=== PATIENT | male | born 1930 | race Caucasian/White ===

== ENCOUNTER 2018-09-03 07:29 | Inpatient (IN) | payer MEDICARE ==
[~2018-09-03] VITALS: Ht 175.3 cm; Wt 88.5 kg
--- NOTE | 2018-09-03 07:35 | NUR ---
ED Nurse Note: patient was rought by RA complaining of SOB, AAO x 4, skin is dry warm to touch and intact, patient was placed in gown and connected to the monitor.Respiration is even, nonlabored. spous at the bed side
[2018-09-03] MEDS ORDERED: FLOMAX0.4 MG ORAL (07:39)
[2018-09-03] MEDS ORDERED: FUROSEMIDE20 M1 ORAL (07:39)
[2018-09-03] MEDS ORDERED: PROSCAR5 MG ORAL (07:39)
[2018-09-03] MEDS ORDERED: COLACE100 MG ORAL (07:39)
[2018-09-03] MEDS ORDERED: LOSARTAN POTASS50 MG ORAL (07:39)
[2018-09-03] MEDS ORDERED: ZOLPIDEM TARTRAT5 MG ORAL (07:39)
[2018-09-03] MEDS ORDERED: EPLERENONE25 MG PO ×2 (07:39→11:48)
[2018-09-03] MEDS ORDERED: WARFARIN SODIUM4 MG ORAL (07:39)
[2018-09-03] MEDS ORDERED: GABAPENTIN300 MG ORAL (07:39)
[2018-09-03] MEDS ORDERED: SYNTHROID150 MCG ORAL (07:39)
[2018-09-03] MEDS ORDERED: SENNA8.6 M2 PO ×2 (07:39→11:47)
[2018-09-03] MEDS ORDERED: PANTOPRAZOLE SO40 MG ORAL (07:39)
[2018-09-03] MEDS ORDERED: CARVEDILOL3.125 MG ORAL (07:39)
[2018-09-03 08:20] LABS: BASOPHILS % (AUTO) 0.2 % (0.0-2.0); EOSINOPHILS % (AUTO) 0.8 % (0.0-3.0); HEMATOCRIT 45.4 % (42.0-52.0); HEMOGLOBIN 14.6 G/DL (14.2-18.0); LYMPHOCYTES % (AUTO) 10.5 % (20.0-45.0); MEAN CORPUSCULAR VOLUME 89 FL (80-99); MONOCYTES % (AUTO) 6.3 % (1.0-10.0); NEUTROPHILS % (AUTO) 82.2 % (45.0-75.0); PLATELET COUNT 246 K/UL (150-450); RED CELL DISTRIBUTION WIDTH 14.9 % (11.6-14.8); WHITE BLOOD COUNT 11.4 K/UL (4.8-10.8)
[2018-09-03 08:26] LABS: INR 2.4 (0.9-1.1)
[2018-09-03 08:27] LABS: ANION GAP 8 mmol/L (5-15); BLOOD UREA NITROGEN 14 mg/dL (7-18); CALCIUM 8.7 MG/DL (8.5-10.1); CARBON DIOXIDE 29 MMOL/L (21-32); CHLORIDE 100 MMOL/L (98-107); CREATININE 0.8 MG/DL (0.55-1.30); POTASSIUM 3.4 MMOL/L (3.5-5.1); SODIUM 137 MMOL/L (136-145)
[2018-09-03 08:43] LABS: ALANINE AMINOTRANSFERASE 10 U/L (12-78); ALBUMIN 3.6 G/DL (3.4-5.0); ALBUMIN/GLOBULIN RATIO 0.9 (1.0-2.7); ALKALINE PHOSPHATASE 72 U/L (46-116); ASPARTATE AMINO TRANSFERASE 16 U/L (15-37); BILIRUBIN,TOTAL 1.3 MG/DL (0.2-1.0); CKMB 2.7 NG/ML (0.0-3.6); CREATINE KINASE 43 U/L (26-308)
[2018-09-03 08:44] LABS: BILIRUBIN,DIRECT 0.3 MG/DL (0.0-0.3)
[2018-09-03 08:47] VITALS: BP 185/75
--- NOTE | 2018-09-03 09:05 | NUR ---
[facility] Nurse Note: patient was transfered to tele unit, VSS, patient AAOx 4, all belongings were given to the patient'
[2018-09-03 10:26] VITALS: BP 176/105
--- NOTE | 2018-09-03 11:30 | NUR ---
NURSE NOTES: received patient report from rosalie thompson. patient came in via gurney. cardiac monior initiated. vss taken and recorded. under the care of dr beatty.patient came in with family members. med recon done in ER. patient and family member were oriented to the room. will continue to monitor.
--- NOTE | 2018-09-03 11:33 | History and Physical ---
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 He also reports cough productive of white sputum during this time along with mild ankle edema. Social History: No alcohol or tobacco Family History: No premature CAD, stroke Allergies: Coded Allergies: PENICILLINS (Verified Allergy, Unknown, 09/03/18) Uncoded Allergies: ARYTHROMYCIN (Allergy, Unknown, 09/03/18) Medication History Scheduled Carvedilol* (Carvedilol*), 3.125 MG ORAL EVERY 12 HOURS, (Reported) Docusate Sodium* (Colace*), 100 MG ORAL DAILY, (Reported) Eplerenone (Eplerenone), 25 MG PO THREE TIMES A DAY, (Reported) Eplerenone (Eplerenone), 25 MG PO TID, (Reported) Finasteride* (Proscar*), 5 MG ORAL DAILY, (Reported) Furosemide* (Lasix*), 10 MG ORAL DAILY, (Reported) Gabapentin* (Gabapentin*), 300 MG ORAL TWICE A DAY, (Reported) Levothyroxine Sodium* (Synthroid*), 150 MCG ORAL DAILY, (Reported) Losartan Potassium* (Losartan Potassium*), 50 MG ORAL DAILY, (Reported) Pantoprazole* (Pantoprazole*), 40 MG ORAL EVERY 12 HOURS, (Reported) Tamsulosin HCl (Flomax), 0.4 MG ORAL DAILY, (Reported) Warfarin Sod* (Warfarin Sod*), 4 MG ORAL DAILY, (Reported) Scheduled PRN Zolpidem Tartrate* (Zolpidem Tartrate*), 5 MG ORAL BEDTIME PRN for Insomnia, ( Reported) Miscellaneous Medications Sennosides (Senna), 8.6 MG PO, (Reported) Sennosides (Senna), 8.6 MG PO, (Reported) Patient History Healthcare decision maker Resuscitation status Advanced Directive on File Review of Systems Constitutional: Denies: chills, sweats, fever Eye: Denies: eye pain, blurred vision ENT: Denies: ear pain Respiratory: Reports: cough, orthopnea, shortness of breath; Denies: wheezing Cardiovascular: Reports: edema; Denies: chest pain Gastrointestinal: Denies: abdominal pain, constipation Genitourinary: Denies: discharge, dysuria Musculoskeletal: Denies: back pain, gout, joint pain Skin: Denies: rash, change in color Neurological: Denies: headache, numbness Endocrine: Denies: excessive sweating Hematologic/Lymphatic: Denies: anemia, blood clots Physical Exam General Appearance: no apparent distress, alert HEENT: normocephalic, atraumatic Neck: non-tender, normal alignment, supple Respiratory/Chest: chest wall non-tender, lungs clear, normal breath sounds, no respiratory distress, no accessory muscle use Cardiovascular/Chest: normal peripheral pulses, normal rate Abdomen: normal bowel sounds, non tender Extremities: trace edema Skin Exam: normal pigmentation, warm/dry 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, no motor/sensory deficits, alert, oriented x 3, responsive Last 24 Hour Vital Signs Date Time Temp Pulse Resp B/P (MAP) Pulse Ox O2 Delivery O2 Flow Rate FiO2 09/03/18 10:26 98.0 68 20 176/105 98 Nasal Cannula 2.0 09/03/18 08:47 64 16 Nasal Cannula 2.0 100 09/03/18 08:47 98.0 62 20 185/75 100 Nasal Cannula 2.0 09/03/18 07:22 97.5 85 23 178/131 95 Nasal Cannula 4.0 Laboratory Tests Test 09/03/18 07:48 White Blood Count 11.4 K/UL (4.8-10.8) H Red Blood Count 5.10 M/UL (4.70-6.10) Hemoglobin 14.6 G/DL (14.2-18.0) Hematocrit 45.4 % (42.0-52.0) Mean Corpuscular Volume 89 FL (80-99) Mean Corpuscular Hemoglobin 28.6 PG (27.0-31.0) Mean Corpuscular Hemoglobin Concent 32.1 G/DL (32.0-36.0) Red Cell Distribution Width 14.9 % (11.6-14.8) H Platelet Count 246 K/UL (150-450) Mean Platelet Volume 6.7 FL (6.5-10.1) Neutrophils (%) (Auto) 82.2 % (45.0-75.0) H Lymphocytes (%) (Auto) 10.5 % (20.0-45.0) L Monocytes (%) (Auto) 6.3 % (1.0-10.0) Eosinophils (%) (Auto) 0.8 % (0.0-3.0) Basophils (%) (Auto) 0.2 % (0.0-2.0) Prothrombin Time 24.5 SEC (9.30-11.50) H Prothromb Time International Ratio 2.4 (0.9-1.1) H Activated Partial Thromboplast Time 43 SEC (23-33) H Sodium Level 137 MMOL/L (136-145) Potassium Level 3.4 MMOL/L (3.5-5.1) L Chloride Level 100 MMOL/L (98-107) Carbon Dioxide Level 29 MMOL/L (21-32) Anion Gap 8 mmol/L (5-15) Blood Urea Nitrogen 14 mg/dL (7-18) Creatinine 0.8 MG/DL (0.55-1.30) Estimat Glomerular Filtration Rate mL/min (>60) Glucose Level 130 MG/DL (74-106) H Calcium Level 8.7 MG/DL (8.5-10.1) Total Bilirubin 1.3 MG/DL (0.2-1.0) H Direct Bilirubin 0.3 MG/DL (0.0-0.3) Aspartate Amino Transf (AST/SGOT) 16 U/L (15-37) Alanine Aminotransferase (ALT/SGPT) 10 U/L (12-78) L Alkaline Phosphatase 72 U/L (46-116) Total Creatine Kinase 43 U/L (26-308) Creatine Kinase MB 2.7 NG/ML (0.0-3.6) Creatine Kinase MB Relative Index 6.2 Troponin I 0.000 ng/mL (0.000-0.056) Pro-B-Type Natriuretic Peptide 1764 pg/mL (0-125) H Total Protein 7.7 G/DL (6.4-8.2) Albumin 3.6 G/DL (3.4-5.0) Globulin 4.1 g/dL Albumin/Globulin Ratio 0.9 (1.0-2.7) L Height (Feet): 5 Height (Inches): 9.00 Weight (Pounds): 180 Medications Current Medications Medications (Trade) Dose Ordered Sig/Mario Route PRN Reason Start Time Stop Time Status Last Admin Dose Admin Bisacodyl (Dulcolax) 10 mg HSPRN PRN RECTAL Constipation 09/03/18 11:00 10/03/18 10:59 Dextrose (Dextrose 50%) 25 ml Q30M PRN IV Hypoglycemia 09/03/18 11:00 10/03/18 10:59 Dextrose (Dextrose 50%) 50 ml Q30M PRN IV Hypoglycemia 09/03/18 11:00 10/03/18 10:59 Ondansetron HCl (Zofran) 4 mg Q6H PRN IVP Nausea & Vomiting 09/03/18 11:00 10/03/18 10:59 Assessment/Plan Assessment/Plan #Acute on chronic diastolic CHF #Coronary artery disease #Permanent atrial fibrillation s/p PPM for SSS #HTN #Hyperlipidemia -admit to telemetry unit -Lasix 40mg IV bid -hold eplerenone -Monitor daily weights and I&O -Continue Coreg, losartan -continue warfarin and monitor INR -cardiology consult Dr. Faustin #Thyroid cancer #CXR with right base destructive lung mass #Acquired hypothyroidism -continue levothyroxine -spoke with patient's Oncologist Dr. Dinesh Miranda who will look into this #Polyneuropathy -continue gabapentin #BPH -continue Proscar and Flomax VTE PPx warfarin full code I spent 70 minutes on this patient's case, and 35 minutes was dedicated to counseling and/or care coordination. Oscar Chin MD Sep 03, 2018 11:33
[2018-09-03] MEDS ORDERED: Zolpidem 5mg tab ORAL PRN (11:45)
[2018-09-03] MEDS ORDERED: Sennosides 8.6mg tab ORAL PRN ×2 (11:45→12:15)
[2018-09-03 12:30] VITALS: BP 157/92
[2018-09-03] MEDS: Losartan 50mg tab ORAL SCH (12:35)
--- NOTE | 2018-09-03 12:47 | Diagnostic Imaging Report ---
Indication: Dyspnea Comparison: None A single view chest radiograph was obtained. Findings: There is a destructive chest wall mass at the right costophrenic angle which has a convex margin along the lung. In addition there is a lytic destruction of part of the seventh rib. Findings a suspicious for malignant neoplasm. Further evaluation with CT is recommended. This should be done with contrast material. There are surgical clips at the thoracic inlet. The heart is enlarged. There is mild interstitial edema present and suspected. There is a pacemaker on the left. IMPRESSION: Destructive chest wall mass at the right lung base suspicious for malignant neoplasm. Further evaluation with contrast CT is recommended. Suspected mild CHF. Findings discussed with Dr. Newman in the emergency department. Patient was admitted to the hospital.
--- NOTE | 2018-09-03 14:07 | Cardiac Electrophysiology PN ---
Subjective Subjective [id number] Objective Last 24 Hour Vital Signs Date Time Temp Pulse Resp B/P (MAP) Pulse Ox O2 Delivery O2 Flow Rate FiO2 09/03/18 12:36 80 172/110 09/03/18 12:35 172/110 09/03/18 12:30 98.1 88 21 157/92 (113) 92 09/03/18 12:05 Room Air 2.0 09/03/18 10:26 98.0 68 20 176/105 98 Nasal Cannula 2.0 09/03/18 09:00 98.0 72 18 135/80 98 Nasal Cannula 2.0 09/03/18 08:47 64 16 Nasal Cannula 2.0 100 09/03/18 08:47 98.0 62 20 185/75 100 Nasal Cannula 2.0 09/03/18 07:22 97.5 85 23 178/131 95 Nasal Cannula 4.0 Laboratory Tests Test 09/03/18 07:48 White Blood Count 11.4 K/UL (4.8-10.8) H Red Blood Count 5.10 M/UL (4.70-6.10) Hemoglobin 14.6 G/DL (14.2-18.0) Hematocrit 45.4 % (42.0-52.0) Mean Corpuscular Volume 89 FL (80-99) Mean Corpuscular Hemoglobin 28.6 PG (27.0-31.0) Mean Corpuscular Hemoglobin Concent 32.1 G/DL (32.0-36.0) Red Cell Distribution Width 14.9 % (11.6-14.8) H Platelet Count 246 K/UL (150-450) Mean Platelet Volume 6.7 FL (6.5-10.1) Neutrophils (%) (Auto) 82.2 % (45.0-75.0) H Lymphocytes (%) (Auto) 10.5 % (20.0-45.0) L Monocytes (%) (Auto) 6.3 % (1.0-10.0) Eosinophils (%) (Auto) 0.8 % (0.0-3.0) Basophils (%) (Auto) 0.2 % (0.0-2.0) Prothrombin Time 24.5 SEC (9.30-11.50) H Prothromb Time International Ratio 2.4 (0.9-1.1) H Activated Partial Thromboplast Time 43 SEC (23-33) H Sodium Level 137 MMOL/L (136-145) Potassium Level 3.4 MMOL/L (3.5-5.1) L Chloride Level 100 MMOL/L (98-107) Carbon Dioxide Level 29 MMOL/L (21-32) Anion Gap 8 mmol/L (5-15) Blood Urea Nitrogen 14 mg/dL (7-18) Creatinine 0.8 MG/DL (0.55-1.30) Estimat Glomerular Filtration Rate mL/min (>60) Glucose Level 130 MG/DL (74-106) H Calcium Level 8.7 MG/DL (8.5-10.1) Total Bilirubin 1.3 MG/DL (0.2-1.0) H Direct Bilirubin 0.3 MG/DL (0.0-0.3) Aspartate Amino Transf (AST/SGOT) 16 U/L (15-37) Alanine Aminotransferase (ALT/SGPT) 10 U/L (12-78) L Alkaline Phosphatase 72 U/L (46-116) Total Creatine Kinase 43 U/L (26-308) Creatine Kinase MB 2.7 NG/ML (0.0-3.6) Creatine Kinase MB Relative Index 6.2 Troponin I 0.000 ng/mL (0.000-0.056) Pro-B-Type Natriuretic Peptide 1764 pg/mL (0-125) H Total Protein 7.7 G/DL (6.4-8.2) Albumin 3.6 G/DL (3.4-5.0) Globulin 4.1 g/dL Albumin/Globulin Ratio 0.9 (1.0-2.7) Jere Pickett MD Sep 03, 2018 14:07
--- NOTE | 2018-09-03 16:13 | Emergency Room Report ---
History of Present Illness General Chief Complaint: Dyspnea/Respdistress Source: Patient Present Illness HPI 88-year-old male presents ED for shortness of breath. Brought in by EMS. States he's been having increased short of breath for the last few weeks. History of CHF. Notes some leg swelling. Denies chest pain. Denies fevers or chills. Denies cough. No other aggravating relieving factors. Denies any other associated symptoms Allergies: Coded Allergies: PENICILLINS (Verified Allergy, Unknown, 09/03/18) Uncoded Allergies: ARYTHROMYCIN (Allergy, Unknown, 09/03/18) Patient History Past Medical History: HTN, CHF Past Surgical History: pacemaker Pertinent Family History: none Social History: Denies: smoking, alcohol use, drug use Immunizations: UTD Reviewed Nursing Documentation: PMH: Agreed; PSxH: Agreed Nursing Documentation-PMH Past Medical History: No History, Except For Hx Cardiac Problems: Yes - CHF Hx Hypertension: Yes Hx Pacemaker: Yes Hx Cancer: Yes - Thyroid Hx Neurological Problems: No Review of Systems All Other Systems: negative except mentioned in HPI Physical Exam Vital Signs Date Time Temp Pulse Resp B/P (MAP) Pulse Ox O2 Delivery O2 Flow Rate FiO2 09/03/18 07:22 97.5 85 23 178/131 95 Nasal Cannula 4.0 09/03/18 08:47 100 Sp02 EP Interpretation: reviewed, normal General Appearance: no apparent distress, alert, GCS 15, non-toxic Head: normocephalic Eyes: bilateral eye normal inspection, bilateral eye PERRL ENT: normal ENT inspection Neck: normal inspection Respiratory: chest non-tender, lungs clear, normal breath sounds, speaking full sentences Cardiovascular #1: regular rate, rhythm, no edema Gastrointestinal: normal bowel sounds, non tender, soft, non-distended, no guarding, no rebound Rectal: deferred Genitourinary: no CVA tenderness Musculoskeletal: swelling - 1+ pitting edema Neurologic: alert, oriented x3, responsive, motor strength/tone normal, sensory intact, speech normal Psychiatric: normal inspection Skin: normal inspection Lymphatic: normal inspection Medical Decision Making Diagnostic Impression: Primary Impression: CHF (congestive heart failure) Qualified Codes: I50.9 - Heart failure, unspecified Additional Impressions: A-fib Qualified Codes: I48.91 - Unspecified atrial fibrillation Lung neoplasm ER Course Hospital Course 88-year-old male presents ED complaining of shortness of breath, leg swelling Differential diagnoses include: WA/unstable angina, contusion, muscle strain, PTX, rib fracture Clinical course Patient placed on stretcher. on air brake adjuster. After initial history and physical I ordered labs, EKG, chest x-ray labs reviewed- no leukocytosis, hemoglobin/hematocrit stable, electroltes ok, troponins negative, BNP elevated EKG - A. fib with PVCs, no acute ischemic changes interpreted by me Chest [id number] megaly, pacemaker, effusion in both lungs, concern for neoplasm and right lower lung Lasix given. Case discussed with Dr. Cason and he agreed to accept the patient to his service for further care and support I. I feel this is a highly complex case requiring extensive working including EKG/Rhythm strip, Xray/CT/US, Blood/urine lab work, repeat exams while in ED, and administration of strong opiates/narcotics for pain control, admission to hospital or close patient follow up. Diagnosis - CHF exacerbation, lung neoplasm, A. fib admitted to telemetry in serious condition Labs Test 09/03/18 07:48 White Blood Count 11.4 K/UL (4.8-10.8) Red Blood Count 5.10 M/UL (4.70-6.10) Hemoglobin 14.6 G/DL (14.2-18.0) Hematocrit 45.4 % (42.0-52.0) Mean Corpuscular Volume 89 FL (80-99) Mean Corpuscular Hemoglobin 28.6 PG (27.0-31.0) Mean Corpuscular Hemoglobin Concent 32.1 G/DL (32.0-36.0) Red Cell Distribution Width 14.9 % (11.6-14.8) Platelet Count 246 K/UL (150-450) Mean Platelet Volume 6.7 FL (6.5-10.1) Neutrophils (%) (Auto) 82.2 % (45.0-75.0) Lymphocytes (%) (Auto) 10.5 % (20.0-45.0) Monocytes (%) (Auto) 6.3 % (1.0-10.0) Eosinophils (%) (Auto) 0.8 % (0.0-3.0) Basophils (%) (Auto) 0.2 % (0.0-2.0) Prothrombin Time 24.5 SEC (9.30-11.50) Prothromb Time International Ratio 2.4 (0.9-1.1) Activated Partial Thromboplast Time 43 SEC (23-33) Sodium Level 137 MMOL/L (136-145) Potassium Level 3.4 MMOL/L (3.5-5.1) Chloride Level 100 MMOL/L (98-107) Carbon Dioxide Level 29 MMOL/L (21-32) Anion Gap 8 mmol/L (5-15) Blood Urea Nitrogen 14 mg/dL (7-18) Creatinine 0.8 MG/DL (0.55-1.30) Estimat Glomerular Filtration Rate mL/min (>60) Glucose Level 130 MG/DL (74-106) Calcium Level 8.7 MG/DL (8.5-10.1) Total Bilirubin 1.3 MG/DL (0.2-1.0) Direct Bilirubin 0.3 MG/DL (0.0-0.3) Aspartate Amino Transf (AST/SGOT) 16 U/L (15-37) Alanine Aminotransferase (ALT/SGPT) 10 U/L (12-78) Alkaline Phosphatase 72 U/L (46-116) Total Creatine Kinase 43 U/L (26-308) Creatine Kinase MB 2.7 NG/ML (0.0-3.6) Creatine Kinase MB Relative Index 6.2 Troponin I 0.000 ng/mL (0.000-0.056) Pro-B-Type Natriuretic Peptide 1764 pg/mL (0-125) Total Protein 7.7 G/DL (6.4-8.2) Albumin 3.6 G/DL (3.4-5.0) Globulin 4.1 g/dL Albumin/Globulin Ratio 0.9 (1.0-2.7) EKG Diagnostic Results Rate: normal Rhythm: other - afib ST Segments: no acute changes ASA given to the pt in ED: No Rhythm Strip Diag. Results EP Interpretation: yes Rhythm: no ectopy Chest X-Ray Diagnostic Results Chest X-Ray Diagnostic Results : Chest X-Ray Ordered: Yes # of Views/Limited/Complete: 1 View Indication: Shortness of Breath EP Interpretation: Yes Interpretation: no pneumothorax, other - pacemaker. effusion bilateal lung bases. destructive mass on right lower lung Impression: Other - chf/neoplasm Electronically Signed by: Electronically signed by Ankit Newman MD Last Vital Signs Date Time Temp Pulse Resp B/P (MAP) Pulse Ox O2 Delivery O2 Flow Rate FiO2 09/03/18 12:36 80 172/110 09/03/18 12:30 98.1 21 92 09/03/18 12:05 Room Air 2.0 09/03/18 08:47 100 Status: improved Disposition: ADMITTED INPATIENT Condition: Serious Referrals: NON PHYSICIAN (PCP) Ankit Newman MD Sep 03, 2018 16:13
--- NOTE | 2018-09-03 17:14 | NUR ---
2-D ECHO RESULT : EJECTION FRACTION ESTIMATED 55% MILD LEFT ATRIAL ENLARGEMENT . AORTIC VALVE CALCIFICATION WITH DECREASED CUSP EXCURSION .
[2018-09-03] MEDS: Warfarin Sodium 4mg ORAL SCH ×2 (17:46→17:49)
[2018-09-03] MEDS ORDERED: Sennosides 8.6mg tab ORAL SCH ×2 (18:00)
[2018-09-03] MEDS: Docusate 100mg cap ORAL SCH (18:04)
--- NOTE | 2018-09-03 19:23 | NUR ---
HAND-OFF: Report given to val thompson.
[2018-09-03 20:00] VITALS: BP 165/105
--- NOTE | 2018-09-03 20:30 | Consultation ---
DATE OF CONSULTATION: 09/03/2018 CARDIOLOGY CONSULTATION CONSULTING PHYSICIAN: Jere Faustin M.D. REFERRING PHYSICIAN: Damien Barrow M.D. REASON FOR CONSULTATION: Congestive heart failure. HISTORY OF PRESENT ILLNESS: The patient is an 88-year-old gentleman with history of hypertension, chronic atrial fibrillation, status post Biotronik pacemaker generator change about 5 years ago, hyperlipidemia, benign prostatic hypertrophy as well as history of thyroid cancer with thyroidectomy and bilateral neck dissection, vocal cord paralysis came to the emergency room for 4 weeks of increasing shortness of breath and orthopnea, as well as bilateral lower extremity edema. The patient was admitted and a Cardiology consultation was obtained for further evaluation and management. It is of note that the patient is usually under Cardiology care of Dr. Frederick Mascorro at [facility]. REVIEW OF SYSTEMS: Review of systems was negative apart from the one that is mentioned in the history of present illness. PAST MEDICAL HISTORY: As mentioned above. MEDICATIONS: Include Coreg, , Lasix, Synthroid, losartan, Flomax, Coumadin, and Protonix. FAMILY HISTORY: Noncontributory. SOCIAL HISTORY: He lives at home. Does not smoke or drink alcohol. PHYSICAL EXAMINATION: VITAL SIGNS: Show blood pressure of 170/110, pulse 80, respirations 18, and temperature 98.2. HEAD AND NECK: Shows positive JVD. LUNGS: Decreased breath sounds. CARDIOVASCULAR: Shows irregular S1 and S2 with no gallop and soft systolic murmur. Pacemaker in the left subclavian. ABDOMEN: Soft. EXTREMITIES: A 1+ pitting edema. LABORATORY DATA: Labs show white count 11.4, hematocrit of 14.4, hematocrit of 45.5, and platelet count of 246,000. Sodium 137, potassium 3.4, BUN of 14, creatinine 0.8, and glucose of 138. BNP 1764. ASSESSMENT/PLAN: 1. Exacerbation of congestive heart failure. We will repeat the echocardiogram. BNP is more than 1700. Continue Lasix 40 mg IV b.i.d. until we get further echocardiographic report. In the meantime, continue the patient on Coreg 3.125 mg b.i.d. as well as losartan 50 mg daily. 2. Atrial fibrillation. The rate is currently controlled. He is on anticoagulation with Coumadin with a therapeutic INR. 3. Status post Biotronik pacemaker. We will try to interrogate the pacemaker for further evaluation. 4. History of thyroid cancer, status post thyroid surgery. 5. Hypertension. Continue current heart failure therapy with Lasix, losartan, and Coreg. Thank you very much for allowing me to participate in the care of this patient. Please do not hesitate to contact me for any questions regarding my evaluation. Jere Faustin M.D. DR: SHANTAL JOB#: [id number] CC:
[2018-09-03] MEDS: Tamsulosin 0.4mg cap ORAL SCH (20:54)
[2018-09-03] MEDS: Zolpidem 5mg tab ORAL PRN (20:54)
[2018-09-04] VITALS: BP 144/85
--- NOTE | 2018-09-04 07:45 | NUR ---
NURSE NOTES: Recvd pt. Pt is awake and alert AOX4. Pt is on NC @ 2l I
--- NOTE | 2018-09-04 07:46 | NUR ---
HAND-OFF: Report given to Lien CROSS.
[2018-09-04 07:50] LABS: HEMATOCRIT 45.3 % (42.0-52.0); HEMOGLOBIN 14.6 G/DL (14.2-18.0); MEAN CORPUSCULAR VOLUME 88 FL (80-99); PLATELET COUNT 233 K/UL (150-450); RED BLOOD COUNT 5.15 M/UL (4.70-6.10); RED CELL DISTRIBUTION WIDTH 14.3 % (11.6-14.8); WHITE BLOOD COUNT 18.4 K/UL (4.8-10.8)
--- NOTE | 2018-09-04 07:50 | NUR ---
NURSE NOTES: received patient report from val thompson. patient is on bed asleep. not in acute distress. comfortable. aox4. able to verbalize needs. skin is intact. on daily weight for chf.bed is low and locked for safety.
[2018-09-04 08:00] VITALS: BP 146/93
[2018-09-04 08:20] LABS: ANION GAP 8 mmol/L (5-15); BLOOD UREA NITROGEN 14 mg/dL (7-18); CALCIUM 8.4 MG/DL (8.5-10.1); CARBON DIOXIDE 30 MMOL/L (21-32); CHLORIDE 96 MMOL/L (98-107); CREATININE 0.8 MG/DL (0.55-1.30); POTASSIUM 3.1 MMOL/L (3.5-5.1); SODIUM 134 MMOL/L (136-145)
[2018-09-04] MEDS: Losartan 50mg tab ORAL SCH (08:43)
[2018-09-04] MEDS: Sennosides 8.6mg tab ORAL SCH ×2 (08:43→17:31)
[2018-09-04] MEDS: Docusate 100mg cap ORAL SCH (08:44)
[2018-09-04] MEDS ORDERED: Losartan 50mg tab ORAL SCH (09:00)
[2018-09-04] MEDS ORDERED: Docusate 100mg cap ORAL SCH ×2 (09:00)
--- NOTE | 2018-09-04 11:38 | Consultation ---
History of Present Illness General Date patient seen: Sep 04, 2018 Time patient seen: 11:24 Chief Complaint: Dyspnea/Respdistress Reason for Consultation: Shortness of breath, possible lung mass Present Illness HPI 88 y/o male w/ hx of chronic diastolic CHF, CAD, chronic afib, vocal cord paralysis, papillary thyroid cancer with progressive increase in shortness of breath over the last month. No fever or chills. Cough with brown sputum. Noted some chest discomfort. Did have orthopnea, most symptoms at night when laying flat. Legs were swollen. Takes a half a furosemide 20 daily. Has not been watching salt intake. Allergies: Coded Allergies: AZITHROMYCIN (Verified Allergy, Unknown, 09/04/18) PENICILLINS (Verified Allergy, Unknown, 09/03/18) Medication History Scheduled Carvedilol* (Carvedilol*), 3.125 MG ORAL EVERY 12 HOURS, (Reported) Docusate Sodium* (Colace*), 100 MG ORAL DAILY, (Reported) Eplerenone (Eplerenone), 25 MG PO THREE TIMES A DAY, (Reported) Eplerenone (Eplerenone), 25 MG PO TID, (Reported) Finasteride* (Proscar*), 5 MG ORAL DAILY, (Reported) Furosemide* (Lasix*), 10 MG ORAL DAILY, (Reported) Gabapentin* (Gabapentin*), 300 MG ORAL TWICE A DAY, (Reported) Levothyroxine Sodium* (Synthroid*), 150 MCG ORAL DAILY, (Reported) Losartan Potassium* (Losartan Potassium*), 50 MG ORAL DAILY, (Reported) Pantoprazole* (Pantoprazole*), 40 MG ORAL EVERY 12 HOURS, (Reported) Tamsulosin HCl (Flomax), 0.4 MG ORAL DAILY, (Reported) Warfarin Sod* (Warfarin Sod*), 4 MG ORAL DAILY, (Reported) Scheduled PRN Zolpidem Tartrate* (Zolpidem Tartrate*), 5 MG ORAL BEDTIME PRN for Insomnia, ( Reported) Miscellaneous Medications Sennosides (Senna), 8.6 MG PO, (Reported) Sennosides (Senna), 8.6 MG PO, (Reported) Patient History History Provided By: Patient, Family Member, Medical Record Healthcare decision maker BEBETO TAYLOR Resuscitation status Advanced Directive on File Yes Past Medical/Surgical History Past Medical/Surgical History: (1) A-fib (2) CHF (congestive heart failure) Review of Systems Constitutional: Reports: no symptoms Eye: Reports: no symptoms ENT: Reports: no symptoms Respiratory: Reports: cough, orthopnea, shortness of breath, wheezing, sputum Cardiovascular: Reports: chest pain Gastrointestinal: Reports: no symptoms Musculoskeletal: Reports: no symptoms Skin: Reports: no symptoms Psychiatric: Reports: no symptoms Neurological: Reports: no symptoms Endocrine: Reports: no symptoms Hematologic/Lymphatic: Reports: no symptoms Physical Exam General Appearance: WD/WN, no apparent distress, alert HEENT: normocephalic, atraumatic, anicteric, mucous membranes moist, PERRL Neck: non-tender Respiratory/Chest: other - Diminished b/l bases Cardiovascular/Chest: normal rate Abdomen: normal bowel sounds, non tender, soft Extremities: no edema Neurologic: oriented x 3, responsive, normal mood/affect Last 24 Hour Vital Signs Date Time Temp Pulse Resp B/P (MAP) Pulse Ox O2 Delivery O2 Flow Rate FiO2 09/04/18 09:00 Nasal Cannula 2.0 09/04/18 08:43 146/93 09/04/18 08:43 89 146/93 09/04/18 08:00 97.9 89 18 146/93 (110) 97 09/04/18 08:00 76 09/04/18 04:00 73 09/04/18 00:00 84 09/04/18 00:00 98.1 88 18 144/85 (104) 96 09/03/18 21:00 Nasal Cannula 2.0 09/03/18 20:54 65 165/105 09/03/18 20:00 65 09/03/18 20:00 97.4 75 18 165/105 (125) 94 09/03/18 15:46 67 09/03/18 12:36 80 172/110 09/03/18 12:35 172/110 09/03/18 12:30 98.1 88 21 157/92 (113) 92 09/03/18 12:05 Room Air 2.0 Intake and Output 09/03/18 09/04/18 19:00 07:00 Intake Total 200 ml Output Total 350 ml Balance -150 ml Intake Oral 200 ml Output Urine Total 350 ml # Voids 4 Laboratory Tests Test 09/04/18 06:30 White Blood Count 18.4 K/UL (4.8-10.8) #H Red Blood Count 5.15 M/UL (4.70-6.10) Hemoglobin 14.6 G/DL (14.2-18.0) Hematocrit 45.3 % (42.0-52.0) Mean Corpuscular Volume 88 FL (80-99) Mean Corpuscular Hemoglobin 28.4 PG (27.0-31.0) Mean Corpuscular Hemoglobin Concent 32.3 G/DL (32.0-36.0) Red Cell Distribution Width 14.3 % (11.6-14.8) Platelet Count 233 K/UL (150-450) Mean Platelet Volume 6.6 FL (6.5-10.1) Neutrophils (%) (Auto) % (45.0-75.0) Lymphocytes (%) (Auto) % (20.0-45.0) Monocytes (%) (Auto) % (1.0-10.0) Eosinophils (%) (Auto) % (0.0-3.0) Basophils (%) (Auto) % (0.0-2.0) Differential Total Cells Counted 100 Neutrophils % (Manual) 88 % (45-75) H Lymphocytes % (Manual) 4 % (20-45) L Monocytes % (Manual) 8 % (1-10) Eosinophils % (Manual) 0 % (0-3) Basophils % (Manual) 0 % (0-2) Band Neutrophils 0 % (0-8) Platelet Estimate Adequate Platelet Morphology Normal Red Blood Cell Morphology Normal Prothrombin Time 29.4 SEC (9.30-11.50) H Prothromb Time International Ratio 3.0 (0.9-1.1) H Sodium Level 134 MMOL/L (136-145) L Potassium Level 3.1 MMOL/L (3.5-5.1) L Chloride Level 96 MMOL/L (98-107) L Carbon Dioxide Level 30 MMOL/L (21-32) Anion Gap 8 mmol/L (5-15) Blood Urea Nitrogen 14 mg/dL (7-18) Creatinine 0.8 MG/DL (0.55-1.30) Estimat Glomerular Filtration Rate mL/min (>60) Glucose Level 141 MG/DL (74-106) H Calcium Level 8.4 MG/DL (8.5-10.1) L Troponin I 0.011 ng/mL (0.000-0.056) Thyroid Stimulating Hormone (TSH) 0.768 uiU/mL (0.358-3.740) Free Thyroxine 1.58 NG/DL (0.76-1.46) H Height (Feet): 5 Height (Inches): 9.00 Weight (Pounds): 180 Medications Current Medications Medications (Trade) Dose Ordered Sig/Mario Route PRN Reason Start Time Stop Time Status Last Admin Dose Admin Bisacodyl (Dulcolax) 10 mg HSPRN PRN RECTAL Constipation 09/03/18 12:15 10/03/18 10:59 Carvedilol (Coreg) 3.125 mg EVERY 12 HOURS ORAL 09/03/18 12:15 10/03/18 12:14 09/04/18 08:43 Dextrose (Dextrose 50%) 25 ml Q30M PRN IV Hypoglycemia 09/03/18 11:00 10/03/18 10:59 Dextrose (Dextrose 50%) 50 ml Q30M PRN IV Hypoglycemia 09/03/18 11:00 10/03/18 10:59 Docusate Sodium (Colace) 100 mg DAILY ORAL 09/03/18 18:00 10/04/18 08:59 09/04/18 08:44 Finasteride (Proscar) 5 mg DAILY ORAL 09/04/18 09:00 10/04/18 08:59 09/04/18 08:43 Furosemide (Lasix) 40 mg BID IV 09/03/18 18:00 10/03/18 17:59 09/04/18 08:44 Gabapentin (Neurontin) 300 mg TWICE A DAY ORAL 09/03/18 18:00 10/03/18 17:59 09/04/18 08:43 Levothyroxine Sodium (Synthroid) 150 mcg Q24H ORAL 09/04/18 06:30 10/04/18 06:29 09/04/18 06:22 Losartan Potassium (Cozaar) 50 mg DAILY ORAL 09/03/18 12:15 10/03/18 12:14 09/04/18 08:43 Ondansetron HCl (Zofran) 4 mg Q6H PRN IVP Nausea & Vomiting 09/03/18 11:00 10/03/18 10:59 Pantoprazole (Protonix) 40 mg EVERY 12 HOURS ORAL 09/03/18 13:05 10/03/18 13:04 09/04/18 08:43 Sennosides (Senokot) 17.2 mg BID ORAL 09/04/18 09:00 10/03/18 17:59 09/04/18 08:43 Tamsulosin HCl (Flomax) 0.4 mg QHS ORAL 09/03/18 21:00 10/03/18 20:59 09/03/18 20:54 Warfarin Sodium (Coumadin per pharmacy) 1 ea DAILY MISC 09/04/18 17:00 10/04/18 16:59 Zolpidem Tartrate (Ambien) 2.5 mg BEDTIME PRN ORAL Insomnia 09/03/18 12:15 09/10/18 11:44 09/03/18 20:54 Assessment/Plan Assessment/Plan Problem List: 1. Respiratory insufficiency 2. Acute on chronic diastolic CHF 3. Leukocytosis 4. Bilateral pleural effusions 5. Possible pneumonia 6. 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 CAD 10. HTN Plan: -monitor volumes, lasix 40 mg IV bid for now, can likely taper to 20 mg bid -Monitor leukocytosis, has multiple abx allergies; will try levaquin -repeat CXR after diuresis, if still concern for lung mass may need CT chest but CXR from 06/[address] [facility] with effusion and no lung mass -swallow eval -seems to be tolerating RA -monitor and replete electrolytes Time: 60 minutes including outside record review Joel Pantoja MD Sep 04, 2018 11:38
[2018-09-04 12:00] VITALS: BP 138/85
--- NOTE | 2018-09-04 13:49 | NUR ---
NURSE NOTES:WOUND CARE NOTES:Pt presents on admission with DTPI L buttocks(L)2.5cmx (W)1.5cm.Site is fluctuant with surrounding non-blanchable erythema;an area totaling (L)7cm x (W)6.5cm. Site tender when minimally palpated. L heel boggy with non-blanchable erythema ,tender when minimally palpated. Non-blanchable erythema without fluctuance or tenderness R heel. Pt educated on wound prevention.Pt encouraged to off-lift buttocks when repositioning and encouraged to reposition frequently to sides. Recommendations:Apply Moisture Barrier Paste(Calazime/Triad) to Buttocks. Cover with Optifoam drsg. Change every 3 days and prn. Apply Cavilon Skin Barrier Bilat heels.Cover with Optifoam drsg.Change every 7 days and prn. APM/LIZ Mattress. Encourage and assist with repositioning at least every 2hours or as tolerated. Off-load heels with pillow.
[2018-09-04] MEDS: Levofloxacin 500mg tab ORAL SCH (13:53)
--- NOTE | 2018-09-04 14:10 | General Progress Note ---
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 -Pulmonology consult appreciated #Polyneuropathy -continue gabapentin #BPH -continue Proscar and Flomax VTE PPx warfarin full code I spent 45 minutes on this patient's case, and 23 minutes was dedicated to counseling and/or care coordination. Subjective Date patient seen: Sep 04, 2018 Time patient seen: 09:15 Constitutional: Denies: chills, fever HEENT: Denies: eye pain Cardiovascular: Denies: chest pain, edema, irregular heart rate Respiratory: Reports: cough, orthopnea, shortness of breath Gastrointestinal/Abdominal: Denies: abdominal pain Genitourinary: Denies: burning Neurologic/Psychiatric: Denies: anxiety Allergies: Coded Allergies: AZITHROMYCIN (Verified Allergy, Unknown, 09/04/18) PENICILLINS (Verified Allergy, Unknown, 09/03/18) Subjective Medicine follow up for acute on chronic dCHF, lung mass. Breathing slightly better today. Noted to have increased leukocytosis. Objective Last 24 Hour Vital Signs Date Time Temp Pulse Resp B/P (MAP) Pulse Ox O2 Delivery O2 Flow Rate FiO2 09/04/18 09:00 Nasal Cannula 2.0 09/04/18 08:43 146/93 09/04/18 08:43 89 146/93 09/04/18 08:00 97.9 89 18 146/93 (110) 97 09/04/18 08:00 76 09/04/18 04:00 73 09/04/18 00:00 84 09/04/18 00:00 98.1 88 18 144/85 (104) 96 09/03/18 21:00 Nasal Cannula 2.0 09/03/18 20:54 65 165/105 09/03/18 20:00 65 09/03/18 20:00 97.4 75 18 165/105 (125) 94 09/03/18 15:46 67 Intake and Output 09/03/18 09/04/18 19:00 07:00 Intake Total 200 ml Output Total 350 ml Balance -150 ml Intake Oral 200 ml Output Urine Total 350 ml # Voids 4 Laboratory Tests 09/04/18 06:30: White Blood Count 18.4#H, Red Blood Count 5.15, Hemoglobin 14.6, Hematocrit 45.3 , Mean Corpuscular Volume 88, Mean Corpuscular Hemoglobin 28.4, Mean Corpuscular Hemoglobin Concent 32.3, Red Cell Distribution Width 14.3, Platelet Count 233, Mean Platelet Volume 6.6, Neutrophils (%) (Auto) , Lymphocytes (%) ( Auto) , Monocytes (%) (Auto) , Eosinophils (%) (Auto) , Basophils (%) (Auto) , Differential Total Cells Counted 100, Neutrophils % (Manual) 88H, Lymphocytes % (Manual) 4L, Monocytes % (Manual) 8, Eosinophils % (Manual) 0, Basophils % ( Manual) 0, Band Neutrophils 0, Platelet Estimate Adequate, Platelet Morphology Normal, Red Blood Cell Morphology Normal, Prothrombin Time 29.4H, Prothromb Time International Ratio 3.0H, Sodium Level 134L, Potassium Level 3.1L, Chloride Level 96L, Carbon Dioxide Level 30, Anion Gap 8, Blood Urea Nitrogen 14 , Creatinine 0.8, Estimat Glomerular Filtration Rate , Glucose Level 141H, Calcium Level 8.4L, Troponin I 0.011, Thyroid Stimulating Hormone (TSH) 0.768, Free Thyroxine 1.58H Height (Feet): 5 Height (Inches): 9.00 Weight (Pounds): 180 General Appearance: no apparent distress, alert EENT: PERRL/EOMI, normal ENT inspection Neck: normal alignment, supple Cardiovascular: normal peripheral pulses, normal rate, regular rhythm Respiratory/Chest: chest wall non-tender, lungs clear, normal breath sounds, no respiratory distress Abdomen: normal bowel sounds, non tender, soft Oscar Chin MD Sep 04, 2018 14:10
--- NOTE | 2018-09-04 15:06 | NUR ---
ST NOTE: BEDSIDE SWALLOW EVAL RECEIVED BEDSIDE SWALLOW EVAL ORDER CHART REVIEWED PRIOR THE EVALUATION PT IS A 88-YEAR-OLD MALE WHO WAS ADMITTED DUE TO SHORTNESS OF BREATH AND CHF. DYSPHAGIA RISK FACTORS: PT HAS H/O PAPILLARY THYROID CA, S/P THYROIDECTOMY WITH BILATERAL NECK DISSECTION(PER PT, IT WAS 3 YRS AGO), PT ALSO REPORTED THAT VOCAL FOLD(S) PARALYSIS. PER PT, SEEN BY ENT AFTER THE SURGERY AND THEY DID SOME PROCEDURES(?BOTOX, PT WAS UNABLE TO RECALL), PT ALSO REPORT THAT HE HAD A MODIFIED BARIUM SWALLOW STUDY A YEAR AGO AT [facility] AND ALSO RECEIVED SPEECH/SWALLOW THERAPY. PER CXR: DESTRUCTIVE CHEST WALL MASS AT THE R LUNG BASE SUSPICIOUS FOR MALIGNANT NEOPLASM. CURRENT STATUS: PT SEEN AT BEDSIDE IN AM. ALERT, COOPERATIVE, FOLLOWS DIRECTIONS. PER PT HAS NOT BEEN EATING WELL, SOMETIMES COUGH DURING MEALS, AND NO APPETITE. PT REPORTED THAT REQUIRED MORE TIME TO MASTICATED SOLID FOOD. MILD HOARSNESS WAS NOTED. GIVEN PO TRIALS: THIN LIQUIDS(CUP-SELF), PUREE(TSP) AND PT DECLINED THE MASTICATED SOILD FOOD AT THIS TIME. INITIAL IMPRESSION: PROBABLE MODERATE TO SEVERE OR WORSENED PHARYNGEAL DYSPHAGIA FUNCTIONAL LABIAL AND LINGUAL MOVEMENT AND STRENGTH MILD INCREASED ORAL TRANSIT TIME AND OROPHARYNGEAL TRANSIT TIME, FAIR LARYNGEAL ELEVATION, NO OVERT S/S OF ASPIRATION. DUE TO PT HAS H/O VOCAL FOLDS PARALYSIS, PT HAS HIGH RISK FOR ASPIRATION. RECOMMENDATIONS: 1. FOR QUALITY OF LIFE, CONTINUE SOFT, EASY CHEW WITH THIN LIQUIDS (PLEASE CONSIDER TO DOWNGRADE TO PUREE DIET IF NEEDED) 2. STRICT ASPIRATION PRECAUTIONS WITH 1TO1 FEEDING. 3. VIDEOSWALLOW STUDY(MD APPROVED) 4. CONSIDER ENT CONSULT IP OR OP TO OBJECTIVELY ASSESS PT'S VFs FUNCTION. D/W PT AND MD. WILL FOLLOW UP
--- NOTE | 2018-09-04 15:30 | Cardiac Electrophysiology PN ---
Assessment/Plan Assessment/Plan 1. Exacerbation of congestive heart failure. Echocardiogram EF 55% BNP is more than 1700. Continue Lasix 40 mg IV bid, Coreg 3.125 mg b.i.d. as well as losartan 50 mg daily. 2. Atrial fibrillation. The rate is currently controlled and is on anticoagulation with Coumadin with a therapeutic INR. 3. Status post Biotronik pacemaker. We will try to interrogate the pacemaker for further evaluation. 4. History of thyroid cancer, status post thyroid surgery. 5. Hypertension. Continue current regimen Lasix, losartan, and Coreg. DEMETRIS RN Subjective Subjective In atrial fib with V pacing. Rate controlled. Feeling better Objective Last 24 Hour Vital Signs Date Time Temp Pulse Resp B/P (MAP) Pulse Ox O2 Delivery O2 Flow Rate FiO2 09/04/18 09:00 Nasal Cannula 2.0 09/04/18 08:43 146/93 09/04/18 08:43 89 146/93 09/04/18 08:00 97.9 89 18 146/93 (110) 97 09/04/18 08:00 76 09/04/18 04:00 73 09/04/18 00:00 84 09/04/18 00:00 98.1 88 18 144/85 (104) 96 09/03/18 21:00 Nasal Cannula 2.0 09/03/18 20:54 65 165/105 09/03/18 20:00 65 09/03/18 20:00 97.4 75 18 165/105 (125) 94 09/03/18 15:46 67 Intake and Output 09/03/18 09/04/18 19:00 07:00 Intake Total 200 ml Output Total 350 ml Balance -150 ml Intake Oral 200 ml Output Urine Total 350 ml # Voids 4 Laboratory Tests Test 09/04/18 06:30 White Blood Count 18.4 K/UL (4.8-10.8) #H Red Blood Count 5.15 M/UL (4.70-6.10) Hemoglobin 14.6 G/DL (14.2-18.0) Hematocrit 45.3 % (42.0-52.0) Mean Corpuscular Volume 88 FL (80-99) Mean Corpuscular Hemoglobin 28.4 PG (27.0-31.0) Mean Corpuscular Hemoglobin Concent 32.3 G/DL (32.0-36.0) Red Cell Distribution Width 14.3 % (11.6-14.8) Platelet Count 233 K/UL (150-450) Mean Platelet Volume 6.6 FL (6.5-10.1) Neutrophils (%) (Auto) % (45.0-75.0) Lymphocytes (%) (Auto) % (20.0-45.0) Monocytes (%) (Auto) % (1.0-10.0) Eosinophils (%) (Auto) % (0.0-3.0) Basophils (%) (Auto) % (0.0-2.0) Differential Total Cells Counted 100 Neutrophils % (Manual) 88 % (45-75) H Lymphocytes % (Manual) 4 % (20-45) L Monocytes % (Manual) 8 % (1-10) Eosinophils % (Manual) 0 % (0-3) Basophils % (Manual) 0 % (0-2) Band Neutrophils 0 % (0-8) Platelet Estimate Adequate Platelet Morphology Normal Red Blood Cell Morphology Normal Prothrombin Time 29.4 SEC (9.30-11.50) H Prothromb Time International Ratio 3.0 (0.9-1.1) H Sodium Level 134 MMOL/L (136-145) L Potassium Level 3.1 MMOL/L (3.5-5.1) L Chloride Level 96 MMOL/L (98-107) L Carbon Dioxide Level 30 MMOL/L (21-32) Anion Gap 8 mmol/L (5-15) Blood Urea Nitrogen 14 mg/dL (7-18) Creatinine 0.8 MG/DL (0.55-1.30) Estimat Glomerular Filtration Rate mL/min (>60) Glucose Level 141 MG/DL (74-106) H Calcium Level 8.4 MG/DL (8.5-10.1) L Troponin I 0.011 ng/mL (0.000-0.056) Thyroid Stimulating Hormone (TSH) 0.768 uiU/mL (0.358-3.740) Free Thyroxine 1.58 NG/DL (0.76-1.46) H Objective HEAD AND NECK: Shows positive JVD. LUNGS: Decreased breath sounds. CARDIOVASCULAR: Irregular S1 and S2 with no gallop and soft systolic murmur. Pacemaker in the left subclavian. ABDOMEN: Soft. EXTREMITIES: 1+ pitting edema. ToluieJere MD Sep 04, 2018 15:30
[2018-09-04 16:00] VITALS: BP 113/61
[2018-09-04] MEDS ORDERED: Warfarin Sodium 4mg ORAL SCH (17:00)
--- NOTE | 2018-09-04 19:48 | NUR ---
HAND-OFF: Report given to maricarmen thompson.
[2018-09-04 20:00] VITALS: BP 112/71
--- NOTE | 2018-09-04 20:09 | NUR ---
NURSE NOTES: Report received from AMERICA Emmanuel. Pt is lying comfortably in semi fowlers with no signs of distress. Pt is A+Ox4 showing no signs of pain/ SOB. IV site is patent, intact, and saline locked. Respirations are even and unlabored on room air. Bed is at lowest position, brakes engaged, siderails x2, bed alarm on, and call light within reach. Pt is in stable condition at this time; will continue to monitor.
--- NOTE | 2018-09-04 20:26 | NUR ---
NURSE NOTES: Called RT and made him aware of 1300 and 1900 breathing tx.
[2018-09-04] MEDS: Ipratropium 0.02% Inh Soln 2.5ml UD HHN SCH ×2 (20:32→21:02)
[2018-09-04] MEDS: Tamsulosin 0.4mg cap ORAL SCH (20:52)
[2018-09-04] MEDS: Zolpidem 5mg tab ORAL PRN (20:53)
--- NOTE | 2018-09-04 22:07 | Consultation ---
History of Present Illness General Chief Complaint: Dyspnea/Respdistress Reason for Consultation: Shortness of breath, possible lung mass Present Illness Allergies: Coded Allergies: AZITHROMYCIN (Verified Allergy, Unknown, 09/04/18) PENICILLINS (Verified Allergy, Unknown, 09/03/18) Medication History Scheduled Carvedilol* (Carvedilol*), 3.125 MG ORAL EVERY 12 HOURS, (Reported) Docusate Sodium* (Colace*), 100 MG ORAL DAILY, (Reported) Eplerenone (Eplerenone), 25 MG PO THREE TIMES A DAY, (Reported) Eplerenone (Eplerenone), 25 MG PO TID, (Reported) Finasteride* (Proscar*), 5 MG ORAL DAILY, (Reported) Furosemide* (Lasix*), 10 MG ORAL DAILY, (Reported) Gabapentin* (Gabapentin*), 300 MG ORAL TWICE A DAY, (Reported) Levothyroxine Sodium* (Synthroid*), 150 MCG ORAL DAILY, (Reported) Losartan Potassium* (Losartan Potassium*), 50 MG ORAL DAILY, (Reported) Pantoprazole* (Pantoprazole*), 40 MG ORAL EVERY 12 HOURS, (Reported) Tamsulosin HCl (Flomax), 0.4 MG ORAL DAILY, (Reported) Warfarin Sod* (Warfarin Sod*), 4 MG ORAL DAILY, (Reported) Scheduled PRN Zolpidem Tartrate* (Zolpidem Tartrate*), 5 MG ORAL BEDTIME PRN for Insomnia, ( Reported) Miscellaneous Medications Sennosides (Senna), 8.6 MG PO, (Reported) Sennosides (Senna), 8.6 MG PO, (Reported) Patient History Healthcare decision maker BEBETO TAYLOR Resuscitation status Advanced Directive on File Yes Physical Exam Last 24 Hour Vital Signs Date Time Temp Pulse Resp B/P (MAP) Pulse Ox O2 Delivery O2 Flow Rate FiO2 09/04/18 20:54 85 112/71 09/04/18 20:43 82 16 100 Room Air 21 09/04/18 20:33 85 16 96 Room Air 21 09/04/18 20:00 96.9 73 16 112/71 (85) 94 09/04/18 16:00 83 09/04/18 16:00 97.2 85 20 113/61 (78) 96 09/04/18 12:00 66 09/04/18 12:00 97.0 73 20 138/85 (102) 95 09/04/18 09:00 Nasal Cannula 2.0 09/04/18 08:43 146/93 09/04/18 08:43 89 146/93 09/04/18 08:00 97.9 89 18 146/93 (110) 97 09/04/18 08:00 76 09/04/18 04:00 73 09/04/18 00:00 84 09/04/18 00:00 98.1 88 18 144/85 (104) 96 Intake and Output 09/03/18 09/04/18 18:59 06:59 Intake Total 200 ml Output Total 350 ml Balance -150 ml Intake Oral 200 ml Output Urine Total 350 ml # Voids 4 Laboratory Tests Test 09/04/18 06:30 White Blood Count 18.4 K/UL (4.8-10.8) #H Red Blood Count 5.15 M/UL (4.70-6.10) Hemoglobin 14.6 G/DL (14.2-18.0) Hematocrit 45.3 % (42.0-52.0) Mean Corpuscular Volume 88 FL (80-99) Mean Corpuscular Hemoglobin 28.4 PG (27.0-31.0) Mean Corpuscular Hemoglobin Concent 32.3 G/DL (32.0-36.0) Red Cell Distribution Width 14.3 % (11.6-14.8) Platelet Count 233 K/UL (150-450) Mean Platelet Volume 6.6 FL (6.5-10.1) Neutrophils (%) (Auto) % (45.0-75.0) Lymphocytes (%) (Auto) % (20.0-45.0) Monocytes (%) (Auto) % (1.0-10.0) Eosinophils (%) (Auto) % (0.0-3.0) Basophils (%) (Auto) % (0.0-2.0) Differential Total Cells Counted 100 Neutrophils % (Manual) 88 % (45-75) H Lymphocytes % (Manual) 4 % (20-45) L Monocytes % (Manual) 8 % (1-10) Eosinophils % (Manual) 0 % (0-3) Basophils % (Manual) 0 % (0-2) Band Neutrophils 0 % (0-8) Platelet Estimate Adequate Platelet Morphology Normal Red Blood Cell Morphology Normal Prothrombin Time 29.4 SEC (9.30-11.50) H Prothromb Time International Ratio 3.0 (0.9-1.1) H Sodium Level 134 MMOL/L (136-145) L Potassium Level 3.1 MMOL/L (3.5-5.1) L Chloride Level 96 MMOL/L (98-107) L Carbon Dioxide Level 30 MMOL/L (21-32) Anion Gap 8 mmol/L (5-15) Blood Urea Nitrogen 14 mg/dL (7-18) Creatinine 0.8 MG/DL (0.55-1.30) Estimat Glomerular Filtration Rate mL/min (>60) Glucose Level 141 MG/DL (74-106) H Calcium Level 8.4 MG/DL (8.5-10.1) L Troponin I 0.011 ng/mL (0.000-0.056) Thyroid Stimulating Hormone (TSH) 0.768 uiU/mL (0.358-3.740) Free Thyroxine 1.58 NG/DL (0.76-1.46) H Height (Feet): 5 Height (Inches): 9.00 Weight (Pounds): 180 Medications Current Medications Medications (Trade) Dose Ordered Sig/Mario Route PRN Reason Start Time Stop Time Status Last Admin Dose Admin Bisacodyl (Dulcolax) 10 mg HSPRN PRN RECTAL Constipation 09/03/18 12:15 10/03/18 10:59 Carvedilol (Coreg) 3.125 mg EVERY 12 HOURS ORAL 09/03/18 12:15 10/03/18 12:14 09/04/18 20:54 Dextrose (Dextrose 50%) 25 ml Q30M PRN IV Hypoglycemia 09/03/18 11:00 10/03/18 10:59 Dextrose (Dextrose 50%) 50 ml Q30M PRN IV Hypoglycemia 09/03/18 11:00 10/03/18 10:59 Docusate Sodium (Colace) 100 mg DAILY ORAL 09/03/18 18:00 10/04/18 08:59 09/04/18 08:44 Finasteride (Proscar) 5 mg DAILY ORAL 09/04/18 09:00 10/04/18 08:59 09/04/18 08:43 Furosemide (Lasix) 40 mg BID IV 09/03/18 18:00 10/03/18 17:59 09/04/18 17:31 Gabapentin (Neurontin) 300 mg TWICE A DAY ORAL 09/03/18 18:00 10/03/18 17:59 09/04/18 17:30 Ipratropium [place] (Atrovent) 500 mcg TIDRT HHN 09/04/18 13:00 09/09/18 12:59 09/04/18 20:32 Levofloxacin (Levaquin) 500 mg DAILY ORAL 09/04/18 13:00 09/11/18 12:59 09/04/18 13:53 Levothyroxine Sodium (Synthroid) 150 mcg Q24H ORAL 09/04/18 06:30 10/04/18 06:29 09/04/18 06:22 Losartan Potassium (Cozaar) 50 mg DAILY ORAL 09/03/18 12:15 10/03/18 12:14 09/04/18 08:43 Ondansetron HCl (Zofran) 4 mg Q6H PRN IVP Nausea & Vomiting 09/03/18 11:00 10/03/18 10:59 Pantoprazole (Protonix) 40 mg EVERY 12 HOURS ORAL 09/03/18 13:05 10/03/18 13:04 09/04/18 20:54 Sennosides (Senokot) 17.2 mg BID ORAL 09/04/18 09:00 10/03/18 17:59 09/04/18 17:31 Tamsulosin HCl (Flomax) 0.4 mg QHS ORAL 09/03/18 21:00 10/03/18 20:59 09/04/18 20:52 Warfarin Sodium (Coumadin per pharmacy) 1 ea DAILY MISC 09/04/18 17:00 10/04/18 16:59 Zolpidem Tartrate (Ambien) 2.5 mg BEDTIME PRN ORAL Insomnia 09/03/18 12:15 09/10/18 11:44 09/04/18 20:53 Assessment/Plan Assessment/Plan Hematology/Oncology Consultation Requesting MD: Damien Barrow Date of Service: 09/04/18 Reason for consultation: Leukocytosis HPI: This is a 88 year old man with history of chronic dCHF, CAD, permanent atrial fibrillation, SSS s/p PPM, HTN, hyperlipidemia BPH, 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 He also reports cough productive of white sputum during this time along with mild ankle edema. Hematology/Oncology was consulted for Leukocytosis, Wbc 18. Social History: No alcohol or tobacco Family History: No premature CAD, stroke Allergies: Coded Allergies: PENICILLINS (Verified Allergy, Unknown, 09/03/18) Uncoded Allergies: ARYTHROMYCIN (Allergy, Unknown, 09/03/18) Medication History Scheduled Carvedilol* (Carvedilol*), 3.125 MG ORAL EVERY 12 HOURS, (Reported) Docusate Sodium* (Colace*), 100 MG ORAL DAILY, (Reported) Eplerenone (Eplerenone), 25 MG PO THREE TIMES A DAY, (Reported) Eplerenone (Eplerenone), 25 MG PO TID, (Reported) Finasteride* (Proscar*), 5 MG ORAL DAILY, (Reported) Furosemide* (Lasix*), 10 MG ORAL DAILY, (Reported) Gabapentin* (Gabapentin*), 300 MG ORAL TWICE A DAY, (Reported) Levothyroxine Sodium* (Synthroid*), 150 MCG ORAL DAILY, (Reported) Losartan Potassium* (Losartan Potassium*), 50 MG ORAL DAILY, (Reported) Pantoprazole* (Pantoprazole*), 40 MG ORAL EVERY 12 HOURS, (Reported) Tamsulosin HCl (Flomax), 0.4 MG ORAL DAILY, (Reported) Warfarin Sod* (Warfarin Sod*), 4 MG ORAL DAILY, (Reported) Scheduled PRN Zolpidem Tartrate* (Zolpidem Tartrate*), 5 MG ORAL BEDTIME PRN for Insomnia, ( Reported) Miscellaneous Medications Sennosides (Senna), 8.6 MG PO, (Reported) Sennosides (Senna), 8.6 MG PO, Review of Systems Constitutional: Denies: chills, sweats, fever Eye: Denies: eye pain, blurred vision ENT: Denies: ear pain Respiratory: Reports: cough, orthopnea, shortness of breath; Denies: wheezing Cardiovascular: Reports: edema; Denies: chest pain Gastrointestinal: Denies: abdominal pain, constipation Genitourinary: Denies: discharge, dysuria Musculoskeletal: Denies: back pain, gout, joint pain Skin: Denies: rash, change in color Neurological: Denies: headache, numbness Endocrine: Denies: excessive sweating Hematologic/Lymphatic: Denies: anemia, blood clots Physical Exam General Appearance: no apparent distress, alert HEENT: normocephalic, atraumatic Neck: non-tender, normal alignment, supple Respiratory/Chest: chest wall non-tender, lungs clear, normal breath sounds, no respiratory distress, no accessory muscle use Cardiovascular/Chest: normal peripheral pulses, normal rate Abdomen: normal bowel sounds, non tender Extremities: trace edema Skin Exam: normal pigmentation, warm/dry Neurologic: crime victim specialist II-XII grossly normal, no motor/sensory deficits, alert, oriented x 3, responsive Last 24 Hour Vital Signs Date Time Temp Pulse Resp B/P (MAP) Pulse Ox O2 Delivery O2 Flow Rate FiO2 09/03/18 10:26 98.0 68 20 176/105 98 Nasal Cannula 2.0 09/03/18 08:47 64 16 Nasal Cannula 2.0 100 09/03/18 08:47 98.0 62 20 185/75 100 Nasal Cannula 2.0 09/03/18 07:22 97.5 85 23 178/131 95 Nasal Cannula 4.0 Laboratory Tests Test 09/03/18 07:48 White Blood Count 11.4 K/UL (4.8-10.8) H Red Blood Count 5.10 M/UL (4.70-6.10) Hemoglobin 14.6 G/DL (14.2-18.0) Hematocrit 45.4 % (42.0-52.0) Mean Corpuscular Volume 89 FL (80-99) Mean Corpuscular Hemoglobin 28.6 PG (27.0-31.0) Mean Corpuscular Hemoglobin Concent 32.1 G/DL (32.0-36.0) Red Cell Distribution Width 14.9 % (11.6-14.8) H Platelet Count 246 K/UL (150-450) Mean Platelet Volume 6.7 FL (6.5-10.1) Neutrophils (%) (Auto) 82.2 % (45.0-75.0) H Lymphocytes (%) (Auto) 10.5 % (20.0-45.0) L Monocytes (%) (Auto) 6.3 % (1.0-10.0) Eosinophils (%) (Auto) 0.8 % (0.0-3.0) Basophils (%) (Auto) 0.2 % (0.0-2.0) Prothrombin Time 24.5 SEC (9.30-11.50) H Prothromb Time International Ratio 2.4 (0.9-1.1) H Activated Partial Thromboplast Time 43 SEC (23-33) H Sodium Level 137 MMOL/L (136-145) Potassium Level 3.4 MMOL/L (3.5-5.1) L Chloride Level 100 MMOL/L (98-107) Carbon Dioxide Level 29 MMOL/L (21-32) Anion Gap 8 mmol/L (5-15) Blood Urea Nitrogen 14 mg/dL (7-18) Creatinine 0.8 MG/DL (0.55-1.30) Estimat Glomerular Filtration Rate mL/min (>60) Glucose Level 130 MG/DL (74-106) H Calcium Level 8.7 MG/DL (8.5-10.1) Total Bilirubin 1.3 MG/DL (0.2-1.0) H Direct Bilirubin 0.3 MG/DL (0.0-0.3) Aspartate Amino Transf (AST/SGOT) 16 U/L (15-37) Alanine Aminotransferase (ALT/SGPT) 10 U/L (12-78) L Alkaline Phosphatase 72 U/L (46-116) Total Creatine Kinase 43 U/L (26-308) Creatine Kinase MB 2.7 NG/ML (0.0-3.6) Creatine Kinase MB Relative Index 6.2 Troponin I 0.000 ng/mL (0.000-0.056) Pro-B-Type Natriuretic Peptide 1764 pg/mL (0-125) H Total Protein 7.7 G/DL (6.4-8.2) Albumin 3.6 G/DL (3.4-5.0) Globulin 4.1 g/dL Albumin/Globulin Ratio 0.9 (1.0-2.7) L Current Medications Medications (Trade) Dose Ordered Sig/Mario Route PRN Reason Start Time Stop Time Status Last Admin Dose Admin Bisacodyl (Dulcolax) 10 mg HSPRN PRN RECTAL Constipation 09/03/18 11:00 10/03/18 10:59 Dextrose (Dextrose 50%) 25 ml Q30M PRN IV Hypoglycemia 09/03/18 11:00 10/03/18 10:59 Dextrose (Dextrose 50%) 50 ml Q30M PRN IV Hypoglycemia 09/03/18 11:00 10/03/18 10:59 Ondansetron HCl (Zofran) 4 mg Q6H PRN IVP Nausea & Vomiting 09/03/18 11:00 10/03/18 10:59 Assessment/Plan # Leukocytosis. Likely related to underlying infection versus reactive process. -->Peripheral has been ordered, results are pending --> Medications have been reviewed --> Imaging has been reviewed --> Blood cultures and urine cultures prn -->has been started on abx, empiric treatment # History of thyroid cancer, status post thyroid surgery. 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 as well as losartan 50 mg daily. -->appreciate cardiology recs # Atrial fibrillation, the rate is currently controlled and is on anticoagulation with Coumadin with a therapeutic INR. # Status post Biotronik pacemaker. # Hypertension, Continue current regimen Lasix, losartan, and Coreg. # Hypokalemia # Polyneuropathy, continue gabapentin # BPH, continue Proscar and Flomax The timing of this note does not necessarily reflect the time of the patient was seen. Greatly appreciate consultation! Raheem Holloway MD Sep 04, 2018 22:07
[2018-09-05] VITALS (7 sets, daily range): BP systolic 90–104; BP diastolic 49–60
--- NOTE | 2018-09-05 07:02 | NUR ---
HAND-OFF: Report given to AMERICA Grimes. Pt is in stable condition; plan of care endorsed.
[2018-09-05] MEDS: Ipratropium 0.02% Inh Soln 2.5ml UD HHN SCH ×3 (07:20→19:44)
--- NOTE | 2018-09-05 08:55 | NUR ---
CASE MANAGEMENT:REVIEW 09/03/18 88 YR OLD MALE BIBA FROM HOME CC: SOB THAT BECAME WORST OVER LAST 2 DAYS PMH: CHF. PACEMAKER. CA SI: CHF. AFIB. LUNG NEOPLASM 97.5 85 23 185/75 95% ON 4L/NC WBC+11.4 BNP+1764 IS: IV LASIX K-DUR PO CHEST XRAY : TO TELEMETRY IS:COREG PO COZAAR PO IV LASIX BID INTERQUAL CRITERIA MET
[2018-09-05] MEDS: Losartan 50mg tab ORAL SCH (09:00)
[2018-09-05] MEDS: Levofloxacin 500mg tab ORAL SCH (09:08)
--- NOTE | 2018-09-05 09:08 | NUR ---
CASE MANAGEMENT:REVIEW 09/05/18 SI: AC/CHR CHF. PERMANENT AFIB THYROID CA...RT LUNG MASS 98.0 68 20 176/105 98% ON 2L/NC IS: COUMADIN PO QD LEVAQUIN PO QD ATROVENT HHN TID SYNTHROID PO Q24 IV LASIX BID COREG PO Q12 : TELEMETRY STATUS DCP: FROM HOME
[2018-09-05] MEDS: Sennosides 8.6mg tab ORAL SCH ×2 (09:09→17:47)
[2018-09-05] MEDS: Docusate 100mg cap ORAL SCH (09:10)
[2018-09-05 09:13] LABS: HEMATOCRIT 39.8 % (42.0-52.0); HEMOGLOBIN 13.3 G/DL (14.2-18.0); MEAN CORPUSCULAR VOLUME 87 FL (80-99); PLATELET COUNT 210 K/UL (150-450); RED BLOOD COUNT 4.55 M/UL (4.70-6.10); RED CELL DISTRIBUTION WIDTH 14.3 % (11.6-14.8); WHITE BLOOD COUNT 21.9 K/UL (4.8-10.8)
[2018-09-05 09:15] LABS: INR 2.6 (0.9-1.1)
[2018-09-05 10:04] LABS: ANION GAP 10 mmol/L (5-15); BLOOD UREA NITROGEN 27 mg/dL (7-18); CARBON DIOXIDE 28 MMOL/L (21-32); CHLORIDE 96 MMOL/L (98-107); POTASSIUM 3.3 MMOL/L (3.5-5.1); SODIUM 134 MMOL/L (136-145)
[2018-09-05 10:07] LABS: CREATININE 1.5 MG/DL (0.55-1.30)
--- NOTE | 2018-09-05 11:55 | NUR ---
RD ASSESSMENT & RECOMMENDATIONS SEE CARE ACTIVITY FOR COMPLETE ASSESSMENT DAILY ESTIMATED NEEDS: Needs based on Wound/ 74.5kg 25-30 kcals/kg 4882-6453 total kcals 1.25-1.5 g protein/kg 75-112 g total protein 25-30 mL/kg 0405-1671 total fluid mLs NUTRITION DIAGNOSIS: Increased kcal/prot intake needs R/T wound healing as evidenced by admitted w/ DTPI @ lt buttock and stage 1 @ buttocks, BL heels, w/ poor PO intake at this time. CURRENT DIET:CARDIAC, Soft Easy Chew PO DIET RECOMMENDATIONS: LOW NA/ texture per VISUAL DISPLAY ASSOCIATE + Ensure Enlive TID w/ meals ADDITIONAL RECOMMENDATIONS: * Re-calibrated bedscale wt for accurate CBW (w/ added P200 mattress) * Monitor lytes, replete as needed (low K and mag) * Monitor PO intake of meals closely- R-25% intake at this tmie * Ensure Envlie TID w/ meals (pt requesting wilmar flavor) * Wound healing: MVI x 1, Vit C 500mg QD, [place] 1pkt BID
--- NOTE | 2018-09-05 12:48 | Diagnostic Imaging Report ---
Indication: Cough Technique: One view of the chest Comparison: 09/03/2018 Findings: Moderate to large left pleural effusion is stable. Again demonstrated is opacification of the right costophrenic sulcus with a destructive mass seen destroying the seventh rib. Contrast is seen in the stomach from recent video swallow study. The heart is borderline enlarged. Left chest pacemaker remains. The upper lung brown appear slightly less congested than on the prior exam Impression: Increased right pleural effusion, Destructive bilateral pleural mass again demonstrated. Suspect improved minimal interstitial congestion Other stable findings as described
--- NOTE | 2018-09-05 13:01 | NUR ---
SWALLOW/SPEECH THERAPY NOTE: MOD BARIUM SWALLOW STUDY COMPLETED IN LATERAL VIEW AND OBLIQUE VIEWS ONLY (IN BED 90 DEGREES). 2 LITERS O2 NC. PATIENT REPORTED POOR INTAKE OF LIQUIDS AND SOLIDS (COUGHS THROUGHOUT MEAL) AND HE IS AVOIDING EATING AND DRINKING NOW. HE REPORTED THAT ENSURE SEEMED TO GO DOWN THE BEST. SEE FULL REPORT AND ALL DEFICITS IN THE OROPHARYNGEAL PHASE. IN [facility] ACTIVITY SECTION OR CALL [phone]. THIN LIQ TSP,TSP, CUP, CUP SEQUENTIAL, CUP CHIN TUCK HEAD LEFT (? WHICH VF PARALYZED), CUP CHIN TUCK HEAD RIGHT NECTAR THICK LIQUIDS: TSP, CUP, (NOT GIVEN STRAW TO SAVE TIME FOR OTHER CONSISTENCIES), LATER HAD CUP WASH POST PUDDING TSP BOLUS HONEY THICK LIQUIDS: TSP PUDDING: TSP NO TIME FOR MASTICATED SOLIDS (GOOD DENTITION) INITIAL IMPRESSIONS ONLY (VIEWED ONCE POST STUDY): MILD ORAL AND MODERATE TO SEVERE PHARYNGEAL DYSPHAGIA WITH INCREASED OROPHARYNEGEAL TRANSIT TIMES (LONGER WITH THICKER CONSISTENCIES). THIN LIQUIDS TSP- FIRST MATERIAL DID NOT ENTER AIRWAY. 2ND TSP AND SIP VIA CUP- NO ASPIRATION BUT HAD SILENT TRACE LARYNGEAL PENETRATION AFTER THE SWALLOW TO LEVEL OF VOCAL FOLDS W/O EJECTION (CUED TO COUGH SOME SUCCESS) AFTER THE SWALLOW DUE TO PHARYNGEAL RESIDUE SPILLOVER (NEED TO RECHECK IF RELATED TO REDUCED TONGUE BASE RETRACTION OR HYOLARYNGEAL EXCURSION). SIP VIA CUP CHIN TUCK HEAD L AND R TRACE ASPIRATION WITH SIP VIA CUP CHIN TUCK AND HEAD LEFT AND WORSE WITH CHIN TUCK HEAD RIGHT (DIFFICULT TO SEE DUE TO SHOULDER OBSTRUCTION BUT AGGRESSIVE COUGH AND SOME BOLUS CAME OUT OF HIS MOUTH). SILENT AND TRACE ASPIRATION WITH CUP SEQUENTIAL SIPS AND ASPIRATED W/O COUGH BEFORE AND AFTER THE SWALLOW DUE TO DELAYED SWALLOW, LATE CLOSURE OF LARYNGEAL VESTIBULE, AND REDUCED HYOLARYNGEAL EXCURSION. CUED TO COUGH AND HAD POOR SUCCESS (HOARSE UNPRODUCTIVE COUGH MANY TIMES). ADDITIONAL ASP RISK AFTER THE SWALLOW DUE TO POOR PHARYNGEAL MOTILITY AND NEED TO SWALLAOW 3-4 TIMES WITH CUES (POOR PHARYNGEAL SENSATION FOR RESIDUE). NECTAR THICK LIQUIDS TSP NO ASP/LP CUP - NO ASP BUT HAD TRACE LP TO LEVEL OF VOCAL FOLD NOT EJECTED DUE TO POOR TONGUE BASE RETRACTION. CUP WASH (POST PUDDING TSP) - NO ASP WITH TSP BUT HAD TRACE LARYNGEAL PENETRATION ABOVE VOCAL FOLDS NOT EJECTED AFTER THE SWALLOW DUE TO REDUCED TONGUE BASE RETRACTION (SPILLOVER FROM VALLECULAE). CUED TO COUGH SOME SUCCESS WITH BOTH (HELD OFF ON CUP SEQUENTIAL) ADDITIONAL ASP RISK AFTER THE SWALLOW DUE TO POOR PHARYNGEAL MOTILITY AND NEED TO SWALLAOW 3-4 TIMES WITH CUES (POOR PHARYNGEAL SENSATION FOR RESIDUE). HONEY THICK LIQUIDS TSP NO ASPIRATION BUT HAD TRACE LARYNGEAL PENETRATION TO LEVEL OF VOCAL FOLDS NO EJECTION AFTER THE SWALLOW DUE TO REDUCED TONGUE BASE RETRACTION. ADDITIONAL ASP RISK AFTER THE SWALLOW DUE TO POOR PHARYNGEAL MOTILITY AND NEED TO SWALLAOW 2-3 TIMES WITH CUES (POOR PHARYNGEAL SENSATION FOR RESIDUE). PUDDING TSP NO ASPIRATION NOR LP BUT HAD SIGNIFICANT MOSTLY VALLECULAR RESIDUE AFTER THE SWALLOW REQUIRING LIQUID WASH AND MULTIPLE SWALLOWS (4 OR MORE). NO TIME FOR MASTICATED SOLIDS. TRIAL TX: VARIABLE BENEFIT FROM CHIN TUCK: HELPS REDUCED VALLECULAR RESIDUE WITH NECTAR LIQUIDS ALONE BUT NOW WITH CUP WASH. HEAD TURN RIGHT WORSE THAN LEFT AND NEUTRAL BEST. EFFORTFUL SWALLOW AND EFFORTFUL BREATH HOLD VARIABLY HELPFUL. CUED COUGH VARIABLY EFFECTIVE ESOPHAGEAL PHASE LIMITED VIEW BUT GROSSLY FUNCTIONAL IN LATERAL VIEW. RECOMMENDATIONS: KEEP NPO AND INITIATE ORAL CARE (IF NECESSARY TO HAVE MEDS SINCE PT WON'T CONSENT TO NGT, CONSIDER CRUSHING MEDS AND ADDING LIQUID TO MAKE IT NECTAR THICK TSP AT A TIME HARD MULTIPLE SWALLOWS WITH CHIN TUCK AND EFFORTFUL BREATHHOLD AND SWALLOW). CONSERVATIVELY, CONSIDER NONORAL FEEDINGS AT THIS TIME. PATIENT NOT RECEPTIVE TO NGT BUT IS RECEPTIVE TO PEG IF INDICATED. INTAKE MINIMAL AND WILL GET WEAKER AND CONTINUE TO LOSE WEIGHT. RECOMMEND PO TRIALS WITH ST ONLY WITH AGGRESSIVE SWALLOW MANAGEMENT AND TX ALSO NEEDS ENT CONSULT AND F/UP WITH ST FOR SWALLOWING THERAPY AND VOICE THERAPY. GET CLARITY ON VOCAL FOLD STATUS AND INJECTIONS/SURGERY (ONE OR BOTH INVOLVED). D/W PATIENT, MD, RN, AND FAMILY MEMBERS.
--- NOTE | 2018-09-05 14:12 | General Progress Note ---
Assessment/Plan Assessment/Plan #Acute on chronic diastolic CHF #Coronary artery disease #Permanent atrial fibrillation s/p PPM for SSS #HTN #Hyperlipidemia -resolving -hold Lasix given slight bump in creatinine -hold eplerenone -Monitor daily weights and I&O -Continue Coreg -continue warfarin and monitor INR daily -cardiology following #Leukocytosis #Dysphagia #High risk for asppiration -seen by COUNTER CUTTER and Pulm -continue Levaquin -obtain CT chest -GI eval for possible PEG placement -aspiration precautions -NPO -ID consulted #Mild RY -hold losartan and Lasix -repeat BMP in AM #Hypokalemia -improved -repeat BMP in AM #Thyroid cancer #CXR with right base destructive lung mass #Acquired hypothyroidism -continue levothyroxine -Discussed with his oncologist at [facility] #Polyneuropathy -continue gabapentin #BPH -continue Proscar and Flomax VTE PPx warfarin full code I spent 45 minutes on this patient's case, and 25 minutes was dedicated to counseling and/or care coordination. Subjective Date patient seen: Sep 05, 2018 Time patient seen: 14:00 ROS Limited/Unobtainable: No Constitutional: Denies: chills, diaphoresis, fever HEENT: Denies: blurred vision Cardiovascular: Denies: chest pain, edema, irregular heart rate Respiratory: Reports: cough, shortness of breath; Denies: orthopnea, SOB with excertion Gastrointestinal/Abdominal: Denies: abdomen distended, abdominal pain Neurologic/Psychiatric: Denies: anxiety, depressed Allergies: Coded Allergies: AZITHROMYCIN (Verified Allergy, Unknown, 09/04/18) PENICILLINS (Verified Allergy, Unknown, 09/03/18) Subjective Medicine follow up for acute on chronic dCHF, lung mass, leukocytosis. Seen by COUNTER CUTTER today, recommends alternative nutrition delivery due to high risk for aspiration Objective Last 24 Hour Vital Signs Date Time Temp Pulse Resp B/P (MAP) Pulse Ox O2 Delivery O2 Flow Rate FiO2 09/05/18 13:53 84 16 98 Room Air 21 09/05/18 13:45 86 16 93 Room Air 21 09/05/18 12:00 97.5 71 20 94/52 (66) 94 09/05/18 09:00 Nasal Cannula 2.0 09/05/18 08:00 97.8 71 20 104/57 (73) 95 09/05/18 07:28 86 16 98 Nasal Cannula 2.0 28 09/05/18 07:20 65 16 91 Room Air 21 09/05/18 05:08 100/60 (73) 09/05/18 04:00 72 09/05/18 04:00 96.9 70 16 90/58 (69) 91 09/05/18 00:00 98.2 63 17 99/49 (66) 92 09/05/18 00:00 68 09/04/18 21:00 Nasal Cannula 2.0 09/04/18 20:54 85 112/71 09/04/18 20:43 82 16 100 Room Air 21 09/04/18 20:33 85 16 96 Room Air 21 09/04/18 20:00 77 09/04/18 20:00 96.9 73 16 112/71 (85) 94 09/04/18 16:00 83 09/04/18 16:00 97.2 85 20 113/61 (78) 96 Intake and Output 09/04/18 09/05/18 19:00 07:00 Intake Total 320 ml Output Total 1500 ml 600 ml Balance -1180 ml -600 ml Intake Oral 320 ml Output Urine Total 1500 ml 600 ml # Voids 6 3 Laboratory Tests 09/05/18 07:18: White Blood Count 21.9H, Red Blood Count 4.55L, Hemoglobin 13.3L, Hematocrit 39.8L, Mean Corpuscular Volume 87, Mean Corpuscular Hemoglobin 29.2, Mean Corpuscular Hemoglobin Concent 33.4, Red Cell Distribution Width 14.3, Platelet Count 210, Mean Platelet Volume 7.6, Neutrophils (%) (Auto) , Lymphocytes (%) ( Auto) , Monocytes (%) (Auto) , Eosinophils (%) (Auto) , Basophils (%) (Auto) , Differential Total Cells Counted 100, Neutrophils % (Manual) 87H, Lymphocytes % (Manual) 5L, Monocytes % (Manual) 8, Eosinophils % (Manual) 0, Basophils % ( Manual) 0, Band Neutrophils 0, Platelet Estimate Adequate, Platelet Morphology Normal, Red Blood Cell Morphology Normal, Prothrombin Time 26.3H, Prothromb Time International Ratio 2.6H, Sodium Level 134L, Potassium Level 3.3L, Chloride Level 96L, Carbon Dioxide Level 28, Anion Gap 10, Blood Urea Nitrogen 27H, Creatinine 1.5#H, Estimat Glomerular Filtration Rate , Glucose Level 107H, Calcium Level 8.0L, Magnesium Level 1.4L Height (Feet): 5 Height (Inches): 9.00 Weight (Pounds): 189 General Appearance: no apparent distress, alert EENT: PERRL/EOMI, normal ENT inspection Neck: non-tender, normal alignment Cardiovascular: normal peripheral pulses, normal rate, regular rhythm Respiratory/Chest: chest wall non-tender, lungs clear, normal breath sounds, no respiratory distress Abdomen: normal bowel sounds, non tender Neurologic: retail marketing executive II-XII grossly normal, no motor/sensory deficits, alert, oriented x 3 Skin: normal pigmentation, warm/dry Oscar Chin MD Sep 05, 2018 14:12
--- NOTE | 2018-09-05 14:45 | Pulmonology Progress Note ---
Assessment/Plan Assessment/Plan Problem List: 1. Respiratory insufficiency 2. Acute on chronic diastolic CHF 3. Leukocytosis 4. Bilateral pleural effusions 5. Possible pneumonia 6. 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 CAD 10. HTN 11. Oropharyngeal dsyphagia 12. RY Plan: -monitor volumes, hold lasix given RY -Monitor leukocytosis, has multiple abx allergies; will try levaquin; consider adding flagyl. ID to see -repeat CXR after diuresis still abnormal and now query if there is chronic aspiration -CT chest w/o contrast -swallow eval noted, may need PEG -monitor and replete electrolytes Case d/w treatment team Subjective ROS Limited/Unobtainable: No Interval Events: Failed swallow eval. Increasing leukocytosis. Weak. Cr elevated. Constitutional: Reports: fatigue HEENT: Repors: no symptoms Respiratory: Reports: productive cough, shortness of breath Cardiovascular: Reports: no symptoms Gastrointestinal/Abdominal: Reports: no symptoms Allergies: Coded Allergies: AZITHROMYCIN (Verified Allergy, Unknown, 09/04/18) PENICILLINS (Verified Allergy, Unknown, 09/03/18) Objective Last 24 Hour Vital Signs Date Time Temp Pulse Resp B/P (MAP) Pulse Ox O2 Delivery O2 Flow Rate FiO2 09/05/18 13:53 84 16 98 Room Air 21 09/05/18 13:45 86 16 93 Room Air 21 09/05/18 12:00 97.5 71 20 94/52 (66) 94 09/05/18 09:00 Nasal Cannula 2.0 09/05/18 08:00 97.8 71 20 104/57 (73) 95 09/05/18 07:28 86 16 98 Nasal Cannula 2.0 28 09/05/18 07:20 65 16 91 Room Air 21 09/05/18 05:08 100/60 (73) 09/05/18 04:00 72 09/05/18 04:00 96.9 70 16 90/58 (69) 91 09/05/18 00:00 98.2 63 17 99/49 (66) 92 09/05/18 00:00 68 09/04/18 21:00 Nasal Cannula 2.0 09/04/18 20:54 85 112/71 09/04/18 20:43 82 16 100 Room Air 21 09/04/18 20:33 85 16 96 Room Air 21 09/04/18 20:00 77 09/04/18 20:00 96.9 73 16 112/71 (85) 94 09/04/18 16:00 83 09/04/18 16:00 97.2 85 20 113/61 (78) 96 Intake and Output 09/04/18 09/05/18 19:00 07:00 Intake Total 320 ml Output Total 1500 ml 600 ml Balance -1180 ml -600 ml Intake Oral 320 ml Output Urine Total 1500 ml 600 ml # Voids 6 3 General Appearance: other - Alert HEENT: mucous membranes moist, PERRL Respiratory/Chest: crackles/rales Cardiovascular: normal rate, regular rhythm Abdomen: soft, non tender, non distended Extremities: no edema Neurologic/Psychiatric: oriented x 3 Laboratory Tests 09/05/18 07:18: White Blood Count 21.9H, Red Blood Count 4.55L, Hemoglobin 13.3L, Hematocrit 39.8L, Mean Corpuscular Volume 87, Mean Corpuscular Hemoglobin 29.2, Mean Corpuscular Hemoglobin Concent 33.4, Red Cell Distribution Width 14.3, Platelet Count 210, Mean Platelet Volume 7.6, Neutrophils (%) (Auto) , Lymphocytes (%) ( Auto) , Monocytes (%) (Auto) , Eosinophils (%) (Auto) , Basophils (%) (Auto) , Differential Total Cells Counted 100, Neutrophils % (Manual) 87H, Lymphocytes % (Manual) 5L, Monocytes % (Manual) 8, Eosinophils % (Manual) 0, Basophils % ( Manual) 0, Band Neutrophils 0, Platelet Estimate Adequate, Platelet Morphology Normal, Red Blood Cell Morphology Normal, Prothrombin Time 26.3H, Prothromb Time International Ratio 2.6H, Sodium Level 134L, Potassium Level 3.3L, Chloride Level 96L, Carbon Dioxide Level 28, Anion Gap 10, Blood Urea Nitrogen 27H, Creatinine 1.5#H, Estimat Glomerular Filtration Rate , Glucose Level 107H, Calcium Level 8.0L, Magnesium Level 1.4L Current Medications Medications (Trade) Dose Ordered Sig/Mario Route PRN Reason Start Time Stop Time Status Last Admin Dose Admin Bisacodyl (Dulcolax) 10 mg HSPRN PRN RECTAL Constipation 09/03/18 12:15 10/03/18 10:59 Carvedilol (Coreg) 3.125 mg EVERY 12 HOURS ORAL 09/03/18 12:15 10/03/18 12:14 09/04/18 20:54 Dextrose (Dextrose 50%) 25 ml Q30M PRN IV Hypoglycemia 09/03/18 11:00 10/03/18 10:59 Dextrose (Dextrose 50%) 50 ml Q30M PRN IV Hypoglycemia 09/03/18 11:00 10/03/18 10:59 Docusate Sodium (Colace) 100 mg DAILY ORAL 09/03/18 18:00 10/04/18 08:59 09/05/18 09:10 Finasteride (Proscar) 5 mg DAILY ORAL 09/04/18 09:00 10/04/18 08:59 09/05/18 09:09 Gabapentin (Neurontin) 300 mg TWICE A DAY ORAL 09/03/18 18:00 10/03/18 17:59 09/05/18 09:10 Ipratropium Irma (Atrovent) 500 mcg TIDRT HHN 09/04/18 13:00 09/09/18 12:59 09/05/18 13:45 Levofloxacin (Levaquin) 250 mg DAILY ORAL 09/06/18 09:00 09/13/18 08:59 Levothyroxine Sodium (Synthroid) 150 mcg Q24H ORAL 09/04/18 06:30 10/04/18 06:29 09/05/18 06:20 Ondansetron HCl (Zofran) 4 mg Q6H PRN IVP Nausea & Vomiting 09/03/18 11:00 10/03/18 10:59 Pantoprazole (Protonix) 40 mg EVERY 12 HOURS ORAL 09/03/18 13:05 10/03/18 13:04 09/05/18 09:08 Sennosides (Senokot) 17.2 mg BID ORAL 09/04/18 09:00 10/03/18 17:59 09/05/18 09:09 Tamsulosin HCl (Flomax) 0.4 mg QHS ORAL 09/03/18 21:00 10/03/18 20:59 09/04/18 20:52 Warfarin Sodium (Coumadin per pharmacy) 1 ea DAILY MISC 09/04/18 17:00 10/04/18 16:59 Warfarin Sodium (Coumadin) 4 mg ONCE PO 09/05/18 17:00 09/05/18 19:00 Zolpidem Tartrate (Ambien) 2.5 mg BEDTIME PRN ORAL Insomnia 09/03/18 12:15 09/10/18 11:44 09/04/18 20:53 Joel Pantoja MD Sep 05, 2018 14:45
--- NOTE | 2018-09-05 15:06 | Cardiac Electrophysiology PN ---
Assessment/Plan Assessment/Plan 1. Exacerbation of congestive heart failure. Echocardiogram EF 55% BNP is more than 1700. On Coreg 3.125 mg b.i.d. and losartan 50 mg daily.Hold Lasix 2. Atrial fibrillation. The rate is currently controlled and is on anticoagulation with Coumadin with a therapeutic INR. 3. Status post Biotronik pacemaker. We will try to interrogate the pacemaker for further evaluation. 4. History of thyroid cancer, status post thyroid surgery. 5. Hypertension. Continue losartan, and Coreg. 6. Increased right pleural effusion, Destructive bilateral pleural mass again demonstrated. FU Dr Pantoja. Chest CT pending DW RN and Dr Drummond Subjective Subjective In atrial fib with V pacing. Rate controlled. Still NPO. Failed swallow eval. Objective Last 24 Hour Vital Signs Date Time Temp Pulse Resp B/P (MAP) Pulse Ox O2 Delivery O2 Flow Rate FiO2 09/05/18 13:53 84 16 98 Room Air 21 09/05/18 13:45 86 16 93 Room Air 21 09/05/18 12:00 97.5 71 20 94/52 (66) 94 09/05/18 09:00 Nasal Cannula 2.0 09/05/18 08:00 97.8 71 20 104/57 (73) 95 09/05/18 07:28 86 16 98 Nasal Cannula 2.0 28 09/05/18 07:20 65 16 91 Room Air 21 09/05/18 05:08 100/60 (73) 09/05/18 04:00 72 09/05/18 04:00 96.9 70 16 90/58 (69) 91 09/05/18 00:00 98.2 63 17 99/49 (66) 92 09/05/18 00:00 68 09/04/18 21:00 Nasal Cannula 2.0 09/04/18 20:54 85 112/71 09/04/18 20:43 82 16 100 Room Air 21 09/04/18 20:33 85 16 96 Room Air 21 09/04/18 20:00 77 09/04/18 20:00 96.9 73 16 112/71 (85) 94 09/04/18 16:00 83 09/04/18 16:00 97.2 85 20 113/61 (78) 96 Intake and Output 09/04/18 09/05/18 19:00 07:00 Intake Total 320 ml Output Total 1500 ml 600 ml Balance -1180 ml -600 ml Intake Oral 320 ml Output Urine Total 1500 ml 600 ml # Voids 6 3 Laboratory Tests Test 09/05/18 07:18 White Blood Count 21.9 K/UL (4.8-10.8) H Red Blood Count 4.55 M/UL (4.70-6.10) L Hemoglobin 13.3 G/DL (14.2-18.0) L Hematocrit 39.8 % (42.0-52.0) L Mean Corpuscular Volume 87 FL (80-99) Mean Corpuscular Hemoglobin 29.2 PG (27.0-31.0) Mean Corpuscular Hemoglobin Concent 33.4 G/DL (32.0-36.0) Red Cell Distribution Width 14.3 % (11.6-14.8) Platelet Count 210 K/UL (150-450) Mean Platelet Volume 7.6 FL (6.5-10.1) Neutrophils (%) (Auto) % (45.0-75.0) Lymphocytes (%) (Auto) % (20.0-45.0) Monocytes (%) (Auto) % (1.0-10.0) Eosinophils (%) (Auto) % (0.0-3.0) Basophils (%) (Auto) % (0.0-2.0) Differential Total Cells Counted 100 Neutrophils % (Manual) 87 % (45-75) H Lymphocytes % (Manual) 5 % (20-45) L Monocytes % (Manual) 8 % (1-10) Eosinophils % (Manual) 0 % (0-3) Basophils % (Manual) 0 % (0-2) Band Neutrophils 0 % (0-8) Platelet Estimate Adequate Platelet Morphology Normal Red Blood Cell Morphology Normal Prothrombin Time 26.3 SEC (9.30-11.50) H Prothromb Time International Ratio 2.6 (0.9-1.1) H Sodium Level 134 MMOL/L (136-145) L Potassium Level 3.3 MMOL/L (3.5-5.1) L Chloride Level 96 MMOL/L (98-107) L Carbon Dioxide Level 28 MMOL/L (21-32) Anion Gap 10 mmol/L (5-15) Blood Urea Nitrogen 27 mg/dL (7-18) H Creatinine 1.5 MG/DL (0.55-1.30) #H Estimat Glomerular Filtration Rate mL/min (>60) Glucose Level 107 MG/DL (74-106) H Calcium Level 8.0 MG/DL (8.5-10.1) L Magnesium Level 1.4 MG/DL (1.8-2.4) L Objective HEAD AND NECK: Positive JVD. LUNGS: Decreased breath sounds. CARDIOVASCULAR: Irregular S1 and S2 with no gallop and soft systolic murmur. Pacemaker in the left subclavian. ABDOMEN: Soft. EXTREMITIES: 1+ pitting edema. Jere Faustin MD Sep 05, 2018 15:06
[2018-09-05] MEDS ORDERED: Potassium Chloride 40 MEQ in Sodium Chloride 550 ML IV SCH (16:00)
[2018-09-05] MEDS ORDERED: Warfarin Sodium 4mg PO SCH (17:00)
--- NOTE | 2018-09-05 17:06 | Diagnostic Imaging Report ---
Clinical Indication: Breath Technique: Spiral acquisitions obtained through the chest. No IV contrast utilized, . Multiplanar reconstructions generated. Total dose length product 624.12 mGycm. CTDIvol(s) 17.67 mGy. Dose reduction achieved using automated exposure control Comparison: Reference made to chest radiographs dated 09/05/2018 and 09/03/2018 Findings: There is a pleural or extrapleural lesion centered on and destroying the lateral right seventh rib. This measures 6.8 cm AP by 4.4 cm transverse by 8.3 cm craniocaudad. There is a 3 cm lesion expanding and destroying the left lateral fifth rib. There is a lytic lesion of the medial left ninth rib. There is a moderate to large right pleural effusion demonstrated. There is compressive atelectasis of significant portion of the right lower lobe. There is also a moderate to large left pleural effusion, likewise resulting in compressive atelectasis of most of the left lower lobe. Numerous nodules are seen scattered throughout both lungs, some intraparenchymal and some pleural-based. The largest of these is at the pleural surface of the anterior right upper lobe, measures 18 mm in diameter. The remainder largely measure under 1 cm. There is some reticular consolidation seen in the aerated portions of the bilateral lower lobes. There is mediastinal adenopathy, with nodes measuring up to 4 cm long axis dimension in the subcarinal region. The heart is enlarged. No pericardial effusion. There is a pacemaker present. The esophagus is unremarkable. The right thyroid lobe appears to be absent and surgical clips are present in the region. Surgical clips are also present in the left supraclavicular region. Tissue is seen in the left thyroid lobe region.. Included upper abdominal anatomy demonstrates a markedly distended thick-walled edematous gallbladder. Gallstones are seen in the gallbladder neck. 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 Bilateral moderate to large pleural effusions. Resultant compressive atelectasis of most of both of the lower lobes Mediastinal lymphadenopathy, likely on the basis of metastatic disease Distended gallbladder with fairly extensive gallbladder wall edema, gallstone in the gallbladder neck incidentally noted, incompletely visualized. This raises possibility of acute cholecystitis. Correlate with clinical findings, consider sonography and/or nuclear medicine biliary scintigraphy for better characterization if clinically indicated Evidence of prior thyroid surgery. Reportedly, patient has had thyroidectomy. There does appear to be tissue in the left thyroid bed. This may indicate prior hemithyroidectomy or could indicate recurrent tumor on the left. Cardiac megaly Pacemaker Findings discussed by phone with attending physician Dr. Drummond The CT scanner at [facility] is accredited by the [employer] and the scans are performed using protocols designed to limit radiation exposure to as low as reasonably achievable to attain images of sufficient resolution adequate for diagnostic evaluation.
--- NOTE | 2018-09-05 19:37 | NUR ---
NURSE NOTES: Report received from AMERICA Grimes. Pt is lying comfortably in semi fowlers with no signs of distress. Pt is A+Ox4, denies pain/ SOB. IV site is patent, intact, and running fluids at prescribed rate. Respirations are even and unlabored on 2 L NC. Bed is at lowest position, brakes engaged, siderails x2, bed alarm on, and call light within reach. Pt is in stable condition at this time; will continue to monitor.
--- NOTE | 2018-09-05 20:15 | NUR ---
HAND-OFF: Report given to Patience Headley. Plan of care endorsed
[2018-09-05] MEDS: Tamsulosin 0.4mg cap ORAL SCH (21:00)
--- NOTE | 2018-09-05 21:21 | General Progress Note ---
Assessment/Plan Assessment/Plan Assessment/Plan # Leukocytosis. Likely related to underlying infection versus reactive process. -->Peripheral has been ordered, results are pending --> Medications have been reviewed --> Imaging has been reviewed --> Blood cultures and urine cultures prn -->has been started on abx, empiric treatment # History of thyroid cancer, status post thyroid surgery. 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 as well as losartan 50 mg daily. -->appreciate cardiology recs # Atrial fibrillation, the rate is currently controlled and is on anticoagulation with Coumadin with a therapeutic INR. # Status post Biotronik pacemaker. # Hypertension, Continue current regimen Lasix, losartan, and Coreg. # Hypokalemia # Polyneuropathy, continue gabapentin # BPH, continue Proscar and Flomax The timing of this note does not necessarily reflect the time of the patient was seen. Greatly appreciate consultation! Subjective Allergies: Coded Allergies: AZITHROMYCIN (Verified Allergy, Unknown, 09/04/18) PENICILLINS (Verified Allergy, Unknown, 09/03/18) Subjective 09/05: In atrial fib with V pacing. Rate controlled. Still NPO. Failed swallow eval. Objective Last 24 Hour Vital Signs Date Time Temp Pulse Resp B/P (MAP) Pulse Ox O2 Delivery O2 Flow Rate FiO2 09/05/18 20:00 98.4 66 19 98/50 (66) 98 09/05/18 16:00 97.8 73 18 90/50 (63) 95 09/05/18 16:00 78 09/05/18 13:53 84 16 98 Room Air 21 09/05/18 13:45 86 16 93 Room Air 21 09/05/18 12:00 74 09/05/18 12:00 97.5 71 20 94/52 (66) 94 09/05/18 09:00 Nasal Cannula 2.0 09/05/18 08:00 72 09/05/18 08:00 97.8 71 20 104/57 (73) 95 09/05/18 07:28 86 16 98 Nasal Cannula 2.0 28 09/05/18 07:20 65 16 91 Room Air 21 09/05/18 05:08 100/60 (73) 09/05/18 04:00 72 09/05/18 04:00 96.9 70 16 90/58 (69) 91 09/05/18 00:00 98.2 63 17 99/49 (66) 92 09/05/18 00:00 68 Intake and Output 09/04/18 09/05/18 19:00 07:00 Intake Total 320 ml Output Total 1500 ml 600 ml Balance -1180 ml -600 ml Intake Oral 320 ml Output Urine Total 1500 ml 600 ml # Voids 6 3 Laboratory Tests 09/05/18 07:18: White Blood Count 21.9H, Red Blood Count 4.55L, Hemoglobin 13.3L, Hematocrit 39.8L, Mean Corpuscular Volume 87, Mean Corpuscular Hemoglobin 29.2, Mean Corpuscular Hemoglobin Concent 33.4, Red Cell Distribution Width 14.3, Platelet Count 210, Mean Platelet Volume 7.6, Neutrophils (%) (Auto) , Lymphocytes (%) ( Auto) , Monocytes (%) (Auto) , Eosinophils (%) (Auto) , Basophils (%) (Auto) , Differential Total Cells Counted 100, Neutrophils % (Manual) 87H, Lymphocytes % (Manual) 5L, Monocytes % (Manual) 8, Eosinophils % (Manual) 0, Basophils % ( Manual) 0, Band Neutrophils 0, Platelet Estimate Adequate, Platelet Morphology Normal, Red Blood Cell Morphology Normal, Prothrombin Time 26.3H, Prothromb Time International Ratio 2.6H, Sodium Level 134L, Potassium Level 3.3L, Chloride Level 96L, Carbon Dioxide Level 28, Anion Gap 10, Blood Urea Nitrogen 27H, Creatinine 1.5#H, Estimat Glomerular Filtration Rate , Glucose Level 107H, Calcium Level 8.0L, Magnesium Level 1.4L Height (Feet): 5 Height (Inches): 9.00 Weight (Pounds): 189 Objective Physical Exam General Appearance: no apparent distress, alert HEENT: normocephalic, atraumatic Neck: non-tender, normal alignment, supple Respiratory/Chest: chest wall non-tender, lungs clear, normal breath sounds, no respiratory distress, no accessory muscle use Cardiovascular/Chest: normal peripheral pulses, normal rate Abdomen: normal bowel sounds, non tender Extremities: trace edema Skin Exam: normal pigmentation, warm/dry 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
[2018-09-06] VITALS: BP 107/59
[2018-09-06 04:00] VITALS: BP 110/61
--- NOTE | 2018-09-06 06:55 | NUR ---
HAND-OFF: Report given to AMERICA Grimes. Pt is in stable condition; plan of care endorsed.
[2018-09-06 07:04] LABS: HEMOGLOBIN 12.5 G/DL (14.2-18.0); MEAN CORPUSCULAR VOLUME 87 FL (80-99); PLATELET COUNT 197 K/UL (150-450); RED BLOOD COUNT 4.27 M/UL (4.70-6.10); WHITE BLOOD COUNT 19.3 K/UL (4.8-10.8)
[2018-09-06] MEDS: Ipratropium 0.02% Inh Soln 2.5ml UD HHN SCH ×3 (07:14→19:43)
--- NOTE | 2018-09-06 07:29 | NUR ---
NURSE NOTES: Received report from AMERICA Headley. Pt is sitting up in bed sleeping. Bed is in lowest position, side rails up X2, and call light is within reach. Will continue to monitor.
[2018-09-06 07:35] LABS: INR 2.7 (0.9-1.1)
[2018-09-06 07:54] LABS: ANION GAP 11 mmol/L (5-15); BLOOD UREA NITROGEN 46 mg/dL (7-18); CALCIUM 8.1 MG/DL (8.5-10.1); CARBON DIOXIDE 26 MMOL/L (21-32); CHLORIDE 96 MMOL/L (98-107); CREATININE 2.5 MG/DL (0.55-1.30); POTASSIUM 3.8 MMOL/L (3.5-5.1); SODIUM 133 MMOL/L (136-145)
[2018-09-06 08:00] VITALS: BP 96/58
[2018-09-06 08:33] LABS: PHOSPHORUS 4.2 MG/DL (2.5-4.9)
[2018-09-06] MEDS: Sennosides 8.6mg tab ORAL SCH ×2 (09:00→18:00)
[2018-09-06] MEDS: Docusate 100mg cap ORAL SCH (09:00)
--- NOTE | 2018-09-06 10:23 | NUR ---
NURSE NOTES: Notified Dr. Story of pts potassium. Per MD, he is "ok" with potassium level. Pt was transferred to surgery while being monitored. Unsigned consent is in patients chart. Md and OR staff aware of consent and potassium level. Addendum: 09/06/18 at 1045 by Sydney Moore RN Note above is for another pt. Please disregard
--- NOTE | 2018-09-06 10:41 | General Progress Note ---
Assessment/Plan Assessment/Plan #Acute on chronic diastolic CHF #Coronary artery disease #Permanent atrial fibrillation s/p PPM for SSS #HTN #Hyperlipidemia -resolving -hold Lasix given slight bump in creatinine -hold eplerenone -Monitor daily weights and I&O -Continue Coreg -continue warfarin and monitor INR daily -cardiology following #Leukocytosis, suspected aspiration pneumonia #Severe Dysphagia -seen by MEDICAL INSURANCE CLERK and Pulm -continue Levaquin -monitor CBC and cultures -GI eval for possible PEG placement -aspiration precautions -NPO -ID consulted #RY -continue to hold losartan and Lasix -Nephrology consulted #Hypokalemia -improved -repeat BMP in AM #Thyroid cancer #Metastatic disease and mod-large right pleural effusion seen on chest CT #Acquired hypothyroidism -continue levothyroxine -Discussed with his oncologist at [facility] -May need thoracentesis #Polyneuropathy -continue gabapentin #BPH -continue Proscar and Flomax VTE PPx warfarin full code I spent 45 minutes on this patient's case, and 25 minutes was dedicated to counseling and/or care coordination. Subjective Date patient seen: Sep 06, 2018 Time patient seen: 10:30 ROS Limited/Unobtainable: No Constitutional: Denies: chills, fever Cardiovascular: Denies: chest pain Respiratory: Denies: cough, orthopnea Gastrointestinal/Abdominal: Denies: abdomen distended, abdominal pain Genitourinary: Denies: burning, frequency Neurologic/Psychiatric: Denies: anxiety, depressed Allergies: Coded Allergies: AZITHROMYCIN (Verified Allergy, Unknown, 09/04/18) PENICILLINS (Verified Allergy, Unknown, 09/03/18) Subjective Medicine follow up for acute on chronic dCHF, lung mass, leukocytosis. Feels weak today Creatinine up to 2.5 today Objective Last 24 Hour Vital Signs Date Time Temp Pulse Resp B/P (MAP) Pulse Ox O2 Delivery O2 Flow Rate FiO2 09/06/18 07:22 81 20 99 Nasal Cannula 2.0 28 09/06/18 07:16 Nasal Cannula 2.0 28 09/06/18 07:16 62 20 Nasal Cannula 2.0 28 09/06/18 07:16 94 Nasal Cannula 2.0 28 09/06/18 07:14 62 20 94 Nasal Cannula 2.0 28 09/06/18 04:00 72 09/06/18 04:00 97.7 61 18 110/61 (77) 98 09/06/18 00:00 85 09/06/18 00:00 97.7 66 18 107/59 (75) 97 09/05/18 21:00 Nasal Cannula 2.0 09/05/18 21:00 66 98/50 09/05/18 20:00 78 09/05/18 20:00 98.4 66 19 98/50 (66) 98 09/05/18 19:54 87 20 98 Nasal Cannula 2.0 28 09/05/18 19:44 71 20 92 Nasal Cannula 2.0 28 09/05/18 19:44 92 Nasal Cannula 2.0 28 09/05/18 19:44 Nasal Cannula 2.0 28 09/05/18 16:00 97.8 73 18 90/50 (63) 95 09/05/18 16:00 78 09/05/18 13:53 84 16 98 Room Air 21 09/05/18 13:45 86 16 93 Room Air 21 09/05/18 12:00 74 09/05/18 12:00 97.5 71 20 94/52 (66) 94 Intake and Output 09/05/18 09/06/18 19:00 07:00 Output Total 200 ml Balance -200 ml Output Urine Total 200 ml # Voids 2 Laboratory Tests 09/06/18 05:30: White Blood Count 19.3H, Red Blood Count 4.27L, Hemoglobin 12.5L, Hematocrit 37.0L, Mean Corpuscular Volume 87, Mean Corpuscular Hemoglobin 29.2, Mean Corpuscular Hemoglobin Concent 33.7, Red Cell Distribution Width 14.0, Platelet Count 197, Mean Platelet Volume 7.5, Neutrophils (%) (Auto) , Lymphocytes (%) ( Auto) , Monocytes (%) (Auto) , Eosinophils (%) (Auto) , Basophils (%) (Auto) , Differential Total Cells Counted 100, Neutrophils % (Manual) 88H, Lymphocytes % (Manual) 5L, Monocytes % (Manual) 7, Eosinophils % (Manual) 0, Basophils % ( Manual) 0, Band Neutrophils 0, Platelet Estimate Adequate, Platelet Morphology Normal, Red Blood Cell Morphology Normal, Prothrombin Time 27.0H, Prothromb Time International Ratio 2.7H, Sodium Level 133L, Potassium Level 3.8, Chloride Level 96L, Carbon Dioxide Level 26, Anion Gap 11, Blood Urea Nitrogen 46H, Creatinine 2.5#H, Estimat Glomerular Filtration Rate , Glucose Level 116H, Calcium Level 8.1L, Phosphorus Level 4.2, Magnesium Level 2.1 Height (Feet): 5 Height (Inches): 9.00 Weight (Pounds): 191 General Appearance: no apparent distress, alert EENT: PERRL/EOMI, normal ENT inspection Neck: non-tender, normal alignment Cardiovascular: normal peripheral pulses, normal rate, regular rhythm Respiratory/Chest: chest wall non-tender, lungs clear, normal breath sounds Abdomen: normal bowel sounds, non tender Oscar Chin MD Sep 06, 2018 10:41
--- NOTE | 2018-09-06 10:43 | GI Initial Consult Note ---
History of Present Illness General Date patient seen: Sep 06, 2018 Time patient seen: 10:38 Reason for Hospitalization: Dyspnea/Respdistress Referring physician: APRIL OLIVARES Reason for Consultation: PEG evaluation Present Illness HPI 88-year-old male presents ED for shortness of breath. Brought in by EMS. States he's been having increased short of breath for the last few weeks. History of CHF. Notes some leg swelling. Denies chest pain. Denies fevers or chills. Denies cough. No other aggravating relieving factors. Denies any other associated symptoms GI consulted for PEG evaluation. Patient was seen, awake alert and oriented x4 with noted generalized weakness. Speech therapy evaluation noted with poor pharyngeal motility without any signs of aspiration, had significantly mostly vallecular residue after swallow. I Explained risks and benefits to the patient of having G-tube placed and he agreed. Home Meds Reported Medications Eplerenone (EPLERENONE) 25 Mg Tablet, 25 MG PO TID, TAB 09/03/18 Sennosides (SENNA) 8.6 Mg Tablet, 8.6 MG PO, TAB 09/03/18 Docusate Sodium* (COLACE*) 100 Mg Capsule, 100 MG ORAL DAILY, CAP 09/03/18 Sennosides (SENNA) 8.6 Mg Tablet, 8.6 MG PO, TAB 09/03/18 Finasteride* (PROSCAR*) 5 Mg Tablet, 5 MG ORAL DAILY, #30 TAB 0 Refills 09/03/18 Eplerenone (EPLERENONE) 25 Mg Tablet, 25 MG PO THREE TIMES A DAY, TAB 09/03/18 Tamsulosin HCl (Flomax) 0.4 Mg Cap.er.24h, 0.4 MG ORAL DAILY, CAP 09/03/18 Pantoprazole* (PANTOPRAZOLE*) 40 Mg Tablet.dr, 40 MG ORAL EVERY 12 HOURS, TAB 09/03/18 Zolpidem Tartrate* (ZOLPIDEM TARTRATE*) 5 Mg Tablet, 5 MG ORAL BEDTIME PRN for Insomnia, TAB 0 Refills 09/03/18 Carvedilol* (CARVEDILOL*) 3.125 Mg Tablet, 3.125 MG ORAL EVERY 12 HOURS, TAB 09/03/18 Furosemide* (LASIX*) 20 Mg Tablet, 10 MG ORAL DAILY, TAB 09/03/18 Levothyroxine Sodium* (SYNTHROID*) 150 Mcg Tablet, 150 MCG ORAL DAILY, TAB Take in the morning on an empty stomach, at least 30 minutes before food. 09/03/18 Warfarin Sod* (WARFARIN SOD*) 4 Mg Tablet, 4 MG ORAL DAILY, TAB 0 Refills 09/03/18 Gabapentin* (GABAPENTIN*) 300 Mg Capsule, 300 MG ORAL TWICE A DAY, CAP 0 Refills 09/03/18 Losartan Potassium* (LOSARTAN POTASSIUM*) 50 Mg Tablet, 50 MG ORAL DAILY, TAB 09/03/18 Med list reviewed/reconciled: Yes Allergies: Coded Allergies: AZITHROMYCIN (Verified Allergy, Unknown, 09/04/18) PENICILLINS (Verified Allergy, Unknown, 09/03/18) Patient History History Provided By: Patient, Medical Record PMH Narrative Past Medical History: HTN, CHF Past Surgical History: pacemaker Pertinent Family History: none Social History: Denies: smoking, alcohol use, drug use Immunizations: UTD Reviewed Nursing Documentation: PMH: Agreed; PSxH: Agreed Nursing Documentation-PMH Past Medical History: No History, Except For Hx Cardiac Problems: Yes - CHF Hx Hypertension: Yes Hx Pacemaker: Yes Hx Cancer: Yes - Thyroid Hx Neurological Problems: No Social History: Denies: smoking, alcohol use, drug use, other Review of Systems All Other Systems: limited Physical Exam Vital Signs Date Time Temp Pulse Resp B/P (MAP) Pulse Ox O2 Delivery O2 Flow Rate FiO2 09/03/18 07:22 97.5 85 23 178/131 95 Nasal Cannula 4.0 09/03/18 08:47 100 Sp02 EP Interpretation: reviewed, normal Labs Laboratory Tests Test 09/06/18 05:30 White Blood Count 19.3 K/UL (4.8-10.8) H Red Blood Count 4.27 M/UL (4.70-6.10) L Hemoglobin 12.5 G/DL (14.2-18.0) L Hematocrit 37.0 % (42.0-52.0) L Mean Corpuscular Volume 87 FL (80-99) Mean Corpuscular Hemoglobin 29.2 PG (27.0-31.0) Mean Corpuscular Hemoglobin Concent 33.7 G/DL (32.0-36.0) Red Cell Distribution Width 14.0 % (11.6-14.8) Platelet Count 197 K/UL (150-450) Mean Platelet Volume 7.5 FL (6.5-10.1) Neutrophils (%) (Auto) % (45.0-75.0) Lymphocytes (%) (Auto) % (20.0-45.0) Monocytes (%) (Auto) % (1.0-10.0) Eosinophils (%) (Auto) % (0.0-3.0) Basophils (%) (Auto) % (0.0-2.0) Differential Total Cells Counted 100 Neutrophils % (Manual) 88 % (45-75) H Lymphocytes % (Manual) 5 % (20-45) L Monocytes % (Manual) 7 % (1-10) Eosinophils % (Manual) 0 % (0-3) Basophils % (Manual) 0 % (0-2) Band Neutrophils 0 % (0-8) Platelet Estimate Adequate Platelet Morphology Normal Red Blood Cell Morphology Normal Prothrombin Time 27.0 SEC (9.30-11.50) H Prothromb Time International Ratio 2.7 (0.9-1.1) H Sodium Level 133 MMOL/L (136-145) L Potassium Level 3.8 MMOL/L (3.5-5.1) Chloride Level 96 MMOL/L (98-107) L Carbon Dioxide Level 26 MMOL/L (21-32) Anion Gap 11 mmol/L (5-15) Blood Urea Nitrogen 46 mg/dL (7-18) H Creatinine 2.5 MG/DL (0.55-1.30) #H Estimat Glomerular Filtration Rate mL/min (>60) Glucose Level 116 MG/DL (74-106) H Calcium Level 8.1 MG/DL (8.5-10.1) L Phosphorus Level 4.2 MG/DL (2.5-4.9) Magnesium Level 2.1 MG/DL (1.8-2.4) General Appearance: well appearing, no apparent distress, alert Head: normocephalic EENT: PERRL/EOMI, normal ENT inspection Neck: supple Respiratory: normal breath sounds, no respiratory distress Cardiovascular: normal rate Gastrointestinal: normal inspection, non tender, soft, normal bowel sounds, non -distended Rectal: deferred Genitourinary: deferred Musculoskeletal: normal inspection, back normal Neurologic: normal inspection, alert, oriented x3, responsive Psychiatric: normal inspection, judgement/insight normal, memory normal Skin: normal inspection, normal color, no rash, warm/dry, palpation normal, well hydrated Lymphatic: normal inspection, no adenopathy Current Medications Current Medications Medications (Trade) Dose Ordered Sig/Mario Route PRN Reason Start Time Stop Time Status Last Admin Dose Admin Bisacodyl (Dulcolax) 10 mg HSPRN PRN RECTAL Constipation 09/03/18 12:15 10/03/18 10:59 Carvedilol (Coreg) 3.125 mg EVERY 12 HOURS ORAL 09/03/18 12:15 10/03/18 12:14 09/04/18 20:54 Dextrose (Dextrose 50%) 25 ml Q30M PRN IV Hypoglycemia 09/03/18 11:00 10/03/18 10:59 Dextrose (Dextrose 50%) 50 ml Q30M PRN IV Hypoglycemia 09/03/18 11:00 10/03/18 10:59 Docusate Sodium (Colace) 100 mg DAILY ORAL 09/03/18 18:00 10/04/18 08:59 09/05/18 09:10 Finasteride (Proscar) 5 mg DAILY ORAL 09/04/18 09:00 10/04/18 08:59 09/05/18 09:09 Gabapentin (Neurontin) 300 mg TWICE A DAY ORAL 09/03/18 18:00 10/03/18 17:59 09/05/18 17:47 Ipratropium [place] (Atrovent) 500 mcg TIDRT HHN 09/04/18 13:00 09/09/18 12:59 09/06/18 07:14 Levofloxacin (Levaquin) 250 mg DAILY ORAL 09/06/18 09:00 09/13/18 08:59 Levothyroxine Sodium (Synthroid) 150 mcg Q24H ORAL 09/04/18 06:30 10/04/18 06:29 09/05/18 06:20 Ondansetron HCl (Zofran) 4 mg Q6H PRN IVP Nausea & Vomiting 09/03/18 11:00 10/03/18 10:59 Pantoprazole (Protonix) 40 mg EVERY 12 HOURS ORAL 09/03/18 13:05 10/03/18 13:04 09/05/18 09:08 Sennosides (Senokot) 17.2 mg BID ORAL 09/04/18 09:00 10/03/18 17:59 09/05/18 17:47 Tamsulosin HCl (Flomax) 0.4 mg QHS ORAL 09/03/18 21:00 10/03/18 20:59 09/04/18 20:52 Warfarin Sodium (Coumadin per pharmacy) 1 ea DAILY MISC 09/04/18 17:00 10/04/18 16:59 Warfarin Sodium (Coumadin) 4 mg ONCE PO 09/06/18 17:00 09/06/18 19:00 Zolpidem Tartrate (Ambien) 2.5 mg BEDTIME PRN ORAL Insomnia 09/03/18 12:15 09/10/18 11:44 09/04/18 20:53 GI: Plan Problems: (1) Dysphasia (2) Severe malnutrition (3) Dehydration (4) Encounter for PEG (percutaneous endoscopic gastrostomy) Plan The patient is currently on coumadin. will give Vit K 1g and FFP at [place] for coumadin reversal. PEG to be scheduled tomorrow. dc NGT insertion PRN transfusions PPI IV p.o. hydration plus electrolyte correction Follow labs We will follow with additional recommendations post procedure Discussed with Dr. Jiménez. Thank you for this patient referral, we will follow. The patient was seen and examined at bedside and all new and available data was reviewed in the patients chart. I agree with the above findings, impression and plan. (Patient seen earlier today. Signature stamp does not reflect patient encounter time.). - MD Renuka Zambrano,[facility] STERILIZER OPERATOR Sep 06, 2018 10:43
[2018-09-06 12:00] VITALS: BP 92/54
--- NOTE | 2018-09-06 12:19 | Pulmonology Progress Note ---
Assessment/Plan Assessment/Plan Problem List: 1. Respiratory insufficiency 2. Acute on chronic diastolic CHF 3. Leukocytosis 4. Bilateral pleural effusions 5. Possible pneumonia 6. 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 CAD 10. HTN 11. Oropharyngeal dsyphagia 12. RY 13. CT chest with evidence of destructive rib lesions bilaterally concerning for metastatic disease Plan: -monitor volumes, hold lasix given RY -?give back IVF -likely needs thoracentesis but somnolent and unable to discuss -check ABG -Improved leukocytosis; cont abx -swallow eval noted, may need PEG -monitor and replete electrolytes Subjective ROS Limited/Unobtainable: Yes Interval Events: CT chest with b/l effusions. Noted destructive lesion in ribs right and le Allergies: Coded Allergies: AZITHROMYCIN (Verified Allergy, Unknown, 09/04/18) PENICILLINS (Verified Allergy, Unknown, 09/03/18) Subjective Sleeping, somewhat arousable Objective Last 24 Hour Vital Signs Date Time Temp Pulse Resp B/P (MAP) Pulse Ox O2 Delivery O2 Flow Rate FiO2 09/06/18 12:00 98.0 69 20 92/54 (67) 94 09/06/18 08:00 97.3 74 20 96/58 (71) 94 09/06/18 07:22 81 20 99 Nasal Cannula 2.0 28 09/06/18 07:16 Nasal Cannula 2.0 28 09/06/18 07:16 62 20 Nasal Cannula 2.0 28 09/06/18 07:16 94 Nasal Cannula 2.0 28 09/06/18 07:14 62 20 94 Nasal Cannula 2.0 28 09/06/18 04:00 72 09/06/18 04:00 97.7 61 18 110/61 (77) 98 09/06/18 00:00 85 09/06/18 00:00 97.7 66 18 107/59 (75) 97 09/05/18 21:00 Nasal Cannula 2.0 09/05/18 21:00 66 98/50 09/05/18 20:00 78 09/05/18 20:00 98.4 66 19 98/50 (66) 98 09/05/18 19:54 87 20 98 Nasal Cannula 2.0 28 09/05/18 19:44 71 20 92 Nasal Cannula 2.0 28 09/05/18 19:44 92 Nasal Cannula 2.0 28 09/05/18 19:44 Nasal Cannula 2.0 28 09/05/18 16:00 97.8 73 18 90/50 (63) 95 09/05/18 16:00 78 09/05/18 13:53 84 16 98 Room Air 21 09/05/18 13:45 86 16 93 Room Air 21 Intake and Output 09/05/18 09/06/18 19:00 07:00 Output Total 200 ml Balance -200 ml Output Urine Total 200 ml # Voids 2 General Appearance: WD/WN, no acute distress HEENT: mucous membranes moist Respiratory/Chest: decreased breath sounds Cardiovascular: normal rate, regular rhythm Abdomen: soft, non tender Extremities: no edema Laboratory Tests 09/06/18 05:30: White Blood Count 19.3H, Red Blood Count 4.27L, Hemoglobin 12.5L, Hematocrit 37.0L, Mean Corpuscular Volume 87, Mean Corpuscular Hemoglobin 29.2, Mean Corpuscular Hemoglobin Concent 33.7, Red Cell Distribution Width 14.0, Platelet Count 197, Mean Platelet Volume 7.5, Neutrophils (%) (Auto) , Lymphocytes (%) ( Auto) , Monocytes (%) (Auto) , Eosinophils (%) (Auto) , Basophils (%) (Auto) , Differential Total Cells Counted 100, Neutrophils % (Manual) 88H, Lymphocytes % (Manual) 5L, Monocytes % (Manual) 7, Eosinophils % (Manual) 0, Basophils % ( Manual) 0, Band Neutrophils 0, Platelet Estimate Adequate, Platelet Morphology Normal, Red Blood Cell Morphology Normal, Prothrombin Time 27.0H, Prothromb Time International Ratio 2.7H, Sodium Level 133L, Potassium Level 3.8, Chloride Level 96L, Carbon Dioxide Level 26, Anion Gap 11, Blood Urea Nitrogen 46H, Creatinine 2.5#H, Estimat Glomerular Filtration Rate , Glucose Level 116H, Calcium Level 8.1L, Phosphorus Level 4.2, Magnesium Level 2.1 Current Medications Medications (Trade) Dose Ordered Sig/Mario Route PRN Reason Start Time Stop Time Status Last Admin Dose Admin Bisacodyl (Dulcolax) 10 mg HSPRN PRN RECTAL Constipation 09/03/18 12:15 10/03/18 10:59 Carvedilol (Coreg) 3.125 mg EVERY 12 HOURS ORAL 09/03/18 12:15 10/03/18 12:14 09/04/18 20:54 Dextrose (Dextrose 50%) 25 ml Q30M PRN IV Hypoglycemia 09/03/18 11:00 10/03/18 10:59 Dextrose (Dextrose 50%) 50 ml Q30M PRN IV Hypoglycemia 09/03/18 11:00 10/03/18 10:59 Docusate Sodium (Colace) 100 mg DAILY ORAL 09/03/18 18:00 10/04/18 08:59 09/05/18 09:10 Finasteride (Proscar) 5 mg DAILY ORAL 09/04/18 09:00 10/04/18 08:59 09/05/18 09:09 Gabapentin (Neurontin) 300 mg TWICE A DAY ORAL 09/03/18 18:00 10/03/18 17:59 09/05/18 17:47 Ipratropium [place] (Atrovent) 500 mcg TIDRT HHN 09/04/18 13:00 09/09/18 12:59 09/06/18 07:14 Levofloxacin (Levaquin) 250 mg DAILY ORAL 09/06/18 09:00 09/13/18 08:59 Levothyroxine Sodium (Synthroid) 150 mcg Q24H ORAL 09/04/18 06:30 10/04/18 06:29 09/05/18 06:20 Ondansetron HCl (Zofran) 4 mg Q6H PRN IVP Nausea & Vomiting 09/03/18 11:00 10/03/18 10:59 Pantoprazole (Protonix) 40 mg EVERY 12 HOURS ORAL 09/03/18 13:05 10/03/18 13:04 09/05/18 09:08 Sennosides (Senokot) 17.2 mg BID ORAL 09/04/18 09:00 10/03/18 17:59 09/05/18 17:47 Tamsulosin HCl (Flomax) 0.4 mg QHS ORAL 09/03/18 21:00 10/03/18 20:59 09/04/18 20:52 Zolpidem Tartrate (Ambien) 2.5 mg BEDTIME PRN ORAL Insomnia 09/03/18 12:15 09/10/18 11:44 09/04/18 20:53 Joel Pantoja MD Sep 06, 2018 12:19
--- NOTE | 2018-09-06 12:24 | NUR ---
REHAB MED PT NOTE CONSULT RECEIVED, THELMA COMPLTD, PATIENT WILL BENEFIT FROM SKILLED PT DURING STAY FOR RETURN TO PLOF. MAX A 2 FOR ALL MOBIILTY, OOB TO CHAIR THIS MORNING WITH TOTAL ASSIST, UNABLE TO STAND AND BEAR WEIGHT. RECOMMEND HOME WITH 24HR CAREGIVER AND HOSPITAL BED VS SNF FOR REHAB STRENGTHENING. PLAN OF CARE INITIATED. HOA RUBIO PT DPT
[2018-09-06] MEDS: metroNIDAZOLE 500mg tab ORAL SCH ×2 (14:00→22:00)
[2018-09-06] MEDS ORDERED: Morphine Sulfate 2mg/ml Inj(IV/IM USE ONLY) IVP SCH (15:43)
[2018-09-06] MEDS ORDERED: Phytonadione 1 MG in D5W 55 ML IVPB SCH (16:00)
--- NOTE | 2018-09-06 16:48 | Diagnostic Imaging Report ---
Indications: Dysphagia Technique: Patient ingested multiple substances under the supervision of speech pathology. Video fluoroscopic recording performed. Total fluoroscopy time 307.9 seconds. Total dose area product 0.96127 mGycm2 Total number of images-12 Comparison: none Findings: Multiple episodes of penetration of thin liquid barium demonstrated, with aspiration with sequential ingestion via cup of thin liquid barium. Ingestion of nectar an honey thick barium puree, no aspiration or penetration. However, there is considerable residual flow pooling after swallowing. Thick liquid barium demonstrates episodes of penetration, without mallorie aspiration. Impression: Positive for aspiration of thin liquid barium, penetration of honey and nectar thick liquid barium. Other findings as noted Please refer to speech pathology report for more detailed analysis
[2018-09-06] MEDS ORDERED: Warfarin Sodium 4mg PO SCH (17:00)
--- NOTE | 2018-09-06 17:22 | Cardiac Electrophysiology PN ---
Assessment/Plan Assessment/Plan 1. Exacerbation of congestive heart failure due to diastolic dysfunction Echocardiogram EF 55% BNP is more than 1700. On Coreg 3.125 mg b.i.d. and losartan 50 mg daily. 2. Atrial fibrillation. Coumadin held for possible PEG by Dr Jiménez 3. Status post Biotronik pacemaker with Nl Fx 4. History of thyroid cancer, status post thyroid surgery. 5. Hypertension. Continue losartan, and Coreg. 6. Increased right pleural effusion, Destructive bilateral pleural mass again demonstrated. FU Dr Pantoja. S/ p Chest CT DW RN and Dr Drummond Subjective Subjective In atrial fib with V pacing. Rate controlled. Failed swallow eval.Getting HIDA scan Objective Last 24 Hour Vital Signs Date Time Temp Pulse Resp B/P (MAP) Pulse Ox O2 Delivery O2 Flow Rate FiO2 09/06/18 14:00 81 20 98 Nasal Cannula 2.0 28 09/06/18 13:50 65 20 95 Nasal Cannula 2.0 28 09/06/18 12:00 98.0 69 20 92/54 (67) 94 09/06/18 09:00 Nasal Cannula 2.0 09/06/18 08:00 97.3 74 20 96/58 (71) 94 09/06/18 07:22 81 20 99 Nasal Cannula 2.0 28 09/06/18 07:16 Nasal Cannula 2.0 28 09/06/18 07:16 62 20 Nasal Cannula 2.0 28 09/06/18 07:16 94 Nasal Cannula 2.0 28 09/06/18 07:14 62 20 94 Nasal Cannula 2.0 28 09/06/18 04:00 72 09/06/18 04:00 97.7 61 18 110/61 (77) 98 09/06/18 00:00 85 09/06/18 00:00 97.7 66 18 107/59 (75) 97 09/05/18 21:00 Nasal Cannula 2.0 09/05/18 21:00 66 98/50 09/05/18 20:00 78 09/05/18 20:00 98.4 66 19 98/50 (66) 98 09/05/18 19:54 87 20 98 Nasal Cannula 2.0 28 09/05/18 19:44 71 20 92 Nasal Cannula 2.0 28 09/05/18 19:44 92 Nasal Cannula 2.0 28 09/05/18 19:44 Nasal Cannula 2.0 28 Intake and Output 09/05/18 09/06/18 19:00 07:00 Output Total 200 ml Balance -200 ml Output Urine Total 200 ml # Voids 2 Laboratory Tests Test 09/06/18 05:30 White Blood Count 19.3 K/UL (4.8-10.8) H Red Blood Count 4.27 M/UL (4.70-6.10) L Hemoglobin 12.5 G/DL (14.2-18.0) L Hematocrit 37.0 % (42.0-52.0) L Mean Corpuscular Volume 87 FL (80-99) Mean Corpuscular Hemoglobin 29.2 PG (27.0-31.0) Mean Corpuscular Hemoglobin Concent 33.7 G/DL (32.0-36.0) Red Cell Distribution Width 14.0 % (11.6-14.8) Platelet Count 197 K/UL (150-450) Mean Platelet Volume 7.5 FL (6.5-10.1) Neutrophils (%) (Auto) % (45.0-75.0) Lymphocytes (%) (Auto) % (20.0-45.0) Monocytes (%) (Auto) % (1.0-10.0) Eosinophils (%) (Auto) % (0.0-3.0) Basophils (%) (Auto) % (0.0-2.0) Differential Total Cells Counted 100 Neutrophils % (Manual) 88 % (45-75) H Lymphocytes % (Manual) 5 % (20-45) L Monocytes % (Manual) 7 % (1-10) Eosinophils % (Manual) 0 % (0-3) Basophils % (Manual) 0 % (0-2) Band Neutrophils 0 % (0-8) Platelet Estimate Adequate Platelet Morphology Normal Red Blood Cell Morphology Normal Prothrombin Time 27.0 SEC (9.30-11.50) H Prothromb Time International Ratio 2.7 (0.9-1.1) H Sodium Level 133 MMOL/L (136-145) L Potassium Level 3.8 MMOL/L (3.5-5.1) Chloride Level 96 MMOL/L (98-107) L Carbon Dioxide Level 26 MMOL/L (21-32) Anion Gap 11 mmol/L (5-15) Blood Urea Nitrogen 46 mg/dL (7-18) H Creatinine 2.5 MG/DL (0.55-1.30) #H Estimat Glomerular Filtration Rate mL/min (>60) Glucose Level 116 MG/DL (74-106) H Calcium Level 8.1 MG/DL (8.5-10.1) L Phosphorus Level 4.2 MG/DL (2.5-4.9) Magnesium Level 2.1 MG/DL (1.8-2.4) Objective HEAD AND NECK: Positive JVD. LUNGS: Decreased breath sounds. CARDIOVASCULAR: Irregular S1 and S2 with no gallop and soft systolic murmur. Pacemaker in the left subclavian. ABDOMEN: Soft. EXTREMITIES: 1+ pitting edema. Jere Faustin MD Sep 06, 2018 17:22
--- NOTE | 2018-09-06 17:50 | NUR ---
HIDA Scan complete.
--- NOTE | 2018-09-06 18:45 | NUR ---
NURSE NOTES: Signed consent for procedures is in pt chart.
--- NOTE | 2018-09-06 19:29 | Cardiology Report ---
APPROVED REPORT EXAM: Two-dimensional and M-mode echocardiogram with Doppler and color Doppler. INDICATION Congestive Heart Failure M-Mode DIMENSIONS IVSd1.2 (0.7-1.1cm)Left Atrium (MM)3.8 (1.6-4.0cm) LVDd3.1 (3.5-5.6cm)Aortic Root4.0 (2.0-3.7cm) PWd1.3 (0.7-1.1cm)Aortic Cusp Exc.1.3 (1.5-2.0cm) IVSs1.3 cm LVDs2.3 (2.5-4.0cm) PWs1.6 cm Normal left ventricular chamber size, systolic function and wall motion to extent visualized. Left ventricular ejection fraction estimated to be 55%. Mild left ventricular hypertrophy by 2-D. Anterior Echo-free space, may be due to pericardial fat or effusion. Mild left atrial enlargement . Right cardiac chamber sizes are within normal limits. Aortic valve calcification with decreased cusp excursion c/w aortic stenosis. Thickened mitral valve leaflets with normal excursion. Mild mitral annulus and aortic root calcification. Pulmonic valve not well visualized. IVC at normal size without physiologic collapse . Pacemaker wire present in the right side chambers. A color flow and spectral Doppler study was performed and revealed: Mild aortic insufficiency . Peak aortic valve gradient of 20 mmHg and a mean of 9 mmHg. Aortic valve area is 1.0cm2 , calculated by continuity equation. Left ventricular diastolic function can not determined due to A-FIB . Mild mitral regurgitation. Mild tricuspid regurgitation. Tricuspid systolic velocities suggests peak right ventricular systolic pressure of 40 mmHg,consistent with mild pulmonary hypertension .
[2018-09-06 20:00] VITALS: BP 101/61
--- NOTE | 2018-09-06 20:13 | Consultation ---
Consult Note Consult Note asked to evaluate for rising serum Cr patient examined data reviewed has not urinated since yesterday currently NPO . Assessment/Plan Acute renal Failure- Underlying CKD CHF ( Diastolic Dysfunction) with EjFx 55% Pacemaker status Atrial Fib HTN Bilateral Pleural effusion Hyperlipidemia BPH Suspected Aspiration ? Metastatic pulm and bone disease. h/o Thyroid carcinoma prior Thyroidectomy Albumin bolus Hawkins catheter monitor renal parameters avoid Nephrotoxics per orders Dmitri Medina MD Sep 06, 2018 20:13
--- NOTE | 2018-09-06 20:40 | NUR ---
NURSE NOTES: Bladder scan done per Dr Medina order, 139ml residual noted. Inserted naidu catheter per order. Orders carried out. Kept NPO, pt verbalized understanding. Call light within reach.
[2018-09-06] MEDS ORDERED: Tamsulosin 0.4mg cap ORAL SCH (21:00)
--- NOTE | 2018-09-06 21:45 | Consultation ---
DATE OF CONSULTATION: 09/06/2018 INFECTIOUS DISEASES CONSULTATION PRIMARY ATTENDING: Damien Barrow M.D. REASON FOR CONSULTATION: Pneumonia. HISTORY OF PRESENT ILLNESS: This is an 88-year-old white male, admitted on 09/03/2018 because of shortness of breath, leg edema, orthopnea. The patient had a history of thyroid cancer, status post thyroidectomy. He was found to have lung masses as well as vocal cord paralysis and dysphagia. He had leukocytosis that is increasing since the time of admission. PAST MEDICAL HISTORY: Papillary thyroid cancer, vocal cord paralysis, chronic diastolic CHF, status post pacemaker, atrial fibrillation, and hypertension. MEDICATIONS: Levaquin from today, ipratropium, finasteride, levothyroxine, Flomax, gabapentin, Protonix, bisacodyl, Ambien, Coreg, and Zofran. ALLERGIES: The patient is allergic to azithromycin and penicillin. SOCIAL HISTORY: Denies alcohol, drug abuse, or smoking. He is . REVIEW OF SYSTEMS: Very limited. The patient's voice hardly can be heard. He complains of weakness and shortness of breath. He has no significant pain. He has poor appetite and dysphagia. The patient has failed swallowing study. PHYSICAL EXAMINATION: VITAL SIGNS: Temperature 98, pulse 69, and blood pressure 92/54. GENERAL APPEARANCE: The patient is in no acute distress, seems to be weak. HEAD AND NECK: [place] conjunctiva. HEART: Normal rate. Has pacemaker. LUNGS: Decreased sounds bilaterally. ABDOMEN: Soft and nontender. EXTREMITIES: No significant edema. NEUROLOGIC: Awake, alert, and responsive. LABORATORY AND DIAGNOSTIC DATA: WBC at the time of admission was 11.4, hemoglobin 12.5, hematocrit 37, and platelets 197,000. Sodium 133, potassium 3.8, chloride 96, bicarbonate 26, BUN 46, and creatinine 2.5. Creatinine at the time of admission was 0.8. CT scan of the chest showed pleural and extrapleural lesions with right lateral and right seventh rib destruction, bilateral [id number] pleural effusions, mediastinal lymphadenopathy, evidence of thyroid surgery, cardiomegaly, distended gallbladder and fairly extensive gall bladder wall edema, gallstone in gallbladder neck incidentally noted, pulmonary metastatic disease, . IMPRESSION: Leukocytosis. The patient may deliver aspiration pneumonia. This patient has cholelithiasis, we will try to rule out cholecystitis. 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 He has penicillin and Zithromax allergy. RECOMMENDATION: Continue with Levaquin. Add Flagyl. Obtain HIDA scan to rule out cholecystitis. We will follow up the culture. At the end of my exam, I thank Dr. Barrow for involving me in the care of this patient. José Miguel Barber M.D. DR: JAY JAY JOB#: [id number] CC: TOÑA
[2018-09-07] VITALS (13 sets, daily range): BP systolic 109–142; BP diastolic 54–81
[2018-09-07 00:01] LABS: APPEARANCE,URINE SLIGHTLY CLOUDY; BILIRUBIN, URINE NEGATIVE (NEGATIVE); GLUCOSE, URINE (UA) NEGATIVE (NEGATIVE); KETONES,URINE NEGATIVE (NEGATIVE); LEUKOCYTE ESTERASE ,URINE 1+ (NEGATIVE); NITRITE,URINE NEGATIVE (NEGATIVE); PH,URINE 5 (4.5-8.0); PROTEIN,URINE 1+ (NEGATIVE); UROBILINOGEN,URINE NORMAL MG/DL (0.0-1.0)
[2018-09-07 00:14] LABS: COLOR,URINE YELLOW
--- NOTE | 2018-09-07 02:40 | NUR ---
NURSE NOTES: 1 unit FFP given as per ordered. No adverse sign noted. Pt in bed asleep, VS taken and stable.
--- NOTE | 2018-09-07 03:30 | NUR ---
NURSE NOTES: Received call from [facility], no bed available. Charge nurse made aware.
[2018-09-07 05:33] LABS: HEMATOCRIT 35.5 % (42.0-52.0); HEMOGLOBIN 11.8 G/DL (14.2-18.0); MEAN CORPUSCULAR VOLUME 87 FL (80-99); PLATELET COUNT 190 K/UL (150-450); RED BLOOD COUNT 4.07 M/UL (4.70-6.10); RED CELL DISTRIBUTION WIDTH 13.8 % (11.6-14.8); WHITE BLOOD COUNT 14.8 K/UL (4.8-10.8)
[2018-09-07 05:52] LABS: INR 1.6 (0.9-1.1)
[2018-09-07] MEDS: metroNIDAZOLE 500mg tab ORAL SCH ×3 (05:57→22:32)
[2018-09-07 06:20] LABS: ALANINE AMINOTRANSFERASE 10 U/L (12-78); ALBUMIN 2.6 G/DL (3.4-5.0); ALBUMIN/GLOBULIN RATIO 0.7 (1.0-2.7); ALKALINE PHOSPHATASE 51 U/L (46-116); ANION GAP 8 mmol/L (5-15); ASPARTATE AMINO TRANSFERASE 11 U/L (15-37); BILIRUBIN,TOTAL 1.8 MG/DL (0.2-1.0); BLOOD UREA NITROGEN 61 mg/dL (7-18); CALCIUM 8.5 MG/DL (8.5-10.1); CARBON DIOXIDE 27 MMOL/L (21-32); CHLORIDE 99 MMOL/L (98-107); CHOLESTEROL 85 MG/DL (< 200); CREATINE KINASE 13 U/L (26-308); CREATININE 2.6 MG/DL (0.55-1.30); FERRITIN 570 NG/ML (8-388); GAMMA GLUTAMYL TRANSPEPTIDASE 13 U/L (5-85); HDL CHOLESTEROL 20 MG/DL (40-60); PHOSPHORUS 4.2 MG/DL (2.5-4.9); POTASSIUM 3.4 MMOL/L (3.5-5.1); SODIUM 134 MMOL/L (136-145); TRIGLYCERIDES 77 MG/DL (30-150)
[2018-09-07 06:31] LABS: BILIRUBIN,DIRECT 0.5 MG/DL (0.0-0.3)
--- NOTE | 2018-09-07 07:15 | NUR ---
HAND-OFF: Report given to Jung CROSS.
--- NOTE | 2018-09-07 07:52 | NUR ---
NURSE NOTES: Pt in bed in low position, HOB in semi fowlers, pt laying bed with eyes closed and breathing appears to be sleeping, IV site RT FA 22 intact and asymptomatic, no orientation due to pt sleeping, but according to night nurse OX4 and cooperative, Pacemaker pacing at V pace, pt no ambulatory bed bound, call light at bedside, bed alarm on, bed locked, no s/s of distress or sob noted.
[2018-09-07] MEDS: Ipratropium 0.02% Inh Soln 2.5ml UD HHN SCH ×3 (08:50→20:23)
[2018-09-07] MEDS: Docusate 100mg cap ORAL SCH (09:00)
[2018-09-07] MEDS: Tamsulosin 0.4mg cap ORAL SCH ×2 (09:00→22:32)
[2018-09-07] MEDS: Sennosides 8.6mg tab ORAL SCH ×2 (09:00→18:05)
--- NOTE | 2018-09-07 09:33 | Pulmonology Progress Note ---
Assessment/Plan Assessment/Plan Problem List: 1. Respiratory insufficiency 2. Acute on chronic diastolic CHF 3. Leukocytosis 4. Bilateral pleural effusions 5. Possible pneumonia 6. 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 CAD 10. HTN 11. Oropharyngeal dsyphagia 12. RY 13. CT chest with evidence of destructive rib lesions bilaterally concerning for metastatic disease Plan: -monitor volumes, hold lasix given RY -?give back IVF -stat thoracentesis eval -Abx: levaquin/flagyl -Improved leukocytosis; cont abx -swallow eval noted, planned PEG -monitor and replete electrolytes Subjective ROS Limited/Unobtainable: No Interval Events: short of breath, can't cough. PEG planned today Constitutional: Reports: fatigue HEENT: Repors: no symptoms Respiratory: Reports: dry cough, dyspnea on exertion Cardiovascular: Reports: no symptoms Gastrointestinal/Abdominal: Reports: no symptoms Allergies: Coded Allergies: AZITHROMYCIN (Verified Allergy, Unknown, 09/04/18) PENICILLINS (Verified Allergy, Unknown, 09/03/18) Subjective Sleeping, somewhat arousable Objective Last 24 Hour Vital Signs Date Time Temp Pulse Resp B/P (MAP) Pulse Ox O2 Delivery O2 Flow Rate FiO2 09/07/18 09:07 91 20 94 Nasal Cannula 2.0 28 09/07/18 08:50 94 Nasal Cannula 2.0 28 09/07/18 08:50 Nasal Cannula 2.0 28 09/07/18 08:50 84 20 92 Nasal Cannula 2.0 28 09/07/18 04:00 79 09/07/18 04:00 97.9 88 19 133/73 (93) 98 09/07/18 00:00 97.7 75 18 118/71 (87) 98 09/07/18 00:00 81 09/06/18 21:00 Nasal Cannula 2.0 09/06/18 20:00 80 09/06/18 20:00 97.1 83 19 101/61 (74) 95 09/06/18 19:53 86 18 99 Nasal Cannula 2.0 28 09/06/18 19:43 88 18 96 Nasal Cannula 2.0 28 09/06/18 19:42 96 Nasal Cannula 2.0 28 09/06/18 19:42 Nasal Cannula 2.0 28 09/06/18 14:00 81 20 98 Nasal Cannula 2.0 28 09/06/18 13:50 65 20 95 Nasal Cannula 2.0 28 09/06/18 12:00 98.0 69 20 92/54 (67) 94 09/06/18 12:00 64 Intake and Output 09/06/18 09/07/18 18:59 06:59 Output Total 450 ml Balance -450 ml Output Urine Total 450 ml # Voids 1 General Appearance: no acute distress HEENT: mucous membranes moist, PERRL Respiratory/Chest: decreased breath sounds Cardiovascular: normal rate, regular rhythm Abdomen: soft, non tender Extremities: no edema Neurologic/Psychiatric: responsive Laboratory Tests 09/06/18 12:19: Arterial Blood pH 7.461H, Arterial Blood Partial Pressure CO2 32.9L, Arterial Blood Partial Pressure O2 76.8, Arterial Blood HCO3 22.9, Arterial Blood Oxygen Saturation 95.0, Arterial Blood Base Excess -0.3, Manuel Test Positive 09/06/18 22:00: Urine Color Yellow, Urine Appearance Slightly cloudy, Urine pH 5, Urine Specific [place] 1.020, Urine Protein 1+H, Urine Glucose (UA) Negative, Urine Ketones Negative, Urine Blood 3+H, Urine Nitrite Negative, Urine Bilirubin Negative, Urine Urobilinogen Normal, Urine Leukocyte Esterase 1+H, Urine RBC 10- 15H, Urine WBC 2-4, Urine Squamous Epithelial Cells Few, Urine Amorphous Sediment ModerateH, Urine Bacteria Few, Urine Hyaline Casts 0-2H, Urine Coarse Granular Casts 2-4H, Urine Random Sodium < 20L 09/07/18 04:47: White Blood Count 14.8H, Red Blood Count 4.07L, Hemoglobin 11.8L, Hematocrit 35.5L, Mean Corpuscular Volume 87, Mean Corpuscular Hemoglobin 29.0, Mean Corpuscular Hemoglobin Concent 33.3, Red Cell Distribution Width 13.8, Platelet Count 190, Mean Platelet Volume 7.9, Neutrophils (%) (Auto) , Lymphocytes (%) ( Auto) , Monocytes (%) (Auto) , Eosinophils (%) (Auto) , Basophils (%) (Auto) , Differential Total Cells Counted 100, Neutrophils % (Manual) 90H, Lymphocytes % (Manual) 5L, Monocytes % (Manual) 5, Eosinophils % (Manual) 0, Basophils % ( Manual) 0, Band Neutrophils 0, Platelet Estimate Adequate, Platelet Morphology Normal, Hypochromasia 1+, Prothrombin Time 16.4H, Prothromb Time International Ratio 1.6H, Activated Partial Thromboplast Time 47H, Sodium Level 134L, Potassium Level 3.4L, Chloride Level 99, Carbon Dioxide Level 27, Anion Gap 8, Blood Urea Nitrogen 61H, Creatinine 2.6H, Estimat Glomerular Filtration Rate , Glucose Level 101, Hemoglobin A1c 5.7, Uric Acid 9.5H, Calcium Level 8.5, Phosphorus Level 4.2, Magnesium Level 2.3, Ferritin 570H, Total Bilirubin 1.8H, Direct Bilirubin 0.5H, Gamma Glutamyl Transpeptidase 13, Aspartate Amino Transf (AST/SGOT) 11L, Alanine Aminotransferase (ALT/SGPT) 10L, Alkaline Phosphatase 51 , Total Creatine Kinase 13L, Troponin I 0.013, Pro-B-Type Natriuretic Peptide 2951H, Total Protein 6.4, Albumin 2.6L, Globulin 3.8, Albumin/Globulin Ratio 0.7L, Triglycerides Level 77, Cholesterol Level 85, LDL Cholesterol 46, HDL Cholesterol 20L, Cholesterol/HDL Ratio 4.3, Vitamin B12 Level 1842H, Folate 38.4 , Thyroid Stimulating Hormone (TSH) 1.201, Cortisol AM Sample [Pending] Current Medications Medications (Trade) Dose Ordered Sig/Mario Route PRN Reason Start Time Stop Time Status Last Admin Dose Admin Acetylcysteine (Mucomyst) 200 mg ONCE N 09/07/18 10:00 09/07/18 11:00 Acetylcysteine (Mucomyst) 200 mg Q6HRT N 09/07/18 19:00 10/07/18 18:59 Bisacodyl (Dulcolax) 10 mg HSPRN PRN RECTAL Constipation 09/03/18 12:15 10/03/18 10:59 Carvedilol (Coreg) 3.125 mg EVERY 12 HOURS ORAL 09/03/18 12:15 10/03/18 12:14 09/04/18 20:54 Dextrose (Dextrose 50%) 25 ml Q30M PRN IV Hypoglycemia 09/03/18 11:00 10/03/18 10:59 Dextrose (Dextrose 50%) 50 ml Q30M PRN IV Hypoglycemia 09/03/18 11:00 10/03/18 10:59 Docusate Sodium (Colace) 100 mg DAILY ORAL 2/18/19 18:00 10/04/18 08:59 09/05/18 09:10 Finasteride (Proscar) 5 mg DAILY ORAL 09/04/18 09:00 10/04/18 08:59 09/05/18 09:09 Gabapentin (Neurontin) 300 mg TWICE A DAY ORAL 09/03/18 18:00 10/03/18 17:59 09/05/18 17:47 Ipratropium [place] (Atrovent) 500 mcg TIDRT HHN 09/04/18 13:00 09/09/18 12:59 09/07/18 08:50 Levofloxacin (Levaquin) 250 mg DAILY ORAL 09/06/18 09:00 09/13/18 08:59 Levothyroxine Sodium (Synthroid) 150 mcg Q24H ORAL 09/04/18 06:30 10/04/18 06:29 09/05/18 06:20 Metronidazole (Flagyl) 500 mg Q8HR ORAL 09/06/18 14:00 09/13/18 13:59 Ondansetron HCl (Zofran) 4 mg Q6H PRN IVP Nausea & Vomiting 09/03/18 11:00 10/03/18 10:59 Pantoprazole (Protonix) 40 mg EVERY 12 HOURS ORAL 09/03/18 13:05 10/03/18 13:04 09/05/18 09:08 Potassium Chloride (K-Dur) 40 meq ONCE ORAL 09/07/18 08:45 09/07/18 11:00 Sennosides (Senokot) 17.2 mg BID ORAL 09/04/18 09:00 10/03/18 17:59 09/05/18 17:47 Tamsulosin HCl (Flomax) 0.4 mg Q12HR ORAL 09/07/18 09:00 10/07/18 08:59 Zolpidem Tartrate (Ambien) 2.5 mg BEDTIME PRN ORAL Insomnia 09/03/18 12:15 09/10/18 11:44 09/04/18 20:53 Joel Pantoja MD Sep 07, 2018 09:33
[2018-09-07] MEDS ORDERED: Propofol 200mg/20ml IV ONE (09:40)
--- NOTE | 2018-09-07 09:49 | Infectious Diseases Prog Note ---
Assessment/Plan Assessment/Plan antibiotics : levoquin, flagyl A 1. ? pneumonia 2. r/o cholecystitis 3. leucocytosis improving 4. pleural effusion 5. renal failure 6. thyroid cancer P 1. continue flagyl 2. d/c levoquin 3. start cefepime 4. sputum culture 5. will follow up cultures 6. HIDA scan Subjective Constitutional: Denies: fever, chills Respiratory: Reports: shortness of breath, dry cough Gastrointestinal/Abdominal: Denies: nausea, vomiting, diarrhea Musculoskeletal: Denies: pain Allergies: Coded Allergies: AZITHROMYCIN (Verified Allergy, Unknown, 09/04/18) PENICILLINS (Verified Allergy, Unknown, 09/03/18) Objective Vital Signs Last 24 Hour Vital Signs Date Time Temp Pulse Resp B/P (MAP) Pulse Ox O2 Delivery O2 Flow Rate FiO2 09/07/18 09:07 91 20 94 Nasal Cannula 2.0 28 09/07/18 08:50 94 Nasal Cannula 2.0 28 09/07/18 08:50 Nasal Cannula 2.0 28 09/07/18 08:50 84 20 92 Nasal Cannula 2.0 28 09/07/18 04:00 79 09/07/18 04:00 97.9 88 19 133/73 (93) 98 09/07/18 00:00 97.7 75 18 118/71 (87) 98 09/07/18 00:00 81 09/06/18 21:00 Nasal Cannula 2.0 09/06/18 20:00 80 09/06/18 20:00 97.1 83 19 101/61 (74) 95 09/06/18 19:53 86 18 99 Nasal Cannula 2.0 28 09/06/18 19:43 88 18 96 Nasal Cannula 2.0 28 09/06/18 19:42 96 Nasal Cannula 2.0 28 09/06/18 19:42 Nasal Cannula 2.0 28 09/06/18 14:00 81 20 98 Nasal Cannula 2.0 28 09/06/18 13:50 65 20 95 Nasal Cannula 2.0 28 09/06/18 12:00 98.0 69 20 92/54 (67) 94 09/06/18 12:00 64 Height (Feet): 5 Height (Inches): 9.00 Weight (Pounds): 184 Respiratory/Chest: lungs clear Cardiovascular: normal rate, regular rhythm, no gallop/murmur Abdomen: soft, non tender Extremities: no edema Laboratory Tests Test 09/06/18 12:19 09/06/18 22:00 09/07/18 04:47 Arterial Blood pH 7.461 (7.350-7.450) Arterial Blood Partial Pressure CO2 32.9 mmHg (35.0-45.0) L Arterial Blood Partial Pressure O2 76.8 mmHg (75.0-100.0) Arterial Blood HCO3 22.9 mmol/L (22.0-26.0) Arterial Blood Oxygen Saturation 95.0 % (95-100) Arterial Blood Base Excess -0.3 (-2-2) Manuel Test Positive Urine Color Yellow Urine Appearance Slightly cloudy Urine pH 5 (4.5-8.0) Urine Specific [place] 1.020 (1.005-1.035) Urine Protein 1+ (NEGATIVE) H Urine Glucose (UA) Negative (NEGATIVE) Urine Ketones Negative (NEGATIVE) Urine Blood 3+ (NEGATIVE) H Urine Nitrite Negative (NEGATIVE) Urine Bilirubin Negative (NEGATIVE) Urine Urobilinogen Normal MG/DL (0.0-1.0) Urine Leukocyte Esterase 1+ (NEGATIVE) H Urine RBC 10-15 /HPF (0 - 0) H Urine WBC 2-4 /HPF (0 - 0) Urine Squamous Epithelial Cells Few /LPF (NONE/OCC) Urine Amorphous Sediment Moderate /LPF (NONE) H Urine Bacteria Few /HPF (NONE) Urine Hyaline Casts 0-2 /LPF (NONE) H Urine Coarse Granular Casts 2-4 /LPF (NONE) H Urine Random Sodium < 20 mmol/L (20-110) L White Blood Count 14.8 K/UL (4.8-10.8) H Red Blood Count 4.07 M/UL (4.70-6.10) L Hemoglobin 11.8 G/DL (14.2-18.0) L Hematocrit 35.5 % (42.0-52.0) L Mean Corpuscular Volume 87 FL (80-99) Mean Corpuscular Hemoglobin 29.0 PG (27.0-31.0) Mean Corpuscular Hemoglobin Concent 33.3 G/DL (32.0-36.0) Red Cell Distribution Width 13.8 % (11.6-14.8) Platelet Count 190 K/UL (150-450) Mean Platelet Volume 7.9 FL (6.5-10.1) Neutrophils (%) (Auto) % (45.0-75.0) Lymphocytes (%) (Auto) % (20.0-45.0) Monocytes (%) (Auto) % (1.0-10.0) Eosinophils (%) (Auto) % (0.0-3.0) Basophils (%) (Auto) % (0.0-2.0) Differential Total Cells Counted 100 Neutrophils % (Manual) 90 % (45-75) H Lymphocytes % (Manual) 5 % (20-45) L Monocytes % (Manual) 5 % (1-10) Eosinophils % (Manual) 0 % (0-3) Basophils % (Manual) 0 % (0-2) Band Neutrophils 0 % (0-8) Platelet Estimate Adequate Platelet Morphology Normal Hypochromasia 1+ Prothrombin Time 16.4 SEC (9.30-11.50) H Prothromb Time International Ratio 1.6 (0.9-1.1) H Activated Partial Thromboplast Time 47 SEC (23-33) H Sodium Level 134 MMOL/L (136-145) L Potassium Level 3.4 MMOL/L (3.5-5.1) L Chloride Level 99 MMOL/L (98-107) Carbon Dioxide Level 27 MMOL/L (21-32) Anion Gap 8 mmol/L (5-15) Blood Urea Nitrogen 61 mg/dL (7-18) H Creatinine 2.6 MG/DL (0.55-1.30) H Estimat Glomerular Filtration Rate mL/min (>60) Glucose Level 101 MG/DL (74-106) Hemoglobin A1c 5.7 % (4.3-6.0) Uric Acid 9.5 MG/DL (2.6-7.2) H Calcium Level 8.5 MG/DL (8.5-10.1) Phosphorus Level 4.2 MG/DL (2.5-4.9) Magnesium Level 2.3 MG/DL (1.8-2.4) Ferritin 570 NG/ML (8-388) H Total Bilirubin 1.8 MG/DL (0.2-1.0) H Direct Bilirubin 0.5 MG/DL (0.0-0.3) H Gamma Glutamyl Transpeptidase 13 U/L (5-85) Aspartate Amino Transf (AST/SGOT) 11 U/L (15-37) L Alanine Aminotransferase (ALT/SGPT) 10 U/L (12-78) L Alkaline Phosphatase 51 U/L (46-116) Total Creatine Kinase 13 U/L (26-308) L Troponin I 0.013 ng/mL (0.000-0.056) Pro-B-Type Natriuretic Peptide 2951 pg/mL (0-125) H Total Protein 6.4 G/DL (6.4-8.2) Albumin 2.6 G/DL (3.4-5.0) L Globulin 3.8 g/dL Albumin/Globulin Ratio 0.7 (1.0-2.7) L Triglycerides Level 77 MG/DL (30-150) Cholesterol Level 85 MG/DL (< 200) LDL Cholesterol 46 mg/dL (<100) HDL Cholesterol 20 MG/DL (40-60) L Cholesterol/HDL Ratio 4.3 (3.3-4.4) Vitamin B12 Level 1842 PG/ML (193-986) H Folate 38.4 NG/ML (8.6-58.9) Thyroid Stimulating Hormone (TSH) 1.201 uiU/mL (0.358-3.740) Cortisol AM Sample Pending Current Medications Medications (Trade) Dose Ordered Sig/Mario Route PRN Reason Start Time Stop Time Status Last Admin Dose Admin Acetylcysteine (Mucomyst) 200 mg ONCE N 09/07/18 10:00 09/07/18 11:00 Acetylcysteine (Mucomyst) 200 mg Q6HRT N 09/07/18 19:00 10/07/18 18:59 Bisacodyl (Dulcolax) 10 mg HSPRN PRN RECTAL Constipation 09/03/18 12:15 10/03/18 10:59 Carvedilol (Coreg) 3.125 mg EVERY 12 HOURS ORAL 09/03/18 12:15 10/03/18 12:14 09/04/18 20:54 Dextrose (Dextrose 50%) 25 ml Q30M PRN IV Hypoglycemia 09/03/18 11:00 10/03/18 10:59 Dextrose (Dextrose 50%) 50 ml Q30M PRN IV Hypoglycemia 09/03/18 11:00 10/03/18 10:59 Docusate Sodium (Colace) 100 mg DAILY ORAL 09/03/18 18:00 10/04/18 08:59 09/05/18 09:10 Finasteride (Proscar) 5 mg DAILY ORAL 09/04/18 09:00 10/04/18 08:59 09/05/18 09:09 Gabapentin (Neurontin) 300 mg TWICE A DAY ORAL 09/03/18 18:00 10/03/18 17:59 09/05/18 17:47 Ipratropium [place] (Atrovent) 500 mcg TIDRT HHN 09/04/18 13:00 09/09/18 12:59 09/07/18 08:50 Levofloxacin (Levaquin) 250 mg DAILY ORAL 09/06/18 09:00 09/13/18 08:59 Levothyroxine Sodium (Synthroid) 150 mcg Q24H ORAL 09/04/18 06:30 10/04/18 06:29 09/05/18 06:20 Metronidazole (Flagyl) 500 mg Q8HR ORAL 09/06/18 14:00 09/13/18 13:59 Ondansetron HCl (Zofran) 4 mg Q6H PRN IVP Nausea & Vomiting 09/03/18 11:00 10/03/18 10:59 Pantoprazole (Protonix) 40 mg EVERY 12 HOURS ORAL 09/03/18 13:05 10/03/18 13:04 09/05/18 09:08 Potassium Chloride (K-Dur) 40 meq ONCE ORAL 09/07/18 08:45 09/07/18 11:00 Sennosides (Senokot) 17.2 mg BID ORAL 09/04/18 09:00 10/03/18 17:59 09/05/18 17:47 Tamsulosin HCl (Flomax) 0.4 mg Q12HR ORAL 09/07/18 09:00 10/07/18 08:59 Zolpidem Tartrate (Ambien) 2.5 mg BEDTIME PRN ORAL Insomnia 09/03/18 12:15 09/10/18 11:44 09/04/18 20:53 Joselin Juarez MD Sep 07, 2018 09:49
[2018-09-07] MEDS ORDERED: NS 500ML IVPB ONE (09:50)
--- NOTE | 2018-09-07 09:50 | General Progress Note ---
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 SNOMED: 665208250 (3) CHF (congestive heart failure) ICD Codes: I50.9 - Heart failure, unspecified SNOMED: 58370963 Qualifiers: Qualified Codes: I50.9 - Heart failure, unspecified (4) Dysphasia ICD Codes: R47.02 - Dysphasia SNOMED: 64811126 (5) Severe malnutrition ICD Codes: E43 - Unspecified severe protein-calorie malnutrition SNOMED: 18608258 (6) Encounter for PEG (percutaneous endoscopic gastrostomy) ICD Codes: Z43.1 - Encounter for attention to gastrostomy SNOMED: 393879983, 623672819 Assessment/Plan plan for PEG today Subjective ROS Limited/Unobtainable: Yes Allergies: Coded Allergies: AZITHROMYCIN (Verified Allergy, Unknown, 09/04/18) PENICILLINS (Verified Allergy, Unknown, 09/03/18) Objective Last 24 Hour Vital Signs Date Time Temp Pulse Resp B/P (MAP) Pulse Ox O2 Delivery O2 Flow Rate FiO2 09/07/18 09:07 91 20 94 Nasal Cannula 2.0 28 09/07/18 08:50 94 Nasal Cannula 2.0 28 09/07/18 08:50 Nasal Cannula 2.0 28 09/07/18 08:50 84 20 92 Nasal Cannula 2.0 28 09/07/18 04:00 79 09/07/18 04:00 97.9 88 19 133/73 (93) 98 09/07/18 00:00 97.7 75 18 118/71 (87) 98 09/07/18 00:00 81 09/06/18 21:00 Nasal Cannula 2.0 09/06/18 20:00 80 09/06/18 20:00 97.1 83 19 101/61 (74) 95 09/06/18 19:53 86 18 99 Nasal Cannula 2.0 28 09/06/18 19:43 88 18 96 Nasal Cannula 2.0 28 09/06/18 19:42 96 Nasal Cannula 2.0 28 09/06/18 19:42 Nasal Cannula 2.0 28 09/06/18 14:00 81 20 98 Nasal Cannula 2.0 28 09/06/18 13:50 65 20 95 Nasal Cannula 2.0 28 09/06/18 12:00 98.0 69 20 92/54 (67) 94 09/06/18 12:00 64 Intake and Output 09/06/18 09/07/18 19:00 07:00 Output Total 450 ml Balance -450 ml Output Urine Total 450 ml # Voids 1 Laboratory Tests 09/06/18 12:19: Arterial Blood pH 7.461H, Arterial Blood Partial Pressure CO2 32.9L, Arterial Blood Partial Pressure O2 76.8, Arterial Blood HCO3 22.9, Arterial Blood Oxygen Saturation 95.0, Arterial Blood Base Excess -0.3, Manuel Test Positive 09/06/18 22:00: Urine Color Yellow, Urine Appearance Slightly cloudy, Urine pH 5, Urine Specific [place] 1.020, Urine Protein 1+H, Urine Glucose (UA) Negative, Urine Ketones Negative, Urine Blood 3+H, Urine Nitrite Negative, Urine Bilirubin Negative, Urine Urobilinogen Normal, Urine Leukocyte Esterase 1+H, Urine RBC 10- 15H, Urine WBC 2-4, Urine Squamous Epithelial Cells Few, Urine Amorphous Sediment ModerateH, Urine Bacteria Few, Urine Hyaline Casts 0-2H, Urine Coarse Granular Casts 2-4H, Urine Random Sodium < 20L 09/07/18 04:47: White Blood Count 14.8H, Red Blood Count 4.07L, Hemoglobin 11.8L, Hematocrit 35.5L, Mean Corpuscular Volume 87, Mean Corpuscular Hemoglobin 29.0, Mean Corpuscular Hemoglobin Concent 33.3, Red Cell Distribution Width 13.8, Platelet Count 190, Mean Platelet Volume 7.9, Neutrophils (%) (Auto) , Lymphocytes (%) ( Auto) , Monocytes (%) (Auto) , Eosinophils (%) (Auto) , Basophils (%) (Auto) , Differential Total Cells Counted 100, Neutrophils % (Manual) 90H, Lymphocytes % (Manual) 5L, Monocytes % (Manual) 5, Eosinophils % (Manual) 0, Basophils % ( Manual) 0, Band Neutrophils 0, Platelet Estimate Adequate, Platelet Morphology Normal, Hypochromasia 1+, Prothrombin Time 16.4H, Prothromb Time International Ratio 1.6H, Activated Partial Thromboplast Time 47H, Sodium Level 134L, Potassium Level 3.4L, Chloride Level 99, Carbon Dioxide Level 27, Anion Gap 8, Blood Urea Nitrogen 61H, Creatinine 2.6H, Estimat Glomerular Filtration Rate , Glucose Level 101, Hemoglobin A1c 5.7, Uric Acid 9.5H, Calcium Level 8.5, Phosphorus Level 4.2, Magnesium Level 2.3, Ferritin 570H, Total Bilirubin 1.8H, Direct Bilirubin 0.5H, Gamma Glutamyl Transpeptidase 13, Aspartate Amino Transf (AST/SGOT) 11L, Alanine Aminotransferase (ALT/SGPT) 10L, Alkaline Phosphatase 51 , Total Creatine Kinase 13L, Troponin I 0.013, Pro-B-Type Natriuretic Peptide 2951H, Total Protein 6.4, Albumin 2.6L, Globulin 3.8, Albumin/Globulin Ratio 0.7L, Triglycerides Level 77, Cholesterol Level 85, LDL Cholesterol 46, HDL Cholesterol 20L, Cholesterol/HDL Ratio 4.3, Vitamin B12 Level 1842H, Folate 38.4 , Thyroid Stimulating Hormone (TSH) 1.201, Cortisol AM Sample [Pending] Height (Feet): 5 Height (Inches): 9.00 Weight (Pounds): 184 General Appearance: lethargic EENT: normal ENT inspection Neck: supple Cardiovascular: normal rate Respiratory/Chest: decreased breath sounds Abdomen: normal bowel sounds, non tender, soft Extremities: non-tender Nii Jiménez MD Sep 07, 2018 09:50
--- NOTE | 2018-09-07 09:51 | Pre-Procedure Note/Attestation ---
Pre-Procedure Note/Attestation Complete Prior to Procedure Planned Procedure: not applicable Procedure Narrative: egd/peg Indications for Procedure Pre-Operative Diagnosis: dysphagia/FTT Attestation I attest that I discussed the nature of the procedure; its benefits; risks and complications; and alternatives (and the risks and benefits of such alternatives ), prior to the procedure, with the patient (or the patient's legal patient services representative). I attest that, if there was a reasonable possibility of needing a blood transfusion, the patient (or the patient's legal patient services representative) was given the [facility] standardized written summary, pursuant to the [place] Blood Safety Act ([place] Health and Safety Code # 1645, as amended). I attest that I re-evaluated the patient just prior to the surgery and that there has been no change in the patient's H&P, except as documented below: Nii Jiménez MD Sep 07, 2018 09:51
[2018-09-07] MEDS ORDERED: Acetylcysteine 20% Soln 4ml HHN SCH ×2 (10:00→19:00)
--- NOTE | 2018-09-07 10:07 | Anethesia Preoperative Eval ---
Anesthesia Pre-op PMH/ROS General Date of Evaluation: Sep 07, 2018 Time of Evaluation: 09:41 Anesthesiologist: Marbella Cid CRNA ASA Score: ASA 3 Mallampati Score Class I : Soft palate, uvula, fauces, pillars visible Class II: Soft palate, uvula, fauces visible Class III: Soft palate, base of uvula visible Class IV: Only hard plate visible Mallampati Classification: Class II Surgeon: Jessy Diagnosis: Dyspnea, FTT Surgical Procedure: PEG insertion Anesthesia History: none Social History: smoking Allergies: Coded Allergies: AZITHROMYCIN (Verified Allergy, Unknown, 09/04/18) PENICILLINS (Verified Allergy, Unknown, 09/03/18) Medications: see eMAR Patient NPO?: Yes NPO Date: Sep 07, 2018 NPO Time: 0000 Past Medical History Cardiovascular: Reports: HTN, arrhythmia - A fib (+) pacemaker, other - CHF EF 55%; Denies: CAD, [place], valve dz Pulmonary: Reports: COPD, other - Pneumonia; Denies: asthma, ROSMERY Gastrointestinal/Genitourinary: Reports: GERD, other - ARF; Denies: CRI, ESRD Neurologic/Psychiatric: Denies: dementia, CVA, depression/anxiety, TIA, other Endocrine: Denies: DM, hypothyroidism, steroids, other HEENT: Denies: cataract (L), cataract (R), glaucoma, SELDOVIA (L), SELDOVIA (R), other Hematology/Immune: Reports: anemia; Denies: DVT, bleeding disorder, other Musculoskeletal/Integumentary: Denies: OA, RA, DJD, DDD, edema, other PMH Narrative: as above PSxH Narrative: see H & P Anesthesia Pre-op Phys. Exam Physician Exam Last Vital Signs Date Time Temp Pulse Resp B/P (MAP) Pulse Ox O2 Delivery O2 Flow Rate FiO2 09/07/18 09:07 91 20 94 Nasal Cannula 2.0 28 09/07/18 04:00 97.9 133/73 (93) Constitutional: NAD Neurologic: CN 2-12 intact Cardiovascular: RRR Respiratory: other - (B) rales & rhonchi Gastrointestinal: S/NT/ND Airway Exam Mallampati Score: Class II MO: full Neck: FROM TMD: > # FB ROM: full Teeth: intact Dentures: no upper, no lower Anesthesia Pre-op A/P Labs Hematology Test 09/07/18 04:47 White Blood Count 14.8 K/UL (4.8-10.8) H Red Blood Count 4.07 M/UL (4.70-6.10) L Hemoglobin 11.8 G/DL (14.2-18.0) L Hematocrit 35.5 % (42.0-52.0) L Mean Corpuscular Volume 87 FL (80-99) Mean Corpuscular Hemoglobin 29.0 PG (27.0-31.0) Mean Corpuscular Hemoglobin Concent 33.3 G/DL (32.0-36.0) Red Cell Distribution Width 13.8 % (11.6-14.8) Platelet Count 190 K/UL (150-450) Mean Platelet Volume 7.9 FL (6.5-10.1) Neutrophils (%) (Auto) % (45.0-75.0) Lymphocytes (%) (Auto) % (20.0-45.0) Monocytes (%) (Auto) % (1.0-10.0) Eosinophils (%) (Auto) % (0.0-3.0) Basophils (%) (Auto) % (0.0-2.0) Differential Total Cells Counted 100 Neutrophils % (Manual) 90 % (45-75) H Lymphocytes % (Manual) 5 % (20-45) L Monocytes % (Manual) 5 % (1-10) Eosinophils % (Manual) 0 % (0-3) Basophils % (Manual) 0 % (0-2) Band Neutrophils 0 % (0-8) Platelet Estimate Adequate Platelet Morphology Normal Hypochromasia 1+ Coagulation Test 09/07/18 04:47 Prothrombin Time 16.4 SEC (9.30-11.50) H Prothromb Time International Ratio 1.6 (0.9-1.1) H Activated Partial Thromboplast Time 47 SEC (23-33) H Chemistry Test 09/07/18 04:47 Sodium Level 134 MMOL/L (136-145) L Potassium Level 3.4 MMOL/L (3.5-5.1) L Chloride Level 99 MMOL/L (98-107) Carbon Dioxide Level 27 MMOL/L (21-32) Anion Gap 8 mmol/L (5-15) Blood Urea Nitrogen 61 mg/dL (7-18) H Creatinine 2.6 MG/DL (0.55-1.30) H Estimat Glomerular Filtration Rate mL/min (>60) Glucose Level 101 MG/DL (74-106) Hemoglobin A1c 5.7 % (4.3-6.0) Uric Acid 9.5 MG/DL (2.6-7.2) H Calcium Level 8.5 MG/DL (8.5-10.1) Phosphorus Level 4.2 MG/DL (2.5-4.9) Magnesium Level 2.3 MG/DL (1.8-2.4) Ferritin 570 NG/ML (8-388) H Total Bilirubin 1.8 MG/DL (0.2-1.0) H Direct Bilirubin 0.5 MG/DL (0.0-0.3) H Gamma Glutamyl Transpeptidase 13 U/L (5-85) Aspartate Amino Transf (AST/SGOT) 11 U/L (15-37) L Alanine Aminotransferase (ALT/SGPT) 10 U/L (12-78) L Alkaline Phosphatase 51 U/L (46-116) Total Creatine Kinase 13 U/L (26-308) L Troponin I 0.013 ng/mL (0.000-0.056) Pro-B-Type Natriuretic Peptide 2951 pg/mL (0-125) H Total Protein 6.4 G/DL (6.4-8.2) Albumin 2.6 G/DL (3.4-5.0) L Globulin 3.8 g/dL Albumin/Globulin Ratio 0.7 (1.0-2.7) L Triglycerides Level 77 MG/DL (30-150) Cholesterol Level 85 MG/DL (< 200) LDL Cholesterol 46 mg/dL (<100) HDL Cholesterol 20 MG/DL (40-60) L Cholesterol/HDL Ratio 4.3 (3.3-4.4) Vitamin B12 Level 1842 PG/ML (193-986) H Folate 38.4 NG/ML (8.6-58.9) Thyroid Stimulating Hormone (TSH) 1.201 uiU/mL (0.358-3.740) Cortisol AM Sample Pending Studies Pre-op Studies: EKG - A-fibe , echo - EF 55 % Risk Assessment & Plan Status Change Before Surgery: No Pre-Antibiotics Given Within 1 Hr of Incision: No Lili Cidy [employer] Sep 07, 2018 10:07
--- NOTE | 2018-09-07 10:08 | Endoscopy Procedure Note ---
Endoscopy Procedure Note General Indication for Procedure: FTT, dysphagia Procedures Performed: EGD, PEG Operative Findings/Diagnosis: same Specimen: none Pt Tolerated Procedure Well: Yes Estimated Blood Loss: none Anesthesia Anesthesiologist: fernanda Anesthesia: MAC Inserted Devices Implant(s) used?: No GI Core Measures 50 yrs or older w/o bx or poly: Not Applicable 10yrs. F/U not recommended: Not Applicable Nii Jiménez MD Sep 07, 2018 10:07
--- NOTE | 2018-09-07 10:19 | Immediate Post-Op Evaluation ---
Immediate Post-Op Evalulation Immediate Post-Op Evalulation Procedure: PEG placement Date of Evaluation: Sep 07, 2018 Time of Evaluation: 10:12 IV Fluids: 0.9 NS 250 ml Blood Pressure Systolic: 127 Blood Pressure Diastolic: 89 Pulse Rate: 87 Respiratory Rate: 26 O2 Sat by Pulse Oximetry: 97 Temperature (Fahrenheit): 97.3 Pain Score (1-10): 0 Nausea: No Vomiting: No Complications none Patient Status: reacts, patent Hydration Status: adequate Given Within 1 Hr of Incision: Marbella Malone CRNA Sep 07, 2018 10:19
--- NOTE | 2018-09-07 10:39 | General Progress Note ---
Assessment/Plan Assessment/Plan #Acute on chronic diastolic CHF #Coronary artery disease #Permanent atrial fibrillation s/p PPM for SSS #HTN #Hyperlipidemia -hold Lasix given RY -hold eplerenone -Continue Coreg -warfarin held for procedures, will look to resume in next 1-2 days -cardiology following #Leukocytosis, suspected aspiration pneumonia #Severe Dysphagia -seen by CRT and Pulm -seen by ID -continue Levaquin -Flagyl added -monitor CBC and cultures -PEG placement today -aspiration precautions -NPO #RY -continue to hold losartan and Lasix -Nephrology consulted #Hypokalemia -improved -repeat BMP in AM #Thyroid cancer #Metastatic disease and mod-large right pleural effusion seen on chest CT #Acquired hypothyroidism -continue levothyroxine -Discussed with his oncologist at [facility] -Seen by Pulmonology -Thoracentesis ordered #Polyneuropathy -continue gabapentin #BPH -continue Proscar and Flomax VTE PPx SCD full code I spent 45 minutes on this patient's case, and 25 minutes was dedicated to counseling and/or care coordination. Subjective Date patient seen: Sep 07, 2018 Time patient seen: 10:00 ROS Limited/Unobtainable: No Constitutional: Denies: chills, fever Cardiovascular: Denies: chest pain Respiratory: Reports: cough; Denies: shortness of breath Gastrointestinal/Abdominal: Denies: abdomen distended, abdominal pain Allergies: Coded Allergies: AZITHROMYCIN (Verified Allergy, Unknown, 09/04/18) PENICILLINS (Verified Allergy, Unknown, 09/03/18) Subjective Medicine follow up for acute on chronic dCHF, lung mass, leukocytosis, suspected aspiration pneumonia Feels weak today and having difficulty expectorating Plan for PEG and right thoracentesis today Objective Last 24 Hour Vital Signs Date Time Temp Pulse Resp B/P (MAP) Pulse Ox O2 Delivery O2 Flow Rate FiO2 09/07/18 10:34 75 20 128/58 99 Nasal Cannula 2 09/07/18 10:25 76 20 112/54 99 Simple Mask 6 09/07/18 10:20 77 20 113/57 100 Simple Mask 6 09/07/18 10:19 87 26 97 09/07/18 10:15 75 19 109/56 100 Simple Mask 6 09/07/18 10:12 98.3 75 24 127/59 100 Simple Mask 6 09/07/18 09:07 91 20 94 Nasal Cannula 2.0 28 09/07/18 08:50 94 Nasal Cannula 2.0 28 09/07/18 08:50 Nasal Cannula 2.0 28 09/07/18 08:50 84 20 92 Nasal Cannula 2.0 28 09/07/18 04:00 79 09/07/18 04:00 97.9 88 19 133/73 (93) 98 09/07/18 00:00 97.7 75 18 118/71 (87) 98 09/07/18 00:00 81 09/06/18 21:00 Nasal Cannula 2.0 09/06/18 20:00 80 09/06/18 20:00 97.1 83 19 101/61 (74) 95 09/06/18 19:53 86 18 99 Nasal Cannula 2.0 28 09/06/18 19:43 88 18 96 Nasal Cannula 2.0 28 09/06/18 19:42 96 Nasal Cannula 2.0 28 09/06/18 19:42 Nasal Cannula 2.0 28 09/06/18 14:00 81 20 98 Nasal Cannula 2.0 28 09/06/18 13:50 65 20 95 Nasal Cannula 2.0 28 09/06/18 12:00 98.0 69 20 92/54 (67) 94 09/06/18 12:00 64 Intake and Output 09/06/18 09/07/18 19:00 07:00 Output Total 450 ml Balance -450 ml Output Urine Total 450 ml # Voids 1 Laboratory Tests 09/06/18 12:19: Arterial Blood pH 7.461H, Arterial Blood Partial Pressure CO2 32.9L, Arterial Blood Partial Pressure O2 76.8, Arterial Blood HCO3 22.9, Arterial Blood Oxygen Saturation 95.0, Arterial Blood Base Excess -0.3, Manuel Test Positive 09/06/18 22:00: Urine Color Yellow, Urine Appearance Slightly cloudy, Urine pH 5, Urine Specific [place] 1.020, Urine Protein 1+H, Urine Glucose (UA) Negative, Urine Ketones Negative, Urine Blood 3+H, Urine Nitrite Negative, Urine Bilirubin Negative, Urine Urobilinogen Normal, Urine Leukocyte Esterase 1+H, Urine RBC 10- 15H, Urine WBC 2-4, Urine Squamous Epithelial Cells Few, Urine Amorphous Sediment ModerateH, Urine Bacteria Few, Urine Hyaline Casts 0-2H, Urine Coarse Granular Casts 2-4H, Urine Random Sodium < 20L 09/07/18 04:47: White Blood Count 14.8H, Red Blood Count 4.07L, Hemoglobin 11.8L, Hematocrit 35.5L, Mean Corpuscular Volume 87, Mean Corpuscular Hemoglobin 29.0, Mean Corpuscular Hemoglobin Concent 33.3, Red Cell Distribution Width 13.8, Platelet Count 190, Mean Platelet Volume 7.9, Neutrophils (%) (Auto) , Lymphocytes (%) ( Auto) , Monocytes (%) (Auto) , Eosinophils (%) (Auto) , Basophils (%) (Auto) , Differential Total Cells Counted 100, Neutrophils % (Manual) 90H, Lymphocytes % (Manual) 5L, Monocytes % (Manual) 5, Eosinophils % (Manual) 0, Basophils % ( Manual) 0, Band Neutrophils 0, Platelet Estimate Adequate, Platelet Morphology Normal, Hypochromasia 1+, Prothrombin Time 16.4H, Prothromb Time International Ratio 1.6H, Activated Partial Thromboplast Time 47H, Sodium Level 134L, Potassium Level 3.4L, Chloride Level 99, Carbon Dioxide Level 27, Anion Gap 8, Blood Urea Nitrogen 61H, Creatinine 2.6H, Estimat Glomerular Filtration Rate , Glucose Level 101, Hemoglobin A1c 5.7, Uric Acid 9.5H, Calcium Level 8.5, Phosphorus Level 4.2, Magnesium Level 2.3, Ferritin 570H, Total Bilirubin 1.8H, Direct Bilirubin 0.5H, Gamma Glutamyl Transpeptidase 13, Aspartate Amino Transf (AST/SGOT) 11L, Alanine Aminotransferase (ALT/SGPT) 10L, Alkaline Phosphatase 51 , Total Creatine Kinase 13L, Troponin I 0.013, Pro-B-Type Natriuretic Peptide 2951H, Total Protein 6.4, Albumin 2.6L, Globulin 3.8, Albumin/Globulin Ratio 0.7L, Triglycerides Level 77, Cholesterol Level 85, LDL Cholesterol 46, HDL Cholesterol 20L, Cholesterol/HDL Ratio 4.3, Vitamin B12 Level 1842H, Folate 38.4 , Thyroid Stimulating Hormone (TSH) 1.201, Cortisol AM Sample [Pending] Height (Feet): 5 Height (Inches): 9.00 Weight (Pounds): 184 General Appearance: no apparent distress, alert Neck: non-tender, normal alignment Cardiovascular: normal peripheral pulses, normal rate Respiratory/Chest: lungs clear, normal breath sounds, no respiratory distress Abdomen: normal bowel sounds, non tender Neurologic: alert, oriented x 3 Oscar Chin MD Sep 07, 2018 10:39
[2018-09-07] MEDS ORDERED: Cefepime HCl 2 GM in D5W 55 ML IVPB ONE (11:00)
--- NOTE | 2018-09-07 13:18 | Diagnostic Imaging Report ---
Indications: Pleural effusion Technique: Ultrasound used to localize optimal puncture site. Sterile prepping and draping of the right lower chest performed. Local anesthesia with 1% lidocaine. Dermatotomy made. Puncture of the pleural space using thoracentesis needle. Stylet removed. Catheter placed to vacuum bottle suction. Fluid was aspirated. Patient tolerated procedure well, without immediate complication. Findings: Followup sonography demonstrates complete resolution of pleural fluid. Fluid was sent for cytology and other studies per ordering physician. Followup chest x-ray is pending. Impression: Successful ultrasound-guided right thoracentesis, yielding 0.8 liters of fluid
--- NOTE | 2018-09-07 14:07 | 48 Hour Post Anesthesia Eval ---
Post Anesthesia Evaluation Procedure: PEG placement Date of Evaluation: Sep 07, 2018 Time of Evaluation: 14:06 Blood Pressure Systolic: 135 0: 62 Pulse Rate: 83 Respiratory Rate: 20 Temperature (Fahrenheit): 96.4 O2 Sat by Pulse Oximetry: 98 Nausea: No Vomiting: No Pain Intensity: 0 Hydration Status: adequate Cardiopulmonary Status: stable Mental Status/LOC: patient returned to baseline Follow-up Care/Observations: per hospitalist Post-Anesthesia Complications: none Follow-up care needed: N/A Marbella Cid CRNA Sep 07, 2018 14:07
--- NOTE | 2018-09-07 14:35 | NUR ---
RESPIRATORY NOTE: MUCOMYST NOT GIVEN, MEDICATION NOT AVAILABLE IN [facility]. PHARMACY INFORMED AND REQUESTED THEM TO RESET MEDICATION FOR 1899 SO THAT IT MAY BE GIVEN WITH A BRONCHODILATOR. Addendum: 09/07/18 at 1531 by JENNIFER WERNER RT AMENDMENT REASON: NOTE INCOMPLETE. RESPIRATORY NOTE: MUCOMYST NOT GIVEN, MEDICATION NOT AVAILABLE IN [facility]. PHARMACY INFORMED AND REQUESTED THEM TO RESET MEDICATION FOR 1899 SO THAT IT MAY BE GIVEN WITH A BRONCHODILATOR. RN. AARON YEH.
--- NOTE | 2018-09-07 15:08 | Diagnostic Imaging Report ---
Indication: Abdominal Pain Technique: 5.5 mCi of technetium 99 m-Choletec was injected intravenously. Planar imaging of the abdomen was then performed every 5 minutes up to 30 minutes and every 10 minutes up to one hour. Oblique views were also obtained. Findings: There is prompt uptake within the liver with good washout of radiotracer from the liver on subsequent imaging. There is excretion into the biliary ducts. There is tracer within small bowel indicating CBD patency. No definite gallbladder activity is demonstrated. There is a structure that fills after morphine administration but this could be within the gastrointestinal tract. Correlating with the very recent CT scan of the chest, a very distended gallbladder is noted. There is no structure on this examination that resembles the dilated gallbladder seen on recent CT. Therefore, the current study is more likely to be positive for cystic duct obstruction. Recommend obtaining ultrasound for further evaluation or CT. Other than the hepatobiliary scan, no imaging studies of the gallbladder have been performed. IMPRESSION: Findings on this exam with regard to cystic duct patency are equivocal. There is a structure that fills on delayed static images post morphine, only questionably representing the gallbladder. Recommend obtaining ultrasound and/or CT with contrast for further evaluation.
--- NOTE | 2018-09-07 15:56 | Diagnostic Imaging Report ---
Indication: Status post thoracentesis Comparison: None A single view chest radiograph was obtained. Findings: There is no pneumothorax identified following thoracentesis. The right costophrenic angle is less blunted. There is evidence of interstitial edema present likely worse compared to the previous examination. The heart is enlarged. Pacemaker noted on the left. IMPRESSION: No pneumothorax identified on the right. Interstitial edema/CHF
--- NOTE | 2018-09-07 16:15 | Procedure Note ---
DATE OF PROCEDURE: 09/07/2018 SURGEON: Nii Jiménez M.D. ANESTHESIOLOGIST: Amy MCKEON. REFERRING PHYSICIAN: Damien Barrow M.D. PROCEDURE: Upper endoscopy with PEG placement. ANESTHESIA: Per Amy MCKEON. INSTRUMENT: Olympus adult flexible upper endoscope. INDICATION: Dysphagia, failure to thrive. The procedure, risks, benefits, and possible consequences, including hemorrhage, aspiration, perforation and infection, and alternative treatments, were explained to the patient/legal guardian by Dr. Nii Jiménez and the patient/legal guardian understood and accepted these risks. DESCRIPTION OF PROCEDURE: After informed consent was obtained and the patient was adequately sedated, Olympus upper endoscope was advanced from the mouth into the second portion of duodenum and retroflexion was performed in the stomach. The patient had normal upper endoscopic examination. Then under endoscopic guidance under sterile condition, a 20-Bengali pull type of G-tube was successfully placed in the epigastric area. The distance from the tip of the tube to skin was about 2.5 cm in size. The patient tolerated the procedure very well without any complication. SUMMARY OF FINDINGS: Status post successful PEG placement. RECOMMENDATIONS: Abdominal binder. Elevate the head of the bed at all times. G-tube flush. G-tube care. Start tube feeding later today. The patient is currently on Levaquin and Flagyl. We will continue. I want to thank Dr. Barrow for this kind referral. Nii Jiménez M.D. DR: Ayan JOB#: [id number] CC: Damien Barrow M.D.; Fax#: [phone]
--- NOTE | 2018-09-07 16:48 | Nephrology Progress Note ---
Assessment/Plan Problem List: (1) RY (acute kidney injury) (2) Lung neoplasm (3) Dehydration (4) Pacemaker Assessment Acute renal Failure- Underlying CKD CHF ( Diastolic Dysfunction) with EjFx 55% Pacemaker status Atrial Fib HTN Bilateral Pleural effusion Hyperlipidemia BPH Suspected Aspiration ? Metastatic pulm and bone disease. h/o Thyroid carcinoma prior Thyroidectomy Plan Albumin bolus Hawkins catheter monitor renal parameters avoid Nephrotoxics per orders Subjective ROS Limited/Unobtainable: No Constitutional: Reports: malaise Objective Objective Last 24 Hour Vital Signs Date Time Temp Pulse Resp B/P (MAP) Pulse Ox O2 Delivery O2 Flow Rate FiO2 09/07/18 14:35 78 20 97 Nasal Cannula 2.0 28 09/07/18 14:35 78 20 96 Nasal Cannula 2.0 28 09/07/18 14:07 83 20 98 09/07/18 12:00 96.4 83 20 135/62 (86) 94 09/07/18 10:55 97.4 80 17 115/56 98 Nasal Cannula 2 09/07/18 10:45 79 18 129/81 99 Nasal Cannula 2 09/07/18 10:34 75 20 128/58 99 Nasal Cannula 2 09/07/18 10:25 76 20 112/54 99 Simple Mask 6 09/07/18 10:20 77 20 113/57 100 Simple Mask 6 09/07/18 10:19 87 26 97 09/07/18 10:15 75 19 109/56 100 Simple Mask 6 09/07/18 10:12 98.3 75 24 127/59 100 Simple Mask 6 09/07/18 09:07 91 20 94 Nasal Cannula 2.0 28 09/07/18 09:00 80 115/56 09/07/18 08:50 94 Nasal Cannula 2.0 28 09/07/18 08:50 Nasal Cannula 2.0 28 09/07/18 08:50 84 20 92 Nasal Cannula 2.0 28 09/07/18 08:00 98.1 78 20 136/64 (88) 99 09/07/18 08:00 Nasal Cannula 2.0 09/07/18 04:00 79 09/07/18 04:00 97.9 88 19 133/73 (93) 98 09/07/18 00:00 97.7 75 18 118/71 (87) 98 09/07/18 00:00 81 09/06/18 21:00 Nasal Cannula 2.0 09/06/18 20:00 80 09/06/18 20:00 97.1 83 19 101/61 (74) 95 09/06/18 19:53 86 18 99 Nasal Cannula 2.0 28 09/06/18 19:43 88 18 96 Nasal Cannula 2.0 28 09/06/18 19:42 96 Nasal Cannula 2.0 28 09/06/18 19:42 Nasal Cannula 2.0 28 Intake and Output 09/06/18 09/07/18 19:00 07:00 Output Total 450 ml Balance -450 ml Output Urine Total 450 ml # Voids 1 Laboratory Tests 09/06/18 22:00: Urine Color Yellow, Urine Appearance Slightly cloudy, Urine pH 5, Urine Specific [place] 1.020, Urine Protein 1+H, Urine Glucose (UA) Negative, Urine Ketones Negative, Urine Blood 3+H, Urine Nitrite Negative, Urine Bilirubin Negative, Urine Urobilinogen Normal, Urine Leukocyte Esterase 1+H, Urine RBC 10- 15H, Urine WBC 2-4, Urine Squamous Epithelial Cells Few, Urine Amorphous Sediment ModerateH, Urine Bacteria Few, Urine Hyaline Casts 0-2H, Urine Coarse Granular Casts 2-4H, Urine Random Sodium < 20L 09/07/18 04:47: White Blood Count 14.8H, Red Blood Count 4.07L, Hemoglobin 11.8L, Hematocrit 35.5L, Mean Corpuscular Volume 87, Mean Corpuscular Hemoglobin 29.0, Mean Corpuscular Hemoglobin Concent 33.3, Red Cell Distribution Width 13.8, Platelet Count 190, Mean Platelet Volume 7.9, Neutrophils (%) (Auto) , Lymphocytes (%) ( Auto) , Monocytes (%) (Auto) , Eosinophils (%) (Auto) , Basophils (%) (Auto) , Differential Total Cells Counted 100, Neutrophils % (Manual) 90H, Lymphocytes % (Manual) 5L, Monocytes % (Manual) 5, Eosinophils % (Manual) 0, Basophils % ( Manual) 0, Band Neutrophils 0, Platelet Estimate Adequate, Platelet Morphology Normal, Hypochromasia 1+, Prothrombin Time 16.4H, Prothromb Time International Ratio 1.6H, Activated Partial Thromboplast Time 47H, Sodium Level 134L, Potassium Level 3.4L, Chloride Level 99, Carbon Dioxide Level 27, Anion Gap 8, Blood Urea Nitrogen 61H, Creatinine 2.6H, Estimat Glomerular Filtration Rate , Glucose Level 101, Hemoglobin A1c 5.7, Uric Acid 9.5H, Calcium Level 8.5, Phosphorus Level 4.2, Magnesium Level 2.3, Ferritin 570H, Total Bilirubin 1.8H, Direct Bilirubin 0.5H, Gamma Glutamyl Transpeptidase 13, Aspartate Amino Transf (AST/SGOT) 11L, Alanine Aminotransferase (ALT/SGPT) 10L, Alkaline Phosphatase 51 , Total Creatine Kinase 13L, Troponin I 0.013, Pro-B-Type Natriuretic Peptide 2951H, Total Protein 6.4, Albumin 2.6L, Globulin 3.8, Albumin/Globulin Ratio 0.7L, Triglycerides Level 77, Cholesterol Level 85, LDL Cholesterol 46, HDL Cholesterol 20L, Cholesterol/HDL Ratio 4.3, Vitamin B12 Level 1842H, Folate 38.4 , Thyroid Stimulating Hormone (TSH) 1.201, Cortisol AM Sample 15.5 09/07/18 12:20: Body Fluid Glucose [Pending], Body Fluid Total Protein [Pending], Body Fluid Lactate Dehydrogenase [Pending] Height (Feet): 5 Height (Inches): 9.00 Weight (Pounds): 184 General Appearance: no apparent distress Respiratory/Chest: decreased breath sounds Abdomen: soft Dmitri Medina MD Sep 07, 2018 16:48
--- NOTE | 2018-09-07 18:10 | General Progress Note ---
Assessment/Plan Assessment/Plan Assessment/Plan # Thyroid carcinoma and on CT scan; multiple osseous destructive lesions as detailed in ct scan ,likely osseous metastases given known history of thyroid carcinoma. Multiple pulmonary and pleural nodules, likewise presumably on the basis of metastatic disease. History of thyroid cancer, status post thyroid surgery. --> review outside imaging and treatments patient has received --> outside labs and pathology to be reviewed --> defer to outpatient oncologist for further care, patient requires followup --> radioactive iodine scan as outpatient, consider tumor testing for specific molecular targets # Leukocytosis. Likely related to underlying infection versus reactive process. --> Peripheral has been ordered, results are pending --> Medications have been reviewed --> Imaging has been reviewed --> Blood cultures and urine cultures prn --> has been started on abx, empiric treatment # Right base destructive lung mass, Pulmonology consult appreciated --> pulmr ecs appreciated --> thora on prn basis # Acquired hypothyroidism, continue levothyroxine # Exacerbation of congestive heart failure, Continue Lasix 40 mg IV bid, Coreg 3.125 mg b.i.d. as well as losartan 50 mg daily. -->appreciate cardiology recs # Atrial fibrillation, the rate is currently controlled and is on anticoagulation with Coumadin with a therapeutic INR. # Status post Biotronik pacemaker. # Hypertension, Continue current regimen Lasix, losartan, and Coreg. # Hypokalemia # Polyneuropathy, continue gabapentin # BPH, continue Proscar and Flomax The timing of this note does not necessarily reflect the time of the patient was seen. Greatly appreciate consultation! Subjective Date patient seen: Sep 06, 2018 Constitutional: Denies: no symptoms, chills, diaphoresis, fever, malaise, weakness, other HEENT: Denies: no symptoms, eye pain, blurred vision, tearing, double vision, ear pain, ear discharge, nose pain, nose congestion, throat pain, throat swelling, mouth pain, mouth swelling, other Cardiovascular: Denies: no symptoms, chest pain, edema, irregular heart rate, lightheadedness, palpitations, syncope, other Gastrointestinal/Abdominal: Denies: no symptoms, abdomen distended, abdominal pain, black stools, tarry stools, blood in stool, constipated, diarrhea, difficulty swallowing, nausea, poor appetite, poor fluid intake, rectal bleeding , vomiting, other Neurologic/Psychiatric: Denies: no symptoms, anxiety, depressed, emotional problems, headache, numbness, paresthesia, pre-existing deficit, seizure, tingling, tremors, weakness, other Endocrine: Denies: no symptoms, excessive sweating, flushing, intolerance to cold, intolerance to heat, increased hunger, increased thirst, increased urine, unexplained weight gain, unexplained weight loss, other Hematologic/Lymphatic: Denies: no symptoms, anemia, easy bleeding, easy bruising, other Allergies: Coded Allergies: AZITHROMYCIN (Verified Allergy, Unknown, 09/04/18) PENICILLINS (Verified Allergy, Unknown, 09/03/18) Subjective 09/05: In atrial fib with V pacing. Rate controlled. Still NPO. Failed swallow eval. 09/06: thora completed successfuly on the right side, 0.8L removed Objective Last 24 Hour Vital Signs Date Time Temp Pulse Resp B/P (MAP) Pulse Ox O2 Delivery O2 Flow Rate FiO2 09/07/18 16:03 89 09/07/18 16:03 96.1 101 20 137/54 (81) 99 09/07/18 14:35 78 20 97 Nasal Cannula 2.0 28 09/07/18 14:35 78 20 96 Nasal Cannula 2.0 28 09/07/18 14:07 83 20 98 09/07/18 12:00 96.4 83 20 135/62 (86) 94 09/07/18 11:37 85 09/07/18 10:55 97.4 80 17 115/56 98 Nasal Cannula 2 09/07/18 10:45 79 18 129/81 99 Nasal Cannula 2 09/07/18 10:34 75 20 128/58 99 Nasal Cannula 2 09/07/18 10:25 76 20 112/54 99 Simple Mask 6 09/07/18 10:20 77 20 113/57 100 Simple Mask 6 09/07/18 10:19 87 26 97 09/07/18 10:15 75 19 109/56 100 Simple Mask 6 09/07/18 10:12 98.3 75 24 127/59 100 Simple Mask 6 09/07/18 09:07 91 20 94 Nasal Cannula 2.0 28 09/07/18 09:00 80 115/56 09/07/18 08:50 94 Nasal Cannula 2.0 28 09/07/18 08:50 Nasal Cannula 2.0 28 09/07/18 08:50 84 20 92 Nasal Cannula 2.0 28 09/07/18 08:00 98.1 78 20 136/64 (88) 99 09/07/18 08:00 Nasal Cannula 2.0 09/07/18 07:49 73 09/07/18 04:00 79 09/07/18 04:00 97.9 88 19 133/73 (93) 98 09/07/18 00:00 97.7 75 18 118/71 (87) 98 09/07/18 00:00 81 09/06/18 21:00 Nasal Cannula 2.0 09/06/18 20:00 80 09/06/18 20:00 97.1 83 19 101/61 (74) 95 09/06/18 19:53 86 18 99 Nasal Cannula 2.0 28 09/06/18 19:43 88 18 96 Nasal Cannula 2.0 28 09/06/18 19:42 96 Nasal Cannula 2.0 28 09/06/18 19:42 Nasal Cannula 2.0 28 Intake and Output 09/06/18 09/07/18 19:00 07:00 Output Total 450 ml Balance -450 ml Output Urine Total 450 ml # Voids 1 Laboratory Tests 09/06/18 22:00: Urine Color Yellow, Urine Appearance Slightly cloudy, Urine pH 5, Urine Specific [place] 1.020, Urine Protein 1+H, Urine Glucose (UA) Negative, Urine Ketones Negative, Urine Blood 3+H, Urine Nitrite Negative, Urine Bilirubin Negative, Urine Urobilinogen Normal, Urine Leukocyte Esterase 1+H, Urine RBC 10- 15H, Urine WBC 2-4, Urine Squamous Epithelial Cells Few, Urine Amorphous Sediment ModerateH, Urine Bacteria Few, Urine Hyaline Casts 0-2H, Urine Coarse Granular Casts 2-4H, Urine Random Sodium < 20L 09/07/18 04:47: White Blood Count 14.8H, Red Blood Count 4.07L, Hemoglobin 11.8L, Hematocrit 35.5L, Mean Corpuscular Volume 87, Mean Corpuscular Hemoglobin 29.0, Mean Corpuscular Hemoglobin Concent 33.3, Red Cell Distribution Width 13.8, Platelet Count 190, Mean Platelet Volume 7.9, Neutrophils (%) (Auto) , Lymphocytes (%) ( Auto) , Monocytes (%) (Auto) , Eosinophils (%) (Auto) , Basophils (%) (Auto) , Differential Total Cells Counted 100, Neutrophils % (Manual) 90H, Lymphocytes % (Manual) 5L, Monocytes % (Manual) 5, Eosinophils % (Manual) 0, Basophils % ( Manual) 0, Band Neutrophils 0, Platelet Estimate Adequate, Platelet Morphology Normal, Hypochromasia 1+, Prothrombin Time 16.4H, Prothromb Time International Ratio 1.6H, Activated Partial Thromboplast Time 47H, Sodium Level 134L, Potassium Level 3.4L, Chloride Level 99, Carbon Dioxide Level 27, Anion Gap 8, Blood Urea Nitrogen 61H, Creatinine 2.6H, Estimat Glomerular Filtration Rate , Glucose Level 101, Hemoglobin A1c 5.7, Uric Acid 9.5H, Calcium Level 8.5, Phosphorus Level 4.2, Magnesium Level 2.3, Ferritin 570H, Total Bilirubin 1.8H, Direct Bilirubin 0.5H, Gamma Glutamyl Transpeptidase 13, Aspartate Amino Transf (AST/SGOT) 11L, Alanine Aminotransferase (ALT/SGPT) 10L, Alkaline Phosphatase 51 , Total Creatine Kinase 13L, Troponin I 0.013, Pro-B-Type Natriuretic Peptide 2951H, Total Protein 6.4, Albumin 2.6L, Globulin 3.8, Albumin/Globulin Ratio 0.7L, Triglycerides Level 77, Cholesterol Level 85, LDL Cholesterol 46, HDL Cholesterol 20L, Cholesterol/HDL Ratio 4.3, Vitamin B12 Level 1842H, Folate 38.4 , Thyroid Stimulating Hormone (TSH) 1.201, Cortisol AM Sample 15.5 09/07/18 12:20: Body Fluid Glucose [Pending], Body Fluid Total Protein [Pending], Body Fluid Lactate Dehydrogenase [Pending] Height (Feet): 5 Height (Inches): 9.00 Weight (Pounds): 184 Objective Physical Exam General Appearance: no apparent distress, alert HEENT: normocephalic, atraumatic Neck: non-tender, normal alignment, supple Respiratory/Chest: ++ crackles Cardiovascular/Chest: normal peripheral pulses, normal rate Abdomen: normal bowel sounds, non tender Extremities: trace edema Skin Exam: normal pigmentation, warm/dry 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
--- NOTE | 2018-09-07 19:00 | Cardiac Electrophysiology PN ---
Assessment/Plan Assessment/Plan 1. Exacerbation of congestive heart failure due to diastolic dysfunction Echocardiogram EF 55% BNP is more than 1700. On Coreg 3.125 mg b.i.d. and losartan 50 mg daily. 2. Atrial fibrillation. Coumadin held for PEG by Dr Jiménez 3. Status post Biotronik pacemaker with Nl Fx 4. History of thyroid cancer, status post thyroid surgery. 5. Hypertension. Continue losartan, and Coreg. 6. Increased right pleural effusion, Destructive bilateral pleural mass again demonstrated. FU Dr Pantoja. S/ p Chest CT and Right thoracentesis. 7. Dysphagia, S/P PEG today DW RN Subjective Subjective In atrial fib with V pacing. Rate controlled. S/P PEG placement and Right thoracentesis today. Objective Last 24 Hour Vital Signs Date Time Temp Pulse Resp B/P (MAP) Pulse Ox O2 Delivery O2 Flow Rate FiO2 09/07/18 16:03 89 09/07/18 16:03 96.1 101 20 137/54 (81) 99 09/07/18 14:35 78 20 97 Nasal Cannula 2.0 28 09/07/18 14:35 78 20 96 Nasal Cannula 2.0 28 09/07/18 14:07 83 20 98 09/07/18 12:00 96.4 83 20 135/62 (86) 94 09/07/18 11:37 85 09/07/18 10:55 97.4 80 17 115/56 98 Nasal Cannula 2 09/07/18 10:45 79 18 129/81 99 Nasal Cannula 2 09/07/18 10:34 75 20 128/58 99 Nasal Cannula 2 09/07/18 10:25 76 20 112/54 99 Simple Mask 6 09/07/18 10:20 77 20 113/57 100 Simple Mask 6 09/07/18 10:19 87 26 97 09/07/18 10:15 75 19 109/56 100 Simple Mask 6 09/07/18 10:12 98.3 75 24 127/59 100 Simple Mask 6 09/07/18 09:07 91 20 94 Nasal Cannula 2.0 28 09/07/18 09:00 80 115/56 09/07/18 08:50 94 Nasal Cannula 2.0 28 09/07/18 08:50 Nasal Cannula 2.0 28 09/07/18 08:50 84 20 92 Nasal Cannula 2.0 28 09/07/18 08:00 98.1 78 20 136/64 (88) 99 09/07/18 08:00 Nasal Cannula 2.0 09/07/18 07:49 73 09/07/18 04:00 79 09/07/18 04:00 97.9 88 19 133/73 (93) 98 09/07/18 00:00 97.7 75 18 118/71 (87) 98 09/07/18 00:00 81 09/06/18 21:00 Nasal Cannula 2.0 09/06/18 20:00 80 09/06/18 20:00 97.1 83 19 101/61 (74) 95 09/06/18 19:53 86 18 99 Nasal Cannula 2.0 28 09/06/18 19:43 88 18 96 Nasal Cannula 2.0 28 09/06/18 19:42 96 Nasal Cannula 2.0 28 09/06/18 19:42 Nasal Cannula 2.0 28 Intake and Output 09/06/18 09/07/18 19:00 07:00 Output Total 450 ml Balance -450 ml Output Urine Total 450 ml # Voids 1 Laboratory Tests Test 09/06/18 22:00 09/07/18 04:47 09/07/18 12:20 Urine Color Yellow Urine Appearance Slightly cloudy Urine pH 5 (4.5-8.0) Urine Specific [place] 1.020 (1.005-1.035) Urine Protein 1+ (NEGATIVE) H Urine Glucose (UA) Negative (NEGATIVE) Urine Ketones Negative (NEGATIVE) Urine Blood 3+ (NEGATIVE) H Urine Nitrite Negative (NEGATIVE) Urine Bilirubin Negative (NEGATIVE) Urine Urobilinogen Normal MG/DL (0.0-1.0) Urine Leukocyte Esterase 1+ (NEGATIVE) H Urine RBC 10-15 /HPF (0 - 0) H Urine WBC 2-4 /HPF (0 - 0) Urine Squamous Epithelial Cells Few /LPF (NONE/OCC) Urine Amorphous Sediment Moderate /LPF (NONE) H Urine Bacteria Few /HPF (NONE) Urine Hyaline Casts 0-2 /LPF (NONE) H Urine Coarse Granular Casts 2-4 /LPF (NONE) H Urine Random Sodium < 20 mmol/L (20-110) L White Blood Count 14.8 K/UL (4.8-10.8) H Red Blood Count 4.07 M/UL (4.70-6.10) L Hemoglobin 11.8 G/DL (14.2-18.0) L Hematocrit 35.5 % (42.0-52.0) L Mean Corpuscular Volume 87 FL (80-99) Mean Corpuscular Hemoglobin 29.0 PG (27.0-31.0) Mean Corpuscular Hemoglobin Concent 33.3 G/DL (32.0-36.0) Red Cell Distribution Width 13.8 % (11.6-14.8) Platelet Count 190 K/UL (150-450) Mean Platelet Volume 7.9 FL (6.5-10.1) Neutrophils (%) (Auto) % (45.0-75.0) Lymphocytes (%) (Auto) % (20.0-45.0) Monocytes (%) (Auto) % (1.0-10.0) Eosinophils (%) (Auto) % (0.0-3.0) Basophils (%) (Auto) % (0.0-2.0) Differential Total Cells Counted 100 Neutrophils % (Manual) 90 % (45-75) H Lymphocytes % (Manual) 5 % (20-45) L Monocytes % (Manual) 5 % (1-10) Eosinophils % (Manual) 0 % (0-3) Basophils % (Manual) 0 % (0-2) Band Neutrophils 0 % (0-8) Platelet Estimate Adequate Platelet Morphology Normal Hypochromasia 1+ Prothrombin Time 16.4 SEC (9.30-11.50) H Prothromb Time International Ratio 1.6 (0.9-1.1) H Activated Partial Thromboplast Time 47 SEC (23-33) H Sodium Level 134 MMOL/L (136-145) L Potassium Level 3.4 MMOL/L (3.5-5.1) L Chloride Level 99 MMOL/L (98-107) Carbon Dioxide Level 27 MMOL/L (21-32) Anion Gap 8 mmol/L (5-15) Blood Urea Nitrogen 61 mg/dL (7-18) H Creatinine 2.6 MG/DL (0.55-1.30) H Estimat Glomerular Filtration Rate mL/min (>60) Glucose Level 101 MG/DL (74-106) Hemoglobin A1c 5.7 % (4.3-6.0) Uric Acid 9.5 MG/DL (2.6-7.2) H Calcium Level 8.5 MG/DL (8.5-10.1) Phosphorus Level 4.2 MG/DL (2.5-4.9) Magnesium Level 2.3 MG/DL (1.8-2.4) Ferritin 570 NG/ML (8-388) H Total Bilirubin 1.8 MG/DL (0.2-1.0) H Direct Bilirubin 0.5 MG/DL (0.0-0.3) H Gamma Glutamyl Transpeptidase 13 U/L (5-85) Aspartate Amino Transf (AST/SGOT) 11 U/L (15-37) L Alanine Aminotransferase (ALT/SGPT) 10 U/L (12-78) L Alkaline Phosphatase 51 U/L (46-116) Total Creatine Kinase 13 U/L (26-308) L Troponin I 0.013 ng/mL (0.000-0.056) Pro-B-Type Natriuretic Peptide 2951 pg/mL (0-125) H Total Protein 6.4 G/DL (6.4-8.2) Albumin 2.6 G/DL (3.4-5.0) L Globulin 3.8 g/dL Albumin/Globulin Ratio 0.7 (1.0-2.7) L Triglycerides Level 77 MG/DL (30-150) Cholesterol Level 85 MG/DL (< 200) LDL Cholesterol 46 mg/dL (<100) HDL Cholesterol 20 MG/DL (40-60) L Cholesterol/HDL Ratio 4.3 (3.3-4.4) Vitamin B12 Level 1842 PG/ML (193-986) H Folate 38.4 NG/ML (8.6-58.9) Thyroid Stimulating Hormone (TSH) 1.201 uiU/mL (0.358-3.740) Cortisol AM Sample 15.5 UG/DL Body Fluid Glucose Pending Body Fluid Total Protein Pending Body Fluid Lactate Dehydrogenase Pending Objective HEAD AND NECK: Positive JVD. LUNGS: Decreased breath sounds. CARDIOVASCULAR: Irregular S1 and S2 with no gallop and soft systolic murmur. Pacemaker in the left subclavian. ABDOMEN: Soft. EXTREMITIES: 1+ pitting edema. Jere Faustin MD Sep 07, 2018 19:00
--- NOTE | 2018-09-07 19:50 | NUR ---
NURSE NOTES: Received pt. and report from AMERICA Feng. Observe pt. resting in bed with both eyes open. Family members are at bedside. conveyor monitor is in placed, IV site intact, asymptomatic, and patent. Bed is in the lowest position and locked, call light within reach. Pt. had PEG placement inserted today. NPO status noted. No acute distress noted at this time. Will continue plan of care. Addendum: 09/08/18 at 1406 by Sepideh Silveira Mai, RN Ross is currently in placed. No Hawkins d/c orders present.
--- NOTE | 2018-09-07 20:07 | NUR ---
HAND-OFF: Report given to Raiza Rn.
[2018-09-07] MEDS ORDERED: Acetaminophen 650mg/20.3ml GT PRN (20:15)
--- NOTE | 2018-09-07 20:55 | NUR ---
NURSE NOTES: Contacted on-call doctor for pain medication. Received orders from Dr. Drummond. Will note and carry out.
[2018-09-07] MEDS: Morphine Sulfate 2mg/ml Inj(IV/IM USE ONLY) IVP PRN (21:31)
[2018-09-08] VITALS: BP 135/71
[2018-09-08] MEDS: Zolpidem 5mg tab ORAL PRN (00:47)
--- NOTE | 2018-09-08 00:52 | General Progress Note ---
Assessment/Plan Assessment/Plan Assessment/Plan # Thyroid carcinoma and on CT scan; multiple osseous destructive lesions as detailed in ct scan ,likely osseous metastases given known history of thyroid carcinoma. Multiple pulmonary and pleural nodules, likewise presumably on the basis of metastatic disease. History of thyroid cancer, status post thyroid surgery. --> review outside imaging and treatments patient has received --> outside labs and pathology to be reviewed --> defer to outpatient oncologist for further care, patient requires followup --> radioactive iodine scan as outpatient, consider tumor testing for specific molecular targets # Leukocytosis. Likely related to underlying infection versus reactive process. --> Peripheral has been ordered, results are pending --> Medications have been reviewed --> Imaging has been reviewed --> Blood cultures and urine cultures prn --> has been started on abx, empiric treatment # Right base destructive lung mass, Pulmonology consult appreciated --> pulmr ecs appreciated --> thora on prn basis # Acquired hypothyroidism, continue levothyroxine # Exacerbation of congestive heart failure, Continue Lasix 40 mg IV bid, Coreg 3.125 mg b.i.d. as well as losartan 50 mg daily. -->appreciate cardiology recs # Atrial fibrillation, the rate is currently controlled and is on anticoagulation with Coumadin with a therapeutic INR. # Status post Biotronik pacemaker. # Hypertension, Continue current regimen Lasix, losartan, and Coreg. # Hypokalemia # Polyneuropathy, continue gabapentin # BPH, continue Proscar and Flomax The timing of this note does not necessarily reflect the time of the patient was seen. Greatly appreciate consultation! Subjective Date patient seen: Sep 07, 2018 Allergies: Coded Allergies: AZITHROMYCIN (Verified Allergy, Unknown, 09/04/18) PENICILLINS (Verified Allergy, Unknown, 09/03/18) Subjective 09/05: In atrial fib with V pacing. Rate controlled. Still NPO. Failed swallow eval. 09/06: thora completed successfuly on the right side, 0.8L removed 09/07: wbc trending down, S/P PEG placement and Right thoracentesis today, no events Objective Last 24 Hour Vital Signs Date Time Temp Pulse Resp B/P (MAP) Pulse Ox O2 Delivery O2 Flow Rate FiO2 09/07/18 22:33 85 142/66 09/07/18 20:36 72 20 100 Nasal Cannula 2.0 28 09/07/18 20:29 Nasal Cannula 2.0 28 09/07/18 20:28 99 Nasal Cannula 2.0 28 09/07/18 20:27 71 18 99 Nasal Cannula 2.0 28 09/07/18 20:00 65 09/07/18 20:00 97.7 85 20 142/66 (91) 97 09/07/18 16:03 89 09/07/18 16:03 96.1 101 20 137/54 (81) 99 09/07/18 14:35 78 20 97 Nasal Cannula 2.0 28 09/07/18 14:35 78 20 96 Nasal Cannula 2.0 28 09/07/18 14:07 83 20 98 09/07/18 12:00 96.4 83 20 135/62 (86) 94 09/07/18 11:37 85 09/07/18 10:55 97.4 80 17 115/56 98 Nasal Cannula 2 09/07/18 10:45 79 18 129/81 99 Nasal Cannula 2 09/07/18 10:34 75 20 128/58 99 Nasal Cannula 2 09/07/18 10:25 76 20 112/54 99 Simple Mask 6 09/07/18 10:20 77 20 113/57 100 Simple Mask 6 09/07/18 10:19 87 26 97 09/07/18 10:15 75 19 109/56 100 Simple Mask 6 09/07/18 10:12 98.3 75 24 127/59 100 Simple Mask 6 09/07/18 09:07 91 20 94 Nasal Cannula 2.0 28 09/07/18 09:00 80 115/56 09/07/18 08:50 94 Nasal Cannula 2.0 28 09/07/18 08:50 Nasal Cannula 2.0 28 09/07/18 08:50 84 20 92 Nasal Cannula 2.0 28 09/07/18 08:00 98.1 78 20 136/64 (88) 99 09/07/18 08:00 Nasal Cannula 2.0 09/07/18 07:49 73 09/07/18 04:00 79 09/07/18 04:00 97.9 88 19 133/73 (93) 98 Intake and Output 09/07/18 09/08/18 19:00 07:00 Intake Total 300 ml Output Total 400 ml Balance -100 ml IV Total 300 ml Output Urine Total 400 ml Estimated Blood Loss 0 ml Laboratory Tests 2/22/19 04:47: White Blood Count 14.8H, Red Blood Count 4.07L, Hemoglobin 11.8L, Hematocrit 35.5L, Mean Corpuscular Volume 87, Mean Corpuscular Hemoglobin 29.0, Mean Corpuscular Hemoglobin Concent 33.3, Red Cell Distribution Width 13.8, Platelet Count 190, Mean Platelet Volume 7.9, Neutrophils (%) (Auto) , Lymphocytes (%) ( Auto) , Monocytes (%) (Auto) , Eosinophils (%) (Auto) , Basophils (%) (Auto) , Differential Total Cells Counted 100, Neutrophils % (Manual) 90H, Lymphocytes % (Manual) 5L, Monocytes % (Manual) 5, Eosinophils % (Manual) 0, Basophils % ( Manual) 0, Band Neutrophils 0, Platelet Estimate Adequate, Platelet Morphology Normal, Hypochromasia 1+, Prothrombin Time 16.4H, Prothromb Time International Ratio 1.6H, Activated Partial Thromboplast Time 47H, Sodium Level 134L, Potassium Level 3.4L, Chloride Level 99, Carbon Dioxide Level 27, Anion Gap 8, Blood Urea Nitrogen 61H, Creatinine 2.6H, Estimat Glomerular Filtration Rate , Glucose Level 101, Hemoglobin A1c 5.7, Uric Acid 9.5H, Calcium Level 8.5, Phosphorus Level 4.2, Magnesium Level 2.3, Ferritin 570H, Total Bilirubin 1.8H, Direct Bilirubin 0.5H, Gamma Glutamyl Transpeptidase 13, Aspartate Amino Transf (AST/SGOT) 11L, Alanine Aminotransferase (ALT/SGPT) 10L, Alkaline Phosphatase 51 , Total Creatine Kinase 13L, Troponin I 0.013, Pro-B-Type Natriuretic Peptide 2951H, Total Protein 6.4, Albumin 2.6L, Globulin 3.8, Albumin/Globulin Ratio 0.7L, Triglycerides Level 77, Cholesterol Level 85, LDL Cholesterol 46, HDL Cholesterol 20L, Cholesterol/HDL Ratio 4.3, Vitamin B12 Level 1842H, Folate 38.4 , Thyroid Stimulating Hormone (TSH) 1.201, Cortisol AM Sample 15.5 09/07/18 12:20: Body Fluid Glucose [Pending], Body Fluid Total Protein [Pending], Body Fluid Lactate Dehydrogenase [Pending] Height (Feet): 5 Height (Inches): 9.00 Weight (Pounds): 184 Objective Physical Exam General Appearance: no apparent distress, alert HEENT: normocephalic, atraumatic Neck: non-tender, normal alignment, supple Respiratory/Chest: ++ crackles Cardiovascular/Chest: normal peripheral pulses, normal rate Abdomen: normal bowel sounds, non tender Extremities: trace edema Skin Exam: normal pigmentation, warm/dry Neurologic: 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
--- NOTE | 2018-09-08 01:00 | NUR ---
NURSE NOTES: Received phone call from [facility] transfer and pumphouse operator. There are currently no beds available for transfer.
[2018-09-08 04:00] VITALS: BP 128/78
[2018-09-08] MEDS: metroNIDAZOLE 500mg tab ORAL SCH ×3 (06:19→22:08)
[2018-09-08 07:19] LABS: HEMATOCRIT 36.2 % (42.0-52.0); HEMOGLOBIN 11.9 G/DL (14.2-18.0); MEAN CORPUSCULAR VOLUME 88 FL (80-99); PLATELET COUNT 170 K/UL (150-450); RED BLOOD COUNT 4.09 M/UL (4.70-6.10); RED CELL DISTRIBUTION WIDTH 14.2 % (11.6-14.8); WHITE BLOOD COUNT 10.6 K/UL (4.8-10.8)
--- NOTE | 2018-09-08 07:30 | NUR ---
NURSE NOTES: Report received from Tammi RN. Pt is resting in bed in stable condition. Pt is awake, alert, and oriented x4. Pt is on room air and breathing is even and unlabored. No acute distress noted. G-tube site and dressing noted to be patent and intact. IV site noted to be patent and asymptomatic. Hawkins noted to be patent and draining to gravity. Bed placed in lowest position with brake engaged, side rails up x2, and bed alarm on. Call light and side table placed within reach. Will continue to monitor.
[2018-09-08] MEDS: Ipratropium 0.02% Inh Soln 2.5ml UD HHN SCH ×3 (07:31→19:54)
[2018-09-08 07:36] LABS: ALANINE AMINOTRANSFERASE 9 U/L (12-78); ALBUMIN 2.6 G/DL (3.4-5.0); ALKALINE PHOSPHATASE 46 U/L (46-116); ASPARTATE AMINO TRANSFERASE 10 U/L (15-37); BILIRUBIN,DIRECT 0.6 MG/DL (0.0-0.3); BILIRUBIN,TOTAL 2.1 MG/DL (0.2-1.0); PHOSPHORUS 3.4 MG/DL (2.5-4.9)
[2018-09-08 07:38] LABS: ANION GAP 7 mmol/L (5-15); BLOOD UREA NITROGEN 60 mg/dL (7-18); CARBON DIOXIDE 29 MMOL/L (21-32); CHLORIDE 101 MMOL/L (98-107); CREATININE 1.9 MG/DL (0.55-1.30); POTASSIUM 3.2 MMOL/L (3.5-5.1); SODIUM 137 MMOL/L (136-145)
--- NOTE | 2018-09-08 07:43 | NUR ---
NURSE NOTES: Pt medications left at bedside logged and taken to pharmacy with patient consent.
[2018-09-08 08:00] VITALS: BP 133/67
--- NOTE | 2018-09-08 08:00 | NUR ---
HAND-OFF: Report given to AMERICA Lea.
--- NOTE | 2018-09-08 08:18 | NUR ---
NURSE NOTES: patient is verbally responsive and oriented x3. keep hob elevated for aspiration precautions. will initiate tube feeding per MD order, intact and patent. abdominal binder is inplaced to prevent from pulling out. On O2 2l via NC. siderails are up x3, bed in lowest position for safety. instructed to use call light for assistance. IV patent and intact. no acute resp distress noted. No c/o pain/discomfort noted. will cont to monitor.
--- NOTE | 2018-09-08 08:53 | NUR ---
NURSE NOTES: made Dr zapata aware of the K+3.2 today's result. New order obtained.
[2018-09-08] MEDS: Sennosides 8.6mg tab ORAL SCH ×2 (09:00→17:54)
--- NOTE | 2018-09-08 09:35 | NUR ---
RD ASSESSMENT & RECOMMENDATIONS SEE CARE ACTIVITY FOR COMPLETE ASSESSMENT DAILY ESTIMATED NEEDS: Needs based on Cardiac, Wound/ 74.5kg 25-30 kcals/kg 1162-2500 total kcals 1.25-1.5 g protein/kg 75-112 g total protein 25-30 mL/kg 2257-2273 total fluid mLs NUTRITION DIAGNOSIS: *Increased kcal/prot intake needs R/T wound healing as evidenced by admitted w/ DTPI @ lt buttock and stage 1 @ buttocks, BL heels. *Swallowing difficulty R/T dysphagia as evidenced by s/p VSS w/ rec for NPO, s/p PEG placement. CURRENT TF:Vital AF 1.2 @ 60ml/hr x 22 hrs ENTERAL NUTRITION RECOMMENDATIONS: Osmolite 1.5 @ 57ml/hr x 22 hrs to provide 1254ml, 1881kcal, 79g prot, 952ml free water * Rec TF change to Osmolite 1.5 -> elemental formula of Vital AF is not indicated * Initiate Osmolite 1.5 @ 27ml/hr x 6 hrs, advance 10ml q 4-6 hrs as tolerated to goal rate * Hold 1 hr before and after Synthroid med * HOB over 30 degrees/ water flush per MD ADDITIONAL RECOMMENDATIONS: * Re-calibrated bedscale wt for accurate CBW (w/ added P200 mattress) * Monitor lytes, replete as needed (low K), monitor BGs on TF * Wound healing: add [place] 1pkt BID via PEG * TF rec as above .
[2018-09-08] MEDS: Docusate 100mg cap ORAL SCH (10:19)
[2018-09-08] MEDS: Tamsulosin 0.4mg cap ORAL SCH ×2 (10:20→22:08)
--- NOTE | 2018-09-08 10:47 | General Progress Note ---
Assessment/Plan Assessment/Plan #Acute on chronic diastolic CHF #Coronary artery disease #Permanent atrial fibrillation s/p PPM for SSS #HTN #Hyperlipidemia -Lasix on hold -hold eplerenone -Continue Coreg -warfarin reversed, will look to resume soon -cardiology following #Leukocytosis #Suspected aspiration pneumonia #Severe Dysphagia -seen by HOUSING CASE MANAGER and Pulm -seen by ID -Levaquin stopped -meropenem started -continue Flagyl -leukocytosis improved -HIDA scan equivocal, will discuss with GI -PEG placement today -aspiration precautions -NPO #RY -renal function improved today -continue to hold losartan and Lasix -Nephrology following #Hypokalemia -replace with KCl through G-tube -repeat BMP in AM #Thyroid cancer #Metastatic disease and mod-large right pleural effusion seen on chest CT #Acquired hypothyroidism -continue levothyroxine -Discussed with his oncologist at [facility] -Seen by Pulmonology -Thoracentesis done with 800 ml blood fluid removed -Await cytology from pleural fluid #Polyneuropathy -continue gabapentin #BPH -continue Proscar and Flomax VTE PPx SCD full code I spent 45 minutes on this patient's case, and 25 minutes was dedicated to counseling and/or care coordination. Subjective Date patient seen: Sep 08, 2018 Time patient seen: 09:45 ROS Limited/Unobtainable: No Constitutional: Denies: chills, fever Cardiovascular: Denies: chest pain, edema Respiratory: Denies: cough, orthopnea, shortness of breath Gastrointestinal/Abdominal: Denies: abdomen distended, abdominal pain Allergies: Coded Allergies: AZITHROMYCIN (Verified Allergy, Unknown, 09/04/18) PENICILLINS (Verified Allergy, Unknown, 09/03/18) Subjective Medicine follow up for acute on chronic dCHF, lung mass, leukocytosis, suspected aspiration pneumonia S/p PEG placement yesterday, started on tube feeds S/p right thoracentesis with 800 ml blood fluid removed. Stable respiratory status. Objective Last 24 Hour Vital Signs Date Time Temp Pulse Resp B/P (MAP) Pulse Ox O2 Delivery O2 Flow Rate FiO2 09/08/18 10:19 68 133/67 09/08/18 09:00 Nasal Cannula 2.0 09/08/18 08:00 68 09/08/18 08:00 97.5 65 20 133/67 (89) 98 09/08/18 07:32 78 24 100 Nasal Cannula 2.0 28 09/08/18 07:20 87 24 97 Nasal Cannula 2.0 28 09/08/18 07:11 Nasal Cannula 2.0 28 09/08/18 07:11 98 Nasal Cannula 2.0 28 09/08/18 04:00 97.0 72 20 128/78 (95) 94 09/08/18 04:00 75 09/08/18 00:00 97.2 83 20 135/71 (92) 95 09/08/18 00:00 66 09/07/18 22:33 85 142/66 09/07/18 21:00 Nasal Cannula 2.0 09/07/18 20:36 72 20 100 Nasal Cannula 2.0 28 09/07/18 20:29 Nasal Cannula 2.0 28 09/07/18 20:28 99 Nasal Cannula 2.0 28 09/07/18 20:27 71 18 99 Nasal Cannula 2.0 28 09/07/18 20:00 65 09/07/18 20:00 97.7 85 20 142/66 (91) 97 09/07/18 16:03 89 09/07/18 16:03 96.1 101 20 137/54 (81) 99 09/07/18 14:35 78 20 97 Nasal Cannula 2.0 28 09/07/18 14:35 78 20 96 Nasal Cannula 2.0 28 09/07/18 14:07 83 20 98 09/07/18 12:00 96.4 83 20 135/62 (86) 94 09/07/18 11:37 85 09/07/18 10:55 97.4 80 17 115/56 98 Nasal Cannula 2 09/07/18 10:45 79 18 129/81 99 Nasal Cannula 2 Intake and Output 09/07/18 09/08/18 18:59 06:59 Intake Total 300 ml Output Total 400 ml 600 ml Balance -100 ml -600 ml IV Total 300 ml Output Urine Total 400 ml 600 ml Estimated Blood Loss 0 ml Laboratory Tests 09/07/18 12:20: Body Fluid Glucose [Pending], Body Fluid Total Protein [Pending], Body Fluid Lactate Dehydrogenase [Pending] 09/08/18 06:08: White Blood Count 10.6, Red Blood Count 4.09L, Hemoglobin 11.9L, Hematocrit 36.2L, Mean Corpuscular Volume 88, Mean Corpuscular Hemoglobin 29.2, Mean Corpuscular Hemoglobin Concent 33.0, Red Cell Distribution Width 14.2, Platelet Count 170, Mean Platelet Volume 7.5, Neutrophils (%) (Auto) , Lymphocytes (%) ( Auto) , Monocytes (%) (Auto) , Eosinophils (%) (Auto) , Basophils (%) (Auto) , Neutrophils % (Manual) [Pending], Lymphocytes % (Manual) [Pending], Platelet Estimate [Pending], Platelet Morphology [Pending], Sodium Level 137, Potassium Level 3.2L, Chloride Level 101, Carbon Dioxide Level 29, Anion Gap 7, Blood Urea Nitrogen 60H, Creatinine 1.9H, Estimat Glomerular Filtration Rate , Glucose Level 96, Calcium Level 9.0, Phosphorus Level 3.4, Magnesium Level 2.4, Total Bilirubin 2.1H, Direct Bilirubin 0.6H, Aspartate Amino Transf (AST/SGOT) 10L, Alanine Aminotransferase (ALT/SGPT) 9L, Alkaline Phosphatase 46, Lactate Dehydrogenase 124, Total Protein 6.3L, Albumin 2.6L Height (Feet): 5 Height (Inches): 9.00 Weight (Pounds): 186 General Appearance: alert, other - Weak appearing Neck: non-tender, normal alignment Cardiovascular: normal peripheral pulses, normal rate, regular rhythm Respiratory/Chest: chest wall non-tender, lungs clear, normal breath sounds, no respiratory distress Abdomen: non tender, soft, other - Abdominal binder in place Neurologic: alert, oriented x 3 Oscar Chin MD Sep 08, 2018 10:47
--- NOTE | 2018-09-08 10:49 | Infectious Diseases Prog Note ---
Assessment/Plan Assessment/Plan antibiotics : cefepime, flagyl A 1. ? pneumonia 2. ? cholecystitis 3. leucocytosis resolved 4. pleural effusion 5. renal failure 6. thyroid cancer P 1. continue cefepime, flagyl 2. will follow up cultures Subjective Constitutional: Denies: fever, chills Respiratory: Reports: shortness of breath; Denies: dry cough Gastrointestinal/Abdominal: Denies: nausea, vomiting, diarrhea Musculoskeletal: Denies: pain Allergies: Coded Allergies: AZITHROMYCIN (Verified Allergy, Unknown, 09/04/18) PENICILLINS (Verified Allergy, Unknown, 09/03/18) Objective Vital Signs Last 24 Hour Vital Signs Date Time Temp Pulse Resp B/P (MAP) Pulse Ox O2 Delivery O2 Flow Rate FiO2 09/08/18 10:19 68 133/67 09/08/18 09:00 Nasal Cannula 2.0 09/08/18 08:00 68 09/08/18 08:00 97.5 65 20 133/67 (89) 98 09/08/18 07:32 78 24 100 Nasal Cannula 2.0 28 09/08/18 07:20 87 24 97 Nasal Cannula 2.0 28 09/08/18 07:11 Nasal Cannula 2.0 28 09/08/18 07:11 98 Nasal Cannula 2.0 28 09/08/18 04:00 97.0 72 20 128/78 (95) 94 09/08/18 04:00 75 09/08/18 00:00 97.2 83 20 135/71 (92) 95 09/08/18 00:00 66 09/07/18 22:33 85 142/66 09/07/18 21:00 Nasal Cannula 2.0 09/07/18 20:36 72 20 100 Nasal Cannula 2.0 28 09/07/18 20:29 Nasal Cannula 2.0 28 09/07/18 20:28 99 Nasal Cannula 2.0 28 09/07/18 20:27 71 18 99 Nasal Cannula 2.0 28 09/07/18 20:00 65 09/07/18 20:00 97.7 85 20 142/66 (91) 97 09/07/18 16:03 89 09/07/18 16:03 96.1 101 20 137/54 (81) 99 09/07/18 14:35 78 20 97 Nasal Cannula 2.0 28 09/07/18 14:35 78 20 96 Nasal Cannula 2.0 28 09/07/18 14:07 83 20 98 09/07/18 12:00 96.4 83 20 135/62 (86) 94 09/07/18 11:37 85 09/07/18 10:55 97.4 80 17 115/56 98 Nasal Cannula 2 Height (Feet): 5 Height (Inches): 9.00 Weight (Pounds): 186 Respiratory/Chest: lungs clear Cardiovascular: normal rate, regular rhythm, no gallop/murmur Abdomen: soft, non tender, other - GT Laboratory Tests Test 09/07/18 12:20 09/08/18 06:08 Body Fluid Glucose Pending Body Fluid Total Protein Pending Body Fluid Lactate Dehydrogenase Pending White Blood Count 10.6 K/UL (4.8-10.8) Red Blood Count 4.09 M/UL (4.70-6.10) L Hemoglobin 11.9 G/DL (14.2-18.0) L Hematocrit 36.2 % (42.0-52.0) L Mean Corpuscular Volume 88 FL (80-99) Mean Corpuscular Hemoglobin 29.2 PG (27.0-31.0) Mean Corpuscular Hemoglobin Concent 33.0 G/DL (32.0-36.0) Red Cell Distribution Width 14.2 % (11.6-14.8) Platelet Count 170 K/UL (150-450) Mean Platelet Volume 7.5 FL (6.5-10.1) Neutrophils (%) (Auto) % (45.0-75.0) Lymphocytes (%) (Auto) % (20.0-45.0) Monocytes (%) (Auto) % (1.0-10.0) Eosinophils (%) (Auto) % (0.0-3.0) Basophils (%) (Auto) % (0.0-2.0) Differential Total Cells Counted 100 Neutrophils % (Manual) 93 % (45-75) H Lymphocytes % (Manual) 4 % (20-45) L Monocytes % (Manual) 3 % (1-10) Eosinophils % (Manual) 0 % (0-3) Basophils % (Manual) 0 % (0-2) Band Neutrophils 0 % (0-8) Platelet Estimate Adequate Platelet Morphology Normal Red Blood Cell Morphology Normal Sodium Level 137 MMOL/L (136-145) Potassium Level 3.2 MMOL/L (3.5-5.1) L Chloride Level 101 MMOL/L (98-107) Carbon Dioxide Level 29 MMOL/L (21-32) Anion Gap 7 mmol/L (5-15) Blood Urea Nitrogen 60 mg/dL (7-18) H Creatinine 1.9 MG/DL (0.55-1.30) H Estimat Glomerular Filtration Rate mL/min (>60) Glucose Level 96 MG/DL (74-106) Calcium Level 9.0 MG/DL (8.5-10.1) Phosphorus Level 3.4 MG/DL (2.5-4.9) Magnesium Level 2.4 MG/DL (1.8-2.4) Total Bilirubin 2.1 MG/DL (0.2-1.0) H Direct Bilirubin 0.6 MG/DL (0.0-0.3) H Aspartate Amino Transf (AST/SGOT) 10 U/L (15-37) L Alanine Aminotransferase (ALT/SGPT) 9 U/L (12-78) L Alkaline Phosphatase 46 U/L (46-116) Lactate Dehydrogenase 124 U/L (81-234) Total Protein 6.3 G/DL (6.4-8.2) L Albumin 2.6 G/DL (3.4-5.0) L Current Medications Medications (Trade) Dose Ordered Sig/Mario Route PRN Reason Start Time Stop Time Status Last Admin Dose Admin Acetaminophen (Tylenol) 650 mg Q4H PRN GT Mild Pain/Temp > 100.5 09/07/18 20:15 10/07/18 20:14 Acetylcysteine (Mucomyst) 200 mg TIDRT HHN 09/09/18 01:00 10/07/18 18:59 Bisacodyl (Dulcolax) 10 mg HSPRN PRN RECTAL Constipation 09/03/18 12:15 10/03/18 10:59 Carvedilol (Coreg) 3.125 mg EVERY 12 HOURS ORAL 09/03/18 12:15 10/03/18 12:14 09/08/18 10:19 Cefepime HCl 1 gm/ Dextrose 55 ml @ 110 mls/hr Q24H IVPB 09/08/18 11:00 09/15/18 10:59 Dextrose (Dextrose 50%) 25 ml Q30M PRN IV Hypoglycemia 09/03/18 11:00 10/03/18 10:59 Dextrose (Dextrose 50%) 50 ml Q30M PRN IV Hypoglycemia 09/03/18 11:00 10/03/18 10:59 Docusate Sodium (Colace) 100 mg DAILY ORAL 09/03/18 18:00 10/04/18 08:59 09/08/18 10:19 Finasteride (Proscar) 5 mg DAILY ORAL 09/04/18 09:00 10/04/18 08:59 09/08/18 10:20 Gabapentin (Neurontin) 300 mg DAILY ORAL 09/08/18 09:00 10/03/18 17:59 09/08/18 10:20 Ipratropium [place] (Atrovent) 500 mcg TIDRT HHN 09/04/18 13:00 09/09/18 12:59 09/08/18 07:31 Levothyroxine Sodium (Synthroid) 150 mcg Q24H ORAL 09/04/18 06:30 10/04/18 06:29 09/08/18 06:19 Metronidazole (Flagyl) 500 mg Q8HR ORAL 09/06/18 14:00 09/13/18 13:59 09/08/18 06:19 Morphine Sulfate (Morphine Sulfate) 1 mg Q4H PRN IVP Severe Pain (Pain Scale 7-10) 09/07/18 21:00 09/14/18 20:59 09/07/18 21:31 Ondansetron HCl (Zofran) 4 mg Q6H PRN IVP Nausea & Vomiting 09/03/18 11:00 10/03/18 10:59 Pantoprazole (Protonix) 40 mg EVERY 12 HOURS ORAL 09/03/18 13:05 10/03/18 13:04 09/08/18 10:20 Potassium Chloride (K-Dur) 20 meq ONCE GT 09/08/18 09:00 09/08/18 11:00 09/08/18 10:20 Sennosides (Senokot) 17.2 mg BID ORAL 09/04/18 09:00 10/03/18 17:59 09/07/18 18:05 Tamsulosin HCl (Flomax) 0.4 mg Q12HR ORAL 09/07/18 09:00 10/07/18 08:59 09/08/18 10:20 Zolpidem Tartrate (Ambien) 2.5 mg BEDTIME PRN ORAL Insomnia 09/03/18 12:15 09/10/18 11:44 09/08/18 00:47 Joselin Juarez MD Sep 08, 2018 10:49
--- NOTE | 2018-09-08 11:00 | NUR ---
HAND-OFF: Report given to Erin KENYON. Pt resting in bed in stable condition. No acute distress noted. Endorsed plan of care.
--- NOTE | 2018-09-08 11:53 | NUR ---
NURSE NOTES: placed on SCD on BLE for DVT prophylaxis. elevated with pillows each leg. wound car treatment rendered on sacral, cleanse with NS, skin barrier film and cover with optifoam. repositioned. HOB elevated for aspiration precautions. will cont to monitor.
[2018-09-08 12:00] VITALS: BP 145/63
[2018-09-08] MEDS: Cefepime 1gm/D5W 55ml IVPB SCH ×2 (12:21)
--- NOTE | 2018-09-08 13:07 | General Progress Note ---
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 - Neoplasm of unspecified behavior of respiratory system SNOMED: 793108103 (3) CHF (congestive heart failure) ICD Codes: I50.9 - Heart failure, unspecified SNOMED: 86557250 Qualifiers: Qualified Codes: I50.9 - Heart failure, unspecified (4) Dysphasia ICD Codes: R47.02 - Dysphasia SNOMED: 27426826 (5) Severe malnutrition ICD Codes: E43 - Unspecified severe protein-calorie malnutrition SNOMED: 08957127 (6) Encounter for PEG (percutaneous endoscopic gastrostomy) ICD Codes: Z43.1 - Encounter for attention to gastrostomy SNOMED: 527109486, 714414316 Assessment/Plan GT feeds Elevate HOB Monitor weight and nutritional parameters Subjective Allergies: Coded Allergies: AZITHROMYCIN (Verified Allergy, Unknown, 09/04/18) PENICILLINS (Verified Allergy, Unknown, 09/03/18) Subjective above noted s/p PEG Objective Last 24 Hour Vital Signs Date Time Temp Pulse Resp B/P (MAP) Pulse Ox O2 Delivery O2 Flow Rate FiO2 09/08/18 10:19 68 133/67 09/08/18 09:00 Nasal Cannula 2.0 09/08/18 08:00 68 09/08/18 08:00 97.5 65 20 133/67 (89) 98 09/08/18 07:32 78 24 100 Nasal Cannula 2.0 28 09/08/18 07:20 87 24 97 Nasal Cannula 2.0 28 09/08/18 07:11 Nasal Cannula 2.0 28 09/08/18 07:11 98 Nasal Cannula 2.0 28 09/08/18 04:00 97.0 72 20 128/78 (95) 94 09/08/18 04:00 75 09/08/18 00:00 97.2 83 20 135/71 (92) 95 09/08/18 00:00 66 09/07/18 22:33 85 142/66 09/07/18 21:00 Nasal Cannula 2.0 09/07/18 20:36 72 20 100 Nasal Cannula 2.0 28 09/07/18 20:29 Nasal Cannula 2.0 28 09/07/18 20:28 99 Nasal Cannula 2.0 28 09/07/18 20:27 71 18 99 Nasal Cannula 2.0 28 09/07/18 20:00 65 09/07/18 20:00 97.7 85 20 142/66 (91) 97 09/07/18 16:03 89 09/07/18 16:03 96.1 101 20 137/54 (81) 99 09/07/18 14:35 78 20 97 Nasal Cannula 2.0 28 09/07/18 14:35 78 20 96 Nasal Cannula 2.0 28 09/07/18 14:07 83 20 98 Intake and Output 09/07/18 09/08/18 19:00 07:00 Intake Total 300 ml Output Total 400 ml 600 ml Balance -100 ml -600 ml IV Total 300 ml Output Urine Total 400 ml 600 ml Estimated Blood Loss 0 ml Laboratory Tests 09/08/18 06:08: White Blood Count 10.6, Red Blood Count 4.09L, Hemoglobin 11.9L, Hematocrit 36.2L, Mean Corpuscular Volume 88, Mean Corpuscular Hemoglobin 29.2, Mean Corpuscular Hemoglobin Concent 33.0, Red Cell Distribution Width 14.2, Platelet Count 170, Mean Platelet Volume 7.5, Neutrophils (%) (Auto) , Lymphocytes (%) ( Auto) , Monocytes (%) (Auto) , Eosinophils (%) (Auto) , Basophils (%) (Auto) , Differential Total Cells Counted 100, Neutrophils % (Manual) 93H, Lymphocytes % (Manual) 4L, Monocytes % (Manual) 3, Eosinophils % (Manual) 0, Basophils % ( Manual) 0, Band Neutrophils 0, Platelet Estimate Adequate, Platelet Morphology Normal, Red Blood Cell Morphology Normal, Sodium Level 137, Potassium Level 3.2L , Chloride Level 101, Carbon Dioxide Level 29, Anion Gap 7, Blood Urea Nitrogen 60H, Creatinine 1.9H, Estimat Glomerular Filtration Rate , Glucose Level 96, Calcium Level 9.0, Phosphorus Level 3.4, Magnesium Level 2.4, Total Bilirubin 2.1H, Direct Bilirubin 0.6H, Aspartate Amino Transf (AST/SGOT) 10L, Alanine Aminotransferase (ALT/SGPT) 9L, Alkaline Phosphatase 46, Lactate Dehydrogenase 124, Total Protein 6.3L, Albumin 2.6L Height (Feet): 5 Height (Inches): 9.00 Weight (Pounds): 186 Objective Elderly WM NCAT supple CTA RRR Abd soft ND NT, (+) GT non edema OBS Mayur Temple MD Sep 08, 2018 13:07
--- NOTE | 2018-09-08 13:15 | Cardiac Electrophysiology PN ---
Assessment/Plan Assessment/Plan 1. Exacerbation of congestive heart failure due to diastolic dysfunction Echocardiogram EF 55% BNP is more than 1700. On Coreg 3.125 mg b.i.d. Lasix and losartan DCed for renal failure 2. Atrial fibrillation. Rate controlled. Hold Coumadin held for PEG by Dr Jiménez 3. Status post Biotronik pacemaker with Nl Fx 4. History of thyroid cancer, status post thyroid surgery. 5. Hypertension. Continue Coreg. 6. Hemorrhagic Right pleural effusion, Destructive bilateral pleural mass again demonstrated. FU Dr Pantoja. S/P Chest CT and Right thoracentesis. Cytology is pending 7. Dysphagia, S/P PEG 09/07/[address] Mitchell Subjective Subjective In atrial fib with controlled rate and intermiyyent V pacing. S/P PEG placement and Right thoracentesis yesterday. at bedside. Objective Last 24 Hour Vital Signs Date Time Temp Pulse Resp B/P (MAP) Pulse Ox O2 Delivery O2 Flow Rate FiO2 09/08/18 10:19 68 133/67 09/08/18 09:00 Nasal Cannula 2.0 09/08/18 08:00 68 09/08/18 08:00 97.5 65 20 133/67 (89) 98 09/08/18 07:32 78 24 100 Nasal Cannula 2.0 28 09/08/18 07:20 87 24 97 Nasal Cannula 2.0 28 09/08/18 07:11 Nasal Cannula 2.0 28 09/08/18 07:11 98 Nasal Cannula 2.0 28 09/08/18 04:00 97.0 72 20 128/78 (95) 94 09/08/18 04:00 75 09/08/18 00:00 97.2 83 20 135/71 (92) 95 09/08/18 00:00 66 09/07/18 22:33 85 142/66 09/07/18 21:00 Nasal Cannula 2.0 09/07/18 20:36 72 20 100 Nasal Cannula 2.0 28 09/07/18 20:29 Nasal Cannula 2.0 28 09/07/18 20:28 99 Nasal Cannula 2.0 28 09/07/18 20:27 71 18 99 Nasal Cannula 2.0 28 09/07/18 20:00 65 09/07/18 20:00 97.7 85 20 142/66 (91) 97 09/07/18 16:03 89 09/07/18 16:03 96.1 101 20 137/54 (81) 99 09/07/18 14:35 78 20 97 Nasal Cannula 2.0 28 09/07/18 14:35 78 20 96 Nasal Cannula 2.0 28 09/07/18 14:07 83 20 98 Intake and Output 09/07/18 09/08/18 19:00 07:00 Intake Total 300 ml Output Total 400 ml 600 ml Balance -100 ml -600 ml IV Total 300 ml Output Urine Total 400 ml 600 ml Estimated Blood Loss 0 ml Laboratory Tests Test 09/08/18 06:08 White Blood Count 10.6 K/UL (4.8-10.8) Red Blood Count 4.09 M/UL (4.70-6.10) L Hemoglobin 11.9 G/DL (14.2-18.0) L Hematocrit 36.2 % (42.0-52.0) L Mean Corpuscular Volume 88 FL (80-99) Mean Corpuscular Hemoglobin 29.2 PG (27.0-31.0) Mean Corpuscular Hemoglobin Concent 33.0 G/DL (32.0-36.0) Red Cell Distribution Width 14.2 % (11.6-14.8) Platelet Count 170 K/UL (150-450) Mean Platelet Volume 7.5 FL (6.5-10.1) Neutrophils (%) (Auto) % (45.0-75.0) Lymphocytes (%) (Auto) % (20.0-45.0) Monocytes (%) (Auto) % (1.0-10.0) Eosinophils (%) (Auto) % (0.0-3.0) Basophils (%) (Auto) % (0.0-2.0) Differential Total Cells Counted 100 Neutrophils % (Manual) 93 % (45-75) H Lymphocytes % (Manual) 4 % (20-45) L Monocytes % (Manual) 3 % (1-10) Eosinophils % (Manual) 0 % (0-3) Basophils % (Manual) 0 % (0-2) Band Neutrophils 0 % (0-8) Platelet Estimate Adequate Platelet Morphology Normal Red Blood Cell Morphology Normal Sodium Level 137 MMOL/L (136-145) Potassium Level 3.2 MMOL/L (3.5-5.1) L Chloride Level 101 MMOL/L (98-107) Carbon Dioxide Level 29 MMOL/L (21-32) Anion Gap 7 mmol/L (5-15) Blood Urea Nitrogen 60 mg/dL (7-18) H Creatinine 1.9 MG/DL (0.55-1.30) H Estimat Glomerular Filtration Rate mL/min (>60) Glucose Level 96 MG/DL (74-106) Calcium Level 9.0 MG/DL (8.5-10.1) Phosphorus Level 3.4 MG/DL (2.5-4.9) Magnesium Level 2.4 MG/DL (1.8-2.4) Total Bilirubin 2.1 MG/DL (0.2-1.0) H Direct Bilirubin 0.6 MG/DL (0.0-0.3) H Aspartate Amino Transf (AST/SGOT) 10 U/L (15-37) L Alanine Aminotransferase (ALT/SGPT) 9 U/L (12-78) L Alkaline Phosphatase 46 U/L (46-116) Lactate Dehydrogenase 124 U/L (81-234) Total Protein 6.3 G/DL (6.4-8.2) L Albumin 2.6 G/DL (3.4-5.0) L Objective HEAD AND NECK: Positive JVD. LUNGS: Decreased breath sounds. CARDIOVASCULAR: Irregular S1 and S2 with no gallop and soft systolic murmur. Pacemaker in the left subclavian. ABDOMEN: Soft.PEG in place EXTREMITIES: 1+ pitting edema. Jere Faustin MD Sep 08, 2018 13:15
--- NOTE | 2018-09-08 14:56 | Pulmonology Progress Note ---
Assessment/Plan Assessment/Plan Problem List: 1. Respiratory insufficiency 2. Acute on chronic diastolic CHF 3. Leukocytosis 4. Bilateral pleural effusions 5. Possible pneumonia 6. 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 CAD 10. HTN 11. Oropharyngeal dsyphagia 12. RY 13. CT chest with evidence of destructive rib lesions bilaterally concerning for metastatic disease Plan: -monitor volumes, hold lasix given RY -Fu pleural fluid studies -Abx: levaquin/flagyl -Improved leukocytosis; cont abx -AP peg adn toelratign tf -monitor and replete electrolytes needs PT DW Subjective Constitutional: Reports: no symptoms HEENT: Repors: no symptoms Respiratory: Reports: productive cough Cardiovascular: Reports: no symptoms Gastrointestinal/Abdominal: Reports: no symptoms Skin: Reports: no symptoms Endocrine: Reports: no symptoms Musculoskeletal: Reports: no symptoms Allergies: Coded Allergies: AZITHROMYCIN (Verified Allergy, Unknown, 09/04/18) PENICILLINS (Verified Allergy, Unknown, 09/03/18) Subjective awake npo tolerating tf compains of dry mouth not getting oob on ra no distress 800 cc removed thoracenteis 09/07 Objective Last 24 Hour Vital Signs Date Time Temp Pulse Resp B/P (MAP) Pulse Ox O2 Delivery O2 Flow Rate FiO2 09/08/18 13:34 76 18 98 Nasal Cannula 2.0 28 09/08/18 13:24 83 22 95 Nasal Cannula 2.0 28 09/08/18 12:00 97.7 73 20 145/63 (90) 98 09/08/18 10:19 68 133/67 09/08/18 09:00 Nasal Cannula 2.0 09/08/18 08:00 68 09/08/18 08:00 97.5 65 20 133/67 (89) 98 09/08/18 07:32 78 24 100 Nasal Cannula 2.0 28 09/08/18 07:20 87 24 97 Nasal Cannula 2.0 28 09/08/18 07:11 Nasal Cannula 2.0 28 09/08/18 07:11 98 Nasal Cannula 2.0 28 09/08/18 04:00 97.0 72 20 128/78 (95) 94 09/08/18 04:00 75 09/08/18 00:00 97.2 83 20 135/71 (92) 95 09/08/18 00:00 66 09/07/18 22:33 85 142/66 09/07/18 21:00 Nasal Cannula 2.0 09/07/18 20:36 72 20 100 Nasal Cannula 2.0 28 09/07/18 20:29 Nasal Cannula 2.0 28 09/07/18 20:28 99 Nasal Cannula 2.0 28 09/07/18 20:27 71 18 99 Nasal Cannula 2.0 28 09/07/18 20:00 65 09/07/18 20:00 97.7 85 20 142/66 (91) 97 09/07/18 16:03 89 09/07/18 16:03 96.1 101 20 137/54 (81) 99 Intake and Output 09/07/18 09/08/18 19:00 07:00 Intake Total 300 ml Output Total 400 ml 600 ml Balance -100 ml -600 ml IV Total 300 ml Output Urine Total 400 ml 600 ml Estimated Blood Loss 0 ml General Appearance: cachetic Respiratory/Chest: lungs clear, normal breath sounds Cardiovascular: normal rate, regular rhythm Abdomen: soft, non tender, no organomegaly Extremities: no cyanosis Neurologic/Psychiatric: oriented x 3 Lymphatic: no neck adenopathy Laboratory Tests 09/08/18 06:08: White Blood Count 10.6, Red Blood Count 4.09L, Hemoglobin 11.9L, Hematocrit 36.2L, Mean Corpuscular Volume 88, Mean Corpuscular Hemoglobin 29.2, Mean Corpuscular Hemoglobin Concent 33.0, Red Cell Distribution Width 14.2, Platelet Count 170, Mean Platelet Volume 7.5, Neutrophils (%) (Auto) , Lymphocytes (%) ( Auto) , Monocytes (%) (Auto) , Eosinophils (%) (Auto) , Basophils (%) (Auto) , Differential Total Cells Counted 100, Neutrophils % (Manual) 93H, Lymphocytes % (Manual) 4L, Monocytes % (Manual) 3, Eosinophils % (Manual) 0, Basophils % ( Manual) 0, Band Neutrophils 0, Platelet Estimate Adequate, Platelet Morphology Normal, Red Blood Cell Morphology Normal, Sodium Level 137, Potassium Level 3.2L , Chloride Level 101, Carbon Dioxide Level 29, Anion Gap 7, Blood Urea Nitrogen 60H, Creatinine 1.9H, Estimat Glomerular Filtration Rate , Glucose Level 96, Calcium Level 9.0, Phosphorus Level 3.4, Magnesium Level 2.4, Total Bilirubin 2.1H, Direct Bilirubin 0.6H, Aspartate Amino Transf (AST/SGOT) 10L, Alanine Aminotransferase (ALT/SGPT) 9L, Alkaline Phosphatase 46, Lactate Dehydrogenase 124, Total Protein 6.3L, Albumin 2.6L Current Medications Medications (Trade) Dose Ordered Sig/Mario Route PRN Reason Start Time Stop Time Status Last Admin Dose Admin Acetaminophen (Tylenol) 650 mg Q4H PRN GT Mild Pain/Temp > 100.5 09/07/18 20:15 10/07/18 20:14 Acetylcysteine (Mucomyst) 200 mg TIDRT HHN 09/09/18 01:00 10/07/18 18:59 Bisacodyl (Dulcolax) 10 mg HSPRN PRN RECTAL Constipation 09/03/18 12:15 10/03/18 10:59 Carvedilol (Coreg) 3.125 mg EVERY 12 HOURS ORAL 09/03/18 12:15 10/03/18 12:14 09/08/18 10:19 Cefepime HCl 1 gm/ Dextrose 55 ml @ 110 mls/hr Q24H IVPB 09/08/18 11:00 09/15/18 10:59 09/08/18 12:21 Dextrose (Dextrose 50%) 25 ml Q30M PRN IV Hypoglycemia 09/03/18 11:00 10/03/18 10:59 Dextrose (Dextrose 50%) 50 ml Q30M PRN IV Hypoglycemia 09/03/18 11:00 10/03/18 10:59 Docusate Sodium (Colace) 100 mg DAILY ORAL 09/03/18 18:00 10/04/18 08:59 09/08/18 10:19 Finasteride (Proscar) 5 mg DAILY ORAL 09/04/18 09:00 10/04/18 08:59 09/08/18 10:20 Gabapentin (Neurontin) 300 mg DAILY ORAL 09/08/18 09:00 10/03/18 17:59 09/08/18 10:20 Ipratropium [place] (Atrovent) 500 mcg TIDRT HHN 09/04/18 13:00 09/09/18 12:59 09/08/18 13:34 Levothyroxine Sodium (Synthroid) 150 mcg Q24H ORAL 09/04/18 06:30 10/04/18 06:29 09/08/18 06:19 Metronidazole (Flagyl) 500 mg Q8HR ORAL 09/06/18 14:00 09/13/18 13:59 09/08/18 13:14 Morphine Sulfate (Morphine Sulfate) 1 mg Q4H PRN IVP Severe Pain (Pain Scale 7-10) 09/07/18 21:00 09/14/18 20:59 09/07/18 21:31 Ondansetron HCl (Zofran) 4 mg Q6H PRN IVP Nausea & Vomiting 09/03/18 11:00 10/03/18 10:59 Pantoprazole (Protonix) 40 mg EVERY 12 HOURS ORAL 09/03/18 13:05 10/03/18 13:04 09/08/18 10:20 Sennosides (Senokot) 17.2 mg BID ORAL 09/04/18 09:00 10/03/18 17:59 09/07/18 18:05 Tamsulosin HCl (Flomax) 0.4 mg Q12HR ORAL 09/07/18 09:00 10/07/18 08:59 09/08/18 10:20 Zolpidem Tartrate (Ambien) 2.5 mg BEDTIME PRN ORAL Insomnia 09/03/18 12:15 09/10/18 11:44 09/08/18 00:47 Pamela Wood DO Sep 08, 2018 14:56
[2018-09-08 16:00] VITALS: BP 134/66
--- NOTE | 2018-09-08 17:10 | Nephrology Progress Note ---
Assessment/Plan Problem List: (1) RY (acute kidney injury) (2) Lung neoplasm (3) Dehydration (4) Pacemaker Assessment Acute renal Failure- Cr lowering Underlying CKD CHF ( Diastolic Dysfunction) with EjFx 55% Pacemaker status Atrial Fib HTN Bilateral Pleural effusion Hyperlipidemia BPH Suspected Aspiration ? Metastatic pulm and bone disease. h/o Thyroid carcinoma prior Thyroidectomy Plan discussed with K supplement monitor renal parameters avoid Nephrotoxics per orders Subjective ROS Limited/Unobtainable: No Constitutional: Reports: malaise, weakness Objective Objective Last 24 Hour Vital Signs Date Time Temp Pulse Resp B/P (MAP) Pulse Ox O2 Delivery O2 Flow Rate FiO2 09/08/18 16:00 97.8 76 20 134/66 (88) 94 09/08/18 13:34 76 18 98 Nasal Cannula 2.0 28 09/08/18 13:24 83 22 95 Nasal Cannula 2.0 28 09/08/18 12:00 97.7 73 20 145/63 (90) 98 09/08/18 10:19 68 133/67 09/08/18 09:00 Nasal Cannula 2.0 09/08/18 08:00 68 09/08/18 08:00 97.5 65 20 133/67 (89) 98 09/08/18 07:32 78 24 100 Nasal Cannula 2.0 28 09/08/18 07:20 87 24 97 Nasal Cannula 2.0 28 09/08/18 07:11 Nasal Cannula 2.0 28 09/08/18 07:11 98 Nasal Cannula 2.0 28 09/08/18 04:00 97.0 72 20 128/78 (95) 94 09/08/18 04:00 75 09/08/18 00:00 97.2 83 20 135/71 (92) 95 09/08/18 00:00 66 09/07/18 22:33 85 142/66 09/07/18 21:00 Nasal Cannula 2.0 09/07/18 20:36 72 20 100 Nasal Cannula 2.0 28 09/07/18 20:29 Nasal Cannula 2.0 28 09/07/18 20:28 99 Nasal Cannula 2.0 28 09/07/18 20:27 71 18 99 Nasal Cannula 2.0 28 09/07/18 20:00 65 09/07/18 20:00 97.7 85 20 142/66 (91) 97 Intake and Output 09/07/18 09/08/18 19:00 07:00 Intake Total 300 ml Output Total 400 ml 600 ml Balance -100 ml -600 ml IV Total 300 ml Output Urine Total 400 ml 600 ml Estimated Blood Loss 0 ml Laboratory Tests 09/08/18 06:08: White Blood Count 10.6, Red Blood Count 4.09L, Hemoglobin 11.9L, Hematocrit 36.2L, Mean Corpuscular Volume 88, Mean Corpuscular Hemoglobin 29.2, Mean Corpuscular Hemoglobin Concent 33.0, Red Cell Distribution Width 14.2, Platelet Count 170, Mean Platelet Volume 7.5, Neutrophils (%) (Auto) , Lymphocytes (%) ( Auto) , Monocytes (%) (Auto) , Eosinophils (%) (Auto) , Basophils (%) (Auto) , Differential Total Cells Counted 100, Neutrophils % (Manual) 93H, Lymphocytes % (Manual) 4L, Monocytes % (Manual) 3, Eosinophils % (Manual) 0, Basophils % ( Manual) 0, Band Neutrophils 0, Platelet Estimate Adequate, Platelet Morphology Normal, Red Blood Cell Morphology Normal, Sodium Level 137, Potassium Level 3.2L , Chloride Level 101, Carbon Dioxide Level 29, Anion Gap 7, Blood Urea Nitrogen 60H, Creatinine 1.9H, Estimat Glomerular Filtration Rate , Glucose Level 96, Calcium Level 9.0, Phosphorus Level 3.4, Magnesium Level 2.4, Total Bilirubin 2.1H, Direct Bilirubin 0.6H, Aspartate Amino Transf (AST/SGOT) 10L, Alanine Aminotransferase (ALT/SGPT) 9L, Alkaline Phosphatase 46, Lactate Dehydrogenase 124, Total Protein 6.3L, Albumin 2.6L Height (Feet): 5 Height (Inches): 9.00 Weight (Pounds): 186 General Appearance: no apparent distress Objective no change Dmitri Medina MD Sep 08, 2018 17:10
--- NOTE | 2018-09-08 18:50 | NUR ---
NURSE NOTES: changed gtube drsg. no leakage noted. tolerating tube feeding well. reached goal @ 60cc/hr. kept hob elevated and siderails are upx3. call light is within reach. resting comfortably. will cont to monitor.
--- NOTE | 2018-09-08 18:56 | NUR ---
HAND-OFF: Report given to simin.
--- NOTE | 2018-09-08 19:30 | NUR ---
NURSE NOTES: Report received from Erin KENYON. Pt is resting in bed in stable condition. Pt is awake, alert, and oriented x4. Pt is receiving 2L O2 via nasal cannula and breathing is even and unlabored. IV site is noted to be asymptomatic, patent, and intact. G-tube site and dressing are noted to be dry and intact. TF is running Vital AF at rx goal rate of 60 cc/hr. 5cc residual noted from GT. HOB kept above 30 degrees. Pt tolerating feeding well. Will continue at goal rate and continue to monitor. Hawkins patent and draining to gravity. Bed placed in lowest position with brake engaged, side rails up x3, and bed alarm on. Call light and side table placed within reach. Will continue to monitor.
[2018-09-08 20:00] VITALS: BP 134/74
--- NOTE | 2018-09-08 20:30 | NUR ---
NURSE NOTES: 5cc residual noted from g-tube. Pt tolerating feeding well. Will continue running at goal rate of 60cc/hr.
--- NOTE | 2018-09-08 20:50 | NUR ---
NURSE NOTES: Message left for on-call doctor for MD Barrow to request change of route for protonix 40mg PO Q12HR because pt had g-tube placement and is NPO. Per message center, bond underwriter MD is MD Lopez. Message left for MD Lopez. Awaiting call back for further instructions.
--- NOTE | 2018-09-08 20:56 | NUR ---
NURSE NOTES: MD Maryu return call and provided order change for Protonix 40mg IVP Q12HR. Order noted and carried out.
--- NOTE | 2018-09-08 22:00 | NUR ---
NURSE NOTES: 5cc residual noted from g-tube. Pt tolerating feeding well. Will continue running at goal rate of 60cc/hr.
[2018-09-08] MEDS: Pantoprazole Inj IVP SCH (22:08)
[2018-09-09] VITALS (7 sets, daily range): BP systolic 110–150; BP diastolic 69–99
--- NOTE | 2018-09-09 | NUR ---
NURSE NOTES: 5cc residual noted from g-tube. Pt tolerating feeding well. Will continue running at goal rate of 60cc/hr.
[2018-09-09] MEDS: Zolpidem 5mg tab ORAL PRN (00:09)
[2018-09-09] MEDS: Acetylcysteine 20% Soln 4ml HHN SCH ×4 (01:58→21:33)
--- NOTE | 2018-09-09 02:03 | NUR ---
NURSE NOTES: Received call from [facility] transportation driver. There is no bed currently available for transfer for patient.
[2018-09-09] MEDS: metroNIDAZOLE 500mg tab ORAL SCH (06:19)
[2018-09-09] MEDS: Ipratropium 0.02% Inh Soln 2.5ml UD HHN SCH (07:08)
--- NOTE | 2018-09-09 07:30 | NUR ---
NURSE NOTES: Report received from AMERICA Lea. Pt is resting in bed in stable condition. Pt is awake, alert, and oriented x4. Pt is receiving 2L O2 via nasal cannula and breathing is even and unlabored. IV site is noted to be asymptomatic, patent, and intact. G-tube site and dressing are noted to be dry and intact. TF is running Vital AF at rx goal rate of 60 cc/hr. HOB kept above 30 degrees. Pt tolerating feeding well. Will continue at goal rate and continue to monitor. Hawkins patent and draining to gravity. Bed placed in lowest position with brake engaged, side rails up x3, and bed alarm on. Call light and side table placed within reach. Will continue to monitor.
--- NOTE | 2018-09-09 07:44 | NUR ---
HAND-OFF: Report given to AMERICA Christiansen. Pt is resting in bed in stable condition. No acute distress noted. Endorsed plan of care.
[2018-09-09 08:24] LABS: EOSINOPHILS % (AUTO) 0.8 % (0.0-3.0); HEMATOCRIT 37.1 % (42.0-52.0); HEMOGLOBIN 12.2 G/DL (14.2-18.0); MEAN CORPUSCULAR VOLUME 87 FL (80-99); MONOCYTES % (AUTO) 8.6 % (1.0-10.0); NEUTROPHILS % (AUTO) 82.6 % (45.0-75.0); PLATELET COUNT 176 K/UL (150-450); RED BLOOD COUNT 4.26 M/UL (4.70-6.10); RED CELL DISTRIBUTION WIDTH 13.8 % (11.6-14.8); WHITE BLOOD COUNT 9.3 K/UL (4.8-10.8)
--- NOTE | 2018-09-09 08:45 | NUR ---
NURSE NOTES: Spoke to Dr. Chin about morning medications needed route change to G-tube. Received order. Dr. Chin is aware that colace, proscar and flomax are on hold.
[2018-09-09] MEDS: Docusate 100mg cap ORAL SCH (09:00)
[2018-09-09] MEDS: Tamsulosin 0.4mg cap ORAL SCH ×2 (09:00→20:37)
[2018-09-09 09:07] LABS: ANION GAP 6 mmol/L (5-15); BLOOD UREA NITROGEN 56 mg/dL (7-18); CALCIUM 8.7 MG/DL (8.5-10.1); CARBON DIOXIDE 28 MMOL/L (21-32); CHLORIDE 106 MMOL/L (98-107); CREATININE 1.3 MG/DL (0.55-1.30); POTASSIUM 3.4 MMOL/L (3.5-5.1); SODIUM 140 MMOL/L (136-145)
[2018-09-09] MEDS: Pantoprazole Inj IVP SCH ×2 (09:48→20:36)
[2018-09-09] MEDS: Sennosides 8.6mg tab GT SCH ×2 (09:48→17:00)
[2018-09-09] MEDS ORDERED: Zolpidem 5mg tab GT PRN (10:00)
[2018-09-09] MEDS: Gabapentin 300 MG/6 ML Soln GT SCH (10:00)
--- NOTE | 2018-09-09 10:00 | NUR ---
NURSE NOTES: Started new feeding of Althea AF 1.2 @ 60 ml/hr. No residual noted. GT dressing is intact with no exudate/redness noted on gt site.
--- NOTE | 2018-09-09 10:26 | General Progress Note ---
Assessment/Plan Assessment/Plan #Acute on chronic diastolic CHF #Coronary artery disease #Permanent atrial fibrillation s/p PPM for SSS #HTN #Hyperlipidemia -Lasix on hold -hold eplerenone -Continue Coreg -warfarin reversed, continue to hold for now -cardiology following #Leukocytosis #Suspected aspiration pneumonia #Severe Dysphagia -seen by [facility] and Pulm -seen by ID -continue meropenem and Flagyl -leukocytosis resolved -HIDA scan equivocal -s/p PEG -aspiration precautions -NPO #RY -resolved -continue to hold losartan and Lasix -Nephrology following #Hypokalemia -improved -monitor BMO #Thyroid cancer #Metastatic disease and mod-large right pleural effusion seen on chest CT #Acquired hypothyroidism -continue levothyroxine -Discussed with his oncologist at [facility] -Seen by Pulmonology -Thoracentesis done with 800 ml blood fluid removed -Await cytology from pleural fluid #Polyneuropathy -continue gabapentin #BPH -continue Proscar and Flomax VTE PPx SCD full code I spent 45 minutes on this patient's case, and 25 minutes was dedicated to counseling and/or care coordination. Subjective Date patient seen: Sep 09, 2018 Time patient seen: 08:22 ROS Limited/Unobtainable: No Constitutional: Denies: chills, fever Cardiovascular: Denies: chest pain Respiratory: Denies: cough, orthopnea, shortness of breath Neurologic/Psychiatric: Denies: anxiety Allergies: Coded Allergies: AZITHROMYCIN (Verified Allergy, Unknown, 09/04/18) PENICILLINS (Verified Allergy, Unknown, 09/03/18) Subjective Medicine follow up for acute on chronic dCHF, lung mass, leukocytosis, suspected aspiration pneumonia, RY S/p PEG placement, started on tube feeds S/p right thoracentesis with 800 ml blood fluid removed. Stable respiratory status. Objective Last 24 Hour Vital Signs Date Time Temp Pulse Resp B/P (MAP) Pulse Ox O2 Delivery O2 Flow Rate FiO2 09/09/18 09:48 63 148/77 09/09/18 08:00 97.4 63 20 148/77 (100) 96 09/09/18 07:42 69 09/09/18 06:55 60 20 99 Nasal Cannula 2.0 28 09/09/18 06:50 Nasal Cannula 2.0 28 09/09/18 06:50 98 Nasal Cannula 2.0 28 09/09/18 06:50 59 20 98 Nasal Cannula 2.0 28 09/09/18 04:00 98.0 69 18 150/82 (104) 95 09/09/18 04:00 72 09/09/18 01:58 Nasal Cannula 2.0 28 09/09/18 01:58 Nasal Cannula 2.0 28 09/09/18 00:00 72 09/09/18 00:00 97.9 76 19 123/69 (87) 96 09/08/18 22:08 79 134/74 09/08/18 21:00 Nasal Cannula 2.0 09/08/18 20:03 79 20 99 Nasal Cannula 2.0 28 09/08/18 20:00 69 09/08/18 20:00 97.2 72 19 134/74 (94) 97 09/08/18 19:53 71 20 97 Nasal Cannula 2.0 28 09/08/18 19:53 97 Nasal Cannula 2.0 28 09/08/18 19:53 Nasal Cannula 2.0 28 09/08/18 16:00 97.8 76 20 134/66 (88) 94 09/08/18 13:34 76 18 98 Nasal Cannula 2.0 28 09/08/18 13:24 83 22 95 Nasal Cannula 2.0 28 09/08/18 12:00 97.7 73 20 145/63 (90) 98 Intake and Output 09/08/18 09/09/18 18:59 06:59 Intake Total 655 ml 780 ml Output Total 500 ml 550 ml Balance 155 ml 230 ml Free Water 150 ml 120 ml IV Total 110 ml Tube Feeding 395 ml 660 ml Output Urine Total 500 ml 550 ml Laboratory Tests 09/09/18 08:11: White Blood Count 9.3, Red Blood Count 4.26L, Hemoglobin 12.2L, Hematocrit 37.1L , Mean Corpuscular Volume 87, Mean Corpuscular Hemoglobin 28.5, Mean Corpuscular Hemoglobin Concent 32.8, Red Cell Distribution Width 13.8, Platelet Count 176, Mean Platelet Volume 6.6, Neutrophils (%) (Auto) 82.6H, Lymphocytes ( %) (Auto) 7.0L, Monocytes (%) (Auto) 8.6, Eosinophils (%) (Auto) 0.8, Basophils (%) (Auto) 1.0, Sodium Level 140, Potassium Level 3.4L, Chloride Level 106, Carbon Dioxide Level 28, Anion Gap 6, Blood Urea Nitrogen 56H, Creatinine 1.3, Estimat Glomerular Filtration Rate , Glucose Level 149H, Calcium Level 8.7 Height (Feet): 5 Height (Inches): 9.00 Weight (Pounds): 190 General Appearance: no apparent distress, alert Neck: normal alignment, supple Cardiovascular: normal rate, regular rhythm Respiratory/Chest: lungs clear, normal breath sounds Abdomen: non tender, soft Oscar Chin MD Sep 09, 2018 10:26
--- NOTE | 2018-09-09 11:04 | Diagnostic Imaging Report ---
EXAM: XR Chest, 1 View CLINICAL HISTORY: COUGH TECHNIQUE: Frontal view of the chest. COMPARISON: Chest x-ray dated 09/07/18 FINDINGS: Lungs: Persistent pulmonary vascular congestion and pulmonary interstitial edema, not significantly changed. Pleural space: Small bilateral pleural effusions, unchanged. Heart: Cardiomegaly. Mediastinum: Unremarkable. Bones/joints: Degenerative changes throughout the visualized spine and shoulder joints. Vasculature: Atherosclerotic calcifications within the aortic arch. Tubes, lines and devices: Cardiac pacer in the left chest wall with the lead tips in the right atrium and right ventricle regions. Telemetry leads overlie the thorax. IMPRESSION: No significant interval change compared to the prior chest x-ray, with findings suggesting CHF with interstitial edema and small pleural effusions..
--- NOTE | 2018-09-09 11:30 | Infectious Diseases Prog Note ---
Assessment/Plan Assessment/Plan A 1. ? pneumonia 2. ? cholecystitis 3. leucocytosis resolved 4. pleural effusion 5. renal failure 6. thyroid cancer P 1. continue cefepime, flagyl 2. will follow up cultures Subjective ROS Limited/Unobtainable: No Constitutional: Reports: no symptoms Respiratory: Reports: productive cough Cardiovascular: Reports: no symptoms Gastrointestinal/Abdominal: Reports: no symptoms Genitourinary: Reports: no symptoms Allergies: Coded Allergies: AZITHROMYCIN (Verified Allergy, Unknown, 09/04/18) PENICILLINS (Verified Allergy, Unknown, 09/03/18) Objective Vital Signs Last 24 Hour Vital Signs Date Time Temp Pulse Resp B/P (MAP) Pulse Ox O2 Delivery O2 Flow Rate FiO2 09/09/18 09:48 63 148/77 09/09/18 08:00 97.4 63 20 148/77 (100) 96 09/09/18 07:42 69 09/09/18 06:55 60 20 99 Nasal Cannula 2.0 28 09/09/18 06:50 Nasal Cannula 2.0 28 09/09/18 06:50 98 Nasal Cannula 2.0 28 09/09/18 06:50 59 20 98 Nasal Cannula 2.0 28 09/09/18 04:00 98.0 69 18 150/82 (104) 95 09/09/18 04:00 72 09/09/18 01:58 Nasal Cannula 2.0 28 09/09/18 01:58 Nasal Cannula 2.0 28 09/09/18 00:00 72 09/09/18 00:00 97.9 76 19 123/69 (87) 96 09/08/18 22:08 79 134/74 09/08/18 21:00 Nasal Cannula 2.0 09/08/18 20:03 79 20 99 Nasal Cannula 2.0 28 09/08/18 20:00 69 09/08/18 20:00 97.2 72 19 134/74 (94) 97 09/08/18 19:53 71 20 97 Nasal Cannula 2.0 28 09/08/18 19:53 97 Nasal Cannula 2.0 28 09/08/18 19:53 Nasal Cannula 2.0 28 09/08/18 16:00 97.8 76 20 134/66 (88) 94 09/08/18 13:34 76 18 98 Nasal Cannula 2.0 28 09/08/18 13:24 83 22 95 Nasal Cannula 2.0 28 09/08/18 12:00 97.7 73 20 145/63 (90) 98 Height (Feet): 5 Height (Inches): 9.00 Weight (Pounds): 190 General Appearance: no acute distress HEENT: mucous membranes moist Respiratory/Chest: lungs clear Cardiovascular: normal rate Abdomen: soft, non tender, other - GT feeding Extremities: no edema Neurologic/Psychiatric: alert, responsive Laboratory Tests Test 09/09/18 08:11 White Blood Count 9.3 K/UL (4.8-10.8) Red Blood Count 4.26 M/UL (4.70-6.10) L Hemoglobin 12.2 G/DL (14.2-18.0) L Hematocrit 37.1 % (42.0-52.0) L Mean Corpuscular Volume 87 FL (80-99) Mean Corpuscular Hemoglobin 28.5 PG (27.0-31.0) Mean Corpuscular Hemoglobin Concent 32.8 G/DL (32.0-36.0) Red Cell Distribution Width 13.8 % (11.6-14.8) Platelet Count 176 K/UL (150-450) Mean Platelet Volume 6.6 FL (6.5-10.1) Neutrophils (%) (Auto) 82.6 % (45.0-75.0) H Lymphocytes (%) (Auto) 7.0 % (20.0-45.0) L Monocytes (%) (Auto) 8.6 % (1.0-10.0) Eosinophils (%) (Auto) 0.8 % (0.0-3.0) Basophils (%) (Auto) 1.0 % (0.0-2.0) Sodium Level 140 MMOL/L (136-145) Potassium Level 3.4 MMOL/L (3.5-5.1) L Chloride Level 106 MMOL/L (98-107) Carbon Dioxide Level 28 MMOL/L (21-32) Anion Gap 6 mmol/L (5-15) Blood Urea Nitrogen 56 mg/dL (7-18) H Creatinine 1.3 MG/DL (0.55-1.30) Estimat Glomerular Filtration Rate mL/min (>60) Glucose Level 149 MG/DL (74-106) H Calcium Level 8.7 MG/DL (8.5-10.1) Current Medications Medications (Trade) Dose Ordered Sig/Mario Route PRN Reason Start Time Stop Time Status Last Admin Dose Admin Acetaminophen (Tylenol) 650 mg Q4H PRN GT Mild Pain/Temp > 100.5 09/07/18 20:15 10/07/18 20:14 Acetylcysteine (Mucomyst) 200 mg TIDRT HHN 09/09/18 01:00 10/07/18 18:59 09/09/18 07:09 Bisacodyl (Dulcolax) 10 mg HSPRN PRN RECTAL Constipation 09/03/18 12:15 10/03/18 10:59 Carvedilol (Coreg) 3.125 mg EVERY 12 HOURS GT 09/09/18 09:00 10/03/18 12:14 09/09/18 09:48 Cefepime HCl 1 gm/ Dextrose 55 ml @ 110 mls/hr Q24H IVPB 09/08/18 11:00 09/15/18 10:59 09/08/18 12:21 Dextrose (Dextrose 50%) 25 ml Q30M PRN IV Hypoglycemia 09/03/18 11:00 10/03/18 10:59 Dextrose (Dextrose 50%) 50 ml Q30M PRN IV Hypoglycemia 09/03/18 11:00 10/03/18 10:59 Docusate Sodium (Colace) 100 mg DAILY ORAL 09/03/18 18:00 10/04/18 08:59 09/08/18 10:19 Finasteride (Proscar) 5 mg DAILY ORAL 09/04/18 09:00 10/04/18 08:59 09/08/18 10:20 Gabapentin (Neurontin) 300 mg DAILY GT 09/09/18 10:00 10/09/18 09:59 Ipratropium [place] (Atrovent) 500 mcg TIDRT HHN 09/04/18 13:00 09/09/18 12:59 09/09/18 07:08 Levothyroxine Sodium (Synthroid) 150 mcg Q24H GT 09/10/18 06:30 10/04/18 06:29 Metronidazole (Flagyl) 500 mg Q8HR GT 09/09/18 14:00 09/13/18 13:59 Morphine Sulfate (Morphine Sulfate) 1 mg Q4H PRN IVP Severe Pain (Pain Scale 7-10) 09/07/18 21:00 09/14/18 20:59 09/07/18 21:31 Ondansetron HCl (Zofran) 4 mg Q6H PRN IVP Nausea & Vomiting 09/03/18 11:00 10/03/18 10:59 Pantoprazole (Protonix) 40 mg EVERY 12 HOURS IVP 09/08/18 21:00 10/08/18 20:59 09/09/18 09:48 Sennosides (Senokot) 17.2 mg BID GT 09/09/18 09:00 10/03/18 17:59 09/09/18 09:48 Tamsulosin HCl (Flomax) 0.4 mg Q12HR ORAL 09/07/18 09:00 10/07/18 08:59 09/08/18 22:08 Zolpidem Tartrate (Ambien) 2.5 mg BEDTIME PRN GT Insomnia 09/09/18 10:00 09/10/18 11:44 José Miguel Barber MD Sep 09, 2018 11:29
--- NOTE | 2018-09-09 12:20 | NUR ---
HAND-OFF: Report given to AMERICA Grimes. Addendum: 09/09/18 at 1234 by Kuldip Franks RN Endorsed about potassium 3.4 needs to be f/u with the primary MD. Addendum: 09/09/18 at 1308 by Kuldip Franks RN In addition, gabapentin due at 10am was not given. Was not ready per pharmacy.
--- NOTE | 2018-09-09 12:53 | NUR ---
CASE MANAGEMENT: REVIEW SI: CHF T 97.4 HR 59 RR 20 BP 148/77 SAT 96% NC/2L H/H 12.2/37.1 K 3.4 BUN 56 IS: FLAGYL GT QD COREG GT Q12GR PROTONIX IV Q12HR CEFEPIME IV Q24HR TELEMETRY UNIT STATUS DCP: PATIENT IS FROM HOME
[2018-09-09] MEDS: Cefepime 1gm/D5W 55ml IVPB SCH ×2 (13:32)
[2018-09-09] MEDS: metroNIDAZOLE 500mg tab GT SCH ×2 (13:32→20:37)
--- NOTE | 2018-09-09 14:53 | General Progress Note ---
Assessment/Plan Assessment/Plan Assessment (1) A-fib ICD Codes: I48.91 - Unspecified atrial fibrillation SNOMED: 60041609 Qualifiers: Qualified Codes: I48.91 - Unspecified atrial fibrillation (2) Lung neoplasm ICD Codes: D49.1 - Neoplasm of unspecified behavior of respiratory system SNOMED: 729709109 (3) CHF (congestive heart failure) ICD Codes: I50.9 - Heart failure, unspecified SNOMED: 63096409 Qualifiers: Qualified Codes: I50.9 - Heart failure, unspecified (4) Dysphasia ICD Codes: R47.02 - Dysphasia SNOMED: 81347712 (5) Severe malnutrition ICD Codes: E43 - Unspecified severe protein-calorie malnutrition SNOMED: 47513273 (6) Encounter for PEG (percutaneous endoscopic gastrostomy) ICD Codes: Z43.1 - Encounter for attention to gastrostomy SNOMED: 698939182, 308908273 Assessment/Plan GT feeds Elevate HOB Monitor weight and nutritional parameters Subjective Allergies: Coded Allergies: AZITHROMYCIN (Verified Allergy, Unknown, 09/04/18) PENICILLINS (Verified Allergy, Unknown, 09/03/18) Subjective above noted s/p PEG No complaints Objective Last 24 Hour Vital Signs Date Time Temp Pulse Resp B/P (MAP) Pulse Ox O2 Delivery O2 Flow Rate FiO2 09/09/18 13:04 97.1 73 18 135/99 (111) 96 09/09/18 12:00 97.1 73 18 135/99 (111) 96 09/09/18 09:48 63 148/77 09/09/18 09:00 Nasal Cannula 2.0 09/09/18 08:00 97.4 63 20 148/77 (100) 96 09/09/18 07:42 69 09/09/18 06:55 60 20 99 Nasal Cannula 2.0 28 09/09/18 06:50 Nasal Cannula 2.0 28 09/09/18 06:50 98 Nasal Cannula 2.0 28 09/09/18 06:50 59 20 98 Nasal Cannula 2.0 28 09/09/18 04:00 98.0 69 18 150/82 (104) 95 09/09/18 04:00 72 09/09/18 01:58 Nasal Cannula 2.0 28 09/09/18 01:58 Nasal Cannula 2.0 28 2/24/19 00:00 72 09/09/18 00:00 97.9 76 19 123/69 (87) 96 09/08/18 22:08 79 134/74 09/08/18 21:00 Nasal Cannula 2.0 09/08/18 20:03 79 20 99 Nasal Cannula 2.0 28 09/08/18 20:00 69 09/08/18 20:00 97.2 72 19 134/74 (94) 97 09/08/18 19:53 71 20 97 Nasal Cannula 2.0 28 09/08/18 19:53 97 Nasal Cannula 2.0 28 09/08/18 19:53 Nasal Cannula 2.0 28 09/08/18 16:00 97.8 76 20 134/66 (88) 94 Intake and Output 09/08/18 09/09/18 18:59 06:59 Intake Total 655 ml 780 ml Output Total 500 ml 550 ml Balance 155 ml 230 ml Free Water 150 ml 120 ml IV Total 110 ml Tube Feeding 395 ml 660 ml Output Urine Total 500 ml 550 ml Laboratory Tests 09/09/18 08:11: White Blood Count 9.3, Red Blood Count 4.26L, Hemoglobin 12.2L, Hematocrit 37.1L , Mean Corpuscular Volume 87, Mean Corpuscular Hemoglobin 28.5, Mean Corpuscular Hemoglobin Concent 32.8, Red Cell Distribution Width 13.8, Platelet Count 176, Mean Platelet Volume 6.6, Neutrophils (%) (Auto) 82.6H, Lymphocytes ( %) (Auto) 7.0L, Monocytes (%) (Auto) 8.6, Eosinophils (%) (Auto) 0.8, Basophils (%) (Auto) 1.0, Sodium Level 140, Potassium Level 3.4L, Chloride Level 106, Carbon Dioxide Level 28, Anion Gap 6, Blood Urea Nitrogen 56H, Creatinine 1.3, Estimat Glomerular Filtration Rate , Glucose Level 149H, Calcium Level 8.7 Height (Feet): 5 Height (Inches): 9.00 Weight (Pounds): 190 Objective Elderly WM NCAT supple CTA RRR Abd soft ND NT, (+) GT non edema OBS Mayur Temple MD Sep 09, 2018 14:53
--- NOTE | 2018-09-09 15:29 | Cardiac Electrophysiology PN ---
Assessment/Plan Assessment/Plan 1. Exacerbation of CHF due to diastolic dysfunction Echocardiogram EF 55% BNP is more than 1700. On Coreg 3.125 mg b.i.d. Off Lasix and losartan renal failure 2. Atrial fibrillation. Rate controlled. Off Coumadin for hemorrhagic pleural effusion 3. Status post Biotronik pacemaker with Nl Fx 4. History of thyroid cancer, status post thyroid surgery. 5. Hypertension. Continue Coreg. 6. Hemorrhagic Right pleural effusion, Destructive bilateral pleural mass again demonstrated. CACHORRO Pantoja. S/P Chest CT and Right thoracentesis. Cytology is pending 7. Dysphagia, S/P PEG 09/07/18 DW RN Subjective Subjective In atrial fib with controlled rate and intermittent V pacing. Objective Last 24 Hour Vital Signs Date Time Temp Pulse Resp B/P (MAP) Pulse Ox O2 Delivery O2 Flow Rate FiO2 09/09/18 15:01 Nasal Cannula 2.0 28 09/09/18 14:30 Nasal Cannula 2.0 28 09/09/18 13:04 97.1 73 18 135/99 (111) 96 09/09/18 12:00 97.1 73 18 135/99 (111) 96 09/09/18 12:00 74 09/09/18 09:48 63 148/77 09/09/18 09:00 Nasal Cannula 2.0 09/09/18 08:00 97.4 63 20 148/77 (100) 96 09/09/18 07:42 69 09/09/18 06:55 60 20 99 Nasal Cannula 2.0 28 09/09/18 06:50 Nasal Cannula 2.0 28 09/09/18 06:50 98 Nasal Cannula 2.0 28 09/09/18 06:50 59 20 98 Nasal Cannula 2.0 28 09/09/18 04:00 98.0 69 18 150/82 (104) 95 09/09/18 04:00 72 09/09/18 01:58 Nasal Cannula 2.0 28 09/09/18 01:58 Nasal Cannula 2.0 28 09/09/18 00:00 72 09/09/18 00:00 97.9 76 19 123/69 (87) 96 09/08/18 22:08 79 134/74 09/08/18 21:00 Nasal Cannula 2.0 09/08/18 20:03 79 20 99 Nasal Cannula 2.0 28 09/08/18 20:00 69 2/23/19 20:00 97.2 72 19 134/74 (94) 97 09/08/18 19:53 71 20 97 Nasal Cannula 2.0 28 09/08/18 19:53 97 Nasal Cannula 2.0 28 09/08/18 19:53 Nasal Cannula 2.0 28 09/08/18 16:00 97.8 76 20 134/66 (88) 94 Intake and Output 09/08/18 09/09/18 18:59 06:59 Intake Total 655 ml 780 ml Output Total 500 ml 550 ml Balance 155 ml 230 ml Free Water 150 ml 120 ml IV Total 110 ml Tube Feeding 395 ml 660 ml Output Urine Total 500 ml 550 ml Laboratory Tests Test 09/09/18 08:11 White Blood Count 9.3 K/UL (4.8-10.8) Red Blood Count 4.26 M/UL (4.70-6.10) L Hemoglobin 12.2 G/DL (14.2-18.0) L Hematocrit 37.1 % (42.0-52.0) L Mean Corpuscular Volume 87 FL (80-99) Mean Corpuscular Hemoglobin 28.5 PG (27.0-31.0) Mean Corpuscular Hemoglobin Concent 32.8 G/DL (32.0-36.0) Red Cell Distribution Width 13.8 % (11.6-14.8) Platelet Count 176 K/UL (150-450) Mean Platelet Volume 6.6 FL (6.5-10.1) Neutrophils (%) (Auto) 82.6 % (45.0-75.0) H Lymphocytes (%) (Auto) 7.0 % (20.0-45.0) L Monocytes (%) (Auto) 8.6 % (1.0-10.0) Eosinophils (%) (Auto) 0.8 % (0.0-3.0) Basophils (%) (Auto) 1.0 % (0.0-2.0) Sodium Level 140 MMOL/L (136-145) Potassium Level 3.4 MMOL/L (3.5-5.1) L Chloride Level 106 MMOL/L (98-107) Carbon Dioxide Level 28 MMOL/L (21-32) Anion Gap 6 mmol/L (5-15) Blood Urea Nitrogen 56 mg/dL (7-18) H Creatinine 1.3 MG/DL (0.55-1.30) Estimat Glomerular Filtration Rate mL/min (>60) Glucose Level 149 MG/DL (74-106) H Calcium Level 8.7 MG/DL (8.5-10.1) Objective HEAD AND NECK: Positive JVD. LUNGS: Decreased breath sounds. CARDIOVASCULAR: Irregular S1 and S2 with no gallop and soft systolic murmur. Pacemaker in the left subclavian. ABDOMEN: Soft.PEG in place EXTREMITIES: 1+ pitting edema. Jere Faustin MD Sep 09, 2018 15:29
--- NOTE | 2018-09-09 18:11 | Nephrology Progress Note ---
Assessment/Plan Problem List: (1) RY (acute kidney injury) (2) Lung neoplasm (3) Dehydration (4) Pacemaker Assessment Acute renal Failure- Cr lowering to 1.3 today Underlying CKD CHF ( Diastolic Dysfunction) with EjFx 55% Pacemaker status Atrial Fib HTN Bilateral Pleural effusion Hyperlipidemia BPH Suspected Aspiration ? Metastatic pulm and bone disease. h/o Thyroid carcinoma prior Thyroidectomy Plan discussed with on 09/08 K supplement monitor renal parameters avoid Nephrotoxics per orders Subjective ROS Limited/Unobtainable: No Constitutional: Reports: malaise Objective Objective Last 24 Hour Vital Signs Date Time Temp Pulse Resp B/P (MAP) Pulse Ox O2 Delivery O2 Flow Rate FiO2 09/09/18 16:00 68 09/09/18 16:00 97.8 75 19 110/81 (91) 96 09/09/18 15:01 Nasal Cannula 2.0 28 09/09/18 14:30 Nasal Cannula 2.0 28 09/09/18 13:04 97.1 73 18 135/99 (111) 96 09/09/18 12:00 97.1 73 18 135/99 (111) 96 09/09/18 12:00 74 09/09/18 09:48 63 148/77 09/09/18 09:00 Nasal Cannula 2.0 09/09/18 08:00 97.4 63 20 148/77 (100) 96 09/09/18 07:42 69 09/09/18 06:55 60 20 99 Nasal Cannula 2.0 28 09/09/18 06:50 Nasal Cannula 2.0 28 09/09/18 06:50 98 Nasal Cannula 2.0 28 09/09/18 06:50 59 20 98 Nasal Cannula 2.0 28 09/09/18 04:00 98.0 69 18 150/82 (104) 95 09/09/18 04:00 72 09/09/18 01:58 Nasal Cannula 2.0 28 09/09/18 01:58 Nasal Cannula 2.0 28 09/09/18 00:00 72 09/09/18 00:00 97.9 76 19 123/69 (87) 96 09/08/18 22:08 79 134/74 09/08/18 21:00 Nasal Cannula 2.0 09/08/18 20:03 79 20 99 Nasal Cannula 2.0 28 09/08/18 20:00 69 09/08/18 20:00 97.2 72 19 134/74 (94) 97 09/08/18 19:53 71 20 97 Nasal Cannula 2.0 28 09/08/18 19:53 97 Nasal Cannula 2.0 28 09/08/18 19:53 Nasal Cannula 2.0 28 Intake and Output 09/08/18 09/09/18 19:00 07:00 Intake Total 655 ml 780 ml Output Total 500 ml 550 ml Balance 155 ml 230 ml Free Water 150 ml 120 ml IV Total 110 ml Tube Feeding 395 ml 660 ml Output Urine Total 500 ml 550 ml Laboratory Tests 09/09/18 08:11: White Blood Count 9.3, Red Blood Count 4.26L, Hemoglobin 12.2L, Hematocrit 37.1L , Mean Corpuscular Volume 87, Mean Corpuscular Hemoglobin 28.5, Mean Corpuscular Hemoglobin Concent 32.8, Red Cell Distribution Width 13.8, Platelet Count 176, Mean Platelet Volume 6.6, Neutrophils (%) (Auto) 82.6H, Lymphocytes ( %) (Auto) 7.0L, Monocytes (%) (Auto) 8.6, Eosinophils (%) (Auto) 0.8, Basophils (%) (Auto) 1.0, Sodium Level 140, Potassium Level 3.4L, Chloride Level 106, Carbon Dioxide Level 28, Anion Gap 6, Blood Urea Nitrogen 56H, Creatinine 1.3, Estimat Glomerular Filtration Rate , Glucose Level 149H, Calcium Level 8.7 Height (Feet): 5 Height (Inches): 9.00 Weight (Pounds): 190 General Appearance: no apparent distress Objective no change Dmitri Medina MD Sep 09, 2018 18:11
--- NOTE | 2018-09-09 18:40 | Pulmonology Progress Note ---
Assessment/Plan Assessment/Plan Problem List: 1. Respiratory insufficiency 2. Acute on chronic diastolic CHF 3. Leukocytosis 4. Bilateral pleural effusions 5. Possible pneumonia 6. 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 CAD 10. HTN 11. Oropharyngeal dsyphagia 12. RY 13. CT chest with evidence of destructive rib lesions bilaterally concerning for metastatic disease Plan: -monitor volumes, -Fu pleural fluid studies -Abx -SP peg -monitor and replete electrolytes needs PT may need repeat thoro at soem point, small effusion on current film today Subjective Constitutional: Reports: no symptoms Respiratory: Reports: shortness of breath Gastrointestinal/Abdominal: Reports: no symptoms Genitourinary: Reports: no symptoms Allergies: Coded Allergies: AZITHROMYCIN (Verified Allergy, Unknown, 09/04/18) PENICILLINS (Verified Allergy, Unknown, 09/03/18) Subjective awake noted more shortness of breathat thsi time npo tolerating tf complains of dry mouth not getting oob on ra no distress 800 cc removed thoracenteis 09/07 Objective Last 24 Hour Vital Signs Date Time Temp Pulse Resp B/P (MAP) Pulse Ox O2 Delivery O2 Flow Rate FiO2 09/09/18 16:00 68 09/09/18 16:00 97.8 75 19 110/81 (91) 96 09/09/18 15:01 Nasal Cannula 2.0 28 09/09/18 14:30 Nasal Cannula 2.0 28 09/09/18 13:04 97.1 73 18 135/99 (111) 96 09/09/18 12:00 97.1 73 18 135/99 (111) 96 09/09/18 12:00 74 09/09/18 09:48 63 148/77 09/09/18 09:00 Nasal Cannula 2.0 09/09/18 08:00 97.4 63 20 148/77 (100) 96 09/09/18 07:42 69 09/09/18 06:55 60 20 99 Nasal Cannula 2.0 28 09/09/18 06:50 Nasal Cannula 2.0 28 09/09/18 06:50 98 Nasal Cannula 2.0 28 09/09/18 06:50 59 20 98 Nasal Cannula 2.0 28 09/09/18 04:00 98.0 69 18 150/82 (104) 95 09/09/18 04:00 72 09/09/18 01:58 Nasal Cannula 2.0 28 09/09/18 01:58 Nasal Cannula 2.0 28 09/09/18 00:00 72 09/09/18 00:00 97.9 76 19 123/69 (87) 96 09/08/18 22:08 79 134/74 09/08/18 21:00 Nasal Cannula 2.0 09/08/18 20:03 79 20 99 Nasal Cannula 2.0 28 09/08/18 20:00 69 09/08/18 20:00 97.2 72 19 134/74 (94) 97 09/08/18 19:53 71 20 97 Nasal Cannula 2.0 28 09/08/18 19:53 97 Nasal Cannula 2.0 28 09/08/18 19:53 Nasal Cannula 2.0 28 Intake and Output 09/08/18 09/09/18 19:00 07:00 Intake Total 655 ml 780 ml Output Total 500 ml 550 ml Balance 155 ml 230 ml Free Water 150 ml 120 ml IV Total 110 ml Tube Feeding 395 ml 660 ml Output Urine Total 500 ml 550 ml General Appearance: cachetic Respiratory/Chest: crackles/rales, rhonchi Cardiovascular: normal rate, regular rhythm, edema Abdomen: soft, non tender, non distended Skin: no lesions Laboratory Tests 09/09/18 08:11: White Blood Count 9.3, Red Blood Count 4.26L, Hemoglobin 12.2L, Hematocrit 37.1L , Mean Corpuscular Volume 87, Mean Corpuscular Hemoglobin 28.5, Mean Corpuscular Hemoglobin Concent 32.8, Red Cell Distribution Width 13.8, Platelet Count 176, Mean Platelet Volume 6.6, Neutrophils (%) (Auto) 82.6H, Lymphocytes ( %) (Auto) 7.0L, Monocytes (%) (Auto) 8.6, Eosinophils (%) (Auto) 0.8, Basophils (%) (Auto) 1.0, Sodium Level 140, Potassium Level 3.4L, Chloride Level 106, Carbon Dioxide Level 28, Anion Gap 6, Blood Urea Nitrogen 56H, Creatinine 1.3, Estimat Glomerular Filtration Rate , Glucose Level 149H, Calcium Level 8.7 Current Medications Medications (Trade) Dose Ordered Sig/Mario Route PRN Reason Start Time Stop Time Status Last Admin Dose Admin Acetaminophen (Tylenol) 650 mg Q4H PRN GT Mild Pain/Temp > 100.5 09/07/18 20:15 10/07/18 20:14 Acetylcysteine (Mucomyst) 200 mg TIDRT HHN 09/09/18 01:00 10/07/18 18:59 09/09/18 07:09 Bisacodyl (Dulcolax) 10 mg HSPRN PRN RECTAL Constipation 09/03/18 12:15 10/03/18 10:59 Carvedilol (Coreg) 3.125 mg EVERY 12 HOURS GT 09/09/18 09:00 10/03/18 12:14 09/09/18 09:48 Cefepime HCl 1 gm/ Dextrose 55 ml @ 110 mls/hr Q24H IVPB 09/08/18 11:00 09/15/18 10:59 09/09/18 13:32 Dextrose (Dextrose 50%) 25 ml Q30M PRN IV Hypoglycemia 09/03/18 11:00 10/03/18 10:59 Dextrose (Dextrose 50%) 50 ml Q30M PRN IV Hypoglycemia 09/03/18 11:00 10/03/18 10:59 Docusate Sodium (Colace) 100 mg DAILY ORAL 09/03/18 18:00 10/04/18 08:59 09/08/18 10:19 Finasteride (Proscar) 5 mg DAILY ORAL 09/04/18 09:00 10/04/18 08:59 09/08/18 10:20 Gabapentin (Neurontin) 300 mg DAILY GT 09/09/18 10:00 10/09/18 09:59 Levothyroxine Sodium (Synthroid) 150 mcg Q24H GT 09/10/18 06:30 10/04/18 06:29 Metronidazole (Flagyl) 500 mg Q8HR GT 09/09/18 14:00 09/13/18 13:59 09/09/18 13:32 Morphine Sulfate (Morphine Sulfate) 1 mg Q4H PRN IVP Severe Pain (Pain Scale 7-10) 09/07/18 21:00 09/14/18 20:59 09/07/18 21:31 Ondansetron HCl (Zofran) 4 mg Q6H PRN IVP Nausea & Vomiting 09/03/18 11:00 10/03/18 10:59 Pantoprazole (Protonix) 40 mg EVERY 12 HOURS IVP 09/08/18 21:00 10/08/18 20:59 09/09/18 09:48 Sennosides (Senokot) 17.2 mg BID GT 09/09/18 09:00 10/03/18 17:59 09/09/18 17:00 Tamsulosin HCl (Flomax) 0.4 mg Q12HR ORAL 09/07/18 09:00 10/07/18 08:59 09/08/18 22:08 Zolpidem Tartrate (Ambien) 2.5 mg BEDTIME PRN GT Insomnia 09/09/18 10:00 09/10/18 11:44 Pamela Wood DO Sep 09, 2018 18:40
--- NOTE | 2018-09-09 19:32 | NUR ---
HAND-OFF: Report given to AMERICA López. Plan of care endorsed.
--- NOTE | 2018-09-09 19:59 | NUR ---
NURSE NOTES: Received report from AMERICA Grimes. Patient seen in bed in semi ravi position. Alert, verbally responsive, able to make needs known. On oxygen 2L/min via NC, sp02 is 98%, no Acute distress is noted. Denies any pain at this time. IV site is to left FA 22g and is intact. Noted with naidu cath and is intact. urine is draining. BEd is in lowest position. Call light is within easy reach while in bed. WIll continue to monitor.
[2018-09-09] MEDS: Ipratropium 0.02% Inh Soln 2.5ml UD HHN PRN (21:33)
--- NOTE | 2018-09-09 22:22 | General Progress Note ---
Assessment/Plan Assessment/Plan Assessment/Plan # Thyroid carcinoma and on CT scan; multiple osseous destructive lesions as detailed in ct scan ,likely osseous metastases given known history of thyroid carcinoma. Multiple pulmonary and pleural nodules, likewise presumably on the basis of metastatic disease. History of thyroid cancer, status post thyroid surgery. --> review outside imaging and treatments patient has received --> outside labs and pathology to be reviewed --> defer to outpatient oncologist for further care, patient requires followup --> radioactive iodine scan as outpatient, consider tumor testing for specific molecular targets # Leukocytosis. Likely related to underlying infection versus reactive process. --> Peripheral has been ordered, results are pending --> Medications have been reviewed --> Imaging has been reviewed --> Blood cultures and urine cultures prn --> has been started on abx, empiric treatment # Right base destructive lung mass, Pulmonology consult appreciated --> pulmr ecs appreciated --> thora on prn basis # Acquired hypothyroidism, continue levothyroxine # Exacerbation of congestive heart failure, Continue Lasix 40 mg IV bid, Coreg 3.125 mg b.i.d. as well as losartan 50 mg daily. -->appreciate cardiology recs # Atrial fibrillation, the rate is currently controlled and is on anticoagulation with Coumadin with a therapeutic INR. # Status post Biotronik pacemaker. # Hypertension, Continue current regimen Lasix, losartan, and Coreg. # Hypokalemia # Polyneuropathy, continue gabapentin # BPH, continue Proscar and Flomax The timing of this note does not necessarily reflect the time of the patient was seen. Greatly appreciate consultation! Subjective Constitutional: Denies: no symptoms, chills, diaphoresis, fever, malaise, weakness, other HEENT: Denies: no symptoms, eye pain, blurred vision, tearing, double vision, ear pain, ear discharge, nose pain, nose congestion, throat pain, throat swelling, mouth pain, mouth swelling, other Cardiovascular: Denies: no symptoms, chest pain, edema, irregular heart rate, lightheadedness, palpitations, syncope, other Respiratory: Denies: no symptoms, cough, orthopnea, shortness of breath, SOB with excertion, SOB at rest, sputum, stridor, wheezing, other Genitourinary: Denies: no symptoms, burning, discharge, frequency, flank pain, hematuria, incontinence, pain, urgency, other Neurologic/Psychiatric: Denies: no symptoms, anxiety, depressed, emotional problems, headache, numbness, paresthesia, pre-existing deficit, seizure, tingling, tremors, weakness, other Endocrine: Denies: no symptoms, excessive sweating, flushing, intolerance to cold, intolerance to heat, increased hunger, increased thirst, increased urine, unexplained weight gain, unexplained weight loss, other Allergies: Coded Allergies: AZITHROMYCIN (Verified Allergy, Unknown, 09/04/18) PENICILLINS (Verified Allergy, Unknown, 09/03/18) Subjective 09/05: In atrial fib with V pacing. Rate controlled. Still NPO. Failed swallow eval. 09/06: thora completed successfuly on the right side, 0.8L removed 09/07: wbc trending down, S/P PEG placement and Right thoracentesis today, no events 09/09: seen by bedside, no acute distress. Objective Last 24 Hour Vital Signs Date Time Temp Pulse Resp B/P (MAP) Pulse Ox O2 Delivery O2 Flow Rate FiO2 09/09/18 21:43 81 20 100 Nasal Cannula 2.0 28 09/09/18 21:33 100 Nasal Cannula 2.0 28 09/09/18 21:33 Nasal Cannula 2.0 28 09/09/18 21:33 60 20 100 Nasal Cannula 2.0 28 09/09/18 20:37 65 143/80 09/09/18 16:00 68 09/09/18 16:00 97.8 75 19 110/81 (91) 96 09/09/18 15:01 Nasal Cannula 2.0 28 09/09/18 14:30 Nasal Cannula 2.0 28 09/09/18 13:04 97.1 73 18 135/99 (111) 96 09/09/18 12:00 97.1 73 18 135/99 (111) 96 09/09/18 12:00 74 09/09/18 09:48 63 148/77 09/09/18 09:00 Nasal Cannula 2.0 09/09/18 08:00 97.4 63 20 148/77 (100) 96 09/09/18 07:42 69 09/09/18 06:55 60 20 99 Nasal Cannula 2.0 28 09/09/18 06:50 Nasal Cannula 2.0 28 09/09/18 06:50 98 Nasal Cannula 2.0 28 09/09/18 06:50 59 20 98 Nasal Cannula 2.0 28 09/09/18 04:00 98.0 69 18 150/82 (104) 95 09/09/18 04:00 72 09/09/18 01:58 Nasal Cannula 2.0 28 09/09/18 01:58 Nasal Cannula 2.0 28 09/09/18 00:00 72 09/09/18 00:00 97.9 76 19 123/69 (87) 96 Intake and Output 09/08/18 09/09/18 19:00 07:00 Intake Total 655 ml 780 ml Output Total 500 ml 550 ml Balance 155 ml 230 ml Free Water 150 ml 120 ml IV Total 110 ml Tube Feeding 395 ml 660 ml Output Urine Total 500 ml 550 ml Laboratory Tests 09/09/18 08:11: White Blood Count 9.3, Red Blood Count 4.26L, Hemoglobin 12.2L, Hematocrit 37.1L , Mean Corpuscular Volume 87, Mean Corpuscular Hemoglobin 28.5, Mean Corpuscular Hemoglobin Concent 32.8, Red Cell Distribution Width 13.8, Platelet Count 176, Mean Platelet Volume 6.6, Neutrophils (%) (Auto) 82.6H, Lymphocytes ( %) (Auto) 7.0L, Monocytes (%) (Auto) 8.6, Eosinophils (%) (Auto) 0.8, Basophils (%) (Auto) 1.0, Sodium Level 140, Potassium Level 3.4L, Chloride Level 106, Carbon Dioxide Level 28, Anion Gap 6, Blood Urea Nitrogen 56H, Creatinine 1.3, Estimat Glomerular Filtration Rate , Glucose Level 149H, Calcium Level 8.7 Height (Feet): 5 Height (Inches): 9.00 Weight (Pounds): 190 Objective Physical Exam General Appearance: no apparent distress, alert HEENT: normocephalic, atraumatic Neck: non-tender, normal alignment, supple Respiratory/Chest: ++ crackles Cardiovascular/Chest: normal peripheral pulses, normal rate Abdomen: normal bowel sounds, non tender Extremities: trace edema Skin Exam: normal pigmentation, warm/dry 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
[2018-09-10] VITALS: BP 148/86
[2018-09-10 04:00] VITALS: BP 144/78
[2018-09-10] MEDS: metroNIDAZOLE 500mg tab GT SCH ×3 (05:07→21:20)
[2018-09-10] MEDS: Morphine Sulfate 2mg/ml Inj(IV/IM USE ONLY) IVP PRN (06:04)
--- NOTE | 2018-09-10 07:43 | NUR ---
HAND-OFF: Report given to AMERICA Emmanuel.
--- NOTE | 2018-09-10 07:47 | NUR ---
NURSE NOTES: received patient report from davida thompson. patient is on bed awake. not in acute distress.on O2 NC. Vpacing. no other arrythmias reported. will continue plan of care.
[2018-09-10] MEDS: Acetylcysteine 20% Soln 4ml HHN SCH ×3 (07:53→21:21)
[2018-09-10] MEDS: Ipratropium 0.02% Inh Soln 2.5ml UD HHN PRN ×3 (07:53→21:21)
[2018-09-10 08:00] VITALS: BP 158/86
--- NOTE | 2018-09-10 08:32 | NUR ---
CASE MANAGEMENT:REVIEW 09/10/18 SI: CHF. DYSPHAGIA..S/P PEG SUSPECTED ASPIRATION PNA. S/P THORACENTESIS 98.1 76 20 158/86 96% ON 2L/NC IS: IV CEFEPIME Q24 ATROVENT HHN Q6HRS PRN FLAGYL GT Q8HRS NEURONTIN GT QD COREG GT Q12 MUCOMYST HHN TID IV MORPHINE Q4HRS PRN : TELEMETRY DCP: PATIENT IS FROM HOME BUT WILL NEED SNF
[2018-09-10] MEDS: Pantoprazole Inj IVP SCH ×2 (09:50→21:20)
[2018-09-10] MEDS: Gabapentin 300 MG/6 ML Soln GT SCH (09:50)
[2018-09-10] MEDS: Sennosides 8.6mg tab GT SCH ×2 (09:50→17:21)
[2018-09-10] MEDS: Tamsulosin 0.4mg cap ORAL SCH ×2 (09:51→21:20)
[2018-09-10] MEDS: Docusate 100mg cap ORAL SCH (09:51)
[2018-09-10 10:24] LABS: INR 1.6 (0.9-1.1)
[2018-09-10] MEDS: Cefepime 1gm/D5W 55ml IVPB SCH ×2 (11:17)
--- NOTE | 2018-09-10 11:18 | GI Progress Note ---
Assessment/Plan Problems: (1) Encounter for PEG (percutaneous endoscopic gastrostomy) ICD Codes: Z43.1 - Encounter for attention to gastrostomy SNOMED: 539710908, 225780340 (2) Severe malnutrition ICD Codes: E43 - Unspecified severe protein-calorie malnutrition SNOMED: 54798481 (3) Dysphasia ICD Codes: R47.02 - Dysphasia SNOMED: 22795243 (4) Dehydration ICD Codes: E86.0 - Dehydration SNOMED: 57642852 (5) A-fib ICD Codes: I48.91 - Unspecified atrial fibrillation SNOMED: 15767685 Qualifiers: Qualified Codes: I48.91 - Unspecified atrial fibrillation Status: stable Status Narrative Discussed with Dr. Jiménez Assessment/Plan Status post PEG G-tube feedings per RD PRN transfusions PPI Follow labs The patient was seen and examined at bedside and all new and available data was reviewed in the patients chart. I agree with the above findings, impression and plan. (Patient seen earlier today. Signature stamp does not reflect patient encounter time.). - Nii Jiménez MD Subjective Gastrointestinal/Abdominal: Reports: no symptoms Objective Last 24 Hour Vital Signs Date Time Temp Pulse Resp B/P (MAP) Pulse Ox O2 Delivery O2 Flow Rate FiO2 09/10/18 09:49 75 158/86 09/10/18 09:00 Nasal Cannula 2.0 09/10/18 08:03 75 20 99 Nasal Cannula 2.0 28 09/10/18 08:00 73 09/10/18 08:00 98.1 76 20 158/86 (110) 96 09/10/18 07:50 98 Nasal Cannula 2.0 28 09/10/18 07:50 Nasal Cannula 2.0 28 09/10/18 07:50 65 20 98 Nasal Cannula 2.0 28 09/10/18 04:00 97.9 72 18 144/78 (100) 94 09/10/18 03:21 64 09/10/18 00:00 98.0 82 18 148/86 (106) 97 09/09/18 23:20 62 09/09/18 21:43 81 20 100 Nasal Cannula 2.0 28 09/09/18 21:33 100 Nasal Cannula 2.0 28 09/09/18 21:33 Nasal Cannula 2.0 28 09/09/18 21:33 60 20 100 Nasal Cannula 2.0 28 09/09/18 21:00 Nasal Cannula 2.0 09/09/18 20:37 65 143/80 09/09/18 20:00 98.0 65 18 143/80 (101) 96 09/09/18 19:36 59 09/09/18 16:00 68 09/09/18 16:00 97.8 75 19 110/81 (91) 96 09/09/18 15:01 Nasal Cannula 2.0 28 09/09/18 14:30 Nasal Cannula 2.0 28 09/09/18 13:04 97.1 73 18 135/99 (111) 96 09/09/18 12:00 97.1 73 18 135/99 (111) 96 09/09/18 12:00 74 Intake and Output 09/09/18 09/10/18 19:00 07:00 Intake Total 750 ml Output Total 550 ml 600 ml Balance -550 ml 150 ml Free Water 150 ml Tube Feeding 600 ml Output Urine Total 550 ml 600 ml Laboratory Tests Test 09/10/18 09:50 Prothrombin Time 16.8 SEC (9.30-11.50) H Prothromb Time International Ratio 1.6 (0.9-1.1) H Height (Feet): 5 Height (Inches): 9.00 Weight (Pounds): 195 General Appearance: WD/WN, no apparent distress, alert Cardiovascular: normal rate Respiratory/Chest: normal breath sounds, no respiratory distress Abdominal Exam: normal bowel sounds, non tender, soft, GT site - Clean dry and intact Extremities: non-tender Angus Grayson CHICK GRADER Sep 10, 2018 11:18
[2018-09-10 12:00] VITALS: BP 124/65
--- NOTE | 2018-09-10 12:21 | Nephrology Progress Note ---
Assessment/Plan Problem List: (1) RY (acute kidney injury) (2) Lung neoplasm (3) Dehydration (4) Pacemaker Assessment Acute renal Failure- Cr lowering to 1.3 Underlying CKD CHF ( Diastolic Dysfunction) with EjFx 55% Pacemaker status Atrial Fib HTN Bilateral Pleural effusion Hyperlipidemia BPH Suspected Aspiration ? Metastatic pulm and bone disease. 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 Subjective ROS Limited/Unobtainable: No Constitutional: Reports: malaise, weakness Objective Objective Last 24 Hour Vital Signs Date Time Temp Pulse Resp B/P (MAP) Pulse Ox O2 Delivery O2 Flow Rate FiO2 09/10/18 09:49 75 158/86 09/10/18 09:00 Nasal Cannula 2.0 09/10/18 08:03 75 20 99 Nasal Cannula 2.0 28 09/10/18 08:00 73 09/10/18 08:00 98.1 76 20 158/86 (110) 96 09/10/18 07:50 98 Nasal Cannula 2.0 28 09/10/18 07:50 Nasal Cannula 2.0 28 09/10/18 07:50 65 20 98 Nasal Cannula 2.0 28 09/10/18 04:00 97.9 72 18 144/78 (100) 94 09/10/18 03:21 64 09/10/18 00:00 98.0 82 18 148/86 (106) 97 09/09/18 23:20 62 09/09/18 21:43 81 20 100 Nasal Cannula 2.0 28 09/09/18 21:33 100 Nasal Cannula 2.0 28 09/09/18 21:33 Nasal Cannula 2.0 28 09/09/18 21:33 60 20 100 Nasal Cannula 2.0 28 09/09/18 21:00 Nasal Cannula 2.0 09/09/18 20:37 65 143/80 09/09/18 20:00 98.0 65 18 143/80 (101) 96 09/09/18 19:36 59 09/09/18 16:00 68 09/09/18 16:00 97.8 75 19 110/81 (91) 96 09/09/18 15:01 Nasal Cannula 2.0 28 09/09/18 14:30 Nasal Cannula 2.0 28 09/09/18 13:04 97.1 73 18 135/99 (111) 96 Intake and Output 09/09/18 09/10/18 19:00 07:00 Intake Total 750 ml Output Total 550 ml 600 ml Balance -550 ml 150 ml Free Water 150 ml Tube Feeding 600 ml Output Urine Total 550 ml 600 ml Laboratory Tests 09/10/18 09:50: Prothrombin Time 16.8H, Prothromb Time International Ratio 1.6H Height (Feet): 5 Height (Inches): 9.00 Weight (Pounds): 195 General Appearance: no apparent distress Respiratory/Chest: decreased breath sounds Abdomen: soft Objective no change Dmitri Medina MD Sep 10, 2018 12:21
--- NOTE | 2018-09-10 13:07 | Infectious Diseases Prog Note ---
Assessment/Plan Assessment/Plan A 1. ? pneumonia 2. ? cholecystitis 3. leucocytosis resolved 4. pleural effusion 5. renal failure 6. thyroid cancer P 1. continue cefepime, flagyl 2. will follow up cultures Subjective ROS Limited/Unobtainable: Yes Respiratory: Reports: productive cough Gastrointestinal/Abdominal: Reports: no symptoms Genitourinary: Reports: no symptoms Allergies: Coded Allergies: AZITHROMYCIN (Verified Allergy, Unknown, 09/04/18) PENICILLINS (Verified Allergy, Unknown, 09/03/18) Objective Vital Signs Last 24 Hour Vital Signs Date Time Temp Pulse Resp B/P (MAP) Pulse Ox O2 Delivery O2 Flow Rate FiO2 09/10/18 12:40 63 20 99 Nasal Cannula 2.0 28 09/10/18 12:22 70 20 97 Nasal Cannula 2.0 28 09/10/18 09:49 75 158/86 09/10/18 09:00 Nasal Cannula 2.0 09/10/18 08:03 75 20 99 Nasal Cannula 2.0 28 09/10/18 08:00 73 09/10/18 08:00 98.1 76 20 158/86 (110) 96 09/10/18 07:50 98 Nasal Cannula 2.0 28 09/10/18 07:50 Nasal Cannula 2.0 28 09/10/18 07:50 65 20 98 Nasal Cannula 2.0 28 09/10/18 04:00 97.9 72 18 144/78 (100) 94 09/10/18 03:21 64 09/10/18 00:00 98.0 82 18 148/86 (106) 97 09/09/18 23:20 62 09/09/18 21:43 81 20 100 Nasal Cannula 2.0 28 09/09/18 21:33 100 Nasal Cannula 2.0 28 09/09/18 21:33 Nasal Cannula 2.0 28 09/09/18 21:33 60 20 100 Nasal Cannula 2.0 28 09/09/18 21:00 Nasal Cannula 2.0 09/09/18 20:37 65 143/80 09/09/18 20:00 98.0 65 18 143/80 (101) 96 09/09/18 19:36 59 09/09/18 16:00 68 09/09/18 16:00 97.8 75 19 110/81 (91) 96 09/09/18 15:01 Nasal Cannula 2.0 28 09/09/18 14:30 Nasal Cannula 2.0 28 Height (Feet): 5 Height (Inches): 9.00 Weight (Pounds): 195 General Appearance: no acute distress HEENT: mucous membranes moist Respiratory/Chest: lungs clear Cardiovascular: normal rate Abdomen: soft, non tender, other - GT feeding Extremities: no edema Neurologic/Psychiatric: alert, responsive Laboratory Tests Test 09/10/18 09:50 Prothrombin Time 16.8 SEC (9.30-11.50) H Prothromb Time International Ratio 1.6 (0.9-1.1) H Current Medications Medications (Trade) Dose Ordered Sig/Mario Route PRN Reason Start Time Stop Time Status Last Admin Dose Admin Acetaminophen (Tylenol) 650 mg Q4H PRN GT Mild Pain/Temp > 100.5 09/07/18 20:15 10/07/18 20:14 Acetylcysteine (Mucomyst) 200 mg TIDRT HHN 09/09/18 01:00 10/07/18 18:59 09/10/18 12:28 Bisacodyl (Dulcolax) 10 mg HSPRN PRN RECTAL Constipation 09/03/18 12:15 10/03/18 10:59 Carvedilol (Coreg) 3.125 mg EVERY 12 HOURS GT 09/09/18 09:00 10/03/18 12:14 09/10/18 09:49 Cefepime HCl 1 gm/ Dextrose 55 ml @ 110 mls/hr Q24H IVPB 09/08/18 11:00 09/15/18 10:59 09/10/18 11:17 Dextrose (Dextrose 50%) 25 ml Q30M PRN IV Hypoglycemia 09/03/18 11:00 10/03/18 10:59 Dextrose (Dextrose 50%) 50 ml Q30M PRN IV Hypoglycemia 09/03/18 11:00 10/03/18 10:59 Docusate Sodium (Colace) 100 mg DAILY ORAL 09/03/18 18:00 10/04/18 08:59 09/10/18 09:51 Finasteride (Proscar) 5 mg DAILY ORAL 09/04/18 09:00 10/04/18 08:59 09/10/18 09:51 Gabapentin (Neurontin) 300 mg DAILY GT 09/09/18 10:00 10/09/18 09:59 09/10/18 09:50 Ipratropium [place] (Atrovent) 500 mcg Q6H PRN HHN Shortness of Breath 09/09/18 20:00 09/14/18 19:59 09/10/18 12:29 Levothyroxine Sodium (Synthroid) 150 mcg Q24H GT 09/10/18 06:30 10/04/18 06:29 09/10/18 05:42 Metronidazole (Flagyl) 500 mg Q8HR GT 09/09/18 14:00 09/13/18 13:59 09/10/18 05:07 Morphine Sulfate (Morphine Sulfate) 1 mg Q4H PRN IVP Severe Pain (Pain Scale 7-10) 09/07/18 21:00 09/14/18 20:59 09/10/18 06:04 Ondansetron HCl (Zofran) 4 mg Q6H PRN IVP Nausea & Vomiting 09/03/18 11:00 10/03/18 10:59 Pantoprazole (Protonix) 40 mg EVERY 12 HOURS IVP 09/08/18 21:00 10/08/18 20:59 09/10/18 09:50 Sennosides (Senokot) 17.2 mg BID GT 09/09/18 09:00 10/03/18 17:59 09/10/18 09:50 Tamsulosin HCl (Flomax) 0.4 mg Q12HR ORAL 09/07/18 09:00 10/07/18 08:59 09/10/18 09:51 Warfarin Sodium (Coumadin per pharmacy) 1 ea DAILY PRN MISC . 09/10/18 09:30 10/10/18 09:29 Warfarin Sodium (Coumadin) 4 mg COUMADIN GT 09/10/18 17:00 09/15/18 16:59 José Miguel Barber MD Sep 10, 2018 13:07
--- NOTE | 2018-09-10 13:35 | Cardiac Electrophysiology PN ---
Assessment/Plan Assessment/Plan 1. Exacerbation of CHF due to diastolic dysfunction Echocardiogram EF 55% BNP is more than 1700. On Coreg 3.125 mg b.i.d. Off Lasix and losartan renal failure 2. Atrial fibrillation. Rate controlled. Off Coumadin for hemorrhagic pleural effusion 3. Status post Biotronik pacemaker with Nl Fx 4. History of thyroid cancer, status post thyroid surgery. 5. Hypertension. Continue Coreg. 6. Hemorrhagic Right pleural effusion, Destructive bilateral pleural mass again demonstrated. FU Dr Pantoja. S/P Chest CT and Right thoracentesis. Cytology is pending 7. Dysphagia, S/P PEG 09/07/18 DW RN and daughter Subjective Subjective In atrial fib with controlled rate and intermittent V pacing.Alert and at bedside Objective Last 24 Hour Vital Signs Date Time Temp Pulse Resp B/P (MAP) Pulse Ox O2 Delivery O2 Flow Rate FiO2 09/10/18 12:40 63 20 99 Nasal Cannula 2.0 28 09/10/18 12:22 70 20 97 Nasal Cannula 2.0 28 09/10/18 12:00 96.1 79 20 124/65 (84) 95 09/10/18 09:49 75 158/86 09/10/18 09:00 Nasal Cannula 2.0 09/10/18 08:03 75 20 99 Nasal Cannula 2.0 28 09/10/18 08:00 73 09/10/18 08:00 98.1 76 20 158/86 (110) 96 09/10/18 07:50 98 Nasal Cannula 2.0 28 09/10/18 07:50 Nasal Cannula 2.0 28 09/10/18 07:50 65 20 98 Nasal Cannula 2.0 28 09/10/18 04:00 97.9 72 18 144/78 (100) 94 09/10/18 03:21 64 09/10/18 00:00 98.0 82 18 148/86 (106) 97 09/09/18 23:20 62 09/09/18 21:43 81 20 100 Nasal Cannula 2.0 28 09/09/18 21:33 100 Nasal Cannula 2.0 28 09/09/18 21:33 Nasal Cannula 2.0 28 09/09/18 21:33 60 20 100 Nasal Cannula 2.0 28 09/09/18 21:00 Nasal Cannula 2.0 09/09/18 20:37 65 143/80 09/09/18 20:00 98.0 65 18 143/80 (101) 96 09/09/18 19:36 59 09/09/18 16:00 68 09/09/18 16:00 97.8 75 19 110/81 (91) 96 09/09/18 15:01 Nasal Cannula 2.0 28 09/09/18 14:30 Nasal Cannula 2.0 28 Intake and Output 09/09/18 09/10/18 18:59 06:59 Intake Total 750 ml Output Total 550 ml 600 ml Balance -550 ml 150 ml Free Water 150 ml Tube Feeding 600 ml Output Urine Total 550 ml 600 ml Laboratory Tests Test 09/10/18 09:50 Prothrombin Time 16.8 SEC (9.30-11.50) H Prothromb Time International Ratio 1.6 (0.9-1.1) H Objective HEAD AND NECK: No JVD. LUNGS: Decreased breath sounds. CARDIOVASCULAR: Irregular S1 and S2 with soft systolic murmur. Pacemaker in the left subclavian. ABDOMEN: Soft.PEG in place EXTREMITIES: 1+ pitting edema. Jere Faustin MD Sep 10, 2018 13:34
--- NOTE | 2018-09-10 13:47 | NUR ---
NURSE NOTES: talked to RT to let us know next time they are here to collect sputum from pt.
--- NOTE | 2018-09-10 14:49 | General Progress Note ---
Assessment/Plan Assessment/Plan #Acute on chronic diastolic CHF #Coronary artery disease #Permanent atrial fibrillation s/p PPM for SSS #HTN #Hyperlipidemia -Lasix on hold -hold eplerenone -Continue Coreg -warfarin reversed, continue to hold for now -cardiology following #Leukocytosis #Suspected aspiration pneumonia #Severe Dysphagia -seen by DRAIN TECHNICIAN and Pulm -seen by ID -continue meropenem and Flagyl -leukocytosis resolved -HIDA scan equivocal -s/p PEG -aspiration precautions -NPO #RY -resolved -continue to hold losartan and Lasix -check labs in AM -Nephrology following #Hypokalemia -improved -monitor BMO #Thyroid cancer #Metastatic disease and mod-large right pleural effusion seen on chest CT #Acquired hypothyroidism -continue levothyroxine -Spoke with his oncologist Dr. Miranda at [facility] today -Seen by Pulmonology -Thoracentesis done with 800 ml blood fluid removed -Await cytology from pleural fluid #Polyneuropathy -continue gabapentin #BPH -continue Proscar and Flomax VTE PPx SCD full code Subjective Date patient seen: Sep 10, 2018 Time patient seen: 08:00 ROS Limited/Unobtainable: No Cardiovascular: Denies: chest pain Respiratory: Denies: cough Gastrointestinal/Abdominal: Denies: abdomen distended Allergies: Coded Allergies: AZITHROMYCIN (Verified Allergy, Unknown, 09/04/18) PENICILLINS (Verified Allergy, Unknown, 09/03/18) Subjective Medicine follow up for acute on chronic dCHF, lung mass, leukocytosis, suspected aspiration pneumonia, RY S/p PEG placement, started tube feeds S/p right thoracentesis with 800 ml bloody fluid removed. Stable respiratory status. Objective Last 24 Hour Vital Signs Date Time Temp Pulse Resp B/P (MAP) Pulse Ox O2 Delivery O2 Flow Rate FiO2 09/10/18 12:40 63 20 99 Nasal Cannula 2.0 28 09/10/18 12:22 70 20 97 Nasal Cannula 2.0 28 09/10/18 12:00 96.1 79 20 124/65 (84) 95 09/10/18 09:49 75 158/86 09/10/18 09:00 Nasal Cannula 2.0 09/10/18 08:03 75 20 99 Nasal Cannula 2.0 28 09/10/18 08:00 73 09/10/18 08:00 98.1 76 20 158/86 (110) 96 09/10/18 07:50 98 Nasal Cannula 2.0 28 09/10/18 07:50 Nasal Cannula 2.0 28 09/10/18 07:50 65 20 98 Nasal Cannula 2.0 28 09/10/18 04:00 97.9 72 18 144/78 (100) 94 09/10/18 03:21 64 09/10/18 00:00 98.0 82 18 148/86 (106) 97 09/09/18 23:20 62 09/09/18 21:43 81 20 100 Nasal Cannula 2.0 28 09/09/18 21:33 100 Nasal Cannula 2.0 28 09/09/18 21:33 Nasal Cannula 2.0 28 09/09/18 21:33 60 20 100 Nasal Cannula 2.0 28 09/09/18 21:00 Nasal Cannula 2.0 09/09/18 20:37 65 143/80 09/09/18 20:00 98.0 65 18 143/80 (101) 96 09/09/18 19:36 59 09/09/18 16:00 68 09/09/18 16:00 97.8 75 19 110/81 (91) 96 09/09/18 15:01 Nasal Cannula 2.0 28 Intake and Output 09/09/18 09/10/18 18:59 06:59 Intake Total 750 ml Output Total 550 ml 600 ml Balance -550 ml 150 ml Free Water 150 ml Tube Feeding 600 ml Output Urine Total 550 ml 600 ml Laboratory Tests 09/10/18 09:50: Prothrombin Time 16.8H, Prothromb Time International Ratio 1.6H Height (Feet): 5 Height (Inches): 9.00 Weight (Pounds): 195 General Appearance: no apparent distress, alert Neck: non-tender, supple Cardiovascular: normal rate, regular rhythm Respiratory/Chest: lungs clear, normal breath sounds, no respiratory distress Abdomen: non tender, soft, no organomegaly Neurologic: alert, oriented x 3, responsive Oscar Chin MD Sep 10, 2018 14:49
[2018-09-10 16:00] VITALS: BP 120/85
--- NOTE | 2018-09-10 16:05 | Pulmonology Progress Note ---
Assessment/Plan Assessment/Plan Problem List: 1. Respiratory insufficiency 2. Acute on chronic diastolic CHF 3. Leukocytosis 4. Bilateral pleural effusions -thoracentesis with bloody output 5. Possible pneumonia 6. 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 CAD 10. HTN 11. Oropharyngeal dsyphagia 12. RY 13. CT chest with evidence of destructive rib lesions bilaterally concerning for metastatic disease Plan: -f/u pleural fluid studies -renal function improved, CXR with pulmonary edema and effusion -?gentle diuresis -will repeat CXR and pro-bnp for tomorrow -Abx per ID -Improved leukocytosis; cont abx -swallow eval noted, tube feeds via PEG Subjective ROS Limited/Unobtainable: Yes Interval Events: Had thoracentesis. Renal function better. Feels weak Constitutional: Reports: fatigue HEENT: Repors: no symptoms Respiratory: Reports: dry cough, shortness of breath Cardiovascular: Reports: no symptoms Genitourinary: Reports: no symptoms Allergies: Coded Allergies: AZITHROMYCIN (Verified Allergy, Unknown, 09/04/18) PENICILLINS (Verified Allergy, Unknown, 09/03/18) Objective Last 24 Hour Vital Signs Date Time Temp Pulse Resp B/P (MAP) Pulse Ox O2 Delivery O2 Flow Rate FiO2 09/10/18 12:40 63 20 99 Nasal Cannula 2.0 28 09/10/18 12:22 70 20 97 Nasal Cannula 2.0 28 09/10/18 12:00 96.1 79 20 124/65 (84) 95 09/10/18 09:49 75 158/86 09/10/18 09:00 Nasal Cannula 2.0 09/10/18 08:03 75 20 99 Nasal Cannula 2.0 28 09/10/18 08:00 73 09/10/18 08:00 98.1 76 20 158/86 (110) 96 09/10/18 07:50 98 Nasal Cannula 2.0 28 09/10/18 07:50 Nasal Cannula 2.0 28 09/10/18 07:50 65 20 98 Nasal Cannula 2.0 28 09/10/18 04:00 97.9 72 18 144/78 (100) 94 09/10/18 03:21 64 09/10/18 00:00 98.0 82 18 148/86 (106) 97 09/09/18 23:20 62 09/09/18 21:43 81 20 100 Nasal Cannula 2.0 28 09/09/18 21:33 100 Nasal Cannula 2.0 28 09/09/18 21:33 Nasal Cannula 2.0 28 09/09/18 21:33 60 20 100 Nasal Cannula 2.0 28 09/09/18 21:00 Nasal Cannula 2.0 09/09/18 20:37 65 143/80 09/09/18 20:00 98.0 65 18 143/80 (101) 96 09/09/18 19:36 59 Intake and Output 09/09/18 09/10/18 18:59 06:59 Intake Total 750 ml Output Total 550 ml 600 ml Balance -550 ml 150 ml Free Water 150 ml Tube Feeding 600 ml Output Urine Total 550 ml 600 ml General Appearance: no acute distress HEENT: atraumatic Respiratory/Chest: decreased breath sounds Cardiovascular: normal rate Abdomen: soft, non tender Extremities: no edema Neurologic/Psychiatric: responsive Laboratory Tests 09/10/18 09:50: Prothrombin Time 16.8H, Prothromb Time International Ratio 1.6H Current Medications Medications (Trade) Dose Ordered Sig/Mario Route PRN Reason Start Time Stop Time Status Last Admin Dose Admin Acetaminophen (Tylenol) 650 mg Q4H PRN GT Mild Pain/Temp > 100.5 09/07/18 20:15 10/07/18 20:14 Acetylcysteine (Mucomyst) 200 mg TIDRT HHN 09/09/18 01:00 10/07/18 18:59 09/10/18 12:28 Bisacodyl (Dulcolax) 10 mg HSPRN PRN RECTAL Constipation 09/03/18 12:15 10/03/18 10:59 Carvedilol (Coreg) 3.125 mg EVERY 12 HOURS GT 09/09/18 09:00 10/03/18 12:14 09/10/18 09:49 Cefepime HCl 1 gm/ Dextrose 55 ml @ 110 mls/hr Q24H IVPB 09/08/18 11:00 09/15/18 10:59 09/10/18 11:17 Dextrose (Dextrose 50%) 25 ml Q30M PRN IV Hypoglycemia 09/03/18 11:00 10/03/18 10:59 Dextrose (Dextrose 50%) 50 ml Q30M PRN IV Hypoglycemia 09/03/18 11:00 10/03/18 10:59 Docusate Sodium (Colace) 100 mg DAILY GT 09/11/18 09:00 10/11/18 08:59 Finasteride (Proscar) 5 mg DAILY ORAL 09/04/18 09:00 10/04/18 08:59 09/10/18 09:51 Gabapentin (Neurontin) 300 mg DAILY GT 09/09/18 10:00 10/09/18 09:59 09/10/18 09:50 Ipratropium [place] (Atrovent) 500 mcg Q6H PRN HHN Shortness of Breath 09/09/18 20:00 09/14/18 19:59 09/10/18 12:29 Levothyroxine Sodium (Synthroid) 150 mcg Q24H GT 09/10/18 06:30 10/04/18 06:29 09/10/18 05:42 Metronidazole (Flagyl) 500 mg Q8HR GT 09/09/18 14:00 09/13/18 13:59 09/10/18 13:16 Morphine Sulfate (Morphine Sulfate) 1 mg Q4H PRN IVP Severe Pain (Pain Scale 7-10) 09/07/18 21:00 09/14/18 20:59 09/10/18 06:04 Ondansetron HCl (Zofran) 4 mg Q6H PRN IVP Nausea & Vomiting 09/03/18 11:00 10/03/18 10:59 Pantoprazole (Protonix) 40 mg EVERY 12 HOURS IVP 09/08/18 21:00 10/08/18 20:59 09/10/18 09:50 Sennosides (Senokot) 17.2 mg BID GT 09/09/18 09:00 10/03/18 17:59 09/10/18 09:50 Tamsulosin HCl (Flomax) 0.4 mg Q12HR ORAL 09/07/18 09:00 10/07/18 08:59 09/10/18 09:51 Warfarin Sodium (Coumadin per pharmacy) 1 ea DAILY PRN MISC . 09/10/18 09:30 10/10/18 09:29 Warfarin Sodium (Coumadin) 4 mg COUMADIN GT 09/10/18 17:00 09/15/18 16:59 Joel Pantoja MD Sep 10, 2018 16:05
--- NOTE | 2018-09-10 17:00 | NUR ---
NURSE NOTES: attempted to sit patient on the chair, 3 person assist but patient unbale to. patient is too weak to stand up. and patient refused. will endorse accordingly.
[2018-09-10] MEDS: Warfarin Sodium 4mg GT SCH (17:21)
--- NOTE | 2018-09-10 19:30 | NUR ---
NURSE NOTES: Received pt. and report from AMERICA Emmanuel. Observe pt. resting in bed with both eyes open and family member at bedside. Pt. is A/Ox4. monitoring tech is in placed, IV site intact, asymptomatic, and patent. Pt. is currently on GT feeding; Vital AF 1.2 @ 60cc/hr. Bed is in the lowest position and locked. Call light within reach. No acute distress noted at this time. Will continue plan of care.
--- NOTE | 2018-09-10 19:39 | NUR ---
HAND-OFF: Report given to lori thompson.
[2018-09-10 20:00] VITALS: BP 130/87
--- NOTE | 2018-09-10 21:16 | General Progress Note ---
Assessment/Plan Assessment/Plan Assessment/Plan # Thyroid carcinoma and on CT scan; multiple osseous destructive lesions as detailed in ct scan ,likely osseous metastases given known history of thyroid carcinoma. Multiple pulmonary and pleural nodules, likewise presumably on the basis of metastatic disease. History of thyroid cancer, status post thyroid surgery. --> review outside imaging and treatments patient has received --> outside labs and pathology to be reviewed --> defer to outpatient oncologist for further care, patient requires followup --> radioactive iodine scan as outpatient, consider tumor testing for specific molecular targets # Leukocytosis. Likely related to underlying infection versus reactive process. ( currently resolved) --> Peripheral has been reviewed --> Medications have been reviewed --> Imaging has been reviewed --> Blood cultures and urine cultures prn --> has been started on abx, empiric treatment # Right base destructive lung mass, Pulmonology consult appreciated --> pulmr ecs appreciated --> thora on prn basis # Acquired hypothyroidism, continue levothyroxine # Exacerbation of congestive heart failure, Continue Lasix 40 mg IV bid, Coreg 3.125 mg b.i.d. as well as losartan 50 mg daily. -->appreciate cardiology recs # Atrial fibrillation, the rate is currently controlled and is on anticoagulation with Coumadin with a therapeutic INR. # Status post Biotronik pacemaker. # Hypertension, Continue current regimen Lasix, losartan, and Coreg. # Hypokalemia # Polyneuropathy, continue gabapentin # BPH, continue Proscar and Flomax The timing of this note does not necessarily reflect the time of the patient was seen. Greatly appreciate consultation! Subjective Constitutional: Denies: no symptoms, chills, diaphoresis, fever, malaise, weakness, other HEENT: Denies: no symptoms, eye pain, blurred vision, tearing, double vision, ear pain, ear discharge, nose pain, nose congestion, throat pain, throat swelling, mouth pain, mouth swelling, other Cardiovascular: Denies: no symptoms, chest pain, edema, irregular heart rate, lightheadedness, palpitations, syncope, other Respiratory: Denies: no symptoms, cough, orthopnea, shortness of breath, SOB with excertion, SOB at rest, sputum, stridor, wheezing, other Gastrointestinal/Abdominal: Denies: no symptoms, abdomen distended, abdominal pain, black stools, tarry stools, blood in stool, constipated, diarrhea, difficulty swallowing, nausea, poor appetite, poor fluid intake, rectal bleeding , vomiting, other Genitourinary: Denies: no symptoms, burning, discharge, frequency, flank pain, hematuria, incontinence, pain, urgency, other Neurologic/Psychiatric: Denies: no symptoms, anxiety, depressed, emotional problems, headache, numbness, paresthesia, pre-existing deficit, seizure, tingling, tremors, weakness, other Endocrine: Denies: no symptoms, excessive sweating, flushing, intolerance to cold, intolerance to heat, increased hunger, increased thirst, increased urine, unexplained weight gain, unexplained weight loss, other Allergies: Coded Allergies: AZITHROMYCIN (Verified Allergy, Unknown, 09/04/18) PENICILLINS (Verified Allergy, Unknown, 09/03/18) Subjective 09/05: In atrial fib with V pacing. Rate controlled. Still NPO. Failed swallow eval. 09/06: thora completed successfuly on the right side, 0.8L removed 09/07: wbc trending down, S/P PEG placement and Right thoracentesis today, no events 09/09: seen by bedside, no acute distress. 09/10: seen by beside, Improved leukocytosis, cont abx, swallow eval noted, tube feeds via PEG Objective Last 24 Hour Vital Signs Date Time Temp Pulse Resp B/P (MAP) Pulse Ox O2 Delivery O2 Flow Rate FiO2 09/10/18 16:00 75 09/10/18 16:00 97.9 69 20 120/85 (97) 96 09/10/18 12:40 63 20 99 Nasal Cannula 2.0 28 09/10/18 12:22 70 20 97 Nasal Cannula 2.0 28 09/10/18 12:00 71 09/10/18 12:00 96.1 79 20 124/65 (84) 95 09/10/18 09:49 75 158/86 09/10/18 09:00 Nasal Cannula 2.0 09/10/18 08:03 75 20 99 Nasal Cannula 2.0 28 09/10/18 08:00 73 09/10/18 08:00 98.1 76 20 158/86 (110) 96 09/10/18 07:50 98 Nasal Cannula 2.0 28 09/10/18 07:50 Nasal Cannula 2.0 28 09/10/18 07:50 65 20 98 Nasal Cannula 2.0 28 09/10/18 04:00 97.9 72 18 144/78 (100) 94 09/10/18 03:21 64 09/10/18 00:00 98.0 82 18 148/86 (106) 97 09/09/18 23:20 62 09/09/18 21:43 81 20 100 Nasal Cannula 2.0 28 09/09/18 21:33 100 Nasal Cannula 2.0 28 09/09/18 21:33 Nasal Cannula 2.0 28 09/09/18 21:33 60 20 100 Nasal Cannula 2.0 28 09/09/18 21:00 Nasal Cannula 2.0 Intake and Output 09/09/18 09/10/18 19:00 07:00 Intake Total 750 ml Output Total 550 ml 600 ml Balance -550 ml 150 ml Free Water 150 ml Tube Feeding 600 ml Output Urine Total 550 ml 600 ml Laboratory Tests 09/10/18 09:50: Prothrombin Time 16.8H, Prothromb Time International Ratio 1.6H Height (Feet): 5 Height (Inches): 9.00 Weight (Pounds): 195 Objective Physical Exam General Appearance: no apparent distress, alert HEENT: normocephalic, atraumatic Neck: non-tender, normal alignment, supple Respiratory/Chest: ++ crackles Cardiovascular/Chest: normal peripheral pulses, normal rate Abdomen: normal bowel sounds, non tender, PEG++ Extremities: trace edema Skin Exam: normal pigmentation, warm/dry Neurologic: 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
[2018-09-11] VITALS: BP 134/72
[2018-09-11 04:00] VITALS: BP 131/64
[2018-09-11] MEDS: metroNIDAZOLE 500mg tab GT SCH ×3 (06:03→21:35)
--- NOTE | 2018-09-11 07:20 | NUR ---
HAND-OFF: Report given to AMERICA Ortiz.
--- NOTE | 2018-09-11 07:29 | NUR ---
NURSE NOTES: I received the patient awake and resting in bed. Patient alert and oriented x4. Patient repositioned in bed. Hawkins catheter in place. Bed in the lowest position and call light within reach. Patient educated about using the call light. I will continue to monitor the patient and implement care.
[2018-09-11 07:53] VITALS: BP 144/82
[2018-09-11] MEDS: Ipratropium 0.02% Inh Soln 2.5ml UD HHN PRN ×3 (07:55→19:34)
[2018-09-11] MEDS: Acetylcysteine 20% Soln 4ml HHN SCH ×3 (07:55→19:34)
[2018-09-11] MEDS: Docusate 100mg/10ml Liq GT SCH (08:36)
[2018-09-11] MEDS: Tamsulosin 0.4mg cap ORAL SCH ×2 (08:36→21:00)
[2018-09-11] MEDS: Sennosides 8.6mg tab GT SCH ×2 (08:36→18:11)
[2018-09-11] MEDS: Pantoprazole Inj IVP SCH ×2 (08:37→21:00)
[2018-09-11] MEDS: Gabapentin 300 MG/6 ML Soln GT SCH (08:37)
[2018-09-11 08:38] LABS: BASOPHILS % (AUTO) 0.6 % (0.0-2.0); EOSINOPHILS % (AUTO) 0.9 % (0.0-3.0); HEMATOCRIT 39.1 % (42.0-52.0); HEMOGLOBIN 12.4 G/DL (14.2-18.0); MEAN CORPUSCULAR VOLUME 90 FL (80-99); MONOCYTES % (AUTO) 7.6 % (1.0-10.0); NEUTROPHILS % (AUTO) 81.9 % (45.0-75.0); PLATELET COUNT 218 K/UL (150-450); RED BLOOD COUNT 4.33 M/UL (4.70-6.10); RED CELL DISTRIBUTION WIDTH 13.9 % (11.6-14.8); WHITE BLOOD COUNT 13.1 K/UL (4.8-10.8)
[2018-09-11 08:58] LABS: INR 1.6 (0.9-1.1)
[2018-09-11 09:04] LABS: ANION GAP 9 mmol/L (5-15); BLOOD UREA NITROGEN 50 mg/dL (7-18); CALCIUM 8.8 MG/DL (8.5-10.1); CARBON DIOXIDE 27 MMOL/L (21-32); CHLORIDE 109 MMOL/L (98-107); CREATININE 1.1 MG/DL (0.55-1.30); POTASSIUM 3.5 MMOL/L (3.5-5.1); SODIUM 145 MMOL/L (136-145)
--- NOTE | 2018-09-11 09:04 | NUR ---
DISCHARGE PLANNING PATIENT IS FROM HOME BUT MAY NEED SNF PER DR KINGSTON PATIENT IS NOT MEDICALLY READY FOR DISCHARGE
--- NOTE | 2018-09-11 09:59 | NUR ---
RADIOLOGY DEPT CHEST X-RAY DONE.-P.DYE
--- NOTE | 2018-09-11 10:04 | Infectious Diseases Prog Note ---
Assessment/Plan Assessment/Plan antibiotics : cefepime, flagyl A 1. ? pneumonia 2. ? cholecystitis 3. leucocytosis resolved 4. pleural effusion 5. renal failure 6. thyroid cancer 7. s/p GT P 1. continue cefepime, flagyl 2 more days 2. will follow up cultures Subjective Constitutional: Denies: fever, chills Respiratory: Reports: shortness of breath; Denies: dry cough Gastrointestinal/Abdominal: Denies: nausea, vomiting, diarrhea Musculoskeletal: Denies: pain Allergies: Coded Allergies: AZITHROMYCIN (Verified Allergy, Unknown, 09/04/18) PENICILLINS (Verified Allergy, Unknown, 09/03/18) Objective Vital Signs Last 24 Hour Vital Signs Date Time Temp Pulse Resp B/P (MAP) Pulse Ox O2 Delivery O2 Flow Rate FiO2 09/11/18 08:37 77 144/82 09/11/18 08:11 77 20 97 Nasal Cannula 2.0 28 09/11/18 07:59 74 20 Nasal Cannula 2.0 28 09/11/18 07:57 98 Nasal Cannula 2.0 28 09/11/18 07:57 Nasal Cannula 2.0 28 09/11/18 07:57 74 20 98 Nasal Cannula 2.0 28 09/11/18 07:53 96.9 61 20 144/82 (102) 98 09/11/18 04:00 62 09/11/18 04:00 97.5 75 18 131/64 (86) 96 09/11/18 00:00 97.7 72 18 134/72 (92) 95 09/11/18 00:00 61 09/10/18 21:37 63 20 95 Nasal Cannula 2.0 28 09/10/18 21:37 95 Nasal Cannula 2.0 28 09/10/18 21:37 Nasal Cannula 2.0 28 09/10/18 21:26 77 130/87 09/10/18 21:21 70 20 93 Nasal Cannula 2.0 28 09/10/18 21:00 Nasal Cannula 2.0 09/10/18 20:00 61 09/10/18 20:00 97.2 77 18 130/87 (101) 92 09/10/18 16:00 75 09/10/18 16:00 97.9 69 20 120/85 (97) 96 09/10/18 12:40 63 20 99 Nasal Cannula 2.0 28 09/10/18 12:22 70 20 97 Nasal Cannula 2.0 28 09/10/18 12:00 71 09/10/18 12:00 96.1 79 20 124/65 (84) 95 Height (Feet): 5 Height (Inches): 9.00 Weight (Pounds): 196 Respiratory/Chest: lungs clear Cardiovascular: normal rate, regular rhythm, no gallop/murmur Abdomen: soft, non tender Extremities: no edema Laboratory Tests Test 09/11/18 06:48 White Blood Count 13.1 K/UL (4.8-10.8) H Red Blood Count 4.33 M/UL (4.70-6.10) L Hemoglobin 12.4 G/DL (14.2-18.0) L Hematocrit 39.1 % (42.0-52.0) L Mean Corpuscular Volume 90 FL (80-99) Mean Corpuscular Hemoglobin 28.6 PG (27.0-31.0) Mean Corpuscular Hemoglobin Concent 31.7 G/DL (32.0-36.0) L Red Cell Distribution Width 13.9 % (11.6-14.8) Platelet Count 218 K/UL (150-450) Mean Platelet Volume 6.9 FL (6.5-10.1) Neutrophils (%) (Auto) 81.9 % (45.0-75.0) H Lymphocytes (%) (Auto) 9.0 % (20.0-45.0) L Monocytes (%) (Auto) 7.6 % (1.0-10.0) Eosinophils (%) (Auto) 0.9 % (0.0-3.0) Basophils (%) (Auto) 0.6 % (0.0-2.0) Prothrombin Time 16.7 SEC (9.30-11.50) H Prothromb Time International Ratio 1.6 (0.9-1.1) H Sodium Level 145 MMOL/L (136-145) Potassium Level 3.5 MMOL/L (3.5-5.1) Chloride Level 109 MMOL/L (98-107) H Carbon Dioxide Level 27 MMOL/L (21-32) Anion Gap 9 mmol/L (5-15) Blood Urea Nitrogen 50 mg/dL (7-18) H Creatinine 1.1 MG/DL (0.55-1.30) Estimat Glomerular Filtration Rate mL/min (>60) Glucose Level 130 MG/DL (74-106) H Calcium Level 8.8 MG/DL (8.5-10.1) Pro-B-Type Natriuretic Peptide 3164 pg/mL (0-125) H Current Medications Medications (Trade) Dose Ordered Sig/Mario Route PRN Reason Start Time Stop Time Status Last Admin Dose Admin Acetaminophen (Tylenol) 650 mg Q4H PRN GT Mild Pain/Temp > 100.5 09/07/18 20:15 10/07/18 20:14 Acetylcysteine (Mucomyst) 200 mg TIDRT HHN 09/09/18 01:00 10/07/18 18:59 09/11/18 07:55 Bisacodyl (Dulcolax) 10 mg HSPRN PRN RECTAL Constipation 09/03/18 12:15 10/03/18 10:59 Carvedilol (Coreg) 3.125 mg EVERY 12 HOURS GT 09/09/18 09:00 10/03/18 12:14 09/11/18 08:37 Cefepime HCl 1 gm/ Dextrose 55 ml @ 110 mls/hr Q24H IVPB 09/08/18 11:00 09/15/18 10:59 09/10/18 11:17 Dextrose (Dextrose 50%) 25 ml Q30M PRN IV Hypoglycemia 09/03/18 11:00 10/03/18 10:59 Dextrose (Dextrose 50%) 50 ml Q30M PRN IV Hypoglycemia 09/03/18 11:00 10/03/18 10:59 Docusate Sodium (Colace) 100 mg DAILY GT 09/11/18 09:00 10/11/18 08:59 09/11/18 08:36 Finasteride (Proscar) 5 mg DAILY ORAL 09/04/18 09:00 10/04/18 08:59 09/11/18 08:37 Gabapentin (Neurontin) 300 mg DAILY GT 09/09/18 10:00 10/09/18 09:59 09/11/18 08:37 Ipratropium [place] (Atrovent) 500 mcg Q6H PRN HHN Shortness of Breath 09/09/18 20:00 09/14/18 19:59 09/11/18 07:55 Levothyroxine Sodium (Synthroid) 150 mcg Q24H GT 09/10/18 06:30 10/04/18 06:29 09/11/18 06:03 Metronidazole (Flagyl) 500 mg Q8HR GT 09/09/18 14:00 09/13/18 13:59 09/11/18 06:03 Morphine Sulfate (Morphine Sulfate) 1 mg Q4H PRN IVP Severe Pain (Pain Scale 7-10) 09/07/18 21:00 09/14/18 20:59 09/10/18 06:04 Ondansetron HCl (Zofran) 4 mg Q6H PRN IVP Nausea & Vomiting 09/03/18 11:00 10/03/18 10:59 Pantoprazole (Protonix) 40 mg EVERY 12 HOURS IVP 09/08/18 21:00 10/08/18 20:59 09/11/18 08:37 Sennosides (Senokot) 17.2 mg BID GT 09/09/18 09:00 10/03/18 17:59 09/11/18 08:36 Tamsulosin HCl (Flomax) 0.4 mg Q12HR ORAL 09/07/18 09:00 10/07/18 08:59 09/11/18 08:36 Warfarin Sodium (Coumadin per pharmacy) 1 ea DAILY PRN MISC . 09/10/18 09:30 10/10/18 09:29 Warfarin Sodium (Coumadin) 4 mg COUMADIN GT 09/10/18 17:00 09/15/18 16:59 09/10/18 17:21 Joselin Juarez MD Sep 11, 2018 10:04
--- NOTE | 2018-09-11 10:42 | GI Progress Note ---
Assessment/Plan Problems: (1) Encounter for PEG (percutaneous endoscopic gastrostomy) ICD Codes: Z43.1 - Encounter for attention to gastrostomy SNOMED: 077948500, 827655101 (2) Severe malnutrition ICD Codes: E43 - Unspecified severe protein-calorie malnutrition SNOMED: 41051254 (3) Dysphasia ICD Codes: R47.02 - Dysphasia SNOMED: 51867484 (4) Dehydration ICD Codes: E86.0 - Dehydration SNOMED: 89118815 (5) A-fib ICD Codes: I48.91 - Unspecified atrial fibrillation SNOMED: 81197229 Qualifiers: Qualified Codes: I48.91 - Unspecified atrial fibrillation Status: stable Status Narrative Discussed with Dr. Jiménez. Assessment/Plan Status post PEG G-tube feedings per RD PRN transfusions PPI Follow labs dc planning The patient was seen and examined at bedside and all new and available data was reviewed in the patients chart. I agree with the above findings, impression and plan. (Patient seen earlier today. Signature stamp does not reflect patient encounter time.). - Nii Jiménez MD Subjective Gastrointestinal/Abdominal: Reports: no symptoms Objective Last 24 Hour Vital Signs Date Time Temp Pulse Resp B/P (MAP) Pulse Ox O2 Delivery O2 Flow Rate FiO2 09/11/18 09:00 Nasal Cannula 2.0 09/11/18 08:37 77 144/82 09/11/18 08:11 77 20 97 Nasal Cannula 2.0 28 09/11/18 07:59 74 20 Nasal Cannula 2.0 28 09/11/18 07:57 98 Nasal Cannula 2.0 28 09/11/18 07:57 Nasal Cannula 2.0 28 09/11/18 07:57 74 20 98 Nasal Cannula 2.0 28 09/11/18 07:53 96.9 61 20 144/82 (102) 98 09/11/18 07:35 65 09/11/18 04:00 62 09/11/18 04:00 97.5 75 18 131/64 (86) 96 09/11/18 00:00 97.7 72 18 134/72 (92) 95 09/11/18 00:00 61 09/10/18 21:37 63 20 95 Nasal Cannula 2.0 28 09/10/18 21:37 95 Nasal Cannula 2.0 28 09/10/18 21:37 Nasal Cannula 2.0 28 09/10/18 21:26 77 130/87 09/10/18 21:21 70 20 93 Nasal Cannula 2.0 28 09/10/18 21:00 Nasal Cannula 2.0 09/10/18 20:00 61 09/10/18 20:00 97.2 77 18 130/87 (101) 92 09/10/18 16:00 75 09/10/18 16:00 97.9 69 20 120/85 (97) 96 09/10/18 12:40 63 20 99 Nasal Cannula 2.0 28 09/10/18 12:22 70 20 97 Nasal Cannula 2.0 28 09/10/18 12:00 71 09/10/18 12:00 96.1 79 20 124/65 (84) 95 Intake and Output 09/10/18 09/11/18 19:00 07:00 Intake Total 580 ml Output Total 550 ml 700 ml Balance 30 ml -700 ml Free Water 50 ml IV Total 110 ml Tube Feeding 420 ml Output Urine Total 550 ml 700 ml Laboratory Tests Test 09/11/18 06:48 White Blood Count 13.1 K/UL (4.8-10.8) H Red Blood Count 4.33 M/UL (4.70-6.10) L Hemoglobin 12.4 G/DL (14.2-18.0) L Hematocrit 39.1 % (42.0-52.0) L Mean Corpuscular Volume 90 FL (80-99) Mean Corpuscular Hemoglobin 28.6 PG (27.0-31.0) Mean Corpuscular Hemoglobin Concent 31.7 G/DL (32.0-36.0) L Red Cell Distribution Width 13.9 % (11.6-14.8) Platelet Count 218 K/UL (150-450) Mean Platelet Volume 6.9 FL (6.5-10.1) Neutrophils (%) (Auto) 81.9 % (45.0-75.0) H Lymphocytes (%) (Auto) 9.0 % (20.0-45.0) L Monocytes (%) (Auto) 7.6 % (1.0-10.0) Eosinophils (%) (Auto) 0.9 % (0.0-3.0) Basophils (%) (Auto) 0.6 % (0.0-2.0) Prothrombin Time 16.7 SEC (9.30-11.50) H Prothromb Time International Ratio 1.6 (0.9-1.1) H Sodium Level 145 MMOL/L (136-145) Potassium Level 3.5 MMOL/L (3.5-5.1) Chloride Level 109 MMOL/L (98-107) H Carbon Dioxide Level 27 MMOL/L (21-32) Anion Gap 9 mmol/L (5-15) Blood Urea Nitrogen 50 mg/dL (7-18) H Creatinine 1.1 MG/DL (0.55-1.30) Estimat Glomerular Filtration Rate mL/min (>60) Glucose Level 130 MG/DL (74-106) H Calcium Level 8.8 MG/DL (8.5-10.1) Pro-B-Type Natriuretic Peptide 3164 pg/mL (0-125) H Alpha Fetoprotein Pending Carcinoembryonic Antigen Pending CA 19-9 Antigen Pending Height (Feet): 5 Height (Inches): 9.00 Weight (Pounds): 196 General Appearance: WD/WN, no apparent distress, alert Cardiovascular: normal rate Respiratory/Chest: normal breath sounds, no respiratory distress Abdominal Exam: normal bowel sounds, non tender, soft Extremities: normal range of motion, non-tender Angus Grayson NP Sep 11, 2018 10:42
--- NOTE | 2018-09-11 11:05 | NUR ---
RD ASSESSMENT & RECOMMENDATIONS SEE CARE ACTIVITY FOR COMPLETE ASSESSMENT DAILY ESTIMATED NEEDS: Needs based on Cardiac, Wound/ 74.5kg 25-30 kcals/kg 8742-0246 total kcals 1.25-1.5 g protein/kg 75-112 g total protein 25-30 mL/kg 8445-9422 total fluid mLs NUTRITION DIAGNOSIS: *Increased kcal/prot intake needs R/T wound healing as evidenced by admitted w/ DTPI @ lt buttock and stage 1 @ buttocks, BL heels. *Swallowing difficulty R/T dysphagia as evidenced by s/p VSS w/ rec for NPO, s/p PEG placement, GT feeding. CURRENT TF:Vital AF 1.2 @ 60ml/hr x 22 hrs ENTERAL NUTRITION RECOMMENDATIONS: Glucerna 1.5 @ 57ml/hr x 22 hrs to provide 1254ml, 1881kcal, 103g prot, 952ml free water * Rec TF change to Glucerna 1.5 -> elemental formula of Vital AF is not indicated, for carb control * Initiate Glucerna 1.5 @ 27ml/hr x 6 hrs, advance 10ml q 4-6 hrs as tolerated to goal rate * Hold 1 hr before and after Synthroid med * HOB over 30 degrees/ water flush per MD ADDITIONAL RECOMMENDATIONS: * Re-calibrated bedscale wt for accurate CBW (w/ added P200 mattress) * Monitor lytes, replete as needed * Wound healing: add [place] 1pkt BID via PEG * Monitor BGs closely, need for SSI -> rec carb controlled TF formula at this time (BG 130, 149)
[2018-09-11] MEDS: Cefepime 1gm/D5W 55ml IVPB SCH ×2 (11:16)
--- NOTE | 2018-09-11 11:30 | Pulmonology Progress Note ---
Assessment/Plan Assessment/Plan Problem List: 1. Respiratory insufficiency 2. Acute on chronic diastolic CHF 3. Leukocytosis 4. Bilateral pleural effusions -thoracentesis with bloody output 5. Possible pneumonia 6. 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 CAD 10. HTN 11. Oropharyngeal dsyphagia 12. RY 13. CT chest with evidence of destructive rib lesions bilaterally concerning for metastatic disease Plan: -f/u pleural fluid studies -repeat thoracentesis eval -renal function improved, CXR with pulmonary edema and effusion -lasix 20 mg IV x 1 for gentle diuresis -Abx per ID -Improved leukocytosis; cont abx -swallow eval noted, tube feeds via PEG ' Case d/w Dr. Cooper Subjective ROS Limited/Unobtainable: No Interval Events: some shortness of breath. No pain. Tolerating tfs Constitutional: Reports: no symptoms HEENT: Repors: no symptoms Respiratory: Reports: shortness of breath Cardiovascular: Reports: no symptoms Gastrointestinal/Abdominal: Reports: no symptoms Genitourinary: Reports: no symptoms Allergies: Coded Allergies: AZITHROMYCIN (Verified Allergy, Unknown, 09/04/18) PENICILLINS (Verified Allergy, Unknown, 09/03/18) Objective Last 24 Hour Vital Signs Date Time Temp Pulse Resp B/P (MAP) Pulse Ox O2 Delivery O2 Flow Rate FiO2 09/11/18 09:00 Nasal Cannula 2.0 09/11/18 08:37 77 144/82 09/11/18 08:11 77 20 97 Nasal Cannula 2.0 28 09/11/18 07:59 74 20 Nasal Cannula 2.0 28 09/11/18 07:57 98 Nasal Cannula 2.0 28 09/11/18 07:57 Nasal Cannula 2.0 28 09/11/18 07:57 74 20 98 Nasal Cannula 2.0 28 09/11/18 07:53 96.9 61 20 144/82 (102) 98 09/11/18 07:35 65 09/11/18 04:00 62 09/11/18 04:00 97.5 75 18 131/64 (86) 96 09/11/18 00:00 97.7 72 18 134/72 (92) 95 09/11/18 00:00 61 09/10/18 21:37 63 20 95 Nasal Cannula 2.0 28 09/10/18 21:37 95 Nasal Cannula 2.0 28 09/10/18 21:37 Nasal Cannula 2.0 28 09/10/18 21:26 77 130/87 09/10/18 21:21 70 20 93 Nasal Cannula 2.0 28 09/10/18 21:00 Nasal Cannula 2.0 09/10/18 20:00 61 09/10/18 20:00 97.2 77 18 130/87 (101) 92 09/10/18 16:00 75 09/10/18 16:00 97.9 69 20 120/85 (97) 96 09/10/18 12:40 63 20 99 Nasal Cannula 2.0 28 09/10/18 12:22 70 20 97 Nasal Cannula 2.0 28 09/10/18 12:00 71 09/10/18 12:00 96.1 79 20 124/65 (84) 95 Intake and Output 09/10/18 09/11/18 19:00 07:00 Intake Total 580 ml Output Total 550 ml 700 ml Balance 30 ml -700 ml Free Water 50 ml IV Total 110 ml Tube Feeding 420 ml Output Urine Total 550 ml 700 ml General Appearance: no acute distress HEENT: mucous membranes moist, PERRL Respiratory/Chest: decreased breath sounds Cardiovascular: normal rate, regular rhythm Abdomen: normal bowel sounds, soft, non tender Extremities: no edema Laboratory Tests 09/11/18 06:48: White Blood Count 13.1H, Red Blood Count 4.33L, Hemoglobin 12.4L, Hematocrit 39.1L, Mean Corpuscular Volume 90, Mean Corpuscular Hemoglobin 28.6, Mean Corpuscular Hemoglobin Concent 31.7L, Red Cell Distribution Width 13.9, Platelet Count 218, Mean Platelet Volume 6.9, Neutrophils (%) (Auto) 81.9H, Lymphocytes (%) (Auto) 9.0L, Monocytes (%) (Auto) 7.6, Eosinophils (%) (Auto) 0.9, Basophils (%) (Auto) 0.6, Prothrombin Time 16.7H, Prothromb Time International Ratio 1.6H, Sodium Level 145, Potassium Level 3.5, Chloride Level 109H, Carbon Dioxide Level 27, Anion Gap 9, Blood Urea Nitrogen 50H, Creatinine 1.1, Estimat Glomerular Filtration Rate , Glucose Level 130H, Calcium Level 8.8 , Pro-B-Type Natriuretic Peptide 3164H, Alpha Fetoprotein [Pending], Carcinoembryonic Antigen [Pending], CA 19-9 Antigen [Pending] Current Medications Medications (Trade) Dose Ordered Sig/Mario Route PRN Reason Start Time Stop Time Status Last Admin Dose Admin Acetaminophen (Tylenol) 650 mg Q4H PRN GT Mild Pain/Temp > 100.5 09/07/18 20:15 10/07/18 20:14 Acetylcysteine (Mucomyst) 200 mg TIDRT HHN 09/09/18 01:00 10/07/18 18:59 09/11/18 07:55 Bisacodyl (Dulcolax) 10 mg HSPRN PRN RECTAL Constipation 09/03/18 12:15 10/03/18 10:59 Carvedilol (Coreg) 3.125 mg EVERY 12 HOURS GT 09/09/18 09:00 10/03/18 12:14 09/11/18 08:37 Cefepime HCl 1 gm/ Dextrose 55 ml @ 110 mls/hr Q24H IVPB 09/08/18 11:00 09/15/18 10:59 09/11/18 11:16 Dextrose (Dextrose 50%) 25 ml Q30M PRN IV Hypoglycemia 09/03/18 11:00 10/03/18 10:59 Dextrose (Dextrose 50%) 50 ml Q30M PRN IV Hypoglycemia 09/03/18 11:00 10/03/18 10:59 Docusate Sodium (Colace) 100 mg DAILY GT 09/11/18 09:00 10/11/18 08:59 09/11/18 08:36 Finasteride (Proscar) 5 mg DAILY ORAL 09/04/18 09:00 10/04/18 08:59 09/11/18 08:37 Gabapentin (Neurontin) 300 mg DAILY GT 09/09/18 10:00 10/09/18 09:59 09/11/18 08:37 Ipratropium [place] (Atrovent) 500 mcg Q6H PRN HHN Shortness of Breath 09/09/18 20:00 09/14/18 19:59 09/11/18 07:55 Levothyroxine Sodium (Synthroid) 150 mcg Q24H GT 09/10/18 06:30 10/04/18 06:29 09/11/18 06:03 Metronidazole (Flagyl) 500 mg Q8HR GT 09/09/18 14:00 09/13/18 13:59 09/11/18 06:03 Morphine Sulfate (Morphine Sulfate) 1 mg Q4H PRN IVP Severe Pain (Pain Scale 7-10) 09/07/18 21:00 09/14/18 20:59 09/10/18 06:04 Ondansetron HCl (Zofran) 4 mg Q6H PRN IVP Nausea & Vomiting 09/03/18 11:00 10/03/18 10:59 Pantoprazole (Protonix) 40 mg EVERY 12 HOURS IVP 09/08/18 21:00 10/08/18 20:59 09/11/18 08:37 Sennosides (Senokot) 17.2 mg BID GT 09/09/18 09:00 10/03/18 17:59 09/11/18 08:36 Tamsulosin HCl (Flomax) 0.4 mg Q12HR ORAL 09/07/18 09:00 10/07/18 08:59 09/11/18 08:36 Warfarin Sodium (Coumadin per pharmacy) 1 ea DAILY PRN MISC . 09/10/18 09:30 10/10/18 09:29 Warfarin Sodium (Coumadin) 4 mg COUMADIN GT 09/10/18 17:00 09/15/18 16:59 09/10/18 17:21 Joel Pantoja MD Sep 11, 2018 11:30
[2018-09-11 11:58] VITALS: BP 138/84
--- NOTE | 2018-09-11 12:19 | General Progress Note ---
Assessment/Plan Assessment/Plan #Acute on chronic diastolic CHF #Coronary artery disease #Permanent atrial fibrillation s/p PPM for SSS #HTN #Hyperlipidemia -will give a dose of IV Lasix today -hold eplerenone -Continue Coreg -warfarin reversed, continue to hold for now -cardiology following #Leukocytosis #Suspected aspiration pneumonia #Severe Dysphagia -seen by D[employer] OPERATOR and Pulm -seen by ID -continue meropenem and Flagyl, can transition to oral antibiotic upon discharge -leukocytosis resolved -HIDA scan equivocal -s/p PEG -aspiration precautions -NPO #RY -resolved -continue to hold losartan and Lasix -BMP in AM -Nephrology following #Hypokalemia -improved -monitor BMO #Thyroid cancer #Metastatic disease and mod-large right pleural effusion seen on chest CT #Acquired hypothyroidism -continue levothyroxine -Seen by Pulmonology -Thoracentesis done with 800 ml blood fluid removed -will get another thoracentesis today -spoke to who is agreeable to hospice evaluation #Polyneuropathy -continue gabapentin #BPH -continue Proscar and Flomax VTE PPx SCD full code Dispo planning, case discussed with transplant case manager Subjective Date patient seen: Sep 11, 2018 Time patient seen: 12:15 Allergies: Coded Allergies: AZITHROMYCIN (Verified Allergy, Unknown, 09/04/18) PENICILLINS (Verified Allergy, Unknown, 09/03/18) Subjective Medicine follow up for acute on chronic dCHF, lung mass, leukocytosis, suspected aspiration pneumonia, RY S/p PEG placement, on tube feeds S/p right thoracentesis with 800 ml bloody fluid removed. Patient feels weak and tired. Did very poorly with PT yesterday Objective Last 24 Hour Vital Signs Date Time Temp Pulse Resp B/P (MAP) Pulse Ox O2 Delivery O2 Flow Rate FiO2 09/11/18 11:58 98.1 63 20 138/84 (102) 98 09/11/18 09:00 Nasal Cannula 2.0 09/11/18 08:37 77 144/82 09/11/18 08:11 77 20 97 Nasal Cannula 2.0 28 09/11/18 07:59 74 20 Nasal Cannula 2.0 28 09/11/18 07:57 98 Nasal Cannula 2.0 28 09/11/18 07:57 Nasal Cannula 2.0 28 09/11/18 07:57 74 20 98 Nasal Cannula 2.0 28 09/11/18 07:53 96.9 61 20 144/82 (102) 98 09/11/18 07:35 65 09/11/18 04:00 62 09/11/18 04:00 97.5 75 18 131/64 (86) 96 09/11/18 00:00 97.7 72 18 134/72 (92) 95 09/11/18 00:00 61 09/10/18 21:37 63 20 95 Nasal Cannula 2.0 28 09/10/18 21:37 95 Nasal Cannula 2.0 28 09/10/18 21:37 Nasal Cannula 2.0 28 09/10/18 21:26 77 130/87 09/10/18 21:21 70 20 93 Nasal Cannula 2.0 28 09/10/18 21:00 Nasal Cannula 2.0 09/10/18 20:00 61 09/10/18 20:00 97.2 77 18 130/87 (101) 92 09/10/18 16:00 75 09/10/18 16:00 97.9 69 20 120/85 (97) 96 09/10/18 12:40 63 20 99 Nasal Cannula 2.0 28 09/10/18 12:22 70 20 97 Nasal Cannula 2.0 28 Intake and Output 09/10/18 09/11/18 19:00 07:00 Intake Total 580 ml Output Total 550 ml 700 ml Balance 30 ml -700 ml Free Water 50 ml IV Total 110 ml Tube Feeding 420 ml Output Urine Total 550 ml 700 ml Laboratory Tests 09/11/18 06:48: White Blood Count 13.1H, Red Blood Count 4.33L, Hemoglobin 12.4L, Hematocrit 39.1L, Mean Corpuscular Volume 90, Mean Corpuscular Hemoglobin 28.6, Mean Corpuscular Hemoglobin Concent 31.7L, Red Cell Distribution Width 13.9, Platelet Count 218, Mean Platelet Volume 6.9, Neutrophils (%) (Auto) 81.9H, Lymphocytes (%) (Auto) 9.0L, Monocytes (%) (Auto) 7.6, Eosinophils (%) (Auto) 0.9, Basophils (%) (Auto) 0.6, Prothrombin Time 16.7H, Prothromb Time International Ratio 1.6H, Sodium Level 145, Potassium Level 3.5, Chloride Level 109H, Carbon Dioxide Level 27, Anion Gap 9, Blood Urea Nitrogen 50H, Creatinine 1.1, Estimat Glomerular Filtration Rate , Glucose Level 130H, Calcium Level 8.8 , Pro-B-Type Natriuretic Peptide 3164H, Alpha Fetoprotein [Pending], Carcinoembryonic Antigen [Pending], CA 19-9 Antigen [Pending] Height (Feet): 5 Height (Inches): 9.00 Weight (Pounds): 196 General Appearance: alert, other - Weak Neck: normal alignment, supple Cardiovascular: normal rate, regular rhythm Respiratory/Chest: chest wall non-tender, no respiratory distress, no accessory muscle use, crackles/rales Abdomen: non tender, soft Neurologic: alert, responsive Oscar Chin MD Sep 11, 2018 12:19
--- NOTE | 2018-09-11 12:22 | Diagnostic Imaging Report ---
Indication: Dyspnea Technique: One view of the chest Comparison: 09/09/2018 Findings: The heart is enlarged. There is again demonstrated bilateral pleural effusions and bilateral interstitial and airspace edema. Left chest pacemaker is again demonstrated. Findings are unchanged Impression: Unchanged, over 2 days, findings as above.
--- NOTE | 2018-09-11 12:31 | NUR ---
DISCHARGE SWALLOW/SPEECH THERAPY SUMMARY: PATIENT SEEN FOR DYSPHAGIA, SEE SWALLOW EVAL AND MOD BARIUM SWALLOW STUDY REPORTS. PATIENT IS NPO AND HAS A PEG AT THIS TIME. WILL HOLD ON PO TRIALS AT THIS TIME PATIENT IS VERY TIRED. D/W HIS , THE RESULTS OF THE MODIFIED BARIUM SWALLOW STUDY AND F/UP THERAPY (WITH SOME PO TRIALS IF DESIRED). PER HIS , HE MAY GO HOME WITH HOSPICE CARE SINCE HE DOES NOT WANT TO GO TO [facility]. GOALS MET WITH STAFF EDUCATED IN ORAL CARE. PLAN: F/UP WITH [facility] FOR DYSPHAGIA MANAGEMENT AND TX CONTINUE WITH ORAL CARE. D/W RN FE SINCE EVELYN ON LUNCH
--- NOTE | 2018-09-11 15:03 | Nephrology Progress Note ---
Assessment/Plan Problem List: (1) RY (acute kidney injury) (2) Lung neoplasm (3) Dehydration (4) Pacemaker Assessment Acute renal Failure- Cr lowering to 1.3 Underlying CKD CHF ( Diastolic Dysfunction) with EjFx 55% Pacemaker status Atrial Fib HTN Bilateral Pleural effusion Hyperlipidemia BPH Suspected Aspiration ? Metastatic pulm and bone disease. h/o Thyroid carcinoma prior Thyroidectomy Plan family considering hospice discussed with on 09/08 K supplement monitor renal parameters avoid Nephrotoxics per orders intermediate goal?? Subjective ROS Limited/Unobtainable: No Constitutional: Reports: malaise Objective Objective Last 24 Hour Vital Signs Date Time Temp Pulse Resp B/P (MAP) Pulse Ox O2 Delivery O2 Flow Rate FiO2 09/11/18 13:28 74 20 97 Nasal Cannula 2.0 28 09/11/18 13:16 71 20 98 Nasal Cannula 2.0 28 09/11/18 11:58 98.1 63 20 138/84 (102) 98 09/11/18 09:00 Nasal Cannula 2.0 09/11/18 08:37 77 144/82 09/11/18 08:11 77 20 97 Nasal Cannula 2.0 28 09/11/18 07:59 74 20 Nasal Cannula 2.0 28 09/11/18 07:57 98 Nasal Cannula 2.0 28 09/11/18 07:57 Nasal Cannula 2.0 28 09/11/18 07:57 74 20 98 Nasal Cannula 2.0 28 09/11/18 07:53 96.9 61 20 144/82 (102) 98 09/11/18 07:35 65 09/11/18 04:00 62 09/11/18 04:00 97.5 75 18 131/64 (86) 96 09/11/18 00:00 97.7 72 18 134/72 (92) 95 09/11/18 00:00 61 09/10/18 21:37 63 20 95 Nasal Cannula 2.0 28 09/10/18 21:37 95 Nasal Cannula 2.0 28 09/10/18 21:37 Nasal Cannula 2.0 28 09/10/18 21:26 77 130/87 09/10/18 21:21 70 20 93 Nasal Cannula 2.0 28 09/10/18 21:00 Nasal Cannula 2.0 09/10/18 20:00 61 09/10/18 20:00 97.2 77 18 130/87 (101) 92 09/10/18 16:00 75 09/10/18 16:00 97.9 69 20 120/85 (97) 96 Intake and Output 09/10/18 09/11/18 19:00 07:00 Intake Total 580 ml Output Total 550 ml 700 ml Balance 30 ml -700 ml Free Water 50 ml IV Total 110 ml Tube Feeding 420 ml Output Urine Total 550 ml 700 ml Laboratory Tests 09/11/18 06:48: White Blood Count 13.1H, Red Blood Count 4.33L, Hemoglobin 12.4L, Hematocrit 39.1L, Mean Corpuscular Volume 90, Mean Corpuscular Hemoglobin 28.6, Mean Corpuscular Hemoglobin Concent 31.7L, Red Cell Distribution Width 13.9, Platelet Count 218, Mean Platelet Volume 6.9, Neutrophils (%) (Auto) 81.9H, Lymphocytes (%) (Auto) 9.0L, Monocytes (%) (Auto) 7.6, Eosinophils (%) (Auto) 0.9, Basophils (%) (Auto) 0.6, Prothrombin Time 16.7H, Prothromb Time International Ratio 1.6H, Sodium Level 145, Potassium Level 3.5, Chloride Level 109H, Carbon Dioxide Level 27, Anion Gap 9, Blood Urea Nitrogen 50H, Creatinine 1.1, Estimat Glomerular Filtration Rate , Glucose Level 130H, Calcium Level 8.8 , Pro-B-Type Natriuretic Peptide 3164H, Alpha Fetoprotein [Pending], Carcinoembryonic Antigen [Pending], CA 19-9 Antigen [Pending] Height (Feet): 5 Height (Inches): 9.00 Weight (Pounds): 196 General Appearance: no apparent distress Cardiovascular: normal rate Respiratory/Chest: decreased breath sounds Abdomen: soft Objective no change Dmitri Medina MD Sep 11, 2018 15:03
[2018-09-11 15:45] VITALS: BP 117/67
--- NOTE | 2018-09-11 16:08 | Cardiac Electrophysiology PN ---
Assessment/Plan Assessment/Plan 1. CHF due to diastolic dysfunction. Echocardiogram EF 55% BNP is more than 1700. On Coreg 3.125 mg b.i.d. Off Lasix and losartan for renal failure 2. Atrial fibrillation. Rate controlled. Off Coumadin for hemorrhagic pleural effusion 3. Status post Biotronik pacemaker with Nl Fx 4. History of thyroid cancer, status post thyroid surgery. 5. Hypertension. Continue Coreg. 6. Hemorrhagic Right pleural effusion, Destructive bilateral pleural mass again demonstrated. FU Dr Pantoja. S/P Chest CT and Right thoracentesis. Cytology is pending 7. Dysphagia, S/P PEG 09/07/18 DW RN and at bedside Subjective Subjective In atrial fib with controlled rate and intermittent V pacing.Alert in NAD, at bedside Objective Last 24 Hour Vital Signs Date Time Temp Pulse Resp B/P (MAP) Pulse Ox O2 Delivery O2 Flow Rate FiO2 09/11/18 15:45 96.4 62 20 117/67 (84) 95 09/11/18 13:28 74 20 97 Nasal Cannula 2.0 28 09/11/18 13:16 71 20 98 Nasal Cannula 2.0 28 09/11/18 11:58 98.1 63 20 138/84 (102) 98 09/11/18 09:00 Nasal Cannula 2.0 09/11/18 08:37 77 144/82 09/11/18 08:11 77 20 97 Nasal Cannula 2.0 28 09/11/18 07:59 74 20 Nasal Cannula 2.0 28 09/11/18 07:57 98 Nasal Cannula 2.0 28 09/11/18 07:57 Nasal Cannula 2.0 28 09/11/18 07:57 74 20 98 Nasal Cannula 2.0 28 09/11/18 07:53 96.9 61 20 144/82 (102) 98 09/11/18 07:35 65 09/11/18 04:00 62 09/11/18 04:00 97.5 75 18 131/64 (86) 96 09/11/18 00:00 97.7 72 18 134/72 (92) 95 09/11/18 00:00 61 09/10/18 21:37 63 20 95 Nasal Cannula 2.0 28 09/10/18 21:37 95 Nasal Cannula 2.0 28 09/10/18 21:37 Nasal Cannula 2.0 28 09/10/18 21:26 77 130/87 09/10/18 21:21 70 20 93 Nasal Cannula 2.0 28 09/10/18 21:00 Nasal Cannula 2.0 09/10/18 20:00 61 09/10/18 20:00 97.2 77 18 130/87 (101) 92 Intake and Output 09/10/18 09/11/18 18:59 06:59 Intake Total 580 ml Output Total 550 ml 700 ml Balance 30 ml -700 ml Free Water 50 ml IV Total 110 ml Tube Feeding 420 ml Output Urine Total 550 ml 700 ml Laboratory Tests Test 09/11/18 06:48 White Blood Count 13.1 K/UL (4.8-10.8) H Red Blood Count 4.33 M/UL (4.70-6.10) L Hemoglobin 12.4 G/DL (14.2-18.0) L Hematocrit 39.1 % (42.0-52.0) L Mean Corpuscular Volume 90 FL (80-99) Mean Corpuscular Hemoglobin 28.6 PG (27.0-31.0) Mean Corpuscular Hemoglobin Concent 31.7 G/DL (32.0-36.0) L Red Cell Distribution Width 13.9 % (11.6-14.8) Platelet Count 218 K/UL (150-450) Mean Platelet Volume 6.9 FL (6.5-10.1) Neutrophils (%) (Auto) 81.9 % (45.0-75.0) H Lymphocytes (%) (Auto) 9.0 % (20.0-45.0) L Monocytes (%) (Auto) 7.6 % (1.0-10.0) Eosinophils (%) (Auto) 0.9 % (0.0-3.0) Basophils (%) (Auto) 0.6 % (0.0-2.0) Prothrombin Time 16.7 SEC (9.30-11.50) H Prothromb Time International Ratio 1.6 (0.9-1.1) H Sodium Level 145 MMOL/L (136-145) Potassium Level 3.5 MMOL/L (3.5-5.1) Chloride Level 109 MMOL/L (98-107) H Carbon Dioxide Level 27 MMOL/L (21-32) Anion Gap 9 mmol/L (5-15) Blood Urea Nitrogen 50 mg/dL (7-18) H Creatinine 1.1 MG/DL (0.55-1.30) Estimat Glomerular Filtration Rate mL/min (>60) Glucose Level 130 MG/DL (74-106) H Calcium Level 8.8 MG/DL (8.5-10.1) Pro-B-Type Natriuretic Peptide 3164 pg/mL (0-125) H Alpha Fetoprotein Pending Carcinoembryonic Antigen Pending CA 19-9 Antigen Pending Microbiology Date/Time Source Procedure Growth Status 09/10/18 21:50 Sputum Gram Stain - Final Resulted 09/10/18 21:50 Sputum Sputum Culture Pending Resulted Objective HEAD AND NECK: No JVD. LUNGS: Decreased breath sounds. CARDIOVASCULAR: Irregular S1 and S2 with soft systolic murmur. Pacemaker in the left subclavian. ABDOMEN: Soft.PEG in place EXTREMITIES: 1+ pitting edema. Jere Faustin MD Sep 11, 2018 16:07
[2018-09-11] MEDS: Warfarin Sodium 4mg GT SCH (17:00)
--- NOTE | 2018-09-11 17:24 | NUR ---
NURSE NOTES: Dr. Pantoja ordered a thoracentesis for the patient and the patient is on Coumadin. The Coumadin needs to be held for 3-5 days before the thoracentesis can be completed. I left a message for the doctor asking if he wants to hold the Coumadin or do a Coumadin reversal. I will await a return phone call.
--- NOTE | 2018-09-11 19:27 | NUR ---
HAND-OFF: Report given to AMERICA Rosen.
--- NOTE | 2018-09-11 19:30 | NUR ---
NURSE NOTES: Got report from Diana CROSS. Pt in stable condition. Denies any pain. No s/s of distress noted. Pt resting in bed comfortably. Bed in low and locked position, call light within reach, bedside table within reach. continue to monitor.
[2018-09-11 20:00] VITALS: BP 116/60
[2018-09-11] MEDS ORDERED: Phytonadione 1 MG in D5W 55 ML IVPB SCH (20:00)
--- NOTE | 2018-09-11 20:29 | General Progress Note ---
Assessment/Plan Assessment/Plan Assessment/Plan # Thyroid carcinoma and on CT scan; multiple osseous destructive lesions as detailed in ct scan ,likely osseous metastases given known history of thyroid carcinoma. Multiple pulmonary and pleural nodules, likewise presumably on the basis of metastatic disease. History of thyroid cancer, status post thyroid surgery. --> review outside imaging and treatments patient has received --> outside labs and pathology to be reviewed --> defer to outpatient oncologist for further care, patient requires followup --> radioactive iodine scan as outpatient, consider tumor testing for specific molecular targets # Leukocytosis. Likely related to underlying infection versus reactive process. ( currently resolved) --> Peripheral has been reviewed --> Medications have been reviewed --> Imaging has been reviewed --> Blood cultures and urine cultures prn --> has been started on abx, empiric treatment # Right base destructive lung mass, Pulmonology consult appreciated --> pulmr ecs appreciated --> thora on prn basis # Acquired hypothyroidism, continue levothyroxine # Exacerbation of congestive heart failure, Continue Lasix 40 mg IV bid, Coreg 3.125 mg b.i.d. as well as losartan 50 mg daily. -->appreciate cardiology recs # Atrial fibrillation, the rate is currently controlled and is on anticoagulation with Coumadin with a therapeutic INR. # Status post Biotronik pacemaker. # Hypertension, Continue current regimen Lasix, losartan, and Coreg. # Hypokalemia # Polyneuropathy, continue gabapentin # BPH, continue Proscar and Flomax The timing of this note does not necessarily reflect the time of the patient was seen. Greatly appreciate consultation! Subjective Constitutional: Denies: no symptoms, chills, diaphoresis, fever, malaise, weakness, other HEENT: Denies: no symptoms, eye pain, blurred vision, tearing, double vision, ear pain, ear discharge, nose pain, nose congestion, throat pain, throat swelling, mouth pain, mouth swelling, other Cardiovascular: Denies: no symptoms, chest pain, edema, irregular heart rate, lightheadedness, palpitations, syncope, other Respiratory: Denies: no symptoms, cough, orthopnea, shortness of breath, SOB with excertion, SOB at rest, sputum, stridor, wheezing, other Gastrointestinal/Abdominal: Denies: no symptoms, abdomen distended, abdominal pain, black stools, tarry stools, blood in stool, constipated, diarrhea, difficulty swallowing, nausea, poor appetite, poor fluid intake, rectal bleeding , vomiting, other Genitourinary: Denies: no symptoms, burning, discharge, frequency, flank pain, hematuria, incontinence, pain, urgency, other Neurologic/Psychiatric: Denies: no symptoms, anxiety, depressed, emotional problems, headache, numbness, paresthesia, pre-existing deficit, seizure, tingling, tremors, weakness, other Endocrine: Denies: no symptoms, excessive sweating, flushing, intolerance to cold, intolerance to heat, increased hunger, increased thirst, increased urine, unexplained weight gain, unexplained weight loss, other Hematologic/Lymphatic: Denies: no symptoms, anemia, easy bleeding, easy bruising, other Allergies: Coded Allergies: AZITHROMYCIN (Verified Allergy, Unknown, 09/04/18) PENICILLINS (Verified Allergy, Unknown, 09/03/18) Subjective 09/05: In atrial fib with V pacing. Rate controlled. Still NPO. Failed swallow eval. 09/06: thora completed successfuly on the right side, 0.8L removed 09/07: wbc trending down, S/P PEG placement and Right thoracentesis today, no events 09/09: seen by bedside, no acute distress. 09/10: seen by beside, Improved leukocytosis, cont abx, swallow eval noted, tube feeds via PEG 09/11: Pt is resting in bed, S/p right thoracentesis with 800 ml bloody fluid removed, lethargic, wbc trending up Objective Last 24 Hour Vital Signs Date Time Temp Pulse Resp B/P (MAP) Pulse Ox O2 Delivery O2 Flow Rate FiO2 09/11/18 16:11 68 09/11/18 15:45 96.4 62 20 117/67 (84) 95 09/11/18 13:28 74 20 97 Nasal Cannula 2.0 28 09/11/18 13:16 71 20 98 Nasal Cannula 2.0 28 09/11/18 11:58 98.1 63 20 138/84 (102) 98 09/11/18 11:48 65 09/11/18 09:00 Nasal Cannula 2.0 09/11/18 08:37 77 144/82 09/11/18 08:11 77 20 97 Nasal Cannula 2.0 28 09/11/18 07:59 74 20 Nasal Cannula 2.0 28 09/11/18 07:57 98 Nasal Cannula 2.0 28 09/11/18 07:57 Nasal Cannula 2.0 28 09/11/18 07:57 74 20 98 Nasal Cannula 2.0 28 09/11/18 07:53 96.9 61 20 144/82 (102) 98 09/11/18 07:35 65 09/11/18 04:00 62 09/11/18 04:00 97.5 75 18 131/64 (86) 96 09/11/18 00:00 97.7 72 18 134/72 (92) 95 09/11/18 00:00 61 09/10/18 21:37 63 20 95 Nasal Cannula 2.0 28 09/10/18 21:37 95 Nasal Cannula 2.0 28 09/10/18 21:37 Nasal Cannula 2.0 28 09/10/18 21:26 77 130/87 09/10/18 21:21 70 20 93 Nasal Cannula 2.0 28 09/10/18 21:00 Nasal Cannula 2.0 Intake and Output 09/10/18 09/11/18 18:59 06:59 Intake Total 580 ml Output Total 550 ml 700 ml Balance 30 ml -700 ml Free Water 50 ml IV Total 110 ml Tube Feeding 420 ml Output Urine Total 550 ml 700 ml Laboratory Tests 09/11/18 06:48: White Blood Count 13.1H, Red Blood Count 4.33L, Hemoglobin 12.4L, Hematocrit 39.1L, Mean Corpuscular Volume 90, Mean Corpuscular Hemoglobin 28.6, Mean Corpuscular Hemoglobin Concent 31.7L, Red Cell Distribution Width 13.9, Platelet Count 218, Mean Platelet Volume 6.9, Neutrophils (%) (Auto) 81.9H, Lymphocytes (%) (Auto) 9.0L, Monocytes (%) (Auto) 7.6, Eosinophils (%) (Auto) 0.9, Basophils (%) (Auto) 0.6, Prothrombin Time 16.7H, Prothromb Time International Ratio 1.6H, Sodium Level 145, Potassium Level 3.5, Chloride Level 109H, Carbon Dioxide Level 27, Anion Gap 9, Blood Urea Nitrogen 50H, Creatinine 1.1, Estimat Glomerular Filtration Rate , Glucose Level 130H, Calcium Level 8.8 , Pro-B-Type Natriuretic Peptide 3164H, Alpha Fetoprotein [Pending], Carcinoembryonic Antigen [Pending], CA 19-9 Antigen [Pending] Height (Feet): 5 Height (Inches): 9.00 Weight (Pounds): 196 Objective Physical Exam General Appearance: no apparent distress, alert HEENT: normocephalic, atraumatic Neck: non-tender, normal alignment, supple Respiratory/Chest: ++ crackles Cardiovascular/Chest: normal peripheral pulses, normal rate Abdomen: normal bowel sounds, non tender, PEG++ Extremities: trace edema Skin Exam: normal pigmentation, warm/dry 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
[2018-09-12 00:05] VITALS: BP 135/90
[2018-09-12] MEDS: Morphine Sulfate 2mg/ml Inj(IV/IM USE ONLY) IVP PRN (01:18)
[2018-09-12] MEDS: Zolpidem 5mg tab GT PRN ×2 (04:28→22:00)
[2018-09-12 04:34] VITALS: BP 125/89
[2018-09-12] MEDS: metroNIDAZOLE 500mg tab GT SCH ×3 (06:17→21:55)
--- NOTE | 2018-09-12 06:53 | NUR ---
DISCHARGE PLANNING PATIENT HAS BEEN REFERRED TO [facility] T: [phone] F: [phone] AWAITING ACCEPTANCE
--- NOTE | 2018-09-12 07:15 | NUR ---
HAND-OFF: Report given to rosa maria Morin. endorsed plan of care.
--- NOTE | 2018-09-12 07:16 | NUR ---
NURSE NOTES: I received the patient awake and resting in bed. Patient alert and oriented x4. Patient repositioned in bed. He does not display any signs of distress or SOB. Bed in the lowest position and call light within reach. I will continue to monitor the patient and implement care.
[2018-09-12 08:00] VITALS: BP 160/77
[2018-09-12 08:17] LABS: BASOPHILS % (AUTO) 0.6 % (0.0-2.0); EOSINOPHILS % (AUTO) 0.9 % (0.0-3.0); HEMATOCRIT 38.6 % (42.0-52.0); HEMOGLOBIN 12.3 G/DL (14.2-18.0); LYMPHOCYTES % (AUTO) 8.3 % (20.0-45.0); MEAN CORPUSCULAR VOLUME 91 FL (80-99); MONOCYTES % (AUTO) 6.2 % (1.0-10.0); NEUTROPHILS % (AUTO) 83.9 % (45.0-75.0); PLATELET COUNT 229 K/UL (150-450); RED BLOOD COUNT 4.26 M/UL (4.70-6.10); RED CELL DISTRIBUTION WIDTH 14.3 % (11.6-14.8); WHITE BLOOD COUNT 14.6 K/UL (4.8-10.8)
[2018-09-12 08:18] LABS: INR 1.6 (0.9-1.1)
[2018-09-12] MEDS: Ipratropium 0.02% Inh Soln 2.5ml UD HHN PRN ×3 (08:34→20:44)
[2018-09-12] MEDS: Acetylcysteine 20% Soln 4ml HHN SCH ×3 (08:35→20:44)
[2018-09-12 09:02] LABS: ANION GAP 10 mmol/L (5-15); BLOOD UREA NITROGEN 52 mg/dL (7-18); CALCIUM 8.8 MG/DL (8.5-10.1); CARBON DIOXIDE 27 MMOL/L (21-32); CHLORIDE 110 MMOL/L (98-107); CREATININE 1.1 MG/DL (0.55-1.30); POTASSIUM 3.5 MMOL/L (3.5-5.1); SODIUM 147 MMOL/L (136-145)
[2018-09-12] MEDS: Docusate 100mg/10ml Liq GT SCH (09:24)
[2018-09-12] MEDS: Sennosides 8.6mg tab GT SCH ×2 (09:24→17:07)
[2018-09-12] MEDS: Pantoprazole Inj IVP SCH ×2 (09:25→21:54)
[2018-09-12] MEDS: Tamsulosin 0.4mg cap ORAL SCH ×2 (09:25→21:54)
[2018-09-12] MEDS: Gabapentin 300 MG/6 ML Soln GT SCH (09:29)
--- NOTE | 2018-09-12 09:36 | Infectious Diseases Prog Note ---
Assessment/Plan Assessment/Plan antibiotics : cefepime, flagyl A 1. ? pneumonia 2. ? cholecystitis 3. leucocytosis resolved 4. pleural effusion 5. renal failure 6. thyroid cancer 7. s/p GT P 1. continue cefepime, flagyl 2. will follow up cultures Subjective ROS Limited/Unobtainable: Yes Allergies: Coded Allergies: AZITHROMYCIN (Verified Allergy, Unknown, 09/04/18) PENICILLINS (Verified Allergy, Unknown, 09/03/18) Objective Vital Signs Last 24 Hour Vital Signs Date Time Temp Pulse Resp B/P (MAP) Pulse Ox O2 Delivery O2 Flow Rate FiO2 09/12/18 09:24 90 160/77 09/12/18 08:47 Nasal Cannula 2.0 09/12/18 08:39 Nasal Cannula 2.0 28 09/12/18 08:39 96 Nasal Cannula 2.0 28 09/12/18 08:38 90 20 96 Nasal Cannula 2.0 28 09/12/18 08:00 97.9 64 18 160/77 (104) 96 09/12/18 04:47 72 09/12/18 04:34 97.7 76 20 125/89 (101) 96 09/12/18 02:00 98.1 09/12/18 00:37 62 09/12/18 00:05 98.1 67 20 135/90 (105) 99 09/11/18 21:00 Nasal Cannula 2.0 09/11/18 21:00 76 116/60 09/11/18 20:00 63 09/11/18 20:00 98.0 76 20 116/60 (78) 96 09/11/18 19:44 93 20 100 Nasal Cannula 2.0 28 09/11/18 19:34 93 20 99 Nasal Cannula 2.0 28 09/11/18 19:32 99 Nasal Cannula 2.0 28 09/11/18 19:32 Nasal Cannula 2.0 28 09/11/18 16:11 68 09/11/18 15:45 96.4 62 20 117/67 (84) 95 09/11/18 13:28 74 20 97 Nasal Cannula 2.0 28 09/11/18 13:16 71 20 98 Nasal Cannula 2.0 28 09/11/18 11:58 98.1 63 20 138/84 (102) 98 09/11/18 11:48 65 Height (Feet): 5 Height (Inches): 9.00 Weight (Pounds): 190 Respiratory/Chest: lungs clear Cardiovascular: normal rate, regular rhythm, no gallop/murmur Abdomen: soft, non tender, other - GT Extremities: no edema Microbiology Date/Time Source Procedure Growth Status 09/10/18 21:50 Sputum Gram Stain - Final Resulted 09/10/18 21:50 Sputum Sputum Culture Pending Resulted Laboratory Tests Test 09/12/18 06:05 White Blood Count 14.6 K/UL (4.8-10.8) H Red Blood Count 4.26 M/UL (4.70-6.10) L Hemoglobin 12.3 G/DL (14.2-18.0) L Hematocrit 38.6 % (42.0-52.0) L Mean Corpuscular Volume 91 FL (80-99) Mean Corpuscular Hemoglobin 28.8 PG (27.0-31.0) Mean Corpuscular Hemoglobin Concent 31.8 G/DL (32.0-36.0) L Red Cell Distribution Width 14.3 % (11.6-14.8) Platelet Count 229 K/UL (150-450) Mean Platelet Volume 6.1 FL (6.5-10.1) L Neutrophils (%) (Auto) 83.9 % (45.0-75.0) H Lymphocytes (%) (Auto) 8.3 % (20.0-45.0) L Monocytes (%) (Auto) 6.2 % (1.0-10.0) Eosinophils (%) (Auto) 0.9 % (0.0-3.0) Basophils (%) (Auto) 0.6 % (0.0-2.0) Prothrombin Time 16.3 SEC (9.30-11.50) H Prothromb Time International Ratio 1.6 (0.9-1.1) H Sodium Level 147 MMOL/L (136-145) H Potassium Level 3.5 MMOL/L (3.5-5.1) Chloride Level 110 MMOL/L (98-107) H Carbon Dioxide Level 27 MMOL/L (21-32) Anion Gap 10 mmol/L (5-15) Blood Urea Nitrogen 52 mg/dL (7-18) H Creatinine 1.1 MG/DL (0.55-1.30) Estimat Glomerular Filtration Rate mL/min (>60) Glucose Level 152 MG/DL (74-106) H Calcium Level 8.8 MG/DL (8.5-10.1) Current Medications Medications (Trade) Dose Ordered Sig/Mario Route PRN Reason Start Time Stop Time Status Last Admin Dose Admin Acetaminophen (Tylenol) 650 mg Q4H PRN GT Mild Pain/Temp > 100.5 09/07/18 20:15 10/07/18 20:14 Acetylcysteine (Mucomyst) 200 mg TIDRT HHN 09/09/18 01:00 10/07/18 18:59 09/12/18 08:35 Bisacodyl (Dulcolax) 10 mg HSPRN PRN RECTAL Constipation 09/03/18 12:15 10/03/18 10:59 Carvedilol (Coreg) 3.125 mg EVERY 12 HOURS GT 09/09/18 09:00 10/03/18 12:14 09/12/18 09:24 Cefepime HCl 1 gm/ Dextrose 55 ml @ 110 mls/hr Q24H IVPB 09/08/18 11:00 09/15/18 10:59 09/11/18 11:16 Dextrose (Dextrose 50%) 25 ml Q30M PRN IV Hypoglycemia 09/03/18 11:00 10/03/18 10:59 Dextrose (Dextrose 50%) 50 ml Q30M PRN IV Hypoglycemia 09/03/18 11:00 10/03/18 10:59 Docusate Sodium (Colace) 100 mg DAILY GT 09/11/18 09:00 10/11/18 08:59 09/12/18 09:24 Finasteride (Proscar) 5 mg DAILY ORAL 09/04/18 09:00 10/04/18 08:59 09/12/18 09:24 Gabapentin (Neurontin) 300 mg DAILY GT 09/09/18 10:00 10/09/18 09:59 09/12/18 09:29 Ipratropium [place] (Atrovent) 500 mcg Q6H PRN HHN Shortness of Breath 09/09/18 20:00 09/14/18 19:59 09/12/18 08:34 Levothyroxine Sodium (Synthroid) 150 mcg Q24H GT 09/10/18 06:30 10/04/18 06:29 09/12/18 06:17 Metronidazole (Flagyl) 500 mg Q8HR GT 09/09/18 14:00 09/13/18 13:59 09/12/18 06:17 Morphine Sulfate (Morphine Sulfate) 1 mg Q4H PRN IVP Severe Pain (Pain Scale 7-10) 09/07/18 21:00 09/14/18 20:59 09/12/18 01:18 Ondansetron HCl (Zofran) 4 mg Q6H PRN IVP Nausea & Vomiting 09/03/18 11:00 10/03/18 10:59 Pantoprazole (Protonix) 40 mg EVERY 12 HOURS IVP 09/08/18 21:00 10/08/18 20:59 09/12/18 09:25 Sennosides (Senokot) 17.2 mg BID GT 09/09/18 09:00 10/03/18 17:59 09/12/18 09:24 Tamsulosin HCl (Flomax) 0.4 mg Q12HR ORAL 09/07/18 09:00 10/07/18 08:59 09/12/18 09:25 Zolpidem Tartrate (Ambien) 5 mg HSPRN PRN GT Insomnia 09/12/18 00:30 09/19/18 00:29 09/12/18 04:28 Joselin Juarez MD Sep 12, 2018 09:36
--- NOTE | 2018-09-12 09:49 | General Progress Note ---
Assessment/Plan Assessment/Plan #Acute on chronic diastolic CHF #Coronary artery disease #Permanent atrial fibrillation s/p PPM for SSS #HTN #Hyperlipidemia -stable respiratory status -hold Lasix -hold eplerenone -Continue Coreg -warfarin reversed -cardiology following #Leukocytosis #Suspected aspiration pneumonia #Severe Dysphagia -seen by CLINICAL PHYSICIAN ASSISTANT and Pulm -seen by ID -continue meropenem and Flagyl, can transition to oral antibiotic upon discharge -leukocytosis resolved -HIDA scan equivocal -s/p PEG -aspiration precautions -NPO #RY -resolved -continue to hold losartan and Lasix -BMP in AM -Nephrology following #Hypokalemia -improved -monitor BMO #Thyroid cancer #Metastatic disease and mod-large right pleural effusion seen on chest CT #Acquired hypothyroidism -continue levothyroxine -Seen by Pulmonology -Right thoracentesis done with 800 ml blood fluid removed -plan for left thora today #Polyneuropathy -continue gabapentin #BPH -continue Proscar and Flomax VTE PPx SCD full code Dispo planning, case discussed with director of casework, plan for RC tomorrow Subjective Date patient seen: Sep 12, 2018 Time patient seen: 09:45 ROS Limited/Unobtainable: No Cardiovascular: Denies: chest pain, edema Respiratory: Denies: cough Gastrointestinal/Abdominal: Denies: abdomen distended, abdominal pain Allergies: Coded Allergies: AZITHROMYCIN (Verified Allergy, Unknown, 09/04/18) PENICILLINS (Verified Allergy, Unknown, 09/03/18) Subjective Medicine follow up for acute on chronic dCHF, lung mass, leukocytosis, suspected aspiration pneumonia, RY S/p PEG placement, on tube feeds S/p right thoracentesis with 800 ml bloody fluid removed. No new complaints Objective Last 24 Hour Vital Signs Date Time Temp Pulse Resp B/P (MAP) Pulse Ox O2 Delivery O2 Flow Rate FiO2 09/12/18 09:24 90 160/77 09/12/18 08:47 Nasal Cannula 2.0 09/12/18 08:39 Nasal Cannula 2.0 28 09/12/18 08:39 96 Nasal Cannula 2.0 28 09/12/18 08:38 90 20 96 Nasal Cannula 2.0 28 09/12/18 08:00 97.9 64 18 160/77 (104) 96 09/12/18 04:47 72 09/12/18 04:34 97.7 76 20 125/89 (101) 96 09/12/18 02:00 98.1 09/12/18 00:37 62 09/12/18 00:05 98.1 67 20 135/90 (105) 99 09/11/18 21:00 Nasal Cannula 2.0 09/11/18 21:00 76 116/60 09/11/18 20:00 63 09/11/18 20:00 98.0 76 20 116/60 (78) 96 09/11/18 19:44 93 20 100 Nasal Cannula 2.0 28 09/11/18 19:34 93 20 99 Nasal Cannula 2.0 28 09/11/18 19:32 99 Nasal Cannula 2.0 28 09/11/18 19:32 Nasal Cannula 2.0 28 09/11/18 16:11 68 09/11/18 15:45 96.4 62 20 117/67 (84) 95 09/11/18 13:28 74 20 97 Nasal Cannula 2.0 28 09/11/18 13:16 71 20 98 Nasal Cannula 2.0 28 09/11/18 11:58 98.1 63 20 138/84 (102) 98 09/11/18 11:48 65 Intake and Output 09/11/18 09/12/18 19:00 07:00 Intake Total 840 ml Output Total 750 ml Balance 90 ml Free Water 180 ml Tube Feeding 660 ml Output Urine Total 750 ml Laboratory Tests 09/12/18 06:05: White Blood Count 14.6H, Red Blood Count 4.26L, Hemoglobin 12.3L, Hematocrit 38.6L, Mean Corpuscular Volume 91, Mean Corpuscular Hemoglobin 28.8, Mean Corpuscular Hemoglobin Concent 31.8L, Red Cell Distribution Width 14.3, Platelet Count 229, Mean Platelet Volume 6.1L, Neutrophils (%) (Auto) 83.9H, Lymphocytes (%) (Auto) 8.3L, Monocytes (%) (Auto) 6.2, Eosinophils (%) (Auto) 0.9, Basophils (%) (Auto) 0.6, Prothrombin Time 16.3H, Prothromb Time International Ratio 1.6H, Sodium Level 147H, Potassium Level 3.5, Chloride Level 110H, Carbon Dioxide Level 27, Anion Gap 10, Blood Urea Nitrogen 52H, Creatinine 1.1, Estimat Glomerular Filtration Rate , Glucose Level 152H, Calcium Level 8.8 Height (Feet): 5 Height (Inches): 9.00 Weight (Pounds): 190 General Appearance: no apparent distress, alert Neck: normal alignment, supple Cardiovascular: normal rate, regular rhythm Respiratory/Chest: lungs clear, normal breath sounds, no respiratory distress, no accessory muscle use Oscar Chin MD Sep 12, 2018 09:49
--- NOTE | 2018-09-12 10:03 | Pulmonology Progress Note ---
Assessment/Plan Assessment/Plan Problem List: 1. Respiratory insufficiency 2. Acute on chronic diastolic CHF 3. Leukocytosis 4. Bilateral pleural effusions -thoracentesis with bloody output 5. Possible pneumonia 6. 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 CAD 10. HTN 11. Oropharyngeal dsyphagia 12. RY 13. CT chest with evidence of destructive rib lesions bilaterally concerning for metastatic disease Plan: -09/07 pleural fluid cytology negative -repeat thoracentesis eval for other side -renal function improved, CXR with pulmonary edema and effusion -may benefit from qod lasix -Abx per ID -swallow eval noted, tube feeds via PEG ' Case d/w Dr. Cooper Subjective ROS Limited/Unobtainable: Yes Interval Events: Thora planned today. Cytology from last week negative. Denies dyspnea Allergies: Coded Allergies: AZITHROMYCIN (Verified Allergy, Unknown, 09/04/18) PENICILLINS (Verified Allergy, Unknown, 09/03/18) Objective Last 24 Hour Vital Signs Date Time Temp Pulse Resp B/P (MAP) Pulse Ox O2 Delivery O2 Flow Rate FiO2 09/12/18 09:24 90 160/77 09/12/18 08:47 Nasal Cannula 2.0 09/12/18 08:39 Nasal Cannula 2.0 28 09/12/18 08:39 96 Nasal Cannula 2.0 28 09/12/18 08:38 90 20 96 Nasal Cannula 2.0 28 09/12/18 08:00 97.9 64 18 160/77 (104) 96 09/12/18 04:47 72 09/12/18 04:34 97.7 76 20 125/89 (101) 96 09/12/18 02:00 98.1 09/12/18 00:37 62 09/12/18 00:05 98.1 67 20 135/90 (105) 99 09/11/18 21:00 Nasal Cannula 2.0 09/11/18 21:00 76 116/60 09/11/18 20:00 63 09/11/18 20:00 98.0 76 20 116/60 (78) 96 09/11/18 19:44 93 20 100 Nasal Cannula 2.0 28 09/11/18 19:34 93 20 99 Nasal Cannula 2.0 28 09/11/18 19:32 99 Nasal Cannula 2.0 28 09/11/18 19:32 Nasal Cannula 2.0 28 09/11/18 16:11 68 09/11/18 15:45 96.4 62 20 117/67 (84) 95 09/11/18 13:28 74 20 97 Nasal Cannula 2.0 28 09/11/18 13:16 71 20 98 Nasal Cannula 2.0 28 09/11/18 11:58 98.1 63 20 138/84 (102) 98 09/11/18 11:48 65 Intake and Output 09/11/18 09/12/18 19:00 07:00 Intake Total 840 ml Output Total 750 ml Balance 90 ml Free Water 180 ml Tube Feeding 660 ml Output Urine Total 750 ml General Appearance: WD/WN HEENT: normocephalic, mucous membranes moist Respiratory/Chest: decreased breath sounds Cardiovascular: normal rate, regular rhythm Abdomen: soft, non tender Extremities: no edema Neurologic/Psychiatric: responsive Microbiology Date/Time Source Procedure Growth Status 09/10/18 21:50 Sputum Gram Stain - Final Resulted 09/10/18 21:50 Sputum Sputum Culture Pending Resulted Laboratory Tests 09/12/18 06:05: White Blood Count 14.6H, Red Blood Count 4.26L, Hemoglobin 12.3L, Hematocrit 38.6L, Mean Corpuscular Volume 91, Mean Corpuscular Hemoglobin 28.8, Mean Corpuscular Hemoglobin Concent 31.8L, Red Cell Distribution Width 14.3, Platelet Count 229, Mean Platelet Volume 6.1L, Neutrophils (%) (Auto) 83.9H, Lymphocytes (%) (Auto) 8.3L, Monocytes (%) (Auto) 6.2, Eosinophils (%) (Auto) 0.9, Basophils (%) (Auto) 0.6, Prothrombin Time 16.3H, Prothromb Time International Ratio 1.6H, Sodium Level 147H, Potassium Level 3.5, Chloride Level 110H, Carbon Dioxide Level 27, Anion Gap 10, Blood Urea Nitrogen 52H, Creatinine 1.1, Estimat Glomerular Filtration Rate , Glucose Level 152H, Calcium Level 8.8 Current Medications Medications (Trade) Dose Ordered Sig/Mario Route PRN Reason Start Time Stop Time Status Last Admin Dose Admin Acetaminophen (Tylenol) 650 mg Q4H PRN GT Mild Pain/Temp > 100.5 09/07/18 20:15 10/07/18 20:14 Acetylcysteine (Mucomyst) 200 mg TIDRT HHN 09/09/18 01:00 10/07/18 18:59 09/12/18 08:35 Bisacodyl (Dulcolax) 10 mg HSPRN PRN RECTAL Constipation 09/03/18 12:15 10/03/18 10:59 Carvedilol (Coreg) 3.125 mg EVERY 12 HOURS GT 09/09/18 09:00 10/03/18 12:14 09/12/18 09:24 Cefepime HCl 1 gm/ Dextrose 55 ml @ 110 mls/hr Q24H IVPB 09/08/18 11:00 09/15/18 10:59 09/11/18 11:16 Dextrose (Dextrose 50%) 25 ml Q30M PRN IV Hypoglycemia 09/03/18 11:00 10/03/18 10:59 Dextrose (Dextrose 50%) 50 ml Q30M PRN IV Hypoglycemia 09/03/18 11:00 10/03/18 10:59 Docusate Sodium (Colace) 100 mg DAILY GT 09/11/18 09:00 10/11/18 08:59 09/12/18 09:24 Finasteride (Proscar) 5 mg DAILY ORAL 09/04/18 09:00 10/04/18 08:59 09/12/18 09:24 Gabapentin (Neurontin) 300 mg DAILY GT 09/09/18 10:00 10/09/18 09:59 09/12/18 09:29 Ipratropium [place] (Atrovent) 500 mcg Q6H PRN HHN Shortness of Breath 09/09/18 20:00 09/14/18 19:59 09/12/18 08:34 Levothyroxine Sodium (Synthroid) 150 mcg Q24H GT 09/10/18 06:30 10/04/18 06:29 09/12/18 06:17 Metronidazole (Flagyl) 500 mg Q8HR GT 09/12/18 14:00 09/16/18 13:59 Morphine Sulfate (Morphine Sulfate) 1 mg Q4H PRN IVP Severe Pain (Pain Scale 7-10) 09/07/18 21:00 09/14/18 20:59 09/12/18 01:18 Ondansetron HCl (Zofran) 4 mg Q6H PRN IVP Nausea & Vomiting 09/03/18 11:00 10/03/18 10:59 Pantoprazole (Protonix) 40 mg EVERY 12 HOURS IVP 09/08/18 21:00 10/08/18 20:59 09/12/18 09:25 Sennosides (Senokot) 17.2 mg BID GT 09/09/18 09:00 10/03/18 17:59 09/12/18 09:24 Tamsulosin HCl (Flomax) 0.4 mg Q12HR ORAL 09/07/18 09:00 10/07/18 08:59 09/12/18 09:25 Zolpidem Tartrate (Ambien) 5 mg HSPRN PRN GT Insomnia 09/12/18 00:30 09/19/18 00:29 09/12/18 04:28 Joel Pantoja MD Sep 12, 2018 10:03
--- NOTE | 2018-09-12 10:15 | GI Progress Note ---
Assessment/Plan Problems: (1) Encounter for PEG (percutaneous endoscopic gastrostomy) ICD Codes: Z43.1 - Encounter for attention to gastrostomy SNOMED: 051104458, 464962190 (2) Severe malnutrition ICD Codes: E43 - Unspecified severe protein-calorie malnutrition SNOMED: 69929687 (3) Dysphasia ICD Codes: R47.02 - Dysphasia SNOMED: 60297587 (4) Dehydration ICD Codes: E86.0 - Dehydration SNOMED: 19034506 (5) A-fib ICD Codes: I48.91 - Unspecified atrial fibrillation SNOMED: 10058522 Qualifiers: Qualified Codes: I48.91 - Unspecified atrial fibrillation Status: stable Status Narrative Discussed with Dr. Jiménez Assessment/Plan Status post PEG G-tube feedings per RD PRN transfusions PPI Follow labs dc planning The patient was seen and examined at bedside and all new and available data was reviewed in the patients chart. I agree with the above findings, impression and plan. (Patient seen earlier today. Signature stamp does not reflect patient encounter time.). - Nii Jiménez MD Subjective Gastrointestinal/Abdominal: Reports: no symptoms Objective Last 24 Hour Vital Signs Date Time Temp Pulse Resp B/P (MAP) Pulse Ox O2 Delivery O2 Flow Rate FiO2 09/12/18 09:24 90 160/77 09/12/18 08:47 Nasal Cannula 2.0 09/12/18 08:39 Nasal Cannula 2.0 28 09/12/18 08:39 96 Nasal Cannula 2.0 28 09/12/18 08:38 90 20 96 Nasal Cannula 2.0 28 09/12/18 08:00 97.9 64 18 160/77 (104) 96 09/12/18 04:47 72 09/12/18 04:34 97.7 76 20 125/89 (101) 96 09/12/18 02:00 98.1 09/12/18 00:37 62 09/12/18 00:05 98.1 67 20 135/90 (105) 99 09/11/18 21:00 Nasal Cannula 2.0 09/11/18 21:00 76 116/60 09/11/18 20:00 63 09/11/18 20:00 98.0 76 20 116/60 (78) 96 09/11/18 19:44 93 20 100 Nasal Cannula 2.0 28 09/11/18 19:34 93 20 99 Nasal Cannula 2.0 28 09/11/18 19:32 99 Nasal Cannula 2.0 28 09/11/18 19:32 Nasal Cannula 2.0 28 09/11/18 16:11 68 09/11/18 15:45 96.4 62 20 117/67 (84) 95 09/11/18 13:28 74 20 97 Nasal Cannula 2.0 28 09/11/18 13:16 71 20 98 Nasal Cannula 2.0 28 09/11/18 11:58 98.1 63 20 138/84 (102) 98 09/11/18 11:48 65 Intake and Output 09/11/18 09/12/18 19:00 07:00 Intake Total 840 ml Output Total 750 ml Balance 90 ml Free Water 180 ml Tube Feeding 660 ml Output Urine Total 750 ml Laboratory Tests Test 09/12/18 06:05 White Blood Count 14.6 K/UL (4.8-10.8) H Red Blood Count 4.26 M/UL (4.70-6.10) L Hemoglobin 12.3 G/DL (14.2-18.0) L Hematocrit 38.6 % (42.0-52.0) L Mean Corpuscular Volume 91 FL (80-99) Mean Corpuscular Hemoglobin 28.8 PG (27.0-31.0) Mean Corpuscular Hemoglobin Concent 31.8 G/DL (32.0-36.0) L Red Cell Distribution Width 14.3 % (11.6-14.8) Platelet Count 229 K/UL (150-450) Mean Platelet Volume 6.1 FL (6.5-10.1) L Neutrophils (%) (Auto) 83.9 % (45.0-75.0) H Lymphocytes (%) (Auto) 8.3 % (20.0-45.0) L Monocytes (%) (Auto) 6.2 % (1.0-10.0) Eosinophils (%) (Auto) 0.9 % (0.0-3.0) Basophils (%) (Auto) 0.6 % (0.0-2.0) Prothrombin Time 16.3 SEC (9.30-11.50) H Prothromb Time International Ratio 1.6 (0.9-1.1) H Sodium Level 147 MMOL/L (136-145) H Potassium Level 3.5 MMOL/L (3.5-5.1) Chloride Level 110 MMOL/L (98-107) H Carbon Dioxide Level 27 MMOL/L (21-32) Anion Gap 10 mmol/L (5-15) Blood Urea Nitrogen 52 mg/dL (7-18) H Creatinine 1.1 MG/DL (0.55-1.30) Estimat Glomerular Filtration Rate mL/min (>60) Glucose Level 152 MG/DL (74-106) H Calcium Level 8.8 MG/DL (8.5-10.1) Height (Feet): 5 Height (Inches): 9.00 Weight (Pounds): 190 General Appearance: WD/WN, no apparent distress, alert Cardiovascular: normal rate Respiratory/Chest: normal breath sounds, no respiratory distress Abdominal Exam: normal bowel sounds, non tender, soft, GT site Extremities: normal range of motion, non-tender Angus Grayson NP Sep 12, 2018 10:15
[2018-09-12] MEDS: Cefepime 1gm/D5W 55ml IVPB SCH ×2 (11:11)
--- NOTE | 2018-09-12 11:15 | NUR ---
NURSE NOTES: Patient's O2 saturation is 90% on room air. Patient resting in bed and does not display any signs of distress or SOB. Bed in the lowest position and call light within reach.
[2018-09-12 12:00] VITALS: BP 149/85
--- NOTE | 2018-09-12 13:49 | Nephrology Progress Note ---
Assessment/Plan Problem List: (1) RY (acute kidney injury) Assessment: Cr down 1.1 (2) Lung neoplasm (3) Dehydration (4) Pacemaker Assessment Acute renal Failure- Cr lowering to 1.3 Underlying CKD CHF ( Diastolic Dysfunction) with EjFx 55% Pacemaker status Atrial Fib HTN Bilateral Pleural effusion Hyperlipidemia BPH Suspected Aspiration ? Metastatic pulm and bone disease. 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 DC home vs SNF Subjective ROS Limited/Unobtainable: No Constitutional: Reports: malaise, weakness Objective Objective Last 24 Hour Vital Signs Date Time Temp Pulse Resp B/P (MAP) Pulse Ox O2 Delivery O2 Flow Rate FiO2 09/12/18 12:00 97.1 73 20 149/85 (106) 97 09/12/18 11:43 70 09/12/18 11:14 90 09/12/18 09:24 90 160/77 09/12/18 08:47 Nasal Cannula 2.0 09/12/18 08:39 Nasal Cannula 2.0 28 09/12/18 08:39 96 Nasal Cannula 2.0 28 09/12/18 08:38 90 20 96 Nasal Cannula 2.0 28 09/12/18 08:00 97.9 64 18 160/77 (104) 96 09/12/18 07:37 66 09/12/18 04:47 72 09/12/18 04:34 97.7 76 20 125/89 (101) 96 09/12/18 02:00 98.1 09/12/18 00:37 62 09/12/18 00:05 98.1 67 20 135/90 (105) 99 09/11/18 21:00 Nasal Cannula 2.0 09/11/18 21:00 76 116/60 09/11/18 20:00 63 09/11/18 20:00 98.0 76 20 116/60 (78) 96 09/11/18 19:44 93 20 100 Nasal Cannula 2.0 28 09/11/18 19:34 93 20 99 Nasal Cannula 2.0 28 09/11/18 19:32 99 Nasal Cannula 2.0 28 09/11/18 19:32 Nasal Cannula 2.0 28 09/11/18 16:11 68 09/11/18 15:45 96.4 62 20 117/67 (84) 95 Intake and Output 09/11/18 09/12/18 19:00 07:00 Intake Total 840 ml Output Total 750 ml Balance 90 ml Free Water 180 ml Tube Feeding 660 ml Output Urine Total 750 ml Laboratory Tests 09/12/18 06:05: White Blood Count 14.6H, Red Blood Count 4.26L, Hemoglobin 12.3L, Hematocrit 38.6L, Mean Corpuscular Volume 91, Mean Corpuscular Hemoglobin 28.8, Mean Corpuscular Hemoglobin Concent 31.8L, Red Cell Distribution Width 14.3, Platelet Count 229, Mean Platelet Volume 6.1L, Neutrophils (%) (Auto) 83.9H, Lymphocytes (%) (Auto) 8.3L, Monocytes (%) (Auto) 6.2, Eosinophils (%) (Auto) 0.9, Basophils (%) (Auto) 0.6, Prothrombin Time 16.3H, Prothromb Time International Ratio 1.6H, Sodium Level 147H, Potassium Level 3.5, Chloride Level 110H, Carbon Dioxide Level 27, Anion Gap 10, Blood Urea Nitrogen 52H, Creatinine 1.1, Estimat Glomerular Filtration Rate , Glucose Level 152H, Calcium Level 8.8 Height (Feet): 5 Height (Inches): 9.00 Weight (Pounds): 190 General Appearance: no apparent distress, lethargic Cardiovascular: normal rate Respiratory/Chest: decreased breath sounds Abdomen: distended Objective no change Dmitri Medina MD Sep 12, 2018 13:49
--- NOTE | 2018-09-12 15:54 | Cardiac Electrophysiology PN ---
Assessment/Plan Assessment/Plan 1. CHF due to diastolic dysfunction. Echocardiogram EF 55% BNP is more than 1700. On Coreg 3.125 mg b.i.d. Off Lasix for renal failure 2. Atrial fibrillation. Rate controlled. Off Coumadin for hemorrhagic pleural effusion 3. Status post Biotronik pacemaker with Nl Fx 4. History of thyroid cancer, status post thyroid surgery. 5. Hypertension. Continue Coreg. 6. Hemorrhagic Right pleural effusion, Destructive bilateral pleural mass again demonstrated. FU Dr Pantoja. S/P Chest CT and Right thoracentesis. Had repeat thoracentesis today 7. Dysphagia, S/P PEG 09/07/18 DW RN and at bedside Subjective Subjective In atrial fib with controlled rate and intermittent V pacing S/P Thoracentesis again today Objective Last 24 Hour Vital Signs Date Time Temp Pulse Resp B/P (MAP) Pulse Ox O2 Delivery O2 Flow Rate FiO2 09/12/18 14:58 87 20 98 Nasal Cannula 2.0 28 09/12/18 14:48 91 20 96 Nasal Cannula 2.0 28 09/12/18 12:00 97.1 73 20 149/85 (106) 97 09/12/18 11:43 70 09/12/18 11:14 90 09/12/18 09:24 90 160/77 09/12/18 08:48 90 20 99 Nasal Cannula 2.0 28 09/12/18 08:47 Nasal Cannula 2.0 09/12/18 08:39 Nasal Cannula 2.0 28 09/12/18 08:39 96 Nasal Cannula 2.0 28 09/12/18 08:38 90 20 96 Nasal Cannula 2.0 28 09/12/18 08:00 97.9 64 18 160/77 (104) 96 09/12/18 07:37 66 09/12/18 04:47 72 09/12/18 04:34 97.7 76 20 125/89 (101) 96 09/12/18 02:00 98.1 09/12/18 00:37 62 09/12/18 00:05 98.1 67 20 135/90 (105) 99 09/11/18 21:00 Nasal Cannula 2.0 09/11/18 21:00 76 116/60 09/11/18 20:00 63 09/11/18 20:00 98.0 76 20 116/60 (78) 96 09/11/18 19:44 93 20 100 Nasal Cannula 2.0 09/11/18 19:34 93 20 99 Nasal Cannula 2.0 09/11/18 19:32 99 Nasal Cannula 2.0 09/11/18 19:32 Nasal Cannula 2.0 09/11/18 16:11 68 Intake and Output 09/11/18 09/12/18 19:00 07:00 Intake Total 840 ml Output Total 750 ml Balance 90 ml Free Water 180 ml Tube Feeding 660 ml Output Urine Total 750 ml Laboratory Tests Test 09/12/18 06:05 White Blood Count 14.6 K/UL (4.8-10.8) H Red Blood Count 4.26 M/UL (4.70-6.10) L Hemoglobin 12.3 G/DL (14.2-18.0) L Hematocrit 38.6 % (42.0-52.0) L Mean Corpuscular Volume 91 FL (80-99) Mean Corpuscular Hemoglobin 28.8 PG (27.0-31.0) Mean Corpuscular Hemoglobin Concent 31.8 G/DL (32.0-36.0) L Red Cell Distribution Width 14.3 % (11.6-14.8) Platelet Count 229 K/UL (150-450) Mean Platelet Volume 6.1 FL (6.5-10.1) L Neutrophils (%) (Auto) 83.9 % (45.0-75.0) H Lymphocytes (%) (Auto) 8.3 % (20.0-45.0) L Monocytes (%) (Auto) 6.2 % (1.0-10.0) Eosinophils (%) (Auto) 0.9 % (0.0-3.0) Basophils (%) (Auto) 0.6 % (0.0-2.0) Prothrombin Time 16.3 SEC (9.30-11.50) H Prothromb Time International Ratio 1.6 (0.9-1.1) H Sodium Level 147 MMOL/L (136-145) H Potassium Level 3.5 MMOL/L (3.5-5.1) Chloride Level 110 MMOL/L (98-107) H Carbon Dioxide Level 27 MMOL/L (21-32) Anion Gap 10 mmol/L (5-15) Blood Urea Nitrogen 52 mg/dL (7-18) H Creatinine 1.1 MG/DL (0.55-1.30) Estimat Glomerular Filtration Rate mL/min (>60) Glucose Level 152 MG/DL (74-106) H Calcium Level 8.8 MG/DL (8.5-10.1) Microbiology Date/Time Source Procedure Growth Status 09/10/18 21:50 Sputum Gram Stain - Final Resulted 09/10/18 21:50 Sputum Culture - Preliminary Staphylococcus Aureus Resulted Objective HEAD AND NECK: No JVD. LUNGS: Decreased breath sounds. CARDIOVASCULAR: Irregular S1 and S2 with soft systolic murmur. Pacemaker in the left subclavian. ABDOMEN: Soft.PEG in place EXTREMITIES: 1+ pitting edema. Jere Faustin MD Sep 12, 2018 15:54
[2018-09-12 16:00] VITALS: BP 111/71
--- NOTE | 2018-09-12 16:00 | NUR ---
NURSE NOTES: Patient returned from thoracentesis. Vital signs stable and patient awakes to name. Bandage on the aspiration site and does not display any signs of bleeding. Patient repositioned in bed, bed in the lowest position, and call light within reach. Patient reconnected to g-tube feeding which is infusing well. IV patent and intact. I will continue to monitor the patient and implement care.
[2018-09-12] MEDS ORDERED: NS 500ML ONE (16:03)
--- NOTE | 2018-09-12 16:09 | Diagnostic Imaging Report ---
Indications: Pleural effusion Technique: Ultrasound used to localize optimal puncture site. Sterile prepping and draping of the left lower chest performed. Local anesthesia with 1% lidocaine. Dermatotomy made. Puncture of the pleural space using thoracentesis needle. Stylet removed. Catheter placed to vacuum bottle suction. Fluid was aspirated. Patient tolerated procedure well, without immediate complication. Findings: Followup sonography demonstrates complete resolution of pleural fluid. Followup chest x-ray is pending. Impression: Successful ultrasound-guided left thoracentesis, yielding 0.45 liters of fluid
--- NOTE | 2018-09-12 16:10 | Diagnostic Imaging Report ---
Indication: Postthoracentesis Comparison: 09/11/2018 A single view chest radiograph was obtained. Findings: No pneumothorax demonstrated following thoracentesis on the left. There is evidence of a small right pleural effusion. There is a chest wall mass at the right lung base with destruction of the part of the rib as has been described on prior reports. Pacemaker again noted. IMPRESSION: No pneumothorax following thoracentesis
[2018-09-12] MEDS ORDERED: Warfarin Sodium 4mg GT SCH (17:00)
--- NOTE | 2018-09-12 19:12 | General Progress Note ---
Assessment/Plan Assessment/Plan Assessment/Plan # Thyroid carcinoma and on CT scan; multiple osseous destructive lesions as detailed in ct scan ,likely osseous metastases given known history of thyroid carcinoma. Multiple pulmonary and pleural nodules, likewise presumably on the basis of metastatic disease. History of thyroid cancer, status post thyroid surgery. --> review outside imaging and treatments patient has received --> outside labs and pathology to be reviewed --> defer to outpatient oncologist for further care, patient requires followup --> radioactive iodine scan as outpatient, consider tumor testing for specific molecular targets # Leukocytosis. Likely related to underlying infection versus reactive process. --> Peripheral has been reviewed --> Medications have been reviewed --> Imaging has been reviewed --> Blood cultures and urine cultures prn --> has been started on abx, empiric treatment # Right base destructive lung mass, Pulmonology consult appreciated --> pulmr ecs appreciated --> thora on prn basis # Acquired hypothyroidism, continue levothyroxine # Exacerbation of congestive heart failure, Continue Lasix 40 mg IV bid, Coreg 3.125 mg b.i.d. as well as losartan 50 mg daily. -->appreciate cardiology recs # Atrial fibrillation, the rate is currently controlled and is on anticoagulation with Coumadin with a therapeutic INR. # Status post Biotronik pacemaker. # Hypertension, Continue current regimen Lasix, losartan, and Coreg. # Hypokalemia # Polyneuropathy, continue gabapentin # BPH, continue Proscar and Flomax The timing of this note does not necessarily reflect the time of the patient was seen. Greatly appreciate consultation! Subjective Constitutional: Denies: no symptoms, chills, diaphoresis, fever, malaise, weakness, other HEENT: Denies: no symptoms, eye pain, blurred vision, tearing, double vision, ear pain, ear discharge, nose pain, nose congestion, throat pain, throat swelling, mouth pain, mouth swelling, other Cardiovascular: Denies: no symptoms, chest pain, edema, irregular heart rate, lightheadedness, palpitations, syncope, other Respiratory: Denies: no symptoms, cough, orthopnea, shortness of breath, SOB with excertion, SOB at rest, sputum, stridor, wheezing, other Gastrointestinal/Abdominal: Denies: no symptoms, abdomen distended, abdominal pain, black stools, tarry stools, blood in stool, constipated, diarrhea, difficulty swallowing, nausea, poor appetite, poor fluid intake, rectal bleeding , vomiting, other Neurologic/Psychiatric: Denies: no symptoms, anxiety, depressed, emotional problems, headache, numbness, paresthesia, pre-existing deficit, seizure, tingling, tremors, weakness, other Endocrine: Denies: no symptoms, excessive sweating, flushing, intolerance to cold, intolerance to heat, increased hunger, increased thirst, increased urine, unexplained weight gain, unexplained weight loss, other Hematologic/Lymphatic: Denies: no symptoms, anemia, easy bleeding, easy bruising, other Allergies: Coded Allergies: AZITHROMYCIN (Verified Allergy, Unknown, 09/04/18) PENICILLINS (Verified Allergy, Unknown, 09/03/18) Subjective 09/05: In atrial fib with V pacing. Rate controlled. Still NPO. Failed swallow eval. 09/06: thora completed successfuly on the right side, 0.8L removed 09/07: wbc trending down, S/P PEG placement and Right thoracentesis today, no events 09/09: seen by bedside, no acute distress. 09/10: seen by beside, Improved leukocytosis, cont abx, swallow eval noted, tube feeds via PEG 09/11: Pt is resting in bed, S/p right thoracentesis with 800 ml bloody fluid removed, lethargic, wbc trending up 09/12: seen by bedside, awake, comfortable, no acute distress, wbc 14, s/p Thoracentesis again today, d/c planning, Objective Last 24 Hour Vital Signs Date Time Temp Pulse Resp B/P (MAP) Pulse Ox O2 Delivery O2 Flow Rate FiO2 09/12/18 16:00 96.4 74 18 111/71 (84) 97 09/12/18 15:14 68 09/12/18 14:58 87 20 98 Nasal Cannula 2.0 28 09/12/18 14:48 91 20 96 Nasal Cannula 2.0 28 09/12/18 12:00 97.1 73 20 149/85 (106) 97 09/12/18 11:43 70 09/12/18 11:14 90 09/12/18 09:24 90 160/77 09/12/18 08:48 90 20 99 Nasal Cannula 2.0 28 09/12/18 08:47 Nasal Cannula 2.0 09/12/18 08:39 Nasal Cannula 2.0 28 09/12/18 08:39 96 Nasal Cannula 2.0 28 09/12/18 08:38 90 20 96 Nasal Cannula 2.0 28 09/12/18 08:00 97.9 64 18 160/77 (104) 96 09/12/18 07:37 66 09/12/18 04:47 72 09/12/18 04:34 97.7 76 20 125/89 (101) 96 09/12/18 02:00 98.1 09/12/18 00:37 62 09/12/18 00:05 98.1 67 20 135/90 (105) 99 09/11/18 21:00 Nasal Cannula 2.0 09/11/18 21:00 76 116/60 09/11/18 20:00 63 09/11/18 20:00 98.0 76 20 116/60 (78) 96 09/11/18 19:44 93 20 100 Nasal Cannula 2.0 28 09/11/18 19:34 93 20 99 Nasal Cannula 2.0 28 09/11/18 19:32 99 Nasal Cannula 2.0 28 09/11/18 19:32 Nasal Cannula 2.0 28 Intake and Output 09/11/18 09/12/18 18:59 06:59 Intake Total 840 ml Output Total 750 ml Balance 90 ml Free Water 180 ml Tube Feeding 660 ml Output Urine Total 750 ml Laboratory Tests 09/12/18 06:05: White Blood Count 14.6H, Red Blood Count 4.26L, Hemoglobin 12.3L, Hematocrit 38.6L, Mean Corpuscular Volume 91, Mean Corpuscular Hemoglobin 28.8, Mean Corpuscular Hemoglobin Concent 31.8L, Red Cell Distribution Width 14.3, Platelet Count 229, Mean Platelet Volume 6.1L, Neutrophils (%) (Auto) 83.9H, Lymphocytes (%) (Auto) 8.3L, Monocytes (%) (Auto) 6.2, Eosinophils (%) (Auto) 0.9, Basophils (%) (Auto) 0.6, Prothrombin Time 16.3H, Prothromb Time International Ratio 1.6H, Sodium Level 147H, Potassium Level 3.5, Chloride Level 110H, Carbon Dioxide Level 27, Anion Gap 10, Blood Urea Nitrogen 52H, Creatinine 1.1, Estimat Glomerular Filtration Rate , Glucose Level 152H, Calcium Level 8.8 Height (Feet): 5 Height (Inches): 9.00 Weight (Pounds): 190 Objective Physical Exam General Appearance: no apparent distress, alert HEENT: normocephalic, atraumatic Neck: non-tender, normal alignment, supple Respiratory/Chest: ++ crackles Cardiovascular/Chest: normal peripheral pulses, normal rate Abdomen: normal bowel sounds, non tender, PEG++ Extremities: trace edema Skin Exam: normal pigmentation, warm/dry 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
--- NOTE | 2018-09-12 19:41 | NUR ---
HAND-OFF: Report given to AMERICA Ellis.
--- NOTE | 2018-09-12 19:42 | NUR ---
NURSE NOTES: Received report from AMERICA Valencia. Pt is awake and resting in bed. In no acute distress. GT feeding well tolerated. HOB elevated. Bed in lowest position, call lihgt within reach. Will continue plan of care.
[2018-09-12 20:00] VITALS: BP 128/69
[2018-09-13] VITALS: BP 125/74
[2018-09-13 04:00] VITALS: BP 131/61
[2018-09-13] MEDS: metroNIDAZOLE 500mg tab GT SCH ×2 (06:00→14:00)
[2018-09-13 06:25] LABS: HEMATOCRIT 36.2 % (42.0-52.0); HEMOGLOBIN 11.6 G/DL (14.2-18.0); MEAN CORPUSCULAR VOLUME 91 FL (80-99); PLATELET COUNT 234 K/UL (150-450); RED BLOOD COUNT 3.99 M/UL (4.70-6.10); WHITE BLOOD COUNT 15.3 K/UL (4.8-10.8)
[2018-09-13 06:46] LABS: INR 1.3 (0.9-1.1)
[2018-09-13 07:09] LABS: ANION GAP 6 mmol/L (5-15); BLOOD UREA NITROGEN 47 mg/dL (7-18); CALCIUM 8.6 MG/DL (8.5-10.1); CARBON DIOXIDE 30 MMOL/L (21-32); CHLORIDE 112 MMOL/L (98-107); POTASSIUM 3.5 MMOL/L (3.5-5.1); SODIUM 148 MMOL/L (136-145)
--- NOTE | 2018-09-13 07:30 | NUR ---
HAND-OFF: Report given to AMERICA Feng.
[2018-09-13] MEDS: Acetylcysteine 20% Soln 4ml HHN SCH ×2 (07:42→13:21)
[2018-09-13] MEDS: Ipratropium 0.02% Inh Soln 2.5ml UD HHN PRN ×2 (07:42→13:21)
--- NOTE | 2018-09-13 07:59 | NUR ---
NURSE NOTES: Pt in bed in low position, HOB in high fowlers, call light at bedside, bed alarm on, 2 rials up, P200 mattress in place and working, IV site patent and asymptomatic, Pt Ox4 calm and cooperative, pt is V paced with AFIB but controlled, pt might be discharging today and going to [facility], no s/s of distress or sob noted.
[2018-09-13 08:00] VITALS: BP 156/88
[2018-09-13] MEDS ORDERED: FLOMAX0.4 MG GT (09:01)
[2018-09-13] MEDS ORDERED: COREG3.125 MG GT (09:01)
[2018-09-13] MEDS ORDERED: FUROSEMIDE40 MG ORAL (09:01)
[2018-09-13] MEDS ORDERED: COLACE100 MG/10 GT (09:01)
[2018-09-13] MEDS ORDERED: FINASTERIDE5 MG GT (09:01)
[2018-09-13] MEDS ORDERED: SYNTHROID150 MCG GT (09:01)
[2018-09-13] MEDS ORDERED: GABAPENTIN300 MG/61 GT (09:01)
[2018-09-13] MEDS ORDERED: DUONEB 0.5-3(2.53 ML HHN (09:01)
[2018-09-13] MEDS ORDERED: AMBIEN5 MG GT (09:01)
--- NOTE | 2018-09-13 09:16 | Discharge Summary ---
Discharge Summary Hospital Course Date of Admission Sep 03, 2018 at 08:23 Date of Discharge 09/13 Admitting Diagnosis SHORTNESS OF BREATH, CONGESTIVE HEART FAILURE HPI Tank Quintanilla is a 88 year old male who was admitted on Sep 03, 2018 at 08:23 for Short Of Breath,Congestive Heart Failure Hospital Course Patient presented with dyspnea, acute on chronic respiratory failure, due to acute on chronic dCHF and bilateral pleural effusions. He was admitted to the medical service, treated with IV Lasix as per Cardiology recs with adequate diuresis - patient did developed RY and diuretics were stopped per Nephrology recs. He was seen by PET CARETAKER who felt he had svere dysphagia, strict NPO recommended and patient had PEG placed by GI, tolerating tube feeds. Warfarin was reveresed for the procedure and will continue to be held for now. Patient was seen by Pulmonology and ID for possible aspiration pneumonia, completed course of broad spectrum antibiotics. Patient underwent bilateral thoracentesis , 900 ml of blood fluid removed from the right side and 500 ml removed from the left, initial cytology negative. We were in contact with his Oncologist at [facility] Dr. Miranda #Acute on chronic diastolic CHF #Coronary artery disease #Permanent atrial fibrillation s/p PPM for SSS #HTN #Hyperlipidemia -stable respiratory status -resume low dose Lasix QOD as outpatinet -hold eplerenone -Continue Coreg -warfarin stopped -cardiology follow up as outpatient #Leukocytosis #Suspected aspiration pneumonia #Severe Dysphagia -seen by PET CARETAKER and Pulm -seen by ID -complteed meropenem and Flagyl -HIDA scan equivocal -s/p PEG -continue tube feeds and free water via G-tube #RY -resolved #Hypokalemia -resolved #Thyroid cancer #Metastatic disease and mod-large right pleural effusion seen on chest CT #Acquired hypothyroidism -outpatient Oncology follow up -Right thoracentesis done with 800 ml blood fluid removed, Left thoracentesis done with 500 ml removed #Polyneuropathy -continue gabapentin #BPH -continue Proscar and Flomax Time spent in preparing discharge was 35 minutes Discharge Condition Upon Discharge: improving Discharge Disposition Patient was discharged to SNF Discharge Diagnoses: (1) Acute respiratory failure with hypoxia (2) RY (acute kidney injury) Oscar Chin MD Sep 13, 2018 09:16
[2018-09-13] MEDS: Gabapentin 300 MG/6 ML Soln GT SCH (09:29)
[2018-09-13] MEDS: Tamsulosin 0.4mg cap ORAL SCH (09:30)
[2018-09-13] MEDS: Sennosides 8.6mg tab GT SCH (09:30)
[2018-09-13] MEDS: Pantoprazole Inj IVP SCH (09:30)
[2018-09-13] MEDS: Docusate 100mg/10ml Liq GT SCH (09:30)
--- NOTE | 2018-09-13 10:01 | NUR ---
DISCHARGE PLANNING DISCHARGE ORDER NOTED SPOKE WITH BARBARA AT [facility] YESTERDAY AND SHE SAID PATIENT WOULD BE ACCEPTED TODAY CALLED BARBARA AND LEFT MESSAGE REQUESTING A CALL BACK WITH THE ASSIGNED ROOM NUMBER
--- NOTE | 2018-09-13 10:26 | GI Progress Note ---
Assessment/Plan Problems: (1) Encounter for PEG (percutaneous endoscopic gastrostomy) ICD Codes: Z43.1 - Encounter for attention to gastrostomy SNOMED: 510627937, 931536013 (2) Severe malnutrition ICD Codes: E43 - Unspecified severe protein-calorie malnutrition SNOMED: 94595469 (3) Dysphasia ICD Codes: R47.02 - Dysphasia SNOMED: 33524422 (4) Dehydration ICD Codes: E86.0 - Dehydration SNOMED: 02240659 (5) A-fib ICD Codes: I48.91 - Unspecified atrial fibrillation SNOMED: 30599806 Qualifiers: Qualified Codes: I48.91 - Unspecified atrial fibrillation Status: unchanged Status Narrative Discussed with Dr. Jiménez. Assessment/Plan s/p thoracentesis \Status post PEG G-tube feedings per RD PRN transfusions PPI Follow labs dc planning The patient was seen and examined at bedside and all new and available data was reviewed in the patients chart. I agree with the above findings, impression and plan. (Patient seen earlier today. Signature stamp does not reflect patient encounter time.). - Nii Jiménez MD Subjective Gastrointestinal/Abdominal: Reports: no symptoms Objective Last 24 Hour Vital Signs Date Time Temp Pulse Resp B/P (MAP) Pulse Ox O2 Delivery O2 Flow Rate FiO2 09/13/18 09:29 65 156/88 09/13/18 08:36 Nasal Cannula 2.0 09/13/18 08:00 97.7 65 21 156/88 (110) 98 09/13/18 07:55 67 18 100 Nasal Cannula 2.0 09/13/18 07:42 98 Nasal Cannula 2.0 28 09/13/18 07:42 65 15 98 Nasal Cannula 2.0 28 09/13/18 07:42 Nasal Cannula 2.0 28 09/13/18 04:00 70 09/13/18 04:00 97.6 70 20 131/61 (84) 96 09/13/18 00:00 97.8 68 20 125/74 (91) 94 09/13/18 00:00 68 09/12/18 22:00 70 141/62 09/12/18 21:00 Nasal Cannula 2.0 09/12/18 20:00 73 09/12/18 20:00 97.6 73 17 128/69 (88) 94 09/12/18 20:00 Nasal Cannula 2.0 28 09/12/18 20:00 98 Nasal Cannula 2.0 28 09/12/18 20:00 72 20 100 Nasal Cannula 2.0 09/12/18 19:50 66 20 98 Nasal Cannula 2.0 09/12/18 16:00 96.4 74 18 111/71 (84) 97 09/12/18 15:14 68 09/12/18 14:58 87 20 98 Nasal Cannula 2.0 28 09/12/18 14:48 91 20 96 Nasal Cannula 2.0 28 09/12/18 12:00 97.1 73 20 149/85 (106) 97 09/12/18 11:43 70 09/12/18 11:14 90 Intake and Output 09/12/18 09/13/18 19:00 07:00 Intake Total 775 ml 960 ml Output Total 1300 ml 650 ml Balance -525 ml 310 ml Free Water 300 ml IV Total 55 ml Tube Feeding 720 ml 660 ml Output Urine Total 1300 ml 650 ml # Voids 1 Laboratory Tests Test 09/13/18 05:20 White Blood Count 15.3 K/UL (4.8-10.8) H Red Blood Count 3.99 M/UL (4.70-6.10) L Hemoglobin 11.6 G/DL (14.2-18.0) L Hematocrit 36.2 % (42.0-52.0) L Mean Corpuscular Volume 91 FL (80-99) Mean Corpuscular Hemoglobin 29.1 PG (27.0-31.0) Mean Corpuscular Hemoglobin Concent 32.1 G/DL (32.0-36.0) Red Cell Distribution Width 14.0 % (11.6-14.8) Platelet Count 234 K/UL (150-450) Mean Platelet Volume 6.2 FL (6.5-10.1) L Neutrophils (%) (Auto) % (45.0-75.0) Lymphocytes (%) (Auto) % (20.0-45.0) Monocytes (%) (Auto) % (1.0-10.0) Eosinophils (%) (Auto) % (0.0-3.0) Basophils (%) (Auto) % (0.0-2.0) Neutrophils % (Manual) Pending Lymphocytes % (Manual) Pending Platelet Estimate Pending Platelet Morphology Pending Prothrombin Time 14.0 SEC (9.30-11.50) H Prothromb Time International Ratio 1.3 (0.9-1.1) H Sodium Level 148 MMOL/L (136-145) H Potassium Level 3.5 MMOL/L (3.5-5.1) Chloride Level 112 MMOL/L (98-107) H Carbon Dioxide Level 30 MMOL/L (21-32) Anion Gap 6 mmol/L (5-15) Blood Urea Nitrogen 47 mg/dL (7-18) H Creatinine 1.0 MG/DL (0.55-1.30) Estimat Glomerular Filtration Rate mL/min (>60) Glucose Level 153 MG/DL (74-106) H Calcium Level 8.6 MG/DL (8.5-10.1) Height (Feet): 5 Height (Inches): 9.00 Weight (Pounds): 195 General Appearance: WD/WN, no apparent distress, alert Cardiovascular: normal rate Respiratory/Chest: normal breath sounds, no respiratory distress Abdominal Exam: normal bowel sounds, non tender, soft, GT site - c/d/i Extremities: non-tender Angus Grayson NP Sep 13, 2018 10:26
[2018-09-13] MEDS: Cefepime 1gm/D5W 55ml IVPB SCH ×2 (10:50)
--- NOTE | 2018-09-13 11:47 | Nephrology Progress Note ---
Assessment/Plan Problem List: (1) RY (acute kidney injury) Assessment: Cr down 1.1 (2) Lung neoplasm (3) Dehydration (4) Pacemaker Assessment Acute renal Failure- Cr lowering to 1.3 Underlying CKD CHF ( Diastolic Dysfunction) with EjFx 55% Pacemaker status Atrial Fib HTN Bilateral Pleural effusion Hyperlipidemia BPH Suspected Aspiration ? Metastatic pulm and bone disease. h/o Thyroid carcinoma prior Thyroidectomy Plan family considering hospice discussed with on 09/08 K supplement as needed monitor renal parameters avoid Nephrotoxics per orders intermission coordinator goal?? DC home vs SNF Subjective ROS Limited/Unobtainable: No Constitutional: Reports: malaise, weakness Objective Objective Last 24 Hour Vital Signs Date Time Temp Pulse Resp B/P (MAP) Pulse Ox O2 Delivery O2 Flow Rate FiO2 09/13/18 09:29 65 156/88 09/13/18 08:36 Nasal Cannula 2.0 09/13/18 08:00 97.7 65 21 156/88 (110) 98 09/13/18 07:55 67 18 100 Nasal Cannula 2.0 28 09/13/18 07:42 98 Nasal Cannula 2.0 28 09/13/18 07:42 65 15 98 Nasal Cannula 2.0 28 09/13/18 07:42 Nasal Cannula 2.0 28 09/13/18 04:00 70 09/13/18 04:00 97.6 70 20 131/61 (84) 96 09/13/18 00:00 97.8 68 20 125/74 (91) 94 09/13/18 00:00 68 09/12/18 22:00 70 141/62 09/12/18 21:00 Nasal Cannula 2.0 09/12/18 20:00 73 09/12/18 20:00 97.6 73 17 128/69 (88) 94 09/12/18 20:00 Nasal Cannula 2.0 28 09/12/18 20:00 98 Nasal Cannula 2.0 28 09/12/18 20:00 72 20 100 Nasal Cannula 2.0 28 09/12/18 19:50 66 20 98 Nasal Cannula 2.0 28 09/12/18 16:00 96.4 74 18 111/71 (84) 97 09/12/18 15:14 68 09/12/18 14:58 87 20 98 Nasal Cannula 2.0 28 09/12/18 14:48 91 20 96 Nasal Cannula 2.0 09/12/18 12:00 97.1 73 20 149/85 (106) 97 Intake and Output 09/12/18 09/13/18 19:00 07:00 Intake Total 775 ml 960 ml Output Total 1300 ml 650 ml Balance -525 ml 310 ml Free Water 300 ml IV Total 55 ml Tube Feeding 720 ml 660 ml Output Urine Total 1300 ml 650 ml # Voids 1 Laboratory Tests 09/13/18 05:20: White Blood Count 15.3H, Red Blood Count 3.99L, Hemoglobin 11.6L, Hematocrit 36.2L, Mean Corpuscular Volume 91, Mean Corpuscular Hemoglobin 29.1, Mean Corpuscular Hemoglobin Concent 32.1, Red Cell Distribution Width 14.0, Platelet Count 234, Mean Platelet Volume 6.2L, Neutrophils (%) (Auto) , Lymphocytes (%) ( Auto) , Monocytes (%) (Auto) , Eosinophils (%) (Auto) , Basophils (%) (Auto) , Differential Total Cells Counted 100, Neutrophils % (Manual) 86H, Lymphocytes % (Manual) 9L, Monocytes % (Manual) 5, Eosinophils % (Manual) 0, Basophils % ( Manual) 0, Band Neutrophils 0, Platelet Estimate Adequate, Platelet Morphology Normal, Anisocytosis 1+, Prothrombin Time 14.0H, Prothromb Time International Ratio 1.3H, Sodium Level 148H, Potassium Level 3.5, Chloride Level 112H, Carbon Dioxide Level 30, Anion Gap 6, Blood Urea Nitrogen 47H, Creatinine 1.0, Estimat Glomerular Filtration Rate , Glucose Level 153H, Calcium Level 8.6 Height (Feet): 5 Height (Inches): 9.00 Weight (Pounds): 195 General Appearance: no apparent distress, lethargic Cardiovascular: normal rate Respiratory/Chest: decreased breath sounds Abdomen: distended Objective no change Dmitri Medina MD Sep 13, 2018 11:46
[2018-09-13 12:00] VITALS: BP 130/60
--- NOTE | 2018-09-13 12:19 | NUR ---
DISCHARGE PLANNED PATIENT HAS BEEN ACCEPTED AT SNF AND WILL DISCHARGE TO [facility] ROOM [address] SKILLED T: [phone] FOR NURSE TO NURSE REPORT [facility] HAS BEEN ARRANGED FOR 1400 [employer] MACHINE REPAIRER DISCHARGE DISCUSSED WITH PATIENT AT BEDSIDE
--- NOTE | 2018-09-13 14:05 | NUR ---
NURSE NOTES: Called [facility] and spoke to Ana Maria KENYON, also notified Vanessa significant other, discharge pack it done, aftercare plan and med recon done, had bowel movement today, no wound pic no wounds, Pt Ox4 calm and cooperative, pt leaving with naidu and no IV site.
--- NOTE | 2018-09-13 15:56 | NUR ---
DISCHARGE NOTES: Pt left the unit at 1435 via gurney and coil strapper.
--- NOTE | 2018-09-13 16:18 | Pulmonology Progress Note ---
Assessment/Plan Assessment/Plan Pulmonary Progress Note Assessment/Plan Problem List: 1. Respiratory insufficiency 2. Acute on chronic diastolic CHF 3. Leukocytosis 4. Bilateral pleural effusions s/p thora -thoracentesis with bloody output 5. Possible pneumonia 6. 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 CAD 10. HTN 11. Oropharyngeal dsyphagia 12. RY 13. CT chest with evidence of destructive rib lesions bilaterally concerning for metastatic disease Plan: -09/07 pleural fluid cytology negative -repeat thoracentesis eval for other side -renal function improved, CXR with pulmonary edema and effusion -may benefit from qod lasix -Abx per ID -swallow eval noted, tube feeds via PEG ' Case d/w Dr. Cooper Subjective ROS Limited/Unobtainable: Yes Interval Events: Thora planned today. Cytology from last week negative. Denies dyspnea Allergies: Coded Allergies: AZITHROMYCIN (Verified Allergy, Unknown, 09/04/18) PENICILLINS (Verified Allergy, Unknown, 09/03/18) Objective Vital Signs Noted General Appearance: WD/WN HEENT: normocephalic, mucous membranes moist Respiratory/Chest: decreased breath sounds Cardiovascular: normal rate, regular rhythm Abdomen: soft, non tender Extremities: no edema Neurologic/Psychiatric: responsive Microbiology Date/Time Source Procedure Growth Status 09/10/18 21:50 Sputum Gram Stain - Final Resulted 09/10/18 21:50 Sputum Sputum Culture Pending Resulted Laboratory Tests 09/12/18 06:05: White Blood Count 14.6H, Red Blood Count 4.26L, Hemoglobin 12.3L, Hematocrit 38.6L, Mean Corpuscular Volume 91, Mean Corpuscular Hemoglobin 28.8, Mean Corpuscular Hemoglobin Concent 31.8L, Red Cell Distribution Width 14.3, Platelet Count 229, Mean Platelet Volume 6.1L, Neutrophils (%) (Auto) 83.9H, Lymphocytes (%) (Auto) 8.3L, Monocytes (%) (Auto) 6.2, Eosinophils (%) (Auto) 0.9, Basophils (%) (Auto) 0.6, Prothrombin Time 16.3H, Prothromb Time International Ratio 1.6H, Sodium Level 147H, Potassium Level 3.5, Chloride Level 110H, Carbon Dioxide Level 27, Anion Gap 10, Blood Urea Nitrogen 52H, Creatinine 1.1, Estimat Glomerular Filtration Rate , Glucose Level 152H, Calcium Level 8.8 Current Medications Medications (Trade) Dose Ordered Sig/Mario Route PRN Reason Start Time Stop Time Status Last Admin Dose Admin Acetaminophen (Tylenol) 650 mg Q4H PRN GT Mild Pain/Temp > 100.5 09/07/18 20:15 10/07/18 20:14 Acetylcysteine (Mucomyst) 200 mg TIDRT HHN 09/09/18 01:00 10/07/18 18:59 09/12/18 08:35 Bisacodyl (Dulcolax) 10 mg HSPRN PRN RECTAL Constipation 09/03/18 12:15 10/03/18 10:59 Carvedilol (Coreg) 3.125 mg EVERY 12 HOURS GT 09/09/18 09:00 10/03/18 12:14 09/12/18 09:24 Cefepime HCl 1 gm/ Dextrose 55 ml @ 110 mls/hr Q24H IVPB 09/08/18 11:00 09/15/18 10:59 09/11/18 11:16 Dextrose (Dextrose 50%) 25 ml Q30M PRN IV Hypoglycemia 09/03/18 11:00 10/03/18 10:59 Dextrose (Dextrose 50%) 50 ml Q30M PRN IV Hypoglycemia 09/03/18 11:00 10/03/18 10:59 Docusate Sodium (Colace) 100 mg DAILY GT 09/11/18 09:00 10/11/18 08:59 09/12/18 09:24 Finasteride (Proscar) 5 mg DAILY ORAL 09/04/18 09:00 10/04/18 08:59 09/12/18 09:24 Gabapentin (Neurontin) 300 mg DAILY GT 09/09/18 10:00 10/09/18 09:59 09/12/18 09:29 Ipratropium [place] (Atrovent) 500 mcg Q6H PRN HHN Shortness of Breath 09/09/18 20:00 09/14/18 19:59 09/12/18 08:34 Levothyroxine Sodium (Synthroid) 150 mcg Q24H GT 09/10/18 06:30 10/04/18 06:29 09/12/18 06:17 Metronidazole (Flagyl) 500 mg Q8HR GT 09/12/18 14:00 09/16/18 13:59 Morphine Sulfate (Morphine Sulfate) 1 mg Q4H PRN IVP Severe Pain (Pain Scale 7-10) 09/07/18 21:00 09/14/18 20:59 09/12/18 01:18 Ondansetron HCl (Zofran) 4 mg Q6H PRN IVP Nausea & Vomiting 09/03/18 11:00 10/03/18 10:59 Pantoprazole (Protonix) 40 mg EVERY 12 HOURS IVP 09/08/18 21:00 10/08/18 20:59 09/12/18 09:25 Sennosides (Senokot) 17.2 mg BID GT 09/09/18 09:00 10/03/18 17:59 09/12/18 09:24 Tamsulosin HCl (Flomax) 0.4 mg Q12HR ORAL 09/07/18 09:00 10/07/18 08:59 09/12/18 09:25 Zolpidem Tartrate (Ambien) 5 mg HSPRN PRN GT Insomnia 09/12/18 00:30 09/19/18 00:29 09/12/18 04:28 Subjective ROS Limited/Unobtainable: No Allergies: Coded Allergies: AZITHROMYCIN (Verified Allergy, Unknown, 09/04/18) PENICILLINS (Verified Allergy, Unknown, 09/03/18) Objective Last 24 Hour Vital Signs Date Time Temp Pulse Resp B/P (MAP) Pulse Ox O2 Delivery O2 Flow Rate FiO2 09/13/18 13:31 69 19 100 Nasal Cannula 2.0 28 09/13/18 13:21 68 19 96 Nasal Cannula 2.0 28 09/13/18 12:00 97.5 56 23 130/60 (83) 99 09/13/18 09:29 65 156/88 09/13/18 08:36 Nasal Cannula 2.0 09/13/18 08:00 97.7 65 21 156/88 (110) 98 09/13/18 07:58 66 09/13/18 07:55 67 18 100 Nasal Cannula 2.0 28 09/13/18 07:42 98 Nasal Cannula 2.0 28 09/13/18 07:42 65 15 98 Nasal Cannula 2.0 28 09/13/18 07:42 Nasal Cannula 2.0 28 09/13/18 04:00 70 09/13/18 04:00 97.6 70 20 131/61 (84) 96 09/13/18 00:00 97.8 68 20 125/74 (91) 94 09/13/18 00:00 68 09/12/18 22:00 70 141/62 09/12/18 21:00 Nasal Cannula 2.0 09/12/18 20:00 73 09/12/18 20:00 97.6 73 17 128/69 (88) 94 09/12/18 20:00 Nasal Cannula 2.0 28 09/12/18 20:00 98 Nasal Cannula 2.0 28 09/12/18 20:00 72 20 100 Nasal Cannula 2.0 28 09/12/18 19:50 66 20 98 Nasal Cannula 2.0 28 Intake and Output 09/12/18 09/13/18 19:00 07:00 Intake Total 775 ml 960 ml Output Total 1300 ml 650 ml Balance -525 ml 310 ml Free Water 300 ml IV Total 55 ml Tube Feeding 720 ml 660 ml Output Urine Total 1300 ml 650 ml # Voids 1 Microbiology Date/Time Source Procedure Growth Status 09/10/18 21:50 Sputum Gram Stain - Final Complete 09/10/18 21:50 Sputum Culture - Final Staphylococcus Aureus - Mrsa Complete Laboratory Tests 09/13/18 05:20: White Blood Count 15.3H, Red Blood Count 3.99L, Hemoglobin 11.6L, Hematocrit 36.2L, Mean Corpuscular Volume 91, Mean Corpuscular Hemoglobin 29.1, Mean Corpuscular Hemoglobin Concent 32.1, Red Cell Distribution Width 14.0, Platelet Count 234, Mean Platelet Volume 6.2L, Neutrophils (%) (Auto) , Lymphocytes (%) ( Auto) , Monocytes (%) (Auto) , Eosinophils (%) (Auto) , Basophils (%) (Auto) , Differential Total Cells Counted 100, Neutrophils % (Manual) 86H, Lymphocytes % (Manual) 9L, Monocytes % (Manual) 5, Eosinophils % (Manual) 0, Basophils % ( Manual) 0, Band Neutrophils 0, Platelet Estimate Adequate, Platelet Morphology Normal, Anisocytosis 1+, Prothrombin Time 14.0H, Prothromb Time International Ratio 1.3H, Sodium Level 148H, Potassium Level 3.5, Chloride Level 112H, Carbon Dioxide Level 30, Anion Gap 6, Blood Urea Nitrogen 47H, Creatinine 1.0, Estimat Glomerular Filtration Rate , Glucose Level 153H, Calcium Level 8.6 Current Medications Medications (Trade) Dose Ordered Sig/Mario Route PRN Reason Start Time Stop Time Status Last Admin Dose Admin Acetaminophen (Tylenol) 650 mg Q4H PRN GT Mild Pain/Temp > 100.5 09/07/18 20:15 10/07/18 20:14 Acetylcysteine (Mucomyst) 200 mg TIDRT HHN 09/09/18 01:00 10/07/18 18:59 09/13/18 13:21 Bisacodyl (Dulcolax) 10 mg HSPRN PRN RECTAL Constipation 09/03/18 12:15 10/03/18 10:59 09/12/18 18:33 Carvedilol (Coreg) 3.125 mg EVERY 12 HOURS GT 09/09/18 09:00 10/03/18 12:14 09/13/18 09:29 Cefepime HCl 1 gm/ Dextrose 55 ml @ 110 mls/hr Q24H IVPB 09/08/18 11:00 09/15/18 10:59 09/13/18 10:50 Dextrose (Dextrose 50%) 25 ml Q30M PRN IV Hypoglycemia 09/03/18 11:00 10/03/18 10:59 Dextrose (Dextrose 50%) 50 ml Q30M PRN IV Hypoglycemia 09/03/18 11:00 10/03/18 10:59 Docusate Sodium (Colace) 100 mg DAILY GT 09/11/18 09:00 10/11/18 08:59 09/13/18 09:30 Finasteride (Proscar) 5 mg DAILY ORAL 09/04/18 09:00 10/04/18 08:59 09/13/18 09:30 Gabapentin (Neurontin) 300 mg DAILY GT 09/09/18 10:00 10/09/18 09:59 09/13/18 09:29 Ipratropium Senoia (Atrovent) 500 mcg Q6H PRN HHN Shortness of Breath 09/09/18 20:00 09/14/18 19:59 09/13/18 13:21 Levothyroxine Sodium (Synthroid) 150 mcg Q24H GT 09/10/18 06:30 10/04/18 06:29 09/13/18 06:00 Metronidazole (Flagyl) 500 mg Q8HR GT 09/12/18 14:00 09/16/18 13:59 09/13/18 06:00 Morphine Sulfate (Morphine Sulfate) 1 mg Q4H PRN IVP Severe Pain (Pain Scale 7-10) 09/07/18 21:00 09/14/18 20:59 09/12/18 01:18 Ondansetron HCl (Zofran) 4 mg Q6H PRN IVP Nausea & Vomiting 09/03/18 11:00 10/03/18 10:59 Pantoprazole (Protonix) 40 mg EVERY 12 HOURS IVP 09/08/18 21:00 10/08/18 20:59 09/13/18 09:30 Sennosides (Senokot) 17.2 mg BID GT 09/09/18 09:00 10/03/18 17:59 09/13/18 09:30 Tamsulosin HCl (Flomax) 0.4 mg Q12HR ORAL 09/07/18 09:00 10/07/18 08:59 09/13/18 09:30 Warfarin Sodium (Coumadin per pharmacy) 1 ea DAILY PRN MISC Per rx protocol 09/13/18 15:00 10/13/18 14:59 Warfarin Sodium (Coumadin) 4 mg ONCE GT 09/13/18 17:00 09/13/18 19:00 Zolpidem Tartrate (Ambien) 5 mg HSPRN PRN GT Insomnia 09/12/18 00:30 09/19/18 00:29 09/12/18 22:00 Jim Malik MD Sep 13, 2018 16:18
--- NOTE | 2018-09-13 16:21 | Cardiac Electrophysiology PN ---
Assessment/Plan Assessment/Plan 1. CHF due to diastolic dysfunction. Echocardiogram EF 55% BNP is more than 1700. On Coreg 3.125 mg b.i.d. Off Lasix for renal failure 2. Atrial fibrillation. Rate controlled. Off Coumadin for hemorrhagic pleural effusion 3. Status post Biotronik pacemaker with Nl Fx 4. History of thyroid cancer, status post thyroid surgery. 5. Hypertension. Continue Coreg. 6. Hemorrhagic Right pleural effusion, Destructive bilateral pleural mass again demonstrated. FU Dr Pantoja. S/P Chest CT and Right thoracentesis. Had repeat thoracentesis 09/12/18 7. Dysphagia, S/P PEG 09/07/18 DW RN DC to Rehab today Subjective Subjective In atrial fib with controlled rate. S/P Thoracentesis again yesterday and going to Rehab Objective Last 24 Hour Vital Signs Date Time Temp Pulse Resp B/P (MAP) Pulse Ox O2 Delivery O2 Flow Rate FiO2 09/13/18 13:31 69 19 100 Nasal Cannula 2.0 28 09/13/18 13:21 68 19 96 Nasal Cannula 2.0 28 09/13/18 12:00 97.5 56 23 130/60 (83) 99 09/13/18 09:29 65 156/88 09/13/18 08:36 Nasal Cannula 2.0 09/13/18 08:00 97.7 65 21 156/88 (110) 98 09/13/18 07:58 66 09/13/18 07:55 67 18 100 Nasal Cannula 2.0 28 09/13/18 07:42 98 Nasal Cannula 2.0 28 09/13/18 07:42 65 15 98 Nasal Cannula 2.0 28 09/13/18 07:42 Nasal Cannula 2.0 28 09/13/18 04:00 70 09/13/18 04:00 97.6 70 20 131/61 (84) 96 09/13/18 00:00 97.8 68 20 125/74 (91) 94 09/13/18 00:00 68 09/12/18 22:00 70 141/62 09/12/18 21:00 Nasal Cannula 2.0 09/12/18 20:00 73 09/12/18 20:00 97.6 73 17 128/69 (88) 94 09/12/18 20:00 Nasal Cannula 2.0 28 09/12/18 20:00 98 Nasal Cannula 2.0 28 09/12/18 20:00 72 20 100 Nasal Cannula 2.0 28 09/12/18 19:50 66 20 98 Nasal Cannula 2.0 28 Intake and Output 09/12/18 09/13/18 19:00 07:00 Intake Total 775 ml 960 ml Output Total 1300 ml 650 ml Balance -525 ml 310 ml Free Water 300 ml IV Total 55 ml Tube Feeding 720 ml 660 ml Output Urine Total 1300 ml 650 ml # Voids 1 Laboratory Tests Test 09/13/18 05:20 White Blood Count 15.3 K/UL (4.8-10.8) H Red Blood Count 3.99 M/UL (4.70-6.10) L Hemoglobin 11.6 G/DL (14.2-18.0) L Hematocrit 36.2 % (42.0-52.0) L Mean Corpuscular Volume 91 FL (80-99) Mean Corpuscular Hemoglobin 29.1 PG (27.0-31.0) Mean Corpuscular Hemoglobin Concent 32.1 G/DL (32.0-36.0) Red Cell Distribution Width 14.0 % (11.6-14.8) Platelet Count 234 K/UL (150-450) Mean Platelet Volume 6.2 FL (6.5-10.1) L Neutrophils (%) (Auto) % (45.0-75.0) Lymphocytes (%) (Auto) % (20.0-45.0) Monocytes (%) (Auto) % (1.0-10.0) Eosinophils (%) (Auto) % (0.0-3.0) Basophils (%) (Auto) % (0.0-2.0) Differential Total Cells Counted 100 Neutrophils % (Manual) 86 % (45-75) H Lymphocytes % (Manual) 9 % (20-45) L Monocytes % (Manual) 5 % (1-10) Eosinophils % (Manual) 0 % (0-3) Basophils % (Manual) 0 % (0-2) Band Neutrophils 0 % (0-8) Platelet Estimate Adequate Platelet Morphology Normal Anisocytosis 1+ Prothrombin Time 14.0 SEC (9.30-11.50) H Prothromb Time International Ratio 1.3 (0.9-1.1) H Sodium Level 148 MMOL/L (136-145) H Potassium Level 3.5 MMOL/L (3.5-5.1) Chloride Level 112 MMOL/L (98-107) H Carbon Dioxide Level 30 MMOL/L (21-32) Anion Gap 6 mmol/L (5-15) Blood Urea Nitrogen 47 mg/dL (7-18) H Creatinine 1.0 MG/DL (0.55-1.30) Estimat Glomerular Filtration Rate mL/min (>60) Glucose Level 153 MG/DL (74-106) H Calcium Level 8.6 MG/DL (8.5-10.1) Microbiology Date/Time Source Procedure Growth Status 09/10/18 21:50 Sputum Gram Stain - Final Complete 09/10/18 21:50 Sputum Culture - Final Staphylococcus Aureus - Mrsa Complete Objective HEAD AND NECK: No JVD. LUNGS: Decreased breath sounds. CARDIOVASCULAR: Irregular S1 and S2 with soft systolic murmur. Pacemaker in the left subclavian. ABDOMEN: Soft.PEG in place EXTREMITIES: 1+ pitting edema. Jere Faustin MD Sep 13, 2018 16:21
[2018-09-13] MEDS ORDERED: Warfarin Sodium 4mg GT SCH (17:00)
--- NOTE | 2018-09-13 20:32 | General Progress Note ---
Assessment/Plan Assessment/Plan Assessment/Plan # Thyroid carcinoma and on CT scan; multiple osseous destructive lesions as detailed in ct scan ,likely osseous metastases given known history of thyroid carcinoma. Multiple pulmonary and pleural nodules, likewise presumably on the basis of metastatic disease. History of thyroid cancer, status post thyroid surgery. --> review outside imaging and treatments patient has received --> outside labs and pathology to be reviewed --> defer to outpatient oncologist for further care, patient requires followup --> radioactive iodine scan as outpatient, consider tumor testing for specific molecular targets # Leukocytosis. Likely related to underlying infection versus reactive process. --> Peripheral has been reviewed --> Medications have been reviewed --> Imaging has been reviewed --> Blood cultures and urine cultures prn --> has been started on abx, empiric treatment # Right base destructive lung mass, Pulmonology consult appreciated --> pulmr ecs appreciated --> thora on prn basis # Acquired hypothyroidism, continue levothyroxine # Exacerbation of congestive heart failure, Continue Lasix 40 mg IV bid, Coreg 3.125 mg b.i.d. as well as losartan 50 mg daily. -->appreciate cardiology recs # Atrial fibrillation, the rate is currently controlled and is on anticoagulation with Coumadin with a therapeutic INR. # Status post Biotronik pacemaker. # Hypertension, Continue current regimen Lasix, losartan, and Coreg. # Hypokalemia # Polyneuropathy, continue gabapentin # BPH, continue Proscar and Flomax The timing of this note does not necessarily reflect the time of the patient was seen. Greatly appreciate consultation! Subjective Constitutional: Denies: no symptoms, chills, diaphoresis, fever, malaise, weakness, other HEENT: Denies: no symptoms, eye pain, blurred vision, tearing, double vision, ear pain, ear discharge, nose pain, nose congestion, throat pain, throat swelling, mouth pain, mouth swelling, other Cardiovascular: Denies: no symptoms, chest pain, edema, irregular heart rate, lightheadedness, palpitations, syncope, other Respiratory: Denies: no symptoms, cough, orthopnea, shortness of breath, SOB with excertion, SOB at rest, sputum, stridor, wheezing, other Gastrointestinal/Abdominal: Denies: no symptoms, abdomen distended, abdominal pain, black stools, tarry stools, blood in stool, constipated, diarrhea, difficulty swallowing, nausea, poor appetite, poor fluid intake, rectal bleeding , vomiting, other Genitourinary: Denies: no symptoms, burning, discharge, frequency, flank pain, hematuria, incontinence, pain, urgency, other Neurologic/Psychiatric: Denies: no symptoms, anxiety, depressed, emotional problems, headache, numbness, paresthesia, pre-existing deficit, seizure, tingling, tremors, weakness, other Endocrine: Denies: no symptoms, excessive sweating, flushing, intolerance to cold, intolerance to heat, increased hunger, increased thirst, increased urine, unexplained weight gain, unexplained weight loss, other Hematologic/Lymphatic: Denies: no symptoms, anemia, easy bleeding, easy bruising, other Allergies: Coded Allergies: AZITHROMYCIN (Verified Allergy, Unknown, 09/04/18) PENICILLINS (Verified Allergy, Unknown, 09/03/18) Subjective 09/05: In atrial fib with V pacing. Rate controlled. Still NPO. Failed swallow eval. 09/06: thora completed successfuly on the right side, 0.8L removed 09/07: wbc trending down, S/P PEG placement and Right thoracentesis today, no events 09/09: seen by bedside, no acute distress. 09/10: seen by beside, Improved leukocytosis, cont abx, swallow eval noted, tube feeds via PEG 09/11: Pt is resting in bed, S/p right thoracentesis with 800 ml bloody fluid removed, lethargic, wbc trending up 09/12: seen by bedside, awake, comfortable, no acute distress, wbc 14, s/p Thoracentesis again today, d/c planning, 09/13: Pt is resting in bed, no acute distress reported. wbc 15 Objective Last 24 Hour Vital Signs Date Time Temp Pulse Resp B/P (MAP) Pulse Ox O2 Delivery O2 Flow Rate FiO2 09/13/18 13:31 69 19 100 Nasal Cannula 2.0 28 09/13/18 13:21 68 19 96 Nasal Cannula 2.0 28 09/13/18 12:00 97.5 56 23 130/60 (83) 99 09/13/18 09:29 65 156/88 09/13/18 08:36 Nasal Cannula 2.0 09/13/18 08:00 97.7 65 21 156/88 (110) 98 09/13/18 07:58 66 09/13/18 07:55 67 18 100 Nasal Cannula 2.0 09/13/18 07:42 98 Nasal Cannula 2.0 28 09/13/18 07:42 65 15 98 Nasal Cannula 2.0 28 09/13/18 07:42 Nasal Cannula 2.0 28 09/13/18 04:00 70 09/13/18 04:00 97.6 70 20 131/61 (84) 96 09/13/18 00:00 97.8 68 20 125/74 (91) 94 09/13/18 00:00 68 09/12/18 22:00 70 141/62 09/12/18 21:00 Nasal Cannula 2.0 Intake and Output 09/12/18 09/13/18 19:00 07:00 Intake Total 775 ml 960 ml Output Total 1300 ml 650 ml Balance -525 ml 310 ml Free Water 300 ml IV Total 55 ml Tube Feeding 720 ml 660 ml Output Urine Total 1300 ml 650 ml # Voids 1 Laboratory Tests 09/13/18 05:20: White Blood Count 15.3H, Red Blood Count 3.99L, Hemoglobin 11.6L, Hematocrit 36.2L, Mean Corpuscular Volume 91, Mean Corpuscular Hemoglobin 29.1, Mean Corpuscular Hemoglobin Concent 32.1, Red Cell Distribution Width 14.0, Platelet Count 234, Mean Platelet Volume 6.2L, Neutrophils (%) (Auto) , Lymphocytes (%) ( Auto) , Monocytes (%) (Auto) , Eosinophils (%) (Auto) , Basophils (%) (Auto) , Differential Total Cells Counted 100, Neutrophils % (Manual) 86H, Lymphocytes % (Manual) 9L, Monocytes % (Manual) 5, Eosinophils % (Manual) 0, Basophils % ( Manual) 0, Band Neutrophils 0, Platelet Estimate Adequate, Platelet Morphology Normal, Anisocytosis 1+, Prothrombin Time 14.0H, Prothromb Time International Ratio 1.3H, Sodium Level 148H, Potassium Level 3.5, Chloride Level 112H, Carbon Dioxide Level 30, Anion Gap 6, Blood Urea Nitrogen 47H, Creatinine 1.0, Estimat Glomerular Filtration Rate , Glucose Level 153H, Calcium Level 8.6 Height (Feet): 5 Height (Inches): 9.00 Weight (Pounds): 195 Objective Physical Exam General Appearance: no apparent distress, alert HEENT: normocephalic, atraumatic Neck: non-tender, normal alignment, supple Respiratory/Chest: ++ crackles Cardiovascular/Chest: normal peripheral pulses, normal rate Abdomen: normal bowel sounds, non tender, PEG++ Extremities: trace edema Skin Exam: normal pigmentation, warm/dry Neurologic: core man II-XII grossly normal, no motor/sensory deficits, alert, oriented x 3, responsive Raheem Holloway MD Sep 13, 2018 20:32
== END 2018-09-13 16:43 | DRG 291 ==
LOC: EDBD 07:29 → EMR 07:40 → 2E 08:23 → EDBEDREQ 11:06 → 2E 09-04 18:15
PROC: 0DH63UZ Insertion of Feeding Device into Stomach, Percutaneous Approach (ICD-10-PCS; principal; 2018-09-07 09:59)
PROC: 0DJ08ZZ Inspection of Upper Intestinal Tract, Via Natural or Artificial Opening Endoscopic (ICD-10-PCS; principal; 2018-09-07 09:59)
PROC: 0W993ZZ Drainage of Right Pleural Cavity, Percutaneous Approach (ICD-10-PCS; principal; 2018-09-07 09:59)
PROC: 0W9B3ZZ Drainage of Left Pleural Cavity, Percutaneous Approach (ICD-10-PCS; 2018-09-11)
DX: I13.0 Hypertensive heart and chronic kidney disease with heart failure and stage 1 through stage 4 chronic kidney disease, or unspecified chronic kidney disease (principal); I50.33 Acute on chronic diastolic (congestive) heart failure; J69.0 Pneumonitis due to inhalation of food and vomit; J96.21 Acute and chronic respiratory failure with hypoxia; E43 Unspecified severe protein-calorie malnutrition; N17.9 Acute kidney failure, unspecified; C78.00 Secondary malignant neoplasm of unspecified lung; J90 Pleural effusion, not elsewhere classified; C79.51 Secondary malignant neoplasm of bone; I48.2 Chronic atrial fibrillation; Z95.0 Presence of cardiac pacemaker; G62.9 Polyneuropathy, unspecified; N40.0 Benign prostatic hyperplasia without lower urinary tract symptoms; N18.9 Chronic kidney disease, unspecified; I25.10 Atherosclerotic heart disease of native coronary artery without angina pectoris; I49.5 Sick sinus syndrome; E78.5 Hyperlipidemia, unspecified; Z85.850 Personal history of malignant neoplasm of thyroid; E89.0 Postprocedural hypothyroidism; R13.12 Dysphagia, oropharyngeal phase; Z68.28 Body mass index [BMI] 28.0-28.9, adult; R62.7 Adult failure to thrive; E86.0 Dehydration
CPT/HCPCS: 36415; 36600; 71045; 71250; 74230; 76942; 78266; 80048; 80053; 80061; 80076; 81001; 82105; 82248; 82378; 82533; 82550; 82553; 82607; 82728; 82746; 82803; 82977; 83036; 83615; 83735; 83880; 84100; 84155; 84300; 84439; 84443; 84484; 84550; 85007; 85025; 85610; 85730; 86140; 86850; 86900; 86901; 86927; 87070; 87181; 87205; 88104; 93005; 93306; 94003; 94150; 94640; 94664; 94760; 96374; 99285; J3430; J8499